=== PATIENT | female | born 1940 | race Caucasian/White ===

== ENCOUNTER → 2016-08-05 | Outpatient (CLI) | payer BC ==
[~2016-08-05] MED LIST: ACET-1256 PO; ALEN1TAB21 PO; ATEN100T PO; ATOR-54 PO; ATOR10TA88 PO; CALC600T37 PO; CHOL1TAB42 PO; CLR10 PO; COD1000C PO; CRAN1CAP15 PO; CTP/1 PO; FIBER CAPS PO; FIBER PO; FLUT0.15 NAE; GLC/500 PO; GLC500 PO; GLUC10007 PO; GLUCTAB7 PO; LACTCHW5 PO; LEVO25TA PO; LISI-725 PO; LISI-792 PO; MIRA100T PO; MULTTAB58 PO; NIFE30TA2 PO; TNR25 PO
== END | disposition home or self-care (01) ==
LOC: C.MAMM 09:44
PROVIDERS: ATTEND Internal Medicine
DX: M81.0 Age-related osteoporosis without current pathological fracture (principal); M85.80 Other specified disorders of bone density and structure, unspecified site; Z82.62 Family history of osteoporosis

== ENCOUNTER 2016-10-22 18:17 | Emergency (ER) | payer BC ==
[~2016-10-22] VITALS: Ht 175.3 cm; Wt 80.6 kg
[~2016-10-22 18:17] MED LIST changes: -ACET-1256 PO; -ALEN1TAB21 PO; -ATOR10TA88 PO; -CALC600T37 PO; -CHOL1TAB42 PO; -CLR10 PO; -CRAN1CAP15 PO; -FIBER CAPS PO; -FLUT0.15 NAE; -GLC500 PO; -GLUCTAB7 PO; -LEVO25TA PO; -LISI-725 PO; -TNR25 PO
[2016-10-22 18:21] VITALS: TEMP 36.5; Ht 175.3 cm; Wt 80.6 kg
[2016-10-22] MEDS ORDERED: FENTANYL CITRATE INJ 50 MCG/1 ML 2 ML VIAL IV STA (18:33)
[2016-10-22] MEDS ORDERED: KETOROLAC TROMETHAMINE 30 MG/ML VIAL IV STA (18:33)
[2016-10-22] MEDS ORDERED: SODIUM CHLORIDE 0.9% 1000ML 1,000 ML IV STA (18:33)
[2016-10-22] MEDS ORDERED: ONDANSETRON INJ 2 MG/ML 2 ML VIAL IV STA (18:33)
--- NOTE | 2016-10-22 18:45 | EMERGENCY ROOM VISIT NOTE ---
History Report prepared by Shira: Giovani Jean Baptiste Under the Supervision of: Dr. Fredis Xavier M.D. First contact with patient: 18:25 Chief Complaint: HEADACHE Stated Complaint: EXTREME LEFT ACHE, LEFT SIDE History of Present Illness The patient is a 76 year old female who presents to the Emergency Room with complaints of a worsening left sided headache that started 3 days ago. She rates her discomfort a 5/10. She took Tylenol for her headache which did not offer relief. The patient arrived home from a cruise one week ago. She states that she saw her primary care physician yesterday who thought the patient may be suffering from an excessive salt intake. She adds that she was prescribed a medication for hypertensions at this time. The patient denies urinary symptoms, chest pain, fevers, or any additional associated symptoms. She also denies excessive drinking during the cruise. Source of History: patient Onset: 3 days ago Position: head Symptom Intensity: 5/10 Timing: worsening Modifying Factors (Relieving): other (None) Associated Symptoms: No chest pain, No fevers, No urinary symptoms Review of Systems See HPI for pertinent positives & negatives. A total of 10 systems reviewed and were otherwise negative. Past Medical & Surgical Medical Problems: (1) Diab Nuria Wo Compl, Type Ii Or Unspec Type, Not Uncntrld (2) Heart disease (3) Hyperlipidemia Nec/Nos (4) Hypertension Nos Family History Diabetes mellitus Heart disease Hypertension Social History Smoking Status: Never Smoker Alcohol Use: none Housing Status: lives alone Occupation Status: retired Current/Historical Medications Scheduled Alendronate Sodium (Alendronate Sodium), 35 MG PO WK Atenolol (Atenolol), 25 MG PO DAILY Atorvastatin (Lipitor), 10 MG PO DAILY Calcium (Calcium), 600 MG PO DAILY Cholecalciferol (Vitamin D), 1 TAB PO DAILY Clonidine Hcl (Catapres), 0.1 MG PO BID Fiber Laxative (Fiber Laxative), 2 TABS PO DAILY Fluticasone Propionate (Nasal) (Flonase Allergy Relief), 1 SPRAY VAN BID Levothyroxine Sodium (Synthroid), 25 MCG PO DAILY Lisinopril (Zestril), 20 MG PO BID Metformin HCl (Metformin HCl), 500 MG PO BID Multiple Vitamin (Multivitamin), 1 TAB PO DAILY [Fiber Caps], 1 CAP PO TID Scheduled PRN Acetaminophen (Tylenol), 500 MG PO for prn Lactase (Lactaid), 1 TAB PO UD PRN for FOLLOWING MEALS Loratadine (Claritin), 10 MG PO DAILY PRN for ALLERGIC REACTION Allergies Coded Allergies: Morphine (Verified Allergy, Mild, RASH, ITCH, 05/04/14) Propoxyphene (Verified Allergy, Mild, RASH, 05/04/14) Dairy (Verified Allergy, Unknown, DIARRHEA, 05/04/14) PT HAS LACTOSE INTOLERANCE Sulfa Drugs (Verified Allergy, Unknown, RASH/ITCHING, 05/04/14) Uncoded Allergies: TOMATOES (Allergy, Unknown, diarrhea, 05/04/14) Physical Exam Vital Signs Date Time Temp Pulse Resp B/P Pulse Ox O2 Delivery O2 Flow Rate FiO2 10/22/16 21:29 77 18 135/66 96 Room Air 10/22/16 20:51 72 18 149/57 100 Room Air 10/22/16 20:15 75 18 162/71 98 Room Air 10/22/16 19:51 66 18 189/84 94 Room Air 10/22/16 19:48 67 18 195/92 96 Room Air 10/22/16 19:35 63 18 184/78 95 Room Air 10/22/16 19:21 60 18 190/103 97 Room Air 10/22/16 19:21 61 10/22/16 18:46 61 18 195/86 95 Room Air 10/22/16 18:21 36.5 62 18 188/45 97 Room Air Physical Exam GENERAL: Patient is well appearing and in mild distress. HEAD: No acute trauma, normocephalic atraumatic ENT: Mucous membranes moist, no nasal congestion. EYES: Equal/Reactive Bilaterally, No scleral icterus, Normal ROM NECK: No nuchal rigidity, no meningismus, trachea is midline, full ROM LUNGS: No dyspnea. Clear to auscultation and equal bilaterally. No wheeze, no rhonchi. HEART: Regular rate and rhythm. No murmurs, rubs, gallops appreciated. ABDOMEN: Soft, nontender, bowel sounds positive, no masses appreciated, no peritonitis. BACK: No midline tenderness, no CVA tenderness EXTREMITIES: Normal motion all extremities, no cyanosis, no edema. NEUROLOGIC: Awake, Alert, Oriented, no acute motor or sensory deficits, no focal weakness, cranial nerves grossly intact. SKIN: No rash, no jaundice, no diaphoresis. Medical Decision & Procedures ER Provider Diagnostic Interpretation: Radiology results and stated below per my review and radiologist interpretation: CT SCAN OF THE BRAIN WITHOUT IV CONTRAST CLINICAL HISTORY: Headache. COMPARISON STUDY: No priors. TECHNIQUE: Unenhanced axial CT scan of the brain is performed from the vertex to the skull base. CT DOSE: 537.48 mGy.cm FINDINGS: Brain parenchyma: There are age-related involutional changes noting minimal subcortical and periventricular microangiopathic change. There is no hemorrhage, mass effect, or evidence of acute territorial ischemia by CT criteria. Live-white matter is preserved. No extra-axial fluid collection is seen. Ventricles, sulci, cisterns: Prominent secondary to involutional change. Intracranial vasculature: There is atherosclerotic calcification of the cavernous carotid and vertebral arteries. Calvarium: Unremarkable. Sinuses and mastoids: Findings suggest previous paranasal sinus surgery. Mild mucosal thickening seen within the ethmoid cavities. The remaining visualized paranasal sinuses are clear. There is a large right mastoid effusion. The left mastoid air cells are well pneumatized. Orbits: The bony orbits are grossly intact. There are bilateral ocular lens implants. IMPRESSION: 1. There is no hemorrhage, mass effect, or evidence of acute territorial ischemia by CT criteria. 2. Right mastoid effusion. Electronically signed by: Jason Morrissey M.D. 10/22/2016 7:03 PM Dictated Date/Time: 10/22/2016 7:[address] ANGIOGRAM OF THE BRAIN CLINICAL HISTORY: Headache. COMPARISON STUDY: Unenhanced CT scan of the brain performed the same day 10/22/2016. TECHNIQUE: Following the IV administration of 110 cc of Optiray 320, CT angiogram of the brain was performed from the skull base to the vertex. Images are reviewed in the axial, sagittal, and coronal planes. 3-D MIPS images are created and assessed. IV contrast was administered without complication. CT DOSE: 127.48 mGy.cm FINDINGS: Brain parenchyma: There are age-related involutional changes noting minimal subcortical and periventricular microangiopathic disease. There is no evidence of hemorrhage, mass effect, or evidence of acute territorial ischemia by CT criteria. There is no evidence of enhancing mass lesion on the on these angiogram phase images. No extra-axial fluid collection is seen. Live-white matter differentiation is preserved. Ventricles, sulci, and cisterns: Normal in configuration. CT angiogram of the brain: There is mild atherosclerotic calcification of the cavernous carotid and vertebral arteries. The internal carotid arteries are widely patent, as are the anterior and middle cerebral arteries. The vertebrobasilar system and posterior cerebral arteries are widely patent. The left vertebral artery is dominant. There is no aneurysm, high-grade stenosis, or focal vessel cutoff identified throughout the intracranial circulation. Dural sinuses: Clear as visualized. Orbits: The bony orbits are intact. The orbital contents are normal as visualized. There are bilateral ocular lens implants. Sinuses and mastoids: Findings suggest previous paranasal sinus surgery. Trace mucosal thickening is noted within the ethmoid cavity. The remaining paranasal sinuses are clear. There is a large right mastoid effusion. The left mastoid air cells appear well-pneumatized. Calvarium: Unremarkable. IMPRESSION: 1. There is no evidence of hemorrhage, mass effect, or acute territorial ischemia by CT criteria. 2. Unremarkable CT angiogram of the brain. 3. Large right mastoid effusion. Electronically signed by: Jason Morrissey M.D. 10/22/2016 9:14 PM Dictated Date/Time: 10/22/2016 9:09 PM Laboratory Results 10/22/16 18:46 Red Blood Count 4.83, Mean Corpuscular Volume 87.4, Mean Corpuscular Hemoglobin 29.2, Mean Corpuscular Hemoglobin Concent 33.4, Mean Platelet Volume 11.0, Neutrophils (%) (Auto) 78.0, Lymphocytes (%) (Auto) 12.4, Monocytes (%) (Auto) 3.9, Eosinophils (%) (Auto) 5.3, Basophils (%) (Auto) 0.2, Neutrophils # (Auto) 8.52, Lymphocytes # (Auto) 1.36, Monocytes # (Auto) 0.43, Eosinophils # (Auto) 0.58, Basophils # (Auto) 0.02 10/22/16 18:46 Test 10/22/16 18:46 White Blood Count 10.93 K/uL (4.8-10.8) Red Blood Count 4.83 M/uL (4.2-5.4) Hemoglobin 14.1 g/dL (12.0-16.0) Hematocrit 42.2 % (37-47) Mean Corpuscular Volume 87.4 fL (80-100) Mean Corpuscular Hemoglobin 29.2 pg (25-34) Mean Corpuscular Hemoglobin Concent 33.4 g/dl (32-36) Platelet Count 244 K/uL (130-400) Mean Platelet Volume 11.0 fL (7.4-10.4) Neutrophils (%) (Auto) 78.0 % Lymphocytes (%) (Auto) 12.4 % Monocytes (%) (Auto) 3.9 % Eosinophils (%) (Auto) 5.3 % Basophils (%) (Auto) 0.2 % Neutrophils # (Auto) 8.52 K/uL (1.4-6.5) Lymphocytes # (Auto) 1.36 K/uL (1.2-3.4) Monocytes # (Auto) 0.43 K/uL (0.11-0.59) Eosinophils # (Auto) 0.58 K/uL (0-0.5) Basophils # (Auto) 0.02 K/uL (0-0.2) RDW Standard Deviation 42.2 fL (36.4-46.3) RDW Coefficient of Variation 13.2 % (11.5-14.5) Immature Granulocyte % (Auto) 0.2 % Immature Granulocyte # (Auto) 0.02 K/uL (0.00-0.02) Anion Gap 11.0 mmol/L (3-11) Est Creatinine Clear Calc Drug Dose 58.8 ml/min Estimated GFR () 68.8 Estimated GFR (Non- 59.3 BUN/Creatinine Ratio 26.2 (10-20) Calcium Level 9.7 mg/dl (8.5-10.1) Troponin I < 0.015 ng/ml (0-0.045) Laboratory results as reviewed by me. Medications Administered Medications (Trade) Dose Ordered Sig/Bright Route Start Time Stop Time Status Last Admin Dose Admin Ketorolac Tromethamine (Toradol Inj) 15 mg NOW STAT IV 10/22/16 18:33 10/22/16 18:35 DC 10/22/16 19:14 15 MG Ondansetron HCl (Zofran Inj) 4 mg NOW STAT IV 10/22/16 18:33 10/22/16 18:35 DC 10/22/16 19:14 4 MG Fentanyl Citrate 50 mcg 50 mcg NOW STAT IV 10/22/16 18:33 10/22/16 18:35 DC 10/22/16 19:15 50 MCG Sodium Chloride (Nss 1000ml) 1,000 ml @ 999 mls/hr Q1H1M STAT IV 10/22/16 18:33 10/22/16 19:33 DC 10/22/16 19:13 999 MLS/HR Hydralazine HCl (HydrALAZINE INJ) 10 mg NOW STAT IV. 10/22/16 19:07 10/22/16 19:08 DC 10/22/16 19:47 10 MG ED Course 1827: The patient was evaluated in room C11. A complete history and physical exam was performed. 1832: Ordered Sodium Chloride 1,000 ml @ 999 mls/hr IV, Fentanyl Injection 50 mcg IV, Zofran Injection 15 mg IV. 1906: Ordered Hydralazine HCL 10 mg IV. 2002: Upon reevaluation, the patient is feeling a little better. 2025: The patient's headache is better than when she came in to the ED but it has come back a little bit. She is agreeable with CT scan. 2125: Reevaluated the patient. She is feeling much better and would like to go home. She has no further headache. Her blood pressure is 136/70 at this time. Discussed results and discharge instructions: She verbalized understanding and agreement. The patient is ready for discharge. Medical Decision Differential: Headache, Migraine, Cluster Headache, Seizure, Meningitis, Sinusitis, CO exposure, ICH/SAH, Infectious, Tumor, Sinus Thrombosis, Arterial Dissection, amongst other pathologies entertained. 76 yr old female arrives with left sided headache ongoing last few days since getting done with a cruise. No acute findings on exam and no neuro deficits. Improved with above, then mildly returned before headache resolving. CTA head w w/o unremarkable other than right mastoid effusion. No right sided headache nor mastoid TTP nor findings on TM examination. Afebrile, WBC not significantly elevated and she is in no distress now. She does not have meningitis. No evidence of dissection and no neck pain. She is feeing better and BP much improved. Discussed follow up with PCP, ENT and if worsening RTED for further evaluation. Impression Primary Impression: Left-sided headache Additional Impressions: Mastoid Effusion, Right Hypertension Scribe Attestation The scribe's documentation has been prepared under my direction and personally reviewed by me in its entirety. I confirm that the note above accurately reflects all work, treatment, procedures, and medical decision making performed by me. Departure Information Dispostion Home / Self-Care Referrals RV. Richards MD (PCP) Forms HOME CARE DOCUMENTATION FORM, IMPORTANT VISIT INFORMATION Patient Instructions Headache Pain, My [facility] Health Problem Qualifiers Additional Impressions: Hypertension Hypertension type: essential hypertension Qualified Codes: I10 - Essential ( primary) hypertension
[2016-10-22 18:57] LABS: BASO % 0.2 %; BASO ABS # 0.02 K/uL (0-0.2); COMPLETE YES; EOS % 5.3 %; HEMATOCRIT 42.2 % (37-47); IG% 0.2 %; LYMPH % 12.4 %; LYMPH ABS # 1.36 K/uL (1.2-3.4); MEAN CELL VOLUME 87.4 fL (80-100); MEAN CORPUSCULAR HEMOGLOBIN 29.2 pg (25-34); MEAN CORPUSCULAR HGB CONC 33.4 g/dl (32-36); MONO % 3.9 %; PLATELET COUNT 244 K/uL (130-400); RED BLOOD COUNT 4.83 M/uL (4.2-5.4); WHITE BLOOD COUNT 10.93 K/uL (4.8-10.8)
[2016-10-22] MEDS ORDERED: TNR25 PO (18:57)
[2016-10-22] MEDS ORDERED: GLC500 PO (18:57)
[2016-10-22] MEDS ORDERED: GLUCTAB7 PO (18:57)
[2016-10-22] MEDS ORDERED: CALC600T37 PO (18:57)
[2016-10-22] MEDS ORDERED: LEVO25TA PO (18:57)
[2016-10-22] MEDS ORDERED: CHOL1TAB42 PO (18:57)
[2016-10-22] MEDS ORDERED: FIBER CAPS PO (18:57)
[2016-10-22] MEDS ORDERED: ALEN1TAB21 PO (18:57)
[2016-10-22] MEDS ORDERED: FLUT0.15 NAE (18:57)
[2016-10-22] MEDS ORDERED: LISI-725 PO (18:57)
[2016-10-22] MEDS ORDERED: CRAN1CAP15 PO (18:57)
[2016-10-22] MEDS ORDERED: CLR10 PO (18:57)
[2016-10-22] MEDS ORDERED: ATOR10TA88 PO (18:57)
--- NOTE | 2016-10-22 19:04 | DIAGNOSTIC IMAGING REPORT ---
CT SCAN OF THE BRAIN WITHOUT IV CONTRAST CLINICAL HISTORY: Headache. COMPARISON STUDY: No priors. TECHNIQUE: Unenhanced axial CT scan of the brain is performed from the vertex to the skull base. CT DOSE: 537.48 mGy.cm FINDINGS: Brain parenchyma: There are age-related involutional changes noting minimal subcortical and periventricular microangiopathic change. There is no hemorrhage, mass effect, or evidence of acute territorial ischemia by CT criteria. Live-white matter is preserved. No extra-axial fluid collection is seen. Ventricles, sulci, cisterns: Prominent secondary to involutional change. Intracranial vasculature: There is atherosclerotic calcification of the cavernous carotid and vertebral arteries. Calvarium: Unremarkable. Sinuses and mastoids: Findings suggest previous paranasal sinus surgery. Mild mucosal thickening seen within the ethmoid cavities. The remaining visualized paranasal sinuses are clear. There is a large right mastoid effusion. The left mastoid air cells are well pneumatized. Orbits: The bony orbits are grossly intact. There are bilateral ocular lens implants. IMPRESSION: 1. There is no hemorrhage, mass effect, or evidence of acute territorial ischemia by CT criteria. 2. Right mastoid effusion. Electronically signed by: Jason Morrissey M.D. 10/22/2016 7:03 PM Dictated Date/Time: 10/22/2016 7:00 PM
[2016-10-22] MEDS ORDERED: HydrALAZINE HCL 20 MG/ML VIAL IV. STA (19:07)
[2016-10-22] MEDS ORDERED: ACET-1256 PO (19:17)
[2016-10-22 19:27] LABS: BLOOD UREA NITROGEN 25 mg/dl (7-18); BUN/CREATININE RATIO 26.2 (10-20); CALCIUM 9.7 mg/dl (8.5-10.1); CARBON DIOXIDE 25 mmol/L (21-32); CHLORIDE 99 mmol/L (98-107); CREATININE 0.94 mg/dl (0.60-1.20); GLUCOSE 112 mg/dl (70-99); POTASSIUM 3.9 mmol/L (3.5-5.1); SODIUM 135 mmol/L (136-145)
[2016-10-22] MEDS ORDERED: OPTIRAY 320 IV PRN (20:45)
--- NOTE | 2016-10-22 21:15 | DIAGNOSTIC IMAGING REPORT ---
CT ANGIOGRAM OF THE BRAIN CLINICAL HISTORY: Headache. COMPARISON STUDY: Unenhanced CT scan of the brain performed the same day 10/22/2016. TECHNIQUE: Following the IV administration of 110 cc of Optiray 320, CT angiogram of the brain was performed from the skull base to the vertex. Images are reviewed in the axial, sagittal, and coronal planes. 3-D MIPS images are created and assessed. IV contrast was administered without complication. CT DOSE: 127.48 mGy.cm FINDINGS: Brain parenchyma: There are age-related involutional changes noting minimal subcortical and periventricular microangiopathic disease. There is no evidence of hemorrhage, mass effect, or evidence of acute territorial ischemia by CT criteria. There is no evidence of enhancing mass lesion on the on these angiogram phase images. No extra-axial fluid collection is seen. Live-white matter differentiation is preserved. Ventricles, sulci, and cisterns: Normal in configuration. CT angiogram of the brain: There is mild atherosclerotic calcification of the cavernous carotid and vertebral arteries. The internal carotid arteries are widely patent, as are the anterior and middle cerebral arteries. The vertebrobasilar system and posterior cerebral arteries are widely patent. The left vertebral artery is dominant. There is no aneurysm, high-grade stenosis, or focal vessel cutoff identified throughout the intracranial circulation. Dural sinuses: Clear as visualized. Orbits: The bony orbits are intact. The orbital contents are normal as visualized. There are bilateral ocular lens implants. Sinuses and mastoids: Findings suggest previous paranasal sinus surgery. Trace mucosal thickening is noted within the ethmoid cavity. The remaining paranasal sinuses are clear. There is a large right mastoid effusion. The left mastoid air cells appear well-pneumatized. Calvarium: Unremarkable. IMPRESSION: 1. There is no evidence of hemorrhage, mass effect, or acute territorial ischemia by CT criteria. 2. Unremarkable CT angiogram of the brain. 3. Large right mastoid effusion. Electronically signed by: Jason Morrissey M.D. 10/22/2016 9:14 PM Dictated Date/Time: 10/22/2016 9:09 PM
[2016-10-22 21:29] VITALS: BP 135/66; PULSE 77; O2SAT 96
== END 2016-10-22 21:48 | disposition home or self-care (01) ==
LOC: C.EDB 18:18 → C.EDC 21:48
DX: I10 Essential (primary) hypertension (principal); R51 Headache; H74.8X1 Other specified disorders of right middle ear and mastoid; E11.9 Type 2 diabetes mellitus without complications; E78.5 Hyperlipidemia, unspecified; E55.9 Vitamin D deficiency, unspecified; Z83.3 Family history of diabetes mellitus; Z82.49 Family history of ischemic heart disease and other diseases of the circulatory system; Z79.899 Other long term (current) drug therapy

== ENCOUNTER → 2016-10-22 | Outpatient (CLI) | payer BC ==
[2016-10-22 09:52] LABS: ALT/SGPT 17 U/L (12-78); AST/SGOT 12 U/L (15-37); BLOOD UREA NITROGEN 18 mg/dl (7-18); BUN/CREATININE RATIO 17.8 (10-20); CALCIUM 9.2 mg/dl (8.5-10.1); CARBON DIOXIDE 29 mmol/L (21-32); CHLORIDE 103 mmol/L (98-107); GLUCOSE 116 mg/dl (70-99); POTASSIUM 4.3 mmol/L (3.5-5.1); SODIUM 138 mmol/L (136-145)
[2016-10-22 10:03] LABS: ALB/GLOB RATIO 1.1 (0.9-2); ALKALINE PHOSPHATASE 80 U/L (45-117); CHOLESTEROL 140 mg/dl (0-200); CHOLESTEROL/HDL RATIO 2.3; HDL CHOLESTEROL 62 mg/dl; LDL CHOLESTEROL CALCULATED 53 mg/dl; TRIGLYCERIDES 125 mg/dl (0-150); VERY LOW DENSITY LIPOPROT CALC 25 mg/dl
[2016-10-22 10:20] LABS: RATIO 35.4 mcg/mg (0-30.0)
[2016-10-22 10:31] LABS: ESTIMATED AVERAGE GLUCOSE 123 mg/dl; HA1C FLAG Normal (Normal)
== END | disposition home or self-care (01) ==
LOC: C.LAB 08:21
PROVIDERS: ATTEND Internal Medicine
DX: E11.9 Type 2 diabetes mellitus without complications (principal); E55.9 Vitamin D deficiency, unspecified

== ENCOUNTER → 2017-01-08 | Outpatient (CLI) | payer BC ==
[~2017-01-08] MED LIST changes: +ACET-1256 PO; +ALEN1TAB21 PO; -ATEN100T PO; -ATOR-54 PO; +ATOR10TA82 PO; +CALC600T37 PO; +CHOL1TAB42 PO; +CLR10 PO; -COD1000C PO; +FIBER CAPS PO; +FLUT0.15 NAE; -GLC/500 PO; +GLC500 PO; -GLUC10007 PO; +LEVO25TA PO; +LISI-725 PO; -LISI-792 PO; -MIRA100T PO; -NIFE30TA2 PO; +TNR25 PO
--- NOTE | 2017-01-08 13:27 | MAMMOGRAPHY REPORT ---
BILATERAL DIGITAL SCREENING MAMMOGRAM WITH CAD: 01/08/2017 CLINICAL HISTORY: Routine screening. Patient has no complaints. TECHNIQUE: Bilateral CC and MLO views were obtained. Current study was also evaluated with a Compute r Aided Detection (CAD) system. COMPARISON: Comparison is made to exams dated: 01/03/2016 mammogram, 07/19/2015 mammogram, 12/09/2012 m ammogram, 12/05/2011 mammogram, 12/04/2010 mammogram, and 12/01/2009 mammogram - [facility] nter. BREAST COMPOSITION: There are scattered areas of fibroglandular density in both breasts. FINDINGS: There are stable ribbon shaped metallic biopsy markers in the right upper outer quadrant. Benign rim calcifications in the right breast. Mild vascular calcification bilaterally. No suspicio us mass, architectural distortion or cluster of new, suspicious microcalcifications is seen. IMPRESSION: ACR BI-RADS CATEGORY 1: NEGATIVE There is no mammographic evidence of malignancy. A 1 year screening mammogram is recommended. The pa tient will receive written notification of the results. Approximately 10% of breast cancers are not detected with mammography. A negative mammographic report should not delay biopsy if a clinically suggestive mass is present. Gabbi Slaughter M.D. ay/:01/08/2017 10:24:21 Soda Maker: Alaina MATHUR)([place]), [facility] letter sent: Normal 1/2 BI-RADS Code: ACR BI-RADS Category 1: Negative
== END | disposition home or self-care (01) ==
LOC: C.MAMM 09:42
PROVIDERS: ATTEND Internal Medicine
DX: Z12.31 Encounter for screening mammogram for malignant neoplasm of breast (principal)

== ENCOUNTER → 2017-03-28 | Outpatient (CLI) | payer BC ==
[~2017-03-28] MED LIST changes: -ATOR10TA82 PO; +ATOR10TA88 PO
[2017-03-28 10:06] LABS: ALT/SGPT 13 U/L (12-78); BLOOD UREA NITROGEN 19 mg/dl (7-18); BUN/CREATININE RATIO 20.9 (10-20); CALCIUM 9.3 mg/dl (8.5-10.1); CARBON DIOXIDE 29 mmol/L (21-32); CHLORIDE 105 mmol/L (98-107); CREATININE 0.89 mg/dl (0.60-1.20); GLUCOSE 107 mg/dl (70-99); POTASSIUM 4.1 mmol/L (3.5-5.1); SODIUM 140 mmol/L (136-145)
[2017-03-28 10:09] LABS: ALB/GLOB RATIO 1.1 (0.9-2); ALKALINE PHOSPHATASE 78 U/L (45-117); AST/SGOT 12 U/L (15-37)
[2017-03-28 10:17] LABS: ESTIMATED AVERAGE GLUCOSE 126 mg/dl; HA1C FLAG Normal (Normal)
[2017-03-28 10:21] LABS: RATIO 11.7 mcg/mg (0-30.0)
== END | disposition home or self-care (01) ==
LOC: C.LAB 08:26
PROVIDERS: ATTEND Internal Medicine
DX: E11.9 Type 2 diabetes mellitus without complications (principal); M81.0 Age-related osteoporosis without current pathological fracture

== ENCOUNTER → 2017-11-25 | Outpatient (CLI) | payer BC ==
[~2017-11-25] MED LIST changes: -ALEN1TAB21 PO; +ALEN35TA42 PO; +ATOR10TA82 PO; -ATOR10TA88 PO
[2017-11-25 10:12] LABS: HEMOGLOBIN A1C 5.8 % (4.5-5.6)
[2017-11-25 10:13] LABS: ALBUMIN 3.4 gm/dl (3.4-5.0); ALT/SGPT 14 U/L (12-78); AST/SGOT 13 U/L (15-37); BLOOD UREA NITROGEN 21 mg/dl (7-18); CARBON DIOXIDE 28 mmol/L (21-32); CREATININE 0.94 mg/dl (0.60-1.20); GLUCOSE 100 mg/dl (70-99); POTASSIUM 4.3 mmol/L (3.5-5.1); SODIUM 138 mmol/L (136-145)
[2017-11-25 10:24] LABS: ALKALINE PHOSPHATASE 76 U/L (45-117); CHOLESTEROL 181 mg/dl (0-200); LDL CHOLESTEROL CALCULATED 88 mg/dl
== END | disposition home or self-care (01) ==
LOC: C.LAB 07:54
PROVIDERS: ATTEND Internal Medicine
DX: E11.9 Type 2 diabetes mellitus without complications (principal); E55.9 Vitamin D deficiency, unspecified

== ENCOUNTER 2017-12-15 15:55 | Observation (INO) | payer BC ==
[~2017-12-15] VITALS: Ht 172.7 cm; Wt 76.2 kg
[2017-12-15] MEDS ORDERED: ASPIRIN 81 MG CHEW PO STA (16:20)
--- NOTE | 2017-12-15 16:41 | EMERGENCY ROOM VISIT NOTE ---
History Report prepared by Shira: Guerda Gresham Under the Supervision of: Dr. Jason Aguirre M.D. First contact with patient: 16:09 Chief Complaint: CARDIAC ASSESSMENT Stated Complaint: ABNORMAL EKG,REFERRED IN BY DOCTOR History of Present Illness The patient is a 77 year old female who presents to the Emergency Room with complaints of intermittent chest pain for the past few days. She states she was at her PCP's office earlier today for a follow up visit for urinary symptoms and they told her she had a left anterior fascicular block after doing an EKG, and to come to the ED. The patient states the pain is mostly left sided and feels like "pressure" and "indigestion". Rest helps to alleviate her pain. She believes the pain was caused by a medication Dr. oDran gave her for her urinary issues, but she cannot remember the name. She denies any previous cardiac history but admits to a strong family history of heart disease with her Mother and Grandmother dying in their 60's from cardiac issues. Her son in his 50's from cardiac issues as well. She reports she does follow with Dr. Stern of [facility] because of her family history, and last saw him last summer. She believes her last stress test was "chemical" and she last had one in 2010. The patient denies any shortness of breath, nausea or diaphoresis. She does admit to left sided shoulder pain. She denies taking any daily blood thinners. She is diabetic and states her last A1C was 5.7. Source of History: patient Onset: past few days Position: chest Quality: pressure Timing: intermittent Associated Symptoms: No diaphoresis, No SOB, No nausea Review of Systems See HPI for pertinent positives & negatives. A total of 10 systems reviewed and were otherwise negative. Past Medical & Surgical Medical Problems: (1) Diab Nuria Wo Compl, Type Ii Or Unspec Type, Not Uncntrld (2) Heart disease (3) Hyperlipidemia Nec/Nos (4) Hypertension Nos Family History Diabetes mellitus Heart disease Hypertension Social History Smoking Status: Never Smoker Alcohol Use: none Drug Use: none Marital Status: Housing Status: lives alone Occupation Status: retired Current/Historical Medications Scheduled Alendronate Sodium (Alendronate Sodium), 35 MG PO WK Atenolol (Atenolol), 25 MG PO DAILY Calcium (Calcium), 600 MG PO BID Capsicum (Cayenne) (Cayenne), 450 MG PO DAILY Cholecalciferol (Vitamin D), 5,000 UNITS PO DAILY Clonidine Hcl (Catapres), 0.1 MG PO BID Fiber Laxative (Fiber Laxative), 2 TABS PO DAILY Lactase (Lactaid Fast Act), 9,000 UNITS PO UD Levothyroxine Sodium (Synthroid), 25 MCG PO DAILY Lisinopril (Zestril), 20 MG PO BID Metformin HCl (Metformin HCl), 500 MG PO BID Pravastatin Sod (Pravastatin Sodium), 10 MG PO HS Solifenacin (Vesicare), 5 MG PO DAILY Tobramycin/Dexamethasone 0.3% Oph (Tobradex 0.3% Oph), 5 DROPS OTB BID Scheduled PRN Acetaminophen (Tylenol), 500 MG PO for prn Loratadine (Claritin), 10 MG PO DAILY PRN for ALLERGIC REACTION Allergies Coded Allergies: Morphine (Verified Allergy, Mild, RASH, ITCH, 05/04/14) Propoxyphene (Verified Allergy, Mild, RASH, 05/04/14) Dairy (Verified Allergy, Unknown, DIARRHEA, 05/04/14) PT HAS LACTOSE INTOLERANCE Sulfa Drugs (Verified Allergy, Unknown, RASH/ITCHING, 05/04/14) Uncoded Allergies: TOMATOES (Allergy, Unknown, diarrhea, 05/04/14) Physical Exam Vital Signs Date Time Temp Pulse Resp B/P (MAP) Pulse Ox O2 Delivery O2 Flow Rate FiO2 12/15/17 17:21 65 12/15/17 17:17 64 22 179/104 97 Room Air 12/15/17 16:47 96 Room Air 12/15/17 16:47 96 Room Air 12/15/17 15:59 36.8 81 20 173/138 97 Room Air Physical Exam GENERAL: Patient is in no acute distress. HEENT: No acute trauma, normocephalic atraumatic, mucous membranes moist, no nasal congestion, no scleral icterus. NECK: No stridor, no adenopathy, no meningismus, trachea is midline. LUNGS: Clear to auscultation bilaterally, no wheeze, no rhonchi, breath sounds equal. HEART: Without murmurs gallops or rubs, regular rate and rhythm. ABDOMEN: Soft, nontender, bowel sounds positive, no hernias, no peritonitis. EXTREMITIES: No cyanosis or edema, full range of motion of all the joints without pain or difficulty, no signs for acute trauma. NEUROLOGIC: Oriented x 3, no acute motor or sensory deficits, no focal weakness. SKIN: No rash, no jaundice, no diaphoresis. Medical Decision & Procedures ER Provider Diagnostic Interpretation: Radiology results as stated below per my review and radiologist interpretation: CHEST ONE VIEW PORTABLE CLINICAL HISTORY: Chest pain. COMPARISON STUDY: Chest radiograph May 04, 2014. FINDINGS: Lung volumes are normal. No pneumothorax is noted. There is no evidence for pulmonary edema. No pneumonia is present. Cardiomediastinal silhouette is stable. There is a trace left pleural effusion. There is also a suspected trace right pleural effusion. IMPRESSION: Trace bilateral pleural effusions. Electronically signed by: Rajeev Beth M.D. 12/15/2017 4:45 PM Laboratory Results 12/15/17 16:45 12/15/17 16:45 Test 12/15/17 16:45 Red Blood Count 4.92 M/uL (4.2-5.4) Mean Corpuscular Volume 88.0 fL (80-100) Mean Corpuscular Hemoglobin 29.7 pg (25-34) Mean Corpuscular Hemoglobin Concent 33.7 g/dl (32-36) RDW Standard Deviation 41.1 fL (36.4-46.3) RDW Coefficient of Variation 12.9 % (11.5-14.5) Mean Platelet Volume 10.2 fL (7.4-10.4) Prothrombin Time 10.0 SECONDS (9.0-12.0) Prothromb Time International Ratio 1.0 (0.9-1.1) Activated Partial Thromboplast Time 25.8 SECONDS (21.0-31.0) Partial Thromboplastin Ratio 1.0 Anion Gap 7.0 mmol/L (3-11) Estimated GFR () 62.6 Estimated GFR (Non- 54.0 BUN/Creatinine Ratio 21.5 (10-20) Calcium Level 9.2 mg/dl (8.5-10.1) Total Bilirubin 0.2 mg/dl (0.2-1) Aspartate Amino Transf (AST/SGOT) 14 U/L (15-37) Alanine Aminotransferase (ALT/SGPT) 17 U/L (12-78) Alkaline Phosphatase 84 U/L (45-117) Troponin I < 0.015 ng/ml (0-0.045) Total Protein 7.1 gm/dl (6.4-8.2) Albumin 3.8 gm/dl (3.4-5.0) Globulin 3.3 gm/dl (2.5-4.0) Albumin/Globulin Ratio 1.2 (0.9-2) Laboratory results reviewed by me. Medications Administered Medications (Trade) Dose Ordered Sig/Bright Route Start Time Stop Time Status Last Admin Dose Admin Aspirin (Aspirin Chew) 324 mg NOW STAT PO 12/15/17 16:20 12/15/17 16:22 DC 12/15/17 16:20 324 MG ECG Per My Interpretation Indication: chest pain Rate (beats per minute): 74 Rhythm: normal sinus Findings: no ectopy, other (No ST elevation, evidence for LVH, no PVC) Change: no significant change (Unchanged from EKG on October 22, 2016) ED Course 1613: The patient was evaluated in room B12B. A complete history and physical exam was performed. 1620: Aspirin 324 mg PO. 1623: I discussed the patients case Dr. Stern, [facility]. The patient will be further evaluated. 1725: I spoke with Dr. Stern again. He agrees the patient should stay for a hospital evaluation. 1732: I discussed the patients case with Dr. Smith, [facility] Hospitalist. The patient will be further evaluated. 1736: I reevaluated the patient. She is resting comfortably. I discussed my recommendation she remain in the hospital for further evaluation and management and she is agreeable. Medical Decision The differential diagnoses considered include angina, [place], musculoskeletal pain, anxiety, pneumonia, pneumothorax and PE. There is no leukocytosis or concerning anemia. No significant electrolyte abnormality, kidney failure or hepatitis. There is no coagulopathy. Chest x- ray does not show pneumonia, pneumothorax or mediastinal widening. EKG shows a normal sinus rhythm with LVH. No acute ischemic change. No change in the EKG compared to previous EKGs. Cardiac enzyme testing 1 is not consistent with acute cardiac injury. Patient received oral aspirin. She is currently pain-free. She is resting comfortably. I did speak with cardiology. I spoke with the on-call hospitalist. Case management has been involved. Patient is aware of all her findings. The cause for her discomfort is unclear, further cardiac workup is needed. Medication Reconcilliation Current Medication List: was personally reviewed by me Blood Pressure Screening Patient's blood pressure: Elevated blood pressure Blood pressure disposition: Referred to PCP (The patients elevated blood pressure will be further managed by the inpatient hospital medicine team) Consults Time Called: 1620 Consulting Physician: Dr. Stern, [facility] Returned Call: 1623 I discussed the patients case Dr. Stern [facility]. The patient will be further evaluated. Additional Consults: Time Called: 1730 Consulted Physician: Dr. Smith [facility] Hospitalist Returned Call: 1732 Additional Comments: I discussed the patients case with Dr. Smith [facility] Hospitalist. The patient will be further evaluated. Impression Primary Impression: Precordial chest pain Scribe Attestation The scribe's documentation has been prepared under my direction and personally reviewed by me in its entirety. I confirm that the note above accurately reflects all work, treatment, procedures, and medical decision making performed by me. Departure Information Dispostion Being Evaluated By Hospitalist Referrals RV. Richards MD (PCP) Patient Instructions My [facility]
--- NOTE | 2017-12-15 16:47 | DIAGNOSTIC IMAGING REPORT ---
CHEST ONE VIEW PORTABLE CLINICAL HISTORY: Chest pain. COMPARISON STUDY: Chest radiograph May 04, 2014. FINDINGS: Lung volumes are normal. No pneumothorax is noted. There is no evidence for pulmonary edema. No pneumonia is present. Cardiomediastinal silhouette is stable. There is a trace left pleural effusion. There is also a suspected trace right pleural effusion. IMPRESSION: Trace bilateral pleural effusions. Electronically signed by: Rajeev Beth M.D. 12/15/2017 4:45 PM Dictated Date/Time: 12/15/2017 4:44 PM
[2017-12-15 16:54] LABS: HEMATOCRIT 43.3 % (37-47); HEMOGLOBIN 14.6 g/dL (12.0-16.0); MEAN CORPUSCULAR HEMOGLOBIN 29.7 pg (25-34); MEAN CORPUSCULAR HGB CONC 33.7 g/dl (32-36); MEAN PLATELET VOLUME 10.2 fL (7.4-10.4); PLATELET COUNT 251 K/uL (130-400); RED CELL DISTRIBUTION WIDTH CV 12.9 % (11.5-14.5); RED CELL DISTRIBUTION WIDTH SD 41.1 fL (36.4-46.3); WHITE BLOOD COUNT 8.73 K/uL (4.8-10.8)
[2017-12-15 17:06] LABS: PTT PATIENT 25.8 SECONDS (21.0-31.0)
[2017-12-15] MEDS ORDERED: [UNRECOGNIZED DRUG - CODE] PO (17:17)
[2017-12-15 17:19] LABS: ALBUMIN 3.8 gm/dl (3.4-5.0); ALKALINE PHOSPHATASE 84 U/L (45-117); ALT/SGPT 17 U/L (12-78); AST/SGOT 14 U/L (15-37); BLOOD UREA NITROGEN 22 mg/dl (7-18); CALCIUM 9.2 mg/dl (8.5-10.1); CARBON DIOXIDE 27 mmol/L (21-32); CREATININE 1.01 mg/dl (0.60-1.20); GLUCOSE 105 mg/dl (70-99); POTASSIUM 3.7 mmol/L (3.5-5.1); SODIUM 138 mmol/L (136-145); TOTAL PROTEIN 7.1 gm/dl (6.4-8.2)
[2017-12-15] MEDS ORDERED: PRVC/10 PO (17:20)
[2017-12-15] MEDS ORDERED: VSC/5 PO (17:22)
[2017-12-15] MEDS ORDERED: TOBRSUS OTB (17:30)
[2017-12-15] MEDS ORDERED: [UNRECOGNIZED DRUG - CODE] PO (17:35)
[2017-12-15] MEDS ORDERED: GLUCAGON FOR INJ 1 MG VIAL SQ PRN (17:45)
[2017-12-15] MEDS ORDERED: GLUCOSE 40% GEL 15 GM TUBE PO PRN (17:45)
[2017-12-15] MEDS ORDERED: ONDANSETRON INJ 2 MG/ML 2 ML VIAL IV PRN (17:45)
[2017-12-15] MEDS ORDERED: CARBOHYDRATES FOR HYPOGLYCEMIA PO PRN (17:45)
[2017-12-15] MEDS ORDERED: ACETAMINOPHEN 500 MG TAB PO PRN (17:45)
[2017-12-15] MEDS ORDERED: DC ALL PREVIOUSLY ORDERED DIABETES MEDS ONE (17:45)
[2017-12-15] MEDS ORDERED: DEXTROSE 50% 50 ML SYR IV PRN (17:45)
[2017-12-15] MEDS ORDERED: GLUCOSE 10 TABS/TUBE PO PRN (17:45)
[2017-12-15] MEDS ORDERED: LORATADINE 10 MG TAB PO PRN (17:45)
[2017-12-15] MEDS ORDERED: NITROGLYCERIN 0.4 MG SL PER TAB CHARGE SL PRN (17:45)
--- NOTE | 2017-12-15 18:19 | History and Physical ---
History & Physical Date & Time of Service: December 15, 2017 at 18:04 Chief Complaint: Abnormal Ekg,Referred In By Doctor Primary Care Physician: RV. Richards MD History of Present Illness Patient is a pleasant 77yo female with history of HTN, HLP and DM, family history of CAD presenting with 2 days of exertional chest pain, left sided pressure that occurs with ambulation and is relieved with rest in approximately 1 minute. Discomfort is nonradiating/nonpleuritic/nonpositional. It is not associated with diaphoresis/nausea/vomiting/palpitations or syncope. Patient reports decreased exercise tolerance over the last few months as well. Denies edema/SOB/orthopnea. She saw her PCP today for the same and was told to come to [facility]. Patient is presently CP free. ER Course: ASA 324mg, Cardiology consultation Past Medical/Surgical History Medical Problems: 1. Hypertension 2. Hyperlipidemia 3. Diabetes 4. Hypothyroidism Past Surgical History: Left and right hip arthroplasty with revision of left Low back Hammertoe Right knee Rotator cuff Cataract Family History Diabetes mellitus Heart disease Hypertension Social History Smoking Status: Never Smoker Alcohol Use: socially Drug Use: none Marital Status: Housing status: lives alone Occupational Status: retired Immunizations History of Influenza Vaccine: Yes Influenza Vaccine Date: May 22, 2012 History of Tetanus Vaccine?: Unknown Tetanus Immunization Date: May 05, 1998 History of Pneumococcal: No Pneumococcal Date: Jul 05, 2006 History of Hepatitis B Vaccine: Unknown Allergies Coded Allergies: Morphine (Verified Allergy, Mild, RASH, ITCH, 05/04/14) Propoxyphene (Verified Allergy, Mild, RASH, 05/04/14) Dairy (Verified Allergy, Unknown, DIARRHEA, 05/04/14) PT HAS LACTOSE INTOLERANCE Sulfa Drugs (Verified Allergy, Unknown, RASH/ITCHING, 05/04/14) Uncoded Allergies: TOMATOES (Allergy, Unknown, diarrhea, 05/04/14) Home Medications Scheduled Alendronate Sodium (Alendronate Sodium), 35 MG PO WK Atenolol (Atenolol), 25 MG PO DAILY Calcium (Calcium), 600 MG PO BID Capsicum (Cayenne) (Cayenne), 450 MG PO DAILY Cholecalciferol (Vitamin D), 5,000 UNITS PO DAILY Clonidine Hcl (Catapres), 0.1 MG PO BID Fiber Laxative (Fiber Laxative), 2 TABS PO DAILY Lactase (Lactaid Fast Act), 9,000 UNITS PO UD Levothyroxine Sodium (Synthroid), 25 MCG PO DAILY Lisinopril (Zestril), 20 MG PO BID Metformin HCl (Metformin HCl), 500 MG PO BID Pravastatin Sod (Pravastatin Sodium), 10 MG PO HS Solifenacin (Vesicare), 5 MG PO DAILY Tobramycin/Dexamethasone 0.3% Oph (Tobradex 0.3% Oph), 5 DROPS OTB BID Scheduled PRN Acetaminophen (Tylenol), 500 MG PO for prn Loratadine (Claritin), 10 MG PO DAILY PRN for ALLERGIC REACTION Review of Systems Constitutional: No fever, No chills, No weight loss Eyes: No worsening of vision, No diplopia ENT: No hearing loss, No sore throat, No trouble swallowing Respiratory: + shortness of breath, + dyspnea on exertion, No cough, No sputum , No wheezing Cardiovascular: + chest pain, No orthopnea, No edema, No palpitations Abdomen: No pain, No nausea, No vomiting, No diarrhea, No constipation Musculoskeletal: No joint pain Genitourinary - Female: + urinary frequency, + urinary urgency, No dysuria Neurologic: No weakness Endocrine: No fatigue Hematologic / Lymphatic: No abnormal bleeding/bruising, No clotting problems Integumentary: No rash, No itch Physical Exam Vital Signs Date Time Temp Pulse Resp B/P (MAP) Pulse Ox O2 Delivery O2 Flow Rate FiO2 12/15/17 17:21 65 12/15/17 17:17 64 22 179/104 97 Room Air 12/15/17 16:47 96 Room Air 12/15/17 16:47 96 Room Air 12/15/17 15:59 36.8 81 20 173/138 97 Room Air General Appearance: WD/WN, no apparent distress Head: normocephalic, atraumatic Eyes: normal inspection, PERRL, EOMI, sclerae normal ENT: normal ENT inspection, pharynx normal Neck: supple, no adenopathy, thyroid normal, no JVD, no carotid bruits, trachea midline Respiratory/Chest: chest non-tender, lungs clear, normal breath sounds, no respiratory distress, no accessory muscle use Cardiovascular: regular rate, rhythm, no edema, no gallop, no JVD, no murmur, normal peripheral pulses Abdomen/GI: normal bowel sounds, non tender, soft, no organomegaly Back: normal inspection Extremities/Musculoskelatal: normal inspection, no calf tenderness, normal capillary refill, no pedal edema Neurologic/Psych: normal mood/affect Skin: normal color, warm/dry, no rash Diagnostics Laboratory Results Results Past 24 Hours Test 12/15/17 16:45 Range/Units White Blood Count 8.73 4.8-10.8 K/uL Red Blood Count 4.92 4.2-5.4 M/uL Hemoglobin 14.6 12.0-16.0 g/dL Hematocrit 43.3 37-47 % Mean Corpuscular Volume 88.0 80-100 fL Mean Corpuscular Hemoglobin 29.7 25-34 pg Mean Corpuscular Hemoglobin Concent 33.7 32-36 g/dl RDW Standard Deviation 41.1 36.4-46.3 fL RDW Coefficient of Variation 12.9 11.5-14.5 % Platelet Count 251 130-400 K/uL Mean Platelet Volume 10.2 7.4-10.4 fL Prothrombin Time 10.0 9.0-12.0 SECONDS Prothromb Time International Ratio 1.0 0.9-1.1 Activated Partial Thromboplast Time 25.8 21.0-31.0 SECONDS Partial Thromboplastin Ratio 1.0 Sodium Level 138 136-145 mmol/L Potassium Level 3.7 3.5-5.1 mmol/L Chloride Level 104 98-107 mmol/L Carbon Dioxide Level 27 21-32 mmol/L Anion Gap 7.0 3-11 mmol/L Blood Urea Nitrogen 22 7-18 mg/dl Creatinine 1.01 0.60-1.20 mg/dl Estimated GFR () 62.6 Estimated GFR (Non- 54.0 BUN/Creatinine Ratio 21.5 10-20 Random Glucose 105 70-99 mg/dl Calcium Level 9.2 8.5-10.1 mg/dl Total Bilirubin 0.2 0.2-1 mg/dl Aspartate Amino Transf (AST/SGOT) 14 15-37 U/L Alanine Aminotransferase (ALT/SGPT) 17 12-78 U/L Alkaline Phosphatase 84 45-117 U/L Troponin I < 0.015 0-0.045 ng/ml Total Protein 7.1 6.4-8.2 gm/dl Albumin 3.8 3.4-5.0 gm/dl Globulin 3.3 2.5-4.0 gm/dl Albumin/Globulin Ratio 1.2 0.9-2 Diagnostic Radiology CHEST ONE VIEW PORTABLE CLINICAL HISTORY: Chest pain. COMPARISON STUDY: Chest radiograph May 04, 2014. FINDINGS: Lung volumes are normal. No pneumothorax is noted. There is no evidence for pulmonary edema. No pneumonia is present. Cardiomediastinal silhouette is stable. There is a trace left pleural effusion. There is also a suspected trace right pleural effusion. IMPRESSION: Trace bilateral pleural effusions. EKG The study demonstrates NSR at 74bpm, normal access and intervals, ?LVH. No acute evidence of ischemia Impression Assessment and Plan 77yo female with history of HTN, HLP, DM, strong family history of heart disease presenting with anginal symptoms x 2 days. 1. Chest pain - exertional, relieved with rest. Troponin x 1 negative, EKG with no acute evidence of ischemia. Patient is hemodynamically stable and CP free. -Cardiology consult with Dr. Stern - patient is known to him. Appreciate assistance with this case -Trend cardiac enzymes x 3 sets -Telemetry monitoring -Continue ASA -Continue Statin -Will hold Atenolol for now in preparation for stress test in AM -Continue Lisinopril -Dobutamine stress test in AM -NPO after midnight 2. Diabetes -well controlled with Metformin 500mg po BID. Last A1C=5.7 -Hold Metformin while inpatient -ISS for coverage 3. Hypertension -patient presently hypertensive, appears anxious and scared -Continue Lisinopril 20mg po daily -Hold Atenolol as above -Continue Clonidine 0.1mg po BID 4. Hypothyroidism -stable -Continue Synthroid 5. Hyperlipidemia - stable -Continue Pravastatin 6. Urinary urgency - patient presently taking Vesicare. She does not like how it makes her feel -Hold Vesicare for now 7. F/E/N - Heplock. Monitor electrolytes and replete as needed. AHA diet as tolerated. NPO after midnight for stress test in AM 8. Code - Full per discussion with patient 9. Dispo - Observation with telemetry, Cardiology consultation Resuscitation Status Full VTE Prophylaxis Will order VTE Prophylaxis: Yes
[2017-12-15] MEDS: CLONIDINE HCL 0.1 MG TAB PO SCH (19:45)
[2017-12-15] MEDS: LISINOPRIL 20 MG TAB PO SCH (19:46)
[2017-12-15 19:50] VITALS: BP_SYST 197; BP_SYST 202; BP_DIAS 84; BP_DIAS 96; PULSE 63; TEMP 36.6; O2SAT 96; Ht 172.7 cm; Wt 76.2 kg
[2017-12-15 20:00] VITALS: O2SAT 96
[2017-12-15] MEDS ORDERED: ENOXAPARIN 40 MG/0.4 ML SYR SC SCH (20:00)
--- NOTE | 2017-12-15 20:06 | CARDIOLOGY CONSULTATION ---
DATE OF CONSULTATION: 12/15/2017 REASON FOR CONSULTATION: Chest pain. CONSULTATION REQUESTED BY: Jason Aguirre MD. HISTORY OF PRESENT ILLNESS: Ms. Reid is a very pleasant 77-year-old woman known to me from the outpatient setting with a history of hypertensive heart disease, dyslipidemia; type 2 diabetes, on oral therapy, and significant family history of coronary artery disease, who presented to the ED today from her primary care provider's office in the setting of chest tightness. The patient had been in her usual state until this weekend. She states she was started on a new medication by her urologist and has felt unwell over the weekend with intermittent chest squeezing. Denied any significant shortness of breath. Pain nonradiating and has not had similar pain like this in the past. This morning, pain became more severe, and as a result, went to see her primary care physician. There, had an EKG which showed LVH and left anterior fascicular block, which was at that time thought to be new. The patient was noted to have active chest pain, but due to concerns, was sent to the Emergency Department. In the ED, EKG again showed LVH with left anterior fascicular block, which has been noted on previous EKGs. Initial troponin was negative. She was chest pain free at the time of interview. PAST MEDICAL HISTORY: 1. Hypertensive heart disease. 2. Dyslipidemia. 3. Type 2 diabetes. 4. GERD. 5. Osteoarthritis, status post multiple joint replacements. 6. Urinary incontinence. PAST SURGICAL HISTORY: History of bilateral hip replacement, right knee replacement, prior cataract surgery, and rotator cuff repair. FAMILY HISTORY: Son from [place] in his 40s, also mother of an [place] later in life. SOCIAL HISTORY: She is retired, is a lifelong nonsmoker. Denies significant alcohol use. Lives alone. REVIEW OF SYSTEMS: 10 point review of systems complete and otherwise negative unless stated in HPI. PHYSICAL EXAMINATION: VITAL SIGNS: Temperature 36.8, pulse 64, blood pressure 139/104, she is saturating 97% on room air. GENERAL: The patient appears comfortable, in no acute distress. HEENT: Sclerae are intact. Oropharynx is clear. NECK: Supple, with no lymphadenopathy. RESPIRATORY: Her lungs are clear to auscultation bilaterally. CARDIAC: She has a regular rate and rhythm, with no appreciable murmurs. GASTROINTESTINAL: Her abdomen is soft, nontender, with positive bowel sounds. EXTREMITIES: Warm. She has no significant lower extremity edema. She has diminished DP and PT pulses bilaterally but had 2+ radial pulses. SKIN: Showed no rashes or lesions. NEUROLOGIC: Nonfocal. LABORATORY DATA: Sodium 138, potassium 3.7, BUN 22, creatinine 1.0. LFTs within normal limits. Initial troponin was negative. Hemoglobin of 14.6, white blood cell count was 8.7, platelets of 251. IMAGING: Chest x-ray showed trace bilateral pleural effusions but no other acute cardiopulmonary process. EKG showed sinus rhythm with LVH and left anterior fascicular block. There were no dynamic ST changes. IMPRESSION: 1. Chest pain. 2. Hypertensive heart disease. 3. Dyslipidemia. 4. Type 2 diabetes, on oral therapy. 5. Gastroesophageal reflux disease. PLAN AND RECOMMENDATIONS: Mrs. Reid is here with intermittent chest squeezing over the last 2-3 days. Her initial cardiac workup is reassuring and had no significant EKG changes or elevation in cardiac enzymes. However, in the setting of the patient's risk factors, I feel that likelihood of potential ACS is at least elevated, and further risk stratification is warranted. In that setting, recommend admission for observation, trend troponins overnight. Continue home antihypertensives and titrate as needed. Will plan to obtain a dobutamine stress echocardiogram in the a.m. If stress test unremarkable, can be discharged home with reassurance and follow up with cardiology as an outpatient. Please contact with any questions.
[2017-12-15] MEDS: TOBRAMYCIN/DEXAMETHASONE OPH SUSP 2.5 ML BTL OTB SCH (20:26)
[2017-12-15] MEDS: INSULIN ASPART 100 UNITS/ML 3 ML PEN SC SCH (20:26)
[2017-12-15] MEDS ORDERED: PRAVASTATIN SOD 10 MG TAB PO SCH (21:00)
[2017-12-15] MEDS ORDERED: IV FLUIDS COMPLETED PRN (21:00)
[2017-12-15 21:40] VITALS: BP 130/60; PULSE 66
[2017-12-16] VITALS (8 sets, daily range): BP systolic 122–214; BP diastolic 66–93; PULSE 58–73; TEMP 36.4–37.1; O2SAT 94–96
[2017-12-16] MEDS ORDERED: LEVOTHYROXINE 25 MCG TAB PO SCH (06:00)
[2017-12-16] MEDS: LISINOPRIL 20 MG TAB PO SCH (07:50)
[2017-12-16] MEDS: CLONIDINE HCL 0.1 MG TAB PO SCH (07:51)
[2017-12-16] MEDS: TOBRAMYCIN/DEXAMETHASONE OPH SUSP 2.5 ML BTL OTB SCH (07:53)
[2017-12-16] MEDS: INSULIN ASPART 100 UNITS/ML 3 ML PEN SC SCH ×3 (07:57→17:34)
[2017-12-16] MEDS ORDERED: HydrALAZINE HCL 20 MG/ML VIAL IV. PRN ×2 (08:45→09:00)
[2017-12-16] MEDS ORDERED: ASPIRIN 81 MG ECTAB PO SCH (09:00)
[2017-12-16] MEDS ORDERED: ATROPINE SULFATE 0.1 MG/ML 10 ML SYR ONE (09:44)
[2017-12-16] MEDS ORDERED: METOPROLOL TARTRATE 1 MG/ML VIAL ONE ×2 (09:44)
[2017-12-16] MEDS ORDERED: DOBUTamine HCL 12.5 MG/ML 20 ML VIAL ONE (09:44)
[2017-12-16] MEDS ORDERED: PERFLUTREN LIPID MICROSPHERE (DEFINITY) IV ONE (10:23)
--- NOTE | 2017-12-16 15:30 | Discharge Instructions ---
Discharge Instructions Date of Service December 16, 2017. Admission Reason for Admission: Chest Pain Discharge Discharge Diagnosis / Problem: Chest pain Discharge Goals Goal(s): Decrease discomfort, Improve function, Increase independence, Improve disease control, Learn about illness, Diagnostic testing, Therapeutic intervention, Prevent Disease Progression Activity Recommendations Activity Limitations: resume your previous activity . Instructions / Follow-Up Instructions / Follow-Up You were admitted to [facility] due to complaints of chest pain. An acute cardiac event was ruled out through cardiac monitoring, cardiac enzymes, EKG, and stress echocardiogram. The cause of the symptoms you experienced are unknown at this time, but resolved while hospitalized. Please follow-up with your PCP for further workup/treatment of your symptoms. Resume all regular home medications as prescribed Activation of Emergency Medical System: Call 911, immediately, if you experience any of the following: Warning Signs and Symptoms of a Heart Attack: * Chest pain that is not relieved by medication * Shortness of breath Otherwise, call your doctor immediately if you have: * Lightheadedness, dizziness, or fainting * Feeling of irregular heartbeat or fast pulse Home Care: * If you are having chest pain, call 911 for an ambulance. Do NOT drive yourself to the hospital. * Ask your family members to learn CPR. * Learn to take your own blood pressure and pulse. Keep a record of your results. Ask your doctor when you should seek emergency medical attention. He or she will tell you which blood pressure reading is dangerous. Lifestyle Changes: * Maintain a healthy weight. Get help to lose any extra pounds. * Cut back on salt. 1. Limit canned, dried, packaged, and fast foods. 2. Don't add salt to your food. 3. Season foods with herbs instead of salt when you cook. * Break the smoking habit. Enroll in a stop-smoking program to improve your chances of success. * Limit fatty foods. * Check your lipid levels regularly. (Your doctor can show you how to do this. ) * Build up your activity according to your doctor's recommendation. * Ask your doctor when it's okay to resume sexual activity. * Try to manage stress. FOLLOW-UPS: Please follow-up with your PCP within 5-7 days Please follow-up with Cardiology as instructed by Dr. Stern Please follow-up/keep all of your subspecialty appointments Current Hospital Diet Patient's current hospital diet: Diabetes Type 2 Diet, AHA Diet (Heart Healthy) , Low Lactose Diet Discharge Diet Recommended Diet: AHA Diet (Heart Healthy), Diabetes Type 2 Diet Pending Studies Studies pending at discharge: no Laboratory Results Hemoglobin A1c Test 11/25/17 08:03 Range/Units Estimated Average Glucose 120 mg/dl Hemoglobin A1c 5.8 H 4.5-5.6 % Lipid Panel Test 11/25/17 08:03 Range/Units Triglycerides Level 157 H 0-150 mg/dl Cholesterol Level 181 0-200 mg/dl HDL Cholesterol 62 mg/dl Cholesterol/HDL Ratio 2.9 LDL Cholesterol, Calculated 88 mg/dl Medical Emergencies . Who to Call and When: Medical Emergencies: If at any time you feel your situation is an emergency, please call 911 immediately. . Non-Emergent Contact Non-Emergency issues call your: Primary Care Provider, [employer] Tele[employer] Operator Call Non-Emergent contact if: your pain is not controlled, your pain is worsening, your pain is unusual for you, your pain is concerning you, you have any medication questions . . "Provider Documentation" section prepared by Cornelia Larose. .
--- NOTE | 2017-12-16 15:37 | Discharge Summary ---
Discharge Summary Date of Service December 16, 2017. Discharge Summary Admission Date: December 15, 2017 at 17:47 Discharge Date: December 16, 2017 Discharge Disposition: Home Principal Diagnosis: chest pain r/o Problems/Secondary Diagnoses: T2DM- hgbA1c 5.7% HTN Hypothyroidism HLD Urinary urgency Immunizations: Have You Had Influenza Vaccine: Yes Influenza Vaccine Date: May 22, 2012 History of Tetanus Vaccine?: Unknown Tetanus Immunization Date: May 05, 1998 History of Pneumococcal: No Pneumococcal Date: Jul 05, 2006 History of Hepatitis B Vaccine: Unknown Procedures: CHEST ONE VIEW PORTABLE CLINICAL HISTORY: Chest pain. COMPARISON STUDY: Chest radiograph May 04, 2014. FINDINGS: Lung volumes are normal. No pneumothorax is noted. There is no evidence for pulmonary edema. No pneumonia is present. Cardiomediastinal silhouette is stable. There is a trace left pleural effusion. There is also a suspected trace right pleural effusion. IMPRESSION: Trace bilateral pleural effusions. Electronically signed by: Rajeev Beth M.D. 12/15/2017 4:45 PM Dictated Date/Time: 12/15/2017 4:44 PM The status of this report is Signed. Draft = Not yet reviewed or approved by Radiologist. Signed = Reviewed and approved by Radiologist. Consultations: Cardiology- Dr. Stern Medication Reconciliation Continued Medications: Acetaminophen (Tylenol) 500 Mg Tab 500 MG PO PRN for prn, TAB Alendronate Sodium (Alendronate Sodium) 35 Mg Tab 35 MG PO WK, #4 EVERY FRIDAY Atenolol (Atenolol) 25 Mg Tab 25 MG PO DAILY Calcium (Calcium) 600 Mg Tab 600 MG PO BID Capsicum (Cayenne) (Cayenne) 450 Mg Cap 450 MG PO DAILY Cholecalciferol (Vitamin D) 5,000 Unit Tab 5000 UNITS PO DAILY Clonidine Hcl (Catapres) 0.1 Mg Tab 0.1 MG PO BID, TAB Fiber Laxative (Fiber Laxative) Ea 2 TABS PO DAILY Lactase (Lactaid Fast Act) 9,000 Unit Chw 9000 UNITS PO UD TAKE ONE FOLLOWING MEALS. Levothyroxine Sodium (Synthroid) 25 Mcg Tab 25 MCG PO DAILY, TAB Lisinopril (Zestril) 20 Mg Tab 20 MG PO BID, TAB Loratadine (Claritin) 10 Mg Tab 10 MG PO DAILY PRN for ALLERGIC REACTION, TAB Metformin HCl (Metformin HCl) 500 Mg Tab 500 MG PO BID Pravastatin Sod (Pravastatin Sodium) 10 Mg Tab 10 MG PO HS Solifenacin (Vesicare) 5 Mg Tab 5 MG PO DAILY, TAB Tobramycin/Dexamethasone 0.3% Oph (Tobradex 0.3% Oph) Susp 5 DROPS OTB BID Referrals At Discharge Follow up Referrals: Family Practice Referral - Within 1 Week with RV. Richards MD Discharge Exam Review of Systems: Constitutional: No fever, No chills, No sweats, No weakness, No fatigue Eyes: No worsening of vision ENT: No hearing loss Respiratory: No cough, No shortness of breath, No dyspnea on exertion, No hemoptysis Cardiovascular: No chest pain, No edema, No palpitations Abdomen: No pain, No nausea, No vomiting, No diarrhea, No constipation Musculoskeletal: No joint pain, No muscle pain, No swelling, No calf pain Genitourinary - Female: No dysuria, No hematuria Neurologic: No weakness, No numbness/tingling Psychiatric: No depression symptoms, No anxiety Endocrine: No fatigue Hematologic / Lymphatic: No abnormal bleeding/bruising Integumentary: No rash, No itch, No new/changing skin lesions Physical Exam: General Appearance: no apparent distress Eyes: normal inspection, PERRL ENT: hearing grossly normal Neck: supple Respiratory/Chest: lungs clear, no respiratory distress, no accessory muscle use Cardiovascular: regular rate, rhythm Abdomen / GI: normal bowel sounds, non tender, soft Extremities: no calf tenderness, no pedal edema Neurologic/Psychiatric: alert, normal mood/affect, oriented x 3 Skin: normal color, warm/dry, no rash Hospital Course 77 y/o female with history of HTN, HLP, DM, strong family history of heart disease presenting with anginal symptoms x 2 days. Chest pain- ACS r/o: - Admitted to [facility] for cardiac monitoring- no acute events - Trended cardiac enzymes- negative - ASA, statin, Lisinopril - Dobutamine stress test - Cardiology consulted T2DM- hgbA1c 5.7%: - Hold Metformin 500 mg BID- resume at discharge - BSG ACHS and ISS HTN: Continue Lisinopril 20 mg daily, Atenolol 25 mg daily, Clonidine 0.1 mg BID Hypothyroidism: Continue Synthroid HLD: Continue Pravastatin Urinary urgency: Continue Vesicare DVT prophylaxis: Lovenox SQ daily Code status: LEVEL I, FULL Dispo: Discharge to home Total Time Spent: Greater than 30 minutes This includes examination of the patient, discharge planning, medication reconciliation, and communication with other providers. Discharge Instructions Please refer to the electronic Patient Visit Report (Discharge Instructions) for additional information. Follow-Up Please follow-up with your PCP within 5-7 days Please follow-up with Cardiology as instructed by Dr. Stern Please follow-up/keep all of your subspecialty appointments Additional Copies To RV. Richards MD
--- NOTE | 2017-12-16 16:06 | DOBUTAMINE ECHO ---
*NOTICE TO RECEIVING [employer] This information is strictly Confidential and protected under [place] law. [place] law prohibits you from making any further disclosure of this information unless further disclosure is expressly permitted by the written consent of the person to whom it pertains or is authorized by law. A general authorization for the release of medical or other information is not sufficient for this purpose. Hospital accepts no responsibility if the information is made available to any other person, INCLUDING THE PATIENT. Interpretation Summary * Name: LALA WEINSTEIN Study Date: 12/16/2017 08:23 AM BP: 167/99 mmHg * Patient Location: .MSICU\S\E110\S\1 HR: 73 * : 1940 (M/d/yyyy) Gender: Female Height: 68 in * Age: 77 yrs Ethnicity: CA Weight: 170 lb * Ordering Physician: Sandy Smith * Referring Physician: RV. Maurice * Performed By: Sandy Morejon RDCS * * Reason For Study: CHEST PAIN * BSA: 1.9 m2 * -- Conclusions -- * 1. Negative dobutamine stress echo for ischemia at 92% MPHR. * 2. Negative dobutamine stress ECG for ischemia. * 3. Normal resting LV size and function. Mild concentric LVH with grade 1 diastolic dysfunction. Normal RV size and function. No significant valvular pathology. * 4. No prior studies for comparison. Procedure Details * DOBUTAMINE ECHO, CPT#59519 * A contrast injection of Definity was performed to improve assessment of LV function. * Contrast was injected into an intravenous site in the left arm. * One vial of Definity ultrasound contrast was diluted in normal saline to a total volume of 10 ml. A total of '7' ml of solution was administered during imaging. * Lot # [id number] of Definity utilized for procedure. * Expiration date NOV 13. * The attending nurse who injected the contrast agent was DENY JERNIGAN RN. Left Ventricular Findings with Stress * This was essentially a normal study. Left Ventricle * The left ventricle is grossly normal size. * There is mild concentric left ventricular hypertrophy. * Ejection Fraction = 60-65%. * Resting wall motion: Normal. Stress wall motion: Appropriate increase in Left ventricular systolic function and decrease in cavity size. No stress induced segmental wall motion abnormalities. Right Ventricle * The right ventricle is grossly normal size. * The right ventricular systolic function is normal as assessed by tricuspid annular plane systolic excursion (TAPSE) (normal >1.5 cm). Atria * Borderline left atrial enlargement. * Right atrial size is normal. Mitral Valve * The mitral valve is grossly normal. * There is no mitral valve stenosis. * Significant mitral regurgitation is absent. Aortic Valve * The aortic valve opens well. * Aortic valve sclerosis mild, without significant aortic valvular stenosis. * No hemodynamically significant valvular aortic stenosis. * There is no significant aortic regurgitation. Pulmonic Valve * The pulmonary valve is inadequately visualized, but the Doppler data is adequate for interpretation. * There is no significant pulmonary regurgitation. Great Vessels * The aortic root and proximal ascending aorta are normal sized. Stress Parameters * Normal baseline electrocardiogram. * Arrhythmia induced during stress: occasional PVC's. * Stress ECG: No ST changes. No arrhythmias. * Rest heart rate was '73' BPM. * Rest blood pressure was '167/99' * Maximum heart rate achieved was 133 bpm. * Maximum heart rate was 92 % of maximum age-predicted heart rate. * Maximum blood pressure was '167/99' * Maximum Dobutamine infusion rate was '40' mcg/kg/min. * A total of .25 mg of intravenous Atropine was used to supplement Dobutamine for heart rate response. * Dobutamine infusion was terminated due to achieving target heart rate * A total of 5 mg of IV Metoprolol was administered to reverse Dobutamine-induced tachycardia. Left Ventricular Findings with Stress * The study was technically good with many images being of high quality. Left Ventricular Diastolic Function * Grade I diastolic dysfunction, (abnormal relaxation pattern). MMode 2D Measurements and Calculations IVSd 1.4 cm IVSs 1.6 cm LVIDd 3.8 cm LVIDs 2.3 cm LVPWd 1.3 cm LVPWs 1.7 cm IVS/LVPW 1.1 FS 39.9 % EDV(Teich) 61.1 ml ESV(Teich) 17.6 ml EF(Teich) 71.3 % EDV(cubed) 54.0 ml ESV(cubed) 11.7 ml EF(cubed) 78.3 % % IVS thick 19.0 % % LVPW thick 32.4 % LV mass(C)d 175.6 grams LV mass(C)dI 92.0 grams/m\S\2 LV mass(C)s 135.4 grams LV mass(C)sI 71.0 grams/m\S\2 SV(Teich) 43.6 ml SI(Teich) 22.8 ml/m\S\2 SV(cubed) 42.2 ml SI(cubed) 22.1 ml/m\S\2 Ao root diam 3.1 cm Ao root area 7.4 cm\S\2 LA dimension 3.5 cm LA/Ao 1.1 LVAd ap4 23.6 cm\S\2 LVLd ap4 7.6 cm EDV(MOD-sp4) 63.5 ml EDV(sp4-el) 62.1 ml LVAs ap4 12.2 cm\S\2 LVLs ap4 6.7 cm ESV(MOD-sp4) 23.0 ml ESV(sp4-el) 18.8 ml EF(MOD-sp4) 63.7 % EF(sp4-el) 69.7 % LVAd ap2 21.6 cm\S\2 LVLd ap2 8.1 cm EDV(MOD-sp2) 52.3 ml EDV(sp2-el) 49.1 ml LVAs ap2 11.5 cm\S\2 LVLs ap2 6.9 cm ESV(MOD-sp2) 19.8 ml ESV(sp2-el) 16.0 ml EF(MOD-sp2) 62.1 % EF(sp2-el) 67.3 % LVLd %diff 5.5 % EDV(MOD-bp) 58.3 ml LVLs %diff 3.5 % ESV(MOD-bp) 21.6 ml EF(MOD-bp) 62.9 % SV(MOD-sp4) 40.5 ml SI(MOD-sp4) 21.2 ml/m\S\2 SV(MOD-sp2) 32.5 ml SI(MOD-sp2) 17.0 ml/m\S\2 SV(MOD-bp) 36.7 ml SI(MOD-bp) 19.2 ml/m\S\2 SV(sp4-el) 43.3 ml SI(sp4-el) 22.7 ml/m\S\2 SV(sp2-el) 33.1 ml SI(sp2-el) 17.3 ml/m\S\2 Doppler Measurements and Calculations MV E max isabelle 66.0 cm/sec MV A max isabelle 96.0 cm/sec MV E/A 0.69 MV dec time 0.28 sec Ao V2 max 126.7 cm/sec Ao max PG 6.4 mmHg Ao max PG (full) 2.9 mmHg LV V1 max PG 3.5 mmHg LV V1 max 93.6 cm/sec TR max isabelle 258.2 cm/sec
--- NOTE | 2017-12-16 22:29 | Cardiology Follow-Up ---
Subjective Subjective Date of Service: December 16, 2017. Pt evaluation today including: conversation w/ patient, physical exam, chart review, lab review, review of studies, review of inpatient medication list Additional Details: No recurrent chest pain. Feeling well. Anxiety improved. Tele reviewed -- no events. Problem List Medical Problems: (1) Hypertension Status: Acute (2) Left-sided headache Status: Acute (3) Precordial chest pain Status: Acute Review of Systems Respiratory: No cough Cardiac: No chest pain Abdomen: No nausea Heme: No abnormal bleeding/bruising Objective Vital Signs Last Vital Signs Documentation Date Time Temp Pulse Resp B/P (MAP) Pulse Ox O2 Delivery O2 Flow Rate FiO2 12/16/17 17:46 36.7 58 15 96 Room Air 12/16/17 16:00 122/66 (84) Physical Exam: General Appearance: no apparent distress ENT: hearing grossly normal Neck: no JVD Respiratory/Chest: lungs clear, normal breath sounds Cardiovascular: regular rate, rhythm, no edema, no murmur Abdomen: normal bowel sounds, non tender, soft Extremities: no pedal edema, no calf tenderness Neurologic/Psychiatric: alert, normal mood/affect Assessment and Plan 1. Chest pain 2. Hypertensive heart disease 3. Dyslipidemia Reviewed DSE from today -- normal LV resting function with appropriate augmentation with dobutamine. As patient is chest pain free feel OK for discharge today. Continue home medications. Follow-up with cardiology as scheduled. ADDENDUM: Post discharge patient had 4th troponin which was positive at 0.1 --> suspicion for true ACS remains low. Suspect related to DSE. As test was low risk and patient remained chest pain free feel continued outpatient management reasonable and will have follow-up with cardiology office. Medications: Reported Home Medications Medications Dose Route/Sig Max Daily Dose Days Date Category Dose Instructions Lactaid Fast Act (Lactase) 9,000 Unit Chw 9,000 Units PO UD 12/15/17 Reported TAKE ONE FOLLOWING MEALS. Tobradex 0.3% Oph (Tobramycin/Dexamethasone) Susp 5 Drops OTB BID 12/15/17 Reported Vesicare (Solifenacin) 5 Mg Tab 5 Mg PO DAILY 12/15/17 Reported Pravastatin Sodium (Pravastatin Sod) 10 Mg Tab 10 Mg PO HS 12/15/17 Reported Cayenne (Capsicum (Cayenne)) 450 Mg Cap 450 Mg PO DAILY 12/15/17 Reported Tylenol (Acetaminophen) 500 Mg Tab 500 Mg PO PRN 10/22/16 Reported Metformin HCl 500 Mg Tab 500 Mg PO BID 10/22/16 Reported Zestril (Lisinopril) 20 Mg Tab 20 Mg PO BID 10/22/16 Reported Synthroid (Levothyroxine Sodium) 25 Mcg Tab 25 Mcg PO DAILY 10/22/16 Reported Vitamin D (Cholecalciferol) 5,000 Unit Tab 5,000 Units PO DAILY 10/22/16 Reported Claritin (Loratadine) 10 Mg Tab 10 Mg PO DAILY PRN 10/22/16 Reported Calcium 600 Mg Tab 600 Mg PO BID 10/22/16 Reported Atenolol 25 Mg Tab 25 Mg PO DAILY 10/22/16 Reported Alendronate Sodium 35 Mg Tab 35 Mg PO WK 10/22/16 Reported EVERY FRIDAY Fiber Laxative (Fiber) Ea 2 Tabs PO DAILY 05/04/14 Reported Catapres (Clonidine Hcl) 0.1 Mg Tab 0.1 Mg PO BID 08/18/12 Reported Tenormin Unkown Dose (Atenolol) Tab 06/07/09 Reported Lab Results: Test 12/16/17 16:06 12/16/17 17:30 Bedside Glucose 96 mg/dl (70-90) Troponin I 0.107 ng/ml (0-0.045)
== END 2017-12-16 17:55 | disposition home or self-care (01) ==
LOC: C.EDB 15:56 → C.MSICU 17:47 → ENRESERV 18:10
PROVIDERS: ADMIT Internal Medicine; ATTEND Hospitalist
DX: R07.2 Precordial pain (principal); R93.1 Abnormal findings on diagnostic imaging of heart and coronary circulation; E11.9 Type 2 diabetes mellitus without complications; Z82.49 Family history of ischemic heart disease and other diseases of the circulatory system; E78.5 Hyperlipidemia, unspecified; I11.9 Hypertensive heart disease without heart failure; Z83.3 Family history of diabetes mellitus; Z79.84 Long term (current) use of oral hypoglycemic drugs; Z88.5 Allergy status to narcotic agent; Z88.8 Allergy status to other drugs, medicaments and biological substances; Z88.2 Allergy status to sulfonamides; E03.9 Hypothyroidism, unspecified; R39.15 Urgency of urination

== ENCOUNTER 2020-10-20 16:32 | Observation (INO) ==
[2020-10-20] MEDS ORDERED: SODIUM CHLORIDE 0.9% 1000ML 1,000 ML IV SCH (17:30)
[2020-10-20 18:09] LABS: Basophils # (auto) 0.03 K/uL (0-0.2); Basophils % (auto) 0.2 %; Eosinophils # (auto) 0.09 K/uL (0-0.5); Eosinophils % (auto) 0.7 %; Hematocrit (blood only) 46.8 % (37-47); Hemoglobin 15.9 g/dL (12.0-16.0); Immature Granulocytes # (auto) 0.06 K/uL (0.00-0.02); Immature Granulocytes % (auto) 0.5 %; Lymphocytes % (auto) 8.7 %; Mean Corpuscular Hemoglobin 29.7 pg (25-34); Mean Corpuscular Volume 87.3 fL (80-100); Mean Platelet Volume 10.5 fL (7.4-10.4); Monocytes # (auto) 0.61 K/uL (0.11-0.59); Monocytes % (auto) 4.8 %; Neutrophils # (auto) 10.71 K/uL (1.4-6.5); Neutrophils % (auto) 85.1 %; Platelet Count 285 K/uL (130-400); RDW Coefficient of Variation 13.5 % (11.5-14.5); RDW Standard Deviation 43.2 fL (36.4-46.3); Red Blood Count 5.36 M/uL (4.2-5.4)
--- NOTE | 2020-10-20 18:13 | XRay Report ---
XR hip LT 2V w pelvis HISTORY: 80 years-old Female L pelvic pain, fall acute left hip pain status post fall COMPARISON: Pelvis and hip radiographs 09/22/2020 TECHNIQUE: AP view the pelvis with 2 views of the left hip FINDINGS: Bilateral hip total joint arthroplasties. Demineralized appearance of the bones. There is no acute fr acture, dislocation or opaque foreign body. Probable phleboliths of the pelvis. Arterial calcificatio ns. Moderate fecal retention. Mid lumbar dextroscoliosis with multilevel advanced degenerative change s. IMPRESSION: 1. No acute fracture or dislocation. 2. 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 ACT 112: Negative or not required by law. The above report was generated using voice recognition software. It may contain grammatical, syntax o r spelling errors. Electronically signed by: Henrique Virgen M.D. 10/20/2020 6:12 PM
--- NOTE | 2020-10-20 18:15 | XRay Report ---
XR chest 1V portable HISTORY: 80 years-old Female Fall . Acute chest trauma status post fall COMPARISON: Chest radiograph 11/08/2019 TECHNIQUE: Portable upright AP view of the chest FINDINGS: Cardiac mediastinal and hilar silhouettes are within normal limits. No pneumothorax, pleural effusion , airspace consolidation or overt pulmonary edema. Degenerative changes of the shoulders and spine. S igmoidal thoracolumbar scoliosis. IMPRESSION: No acute process. ACT 112: Negative or not required by law. The above report was generated using voice recognition software. It may contain grammatical, syntax o r spelling errors. Electronically signed by: Henrique Virgen M.D. 10/20/2020 6:14 PM
[2020-10-20 18:17] LABS: Appearance Urine Clear (Clear); Bacteria Urine Automated Negative (Negative); Bilirubin Urine Negative (Negative); Blood Urine Negative (Negative); Color Urine Yellow; Glucose Urine UA Negative (Negative); Ketones Urine Negative (Negative); Leukocyte Esterase Urine 2+ (Negative); Nitrite Urine Negative (Negative); Protein Urine 1+ (Negative); RBC Urine Automated 0-4 /hpf (0-4); Specific Gravity Urine 1.011 (1.000-1.030); Urobilinogen Urine Negative (Negative); WBC Urine Automated >30 /hpf (0-5)
[2020-10-20 18:22] LABS: Partial Thromboplastin Ratio 0.9; Partial Thromboplastin Time 23.9 Seconds (21.0-31.0); Prothrombin Time 10.2 Seconds (9.0-12.0)
[2020-10-20 18:28] LABS: Albumin Level 4.1 gm/dl (3.4-5.0); BUN Creatinine Ratio 19.8 (10-20); Calcium 9.9 mg/dl (8.5-10.1); Creatinine Clr Calc Pharmacy 50.5 ml/min; Est GFR (African American) 65.2; Est GFR (Non-African American) 56.2; Potassium 3.9 mmol/L (3.5-5.1)
[2020-10-20 18:31] LABS: Albumin Globulin Ratio 1.2 (0.9-2); Bilirubin,Total 0.5 mg/dl (0.2-1); Globulin 3.3 gm/dl (2.5-4.0); Total Protein 7.4 gm/dl (6.4-8.2)
--- NOTE | 2020-10-20 18:40 | CT Scan Report ---
CT head/brain wo con CLINICAL HISTORY: 80 years-old Female with CHI. Acute posterior head injury TECHNIQUE: Multiple axial CT images of the head were obtained without contrast. A dose lowering tech nique was utilized adhering to the principles of ALARA. CT DOSE: 1074.96 mGy.cm COMPARISON: Head CT 11/08/2019 FINDINGS: No acute intracranial hemorrhage, midline shift, intracranial mass, hydrocephalus, territorial ischem ia or abnormal extra-axial collection. Age-related involutional changes. Senescent calcifications of the lentiform nuclei. White matter hypodensities suggest chronic microvascular ischemic disease. No acute calvarial fracture identified. Large right mastoid effusion with fluid also present within the right middle ear cavity. A moderate sized right mastoid effusion was present on 11/08/2019. Left m astoid air cells are clear. Right parietal scalp contusion. Unremarkable orbits. IMPRESSION: 1. No acute intracranial abnormality or calvarial fracture identified. 2. Small contusion of the right parietal scalp. 3. Large right mastoid effusion has increased in size from 11/08/2019. Fluid is also present within th e right middle ear cavity. ACT 112: Negative or not required by law. The above report was generated using voice recognition software. It may contain grammatical, syntax o r spelling errors. Electronically signed by: Henrique Virgen M.D. 10/20/2020 6:38 PM
[2020-10-20] MEDS ORDERED: cefTRIAXone SODIUM 1,000 MG/50 ML BAG IV STA (19:26)
[2020-10-20 21:06] LABS: Influenza A virus by PCR Negative (Neg); Influenza B virus by PCR Negative (Neg); RSV by PCR Negative (Neg); SARS CoV2 RNA(COVID-19) InHosp NEGATIVE (Negative)
--- NOTE | 2020-10-20 22:06 | History & Physical Report ---
Date of Service October 20, 2020 Assessment & Plan (1) Urinary tract infection: Follow urine culture and sensitivity Empiric ceftriaxone 1 g IV daily Acetaminophen 650 mg p.o. every 6 hours as needed mild pain or fever Present on Admission?: Yes (2) Joint pain of left hip on movement: Joint pain of left hip on movement/history of bilateral total hip arthroplasties- X-rays without fracture CT bony pelvis without contrast ordered and pending Acetaminophen 650 mg p.o. every 6 hours as needed mild pain or fever Bedrest and nonweightbearing until CT results return Present on Admission?: Yes (3) History of total left hip replacement: History of bilateral total hip arthroplasties Present on Admission?: Yes (4) Hypertension: Continue atenolol, clonidine and lisinopril with hold parameters Present on Admission?: Yes (5) Dyslipidemia: Continue pravastatin 10 mg at bedtime Present on Admission?: Yes (6) Tendonitis of left rotator cuff: Left rotator cuff tendinitis- Patient has chronic pain, and reports recently attempting to get a shot done by orthopedics, but for unknown reasons was not performed. Present on Admission?: Yes History of Present Illness Chief Complaint: The patient presents to the ED with complaint of left hip pain status post fall and suprapubic discomfort with urinary frequency and dysuria Primary Care Provider: Nicholas Mills MD The patient is a 80-year-old female with a past medical history including left rotator cuff tendinitis, bradycardia, osteoarthritis left knee, shoulder impingement, hip contusion, multiple arthralgias, anxiety, dyslipidemia, gait disturbance, hammertoe, hypertension, urinary incontinence, osteoporosis, vitamin D deficiency, diabetes mellitus, subclinical hypothyroidism, SNHL, laryngeal pharyngeal reflux and chronic rhinitis. Patient is intermittently confused during this examination, and reports that she is not able to get comfortable, with complaint of left hip pain when she moves it, continually grabbing at her groin area and suprapubic area, and complains of pain associated with right forearm IV running normal saline. Allergies Allergy/AdvReac Type Severity Reaction Status Date / Time Sulfa (Sulfonamide Allergy Intermediate RASH/ITCH Verified 10/20/20 17:14 Antibiotics) morphine Allergy Mild RASH/ITCH Verified 10/20/20 17:14 propoxyphene Allergy Mild RASH Verified 10/20/20 17:14 Home Medications Medication Instructions Recorded Confirmed Type calcium polycarbophil [Fiber 1,250 mg PO .QLUNCH 05/06/19 10/20/20 History (calcium polycarbophil)] cyanocobalamin (vitamin B-12) 500 mcg PO QAM 05/06/19 10/20/20 History multivitamin 1 tab PO QAM 05/06/19 10/20/20 History menthol [Biofreeze (menthol)] 1 applic TOPICAL BID PRN 11/08/19 10/20/20 History alendronate 70 mg PO FR 11/10/19 10/20/20 History metformin 500 mg tablet 500 mg PO BID #180 tab 02/03/20 10/20/20 Rx fluticasone propionate 50 2 spray INTNAS BID PRN g 03/24/20 10/20/20 History mcg/actuation nasal spray,suspension atenolol 25 mg tablet 25 mg PO DAILY #90 tab 04/21/20 10/20/20 Rx lisinopril 20 mg tablet 20 mg PO DAILY #90 tab 04/21/20 10/20/20 Rx pravastatin 10 mg tablet 10 mg PO HS #90 tab 05/17/20 10/20/20 Rx clonidine HCl 0.1 mg tablet 0.1 mg PO BID #180 tab 09/11/20 10/20/20 Rx diclofenac sodium 75 mg 75 mg PO BID PRN #60 tab 09/22/20 10/20/20 Rx tablet,delayed release levothyroxine 25 mcg tablet 25 mcg PO QAM #90 tab 10/04/20 10/20/20 Rx calcium polycarbophil 1,875 mg PO QAM 10/20/20 10/20/20 History fluocinonide 1 applic TOPICAL BID PRN 10/20/20 10/20/20 History Past Med/Surg History Medical History Abnormal EKG Anxiety Arthralgia of multiple sites Coronary artery calcification Dairy allergy Diabetes mellitus, type 2 DMII (diabetes mellitus, type 2) Dyslipidemia Gait disturbance Hammer toe History of nasal polyp Hyperlipidemia Hypertension Hypertension Hypothyroidism LAFB (left anterior fascicular block) LVH (left ventricular hypertrophy) Microalbuminuria Nocturia Osteoarthritis Osteoporosis Urinary frequency Urinary incontinence Urinary symptom or sign Vitamin D deficiency disease Surgical History History of back surgery History of blepharoplasty History of breast biopsy History of cataract surgery History of colonoscopy History of hand surgery History of hip replacement History of hysterectomy History of knee replacement History of nasal septoplasty History of placement of ear tubes History of rhinoplasty History of rotator cuff surgery History of tonsillectomy Family History Mother Coronary heart disease Heart disease Grandmother (Maternal) Heart disease Son Diabetes Denies family history of Ovarian cancer Prostate cancer Myocardial infarction Breast cancer Colorectal cancer Cancer Social History Smoking Status: Never smoker Second Hand Exposure: Yes; Hx Alcohol Use: No Hx Substance Use: No Preferred Language: Andorran Communication Ability: Effective It Business Process 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 Required: No Beliefs That Will Affect Care: None Current Living Situation: Alone current occupational status: retired How many Children do You have: 3 Other Information That Helps Us Care for You: No Feels Safe at Home: Yes Safety Concerns: Feels Safe At This Time Safety Concerns Comment: states she has to kittens to keep after her Childhood Exposure to Second-Hand Smoke: No during the past year weight has: decreased > 10 lbs Dental Care, Regularly: Yes Physical Activity Frequency: Does not Exercise Seatbelt Use: always Sunscreen Use: Yes Assistive Devices: Walker Review of Systems Review of Systems: The patient denies chest pain, palpitations, shortness of breath, dyspnea on exertion, cough, lower extremity swelling, sore throat, fevers, chills, sweats, nausea, vomiting, diarrhea , constipation, abdominal pain, blood in urine or stool, dysuria, urinary frequency or urgency, lightheadedness, dizziness, headache, loss of consciousness, rash, abnormal bruising or bleeding, imbalance, focal or generalized weakness, numbness or tingling in arms or legs, generalized arthralgias or myalgias, back or neck pain, or night sweats. The review of systems is otherwise negative other than for that already noted above, and at least 10 systems have been reviewed. Physical Exam Physical Exam: The patient is awake, intermittently confused, normocephalic and atraumatic, lying in bed and in no acute distress. HEENT--PERRL, EOMI, mucous membranes and oropharynx dry. Neck--supple. No JVD. No bruits. Thyroid normal, trachea midline, no adenopat hy. Heart--normal S1 and S2. No murmurs, rubs or gallops. Lungs--clear bilaterally, no respiratory distress, no accessory muscle use. Abdomen--normal bowel sounds and soft. Nondistended. Suprapubic discomfort Extremities--no cyanosis or clubbing. No edema. Dermatologic--normal skin turgor, normal color, no abnormal lymph nodes, no rash. Neurologic--cranial nerves II through XII grossly intact. Rheumatologic--range of motion limited by reproducible left hip and groin pain Psychiatric--intermittently confused Results & Data Results & Data ([facility] [place]) Vital Signs (Past 12 Hours) Vital Signs Temp Pulse Pulse Resp BP BP Pulse Ox 10/20/20 16:42 85 18 186/105 H 94 10/20/20 16:36 98.1 F 95 H 20 186/105 H 96 Laboratory Results Laboratory Results WBC 12.60 K/uL (4.8-10.8) H 10/20/20 Unknown RBC 5.36 M/uL (4.2-5.4) 10/20/20 Unknown Hgb 15.9 g/dL (12.0-16.0) 10/20/20 Unknown Hct 46.8 % (37-47) 10/20/20 Unknown MCV 87.3 fL (80-100) 10/20/20 Unknown MCH 29.7 pg (25-34) 10/20/20 Unknown MCHC 34.0 g/dL (32-36) 10/20/20 Unknown RDW Std Deviation 43.2 fL (36.4-46.3) 10/20/20 Unknown RDW Coeff of Efren 13.5 % (11.5-14.5) 10/20/20 Unknown Plt Count 285 K/uL (130-400) 10/20/20 Unknown MPV 10.5 fL (7.4-10.4) H 10/20/20 Unknown Immature Gran % (Auto) 0.5 % 10/20/20 Unknown Neut % (Auto) 85.1 % 10/20/20 Unknown Lymph % (Auto) 8.7 % 10/20/20 Unknown Dale % (Auto) 4.8 % 10/20/20 Unknown Eos % (Auto) 0.7 % 10/20/20 Unknown Baso % (Auto) 0.2 % 10/20/20 Unknown Neut # (Auto) 10.71 K/uL (1.4-6.5) H 10/20/20 Unknown Lymph # (Auto) 1.10 K/uL (1.2-3.4) L 10/20/20 Unknown Dale # (Auto) 0.61 K/uL (0.11-0.59) H 10/20/20 Unknown Eos # (Auto) 0.09 K/uL (0-0.5) 10/20/20 Unknown Baso # (Auto) 0.03 K/uL (0-0.2) 10/20/20 Unknown Immature Gran # (Auto) 0.06 K/uL (0.00-0.02) H 10/20/20 Unknown PT 10.2 Seconds (9.0-12.0) 10/20/20 Unknown INR 1.0 (0.9-1.1) 10/20/20 Unknown APTT 23.9 Seconds (21.0-31.0) 10/20/20 Unknown PTT Ratio 0.9 10/20/20 Unknown Sodium 139 mmol/L (136-145) 10/20/20 Unknown Potassium 3.9 mmol/L (3.5-5.1) 10/20/20 Unknown Chloride 108 mmol/L (98-107) H 10/20/20 Unknown Carbon Dioxide 25 mmol/L (21-32) 10/20/20 Unknown Anion Gap 7.0 (3-11) 10/20/20 Unknown BUN 19 mg/dl (7-18) H 10/20/20 Unknown Creatinine 0.96 mg/dl (0.6-1.2) 10/20/20 Unknown Est Cr Clr Drug Dosing 50.5 ml/min 10/20/20 Unknown Est GFR ( Amer) 65.2 10/20/20 Unknown Est GFR (Non-Af Amer) 56.2 10/20/20 Unknown BUN/Creatinine Ratio 19.8 (10-20) 10/20/20 Unknown Glucose 123 mg/dl (70-99) H 10/20/20 Unknown POC Glucose 129 mg/dl (70-99) H 10/20/20 23:05 Calcium 9.9 mg/dl (8.5-10.1) 10/20/20 Unknown Total Bilirubin 0.5 mg/dl (0.2-1) 10/20/20 Unknown AST 15 U/L (15-37) 10/20/20 Unknown ALT 17 U/L (12-78) 10/20/20 Unknown Alkaline Phosphatase 75 U/L (45-117) 10/20/20 Unknown Total Protein 7.4 gm/dl (6.4-8.2) 10/20/20 Unknown Albumin 4.1 gm/dl (3.4-5.0) 10/20/20 Unknown Globulin 3.3 gm/dl (2.5-4.0) 10/20/20 Unknown Albumin/Globulin Ratio 1.2 (0.9-2) 10/20/20 Unknown Urine Color Yellow 10/20/20 Unknown Urine Appearance Clear (Clear) 10/20/20 Unknown Urine pH 7.0 (4.5-7.5) 10/20/20 Unknown Ur Specific [place] 1.011 (1.000-1.030) 10/20/20 Unknown Urine Protein 1+ (Negative) H 10/20/20 Unknown Urine Glucose (UA) Negative (Negative) 10/20/20 Unknown Urine Ketones Negative (Negative) 10/20/20 Unknown Urine Blood Negative (Negative) 10/20/20 Unknown Urine Nitrite Negative (Negative) 10/20/20 Unknown Urine Bilirubin Negative (Negative) 10/20/20 Unknown Urine Urobilinogen Negative (Negative) 10/20/20 Unknown Ur Leukocyte Esterase 2+ (Negative) H 10/20/20 Unknown Urine WBC (Auto) >30 /hpf (0-5) H 10/20/20 Unknown Urine RBC (Auto) 0-4 /hpf (0-4) 10/20/20 Unknown U Hyaline Cast (Auto) 1-5 /lpf (0-5) 10/20/20 Unknown U Epithel Cells (Auto) 5-10 /lpf (0-5) H 10/20/20 Unknown Urine Bacteria (Auto) Negative (Negative) 10/20/20 Unknown COVID-19 Eval Order CovFluRsv at [facility] 10/20/20 19:45 SARS-CoV-2 (PCR) NEGATIVE (Negative) 10/20/20 19:45 Influenza Type A (PCR) Negative (Neg) 10/20/20 19:45 Influenza Type B (PCR) Negative (Neg) 10/20/20 19:45 RSV (RT-PCR) Negative (Neg) 10/20/20 19:45 Diagnostic Findings [facility], [phone] CT Scan Report Patient: LALA WEINSTEIN Date: 10/20/20MR#: [id number]: [address] ID:[id number]: Date: 1940ity Zip: [place], [place] [address]Wxj: 80Location: EDSex: FRoom/Bed:Att Phy:Diagnosis: FALLPri Phy: RV. Maurice, MDService Date: 10/20/20Fam Phy:Interpreting Phy: Donn ViregnAdmjeffrey Phy: Ordering Phy: Paulina Howell M.D. cc: ~ CT head/brain wo con CLINICAL HISTORY: 80 years-old Female with CHI. Acute posterior head injury TECHNIQUE: Multiple axial CT images of the head were obtained without contrast. A dose lowering technique was utilized adhering to the principles of ALARA. CT DOSE: 1074.96 mGy.cm COMPARISON: Head CT 11/08/2019 FINDINGS: No acute intracranial hemorrhage, midline shift, intracranial mass, hydrocephalus, territorial ischemia or abnormal extra-axial collection. Age- related involutional changes. Senescent calcifications of the lentiform nuclei. White matter hypodensities suggest chronic microvascular ischemic disease. No acute calvarial fracture identified. Large right mastoid effusion with fluid also present within the right middle ear cavity. A moderate sized right mastoid effusion was present on 11/08/2019. Left mastoid air cells are clear. Right parietal scalp contusion. Unremarkable orbits. IMPRESSION: 1. No acute intracranial abnormality or calvarial fracture identified. 2. Small contusion of the right parietal scalp. 3. Large right mastoid effusion has increased in size from 11/08/2019. Fluid is also present within the right middle ear cavity. ACT 112: Negative or not required by law. The above report was generated using voice recognition software. It may contain grammatical, syntax or spelling errors. Electronically signed by: Henrique Virgen M.D. 10/20/2020 6:38 PM Dictated: 10/20/201834Transcribed: 10/20/201834 [facility], [phone] XRay Report Patient: LALA WEINSTEIN Date: 10/20/20MR#: [id number]: [address] ID:[id number]: Date: [address] [place] [address] Zip: [place], [place] [address]Sic: 80Location: EDSex: FRoom/Bed:Att Phy:Diagnosis: FALLPri Phy: RV. Maurice, MDService Date: 10/20/20Fam Phy:Interpreting Phy: Donn VirgenAdmit Phy: Ordering Phy: Paulina Howell M.D. cc: ~ XR chest 1V portable HISTORY: 80 years-old Female Fall . Acute chest trauma status post fall COMPARISON: Chest radiograph 11/08/2019 TECHNIQUE: Portable upright AP view of the chest FINDINGS: Cardiac mediastinal and hilar silhouettes are within normal limits. No pneumothorax, pleural effusion, airspace consolidation or overt pulmonary edema. Degenerative changes of the shoulders and spine. Sigmoidal thoracolumbar scoliosis. IMPRESSION: No acute process. ACT 112: Negative or not required by law. The above report was generated using voice recognition software. It may contain grammatical, syntax or spelling errors. Electronically signed by: Henrique Virgen M.D. 10/20/2020 6:14 PM Dictated: 10/20/201812Transcribed: 10/20/201812 [facility], [phone] XRay Report Patient: LALA WEINSTEIN Date: 10/20/20MR#: [id number]: [address] ID:[id number]: Date: [address] [place] [address] Zip: [place] [address]Esm: 80Location: EDSex: FRoom/Bed:Att Phy:Diagnosis: FALLPri Phy: RamanaCodyShmuelRV. kaylan, MDService Date: 10/20/20Fam Phy:Interpreting Phy: Donn VirgenAdmit Phy: Ordering Phy: Paulina Howell M.D. cc: ~ XR hip LT 2V w pelvis HISTORY: 80 years-old Female L pelvic pain, fall acute left hip pain status post fall COMPARISON: Pelvis and hip radiographs 09/22/2020 TECHNIQUE: AP view the pelvis with 2 views of the left hip FINDINGS: Bilateral hip total joint arthroplasties. Demineralized appearance of the bones. There is no acute fracture, dislocation or opaque foreign body. Probable phleboliths of the pelvis. Arterial calcifications. Moderate fecal retention. Mid lumbar dextroscoliosis with multilevel advanced degenerative changes. IMPRESSION: 1. No acute fracture or dislocation. 2. 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 ACT 112: Negative or not required by law. The above report was generated using voice recognition software. It may contain grammatical, syntax or spelling errors. Electronically signed by: Henrique Virgen M.D. 10/20/2020 6:12 PM Dictated: 10/20/201809Transcribed: 10/20/201809 Code Status & VTE Plan Code Status Full code VTE Prophylaxis Plan VTE Prophylaxis will be ordered: Yes PG Care Time/CCT Total # of Minutes Spent Total Time Spent with Patient: Total time spent is greater than 50% in coordination of care (as documented) at patient's floor/unit and/or counseling patient: Coding Level of Care Code 92980 OBS Care - Level 3 Diagnoses Urinary tract infection N39.0 Joint pain of left hip on movement M25.552 History of total left hip replacement Z96.642 Hypertension I10 Dyslipidemia E78.5 Tendonitis of left rotator cuff M75.82
[2020-10-20] MEDS ORDERED: GLUCOSE 10 TABS/TUBE PO PRN (23:01)
[2020-10-20] MEDS ORDERED: DEXTROSE 50% 50 ML SYRINGE IV PRN (23:01)
[2020-10-20] MEDS ORDERED: FLUTICASONE PROPIONATE NA SPR 16 GM BTL NAE PRN (23:01)
[2020-10-20] MEDS ORDERED: ONDANSETRON INJ 2 MG/ML 2 ML VIAL IV PRN (23:01)
[2020-10-20] MEDS ORDERED: GLUCOSE 40% GEL 15 GM TUBE PO PRN (23:01)
[2020-10-20] MEDS ORDERED: GLUCAGON FOR INJ 1 MG VIAL SQ PRN (23:01)
[2020-10-20] MEDS ORDERED: ACETAMINOPHEN 325 MG TAB PO PRN (23:01)
[2020-10-20] MEDS ORDERED: CARBOHYDRATES FOR HYPOGLYCEMIA PO PRN (23:01)
[2020-10-21] MEDS: NSS + 20MEQ KCL 20 MEQ/1,000 ML BAG IV SCH ×2 (00:09→13:11)
[2020-10-21] MEDS: cloNIDine HCL 0.1 MG TAB PO SCH ×3 (00:09→20:22)
[2020-10-21] MEDS: LEVOTHYROXINE SODIUM 25 MCG TABLET PO SCH (05:55)
[2020-10-21 06:58] LABS: Basophils # (auto) 0.02 K/uL (0-0.2); Basophils % (auto) 0.3 %; Eosinophils # (auto) 0.09 K/uL (0-0.5); Eosinophils % (auto) 1.2 %; Hematocrit (blood only) 43.1 % (37-47); Hemoglobin 14.3 g/dL (12.0-16.0); Immature Granulocytes # (auto) 0.01 K/uL (0.00-0.02); Immature Granulocytes % (auto) 0.1 %; Lymphocytes # (auto) 1.37 K/uL (1.2-3.4); Lymphocytes % (auto) 17.6 %; Mean Corpuscular Hemoglobin 29.3 pg (25-34); Mean Corpuscular Hgb Conc 33.2 g/dL (32-36); Mean Corpuscular Volume 88.3 fL (80-100); Mean Platelet Volume 10.2 fL (7.4-10.4); Monocytes # (auto) 0.63 K/uL (0.11-0.59); Monocytes % (auto) 8.1 %; Neutrophils # (auto) 5.67 K/uL (1.4-6.5); Neutrophils % (auto) 72.7 %; Platelet Count 274 K/uL (130-400); RDW Coefficient of Variation 13.6 % (11.5-14.5); Red Blood Count 4.88 M/uL (4.2-5.4); White Blood Count 7.79 K/uL (4.8-10.8)
[2020-10-21 07:15] LABS: Estimated Average Glucose 128 mg/dl; Hemoglobin A1C 6.1 % (4.5-5.6)
[2020-10-21 07:33] LABS: Albumin Level 3.2 gm/dl (3.4-5.0); Calcium 8.7 mg/dl (8.5-10.1); Creatinine Clr Calc Pharmacy 61.4 ml/min; Est GFR (African American) 82.5; Est GFR (Non-African American) 71.2; Phosphorus 3.3 mg/dl (2.5-4.9); Potassium 4.1 mmol/L (3.5-5.1)
--- NOTE | 2020-10-21 07:34 | CT Scan Report ---
PELVIS CT CT DOSE: 986.97 mGy.cm HISTORY: Pelvic and left hip pain. assess for occult left hip fracture TECHNIQUE: Multiaxial CT images of the pelvis were performed and reformatted in the sagittal and susi nal plane without the use of contrast. A dose lowering technique was utilized adhering to the princi ples of [employer]. COMPARISON: Left hip 10/20/2020. FINDINGS: No acute fracture or dislocation within the pelvis or hips. The sacrum is intact. Bilateral total hip arthroplasties are noted. The hardware is intact. Colonic diverticulosis. Normal appendix. The bladder is mildly distended and there is mild bladder wall thickening with adjacent fat strandin g. This could represent a cystitis. No soft tissue hematoma identified. IMPRESSION: 1. No fracture or dislocation within the pelvis or hips. 2. Bilateral total hip arthroplasties. No evidence for hardware complication. 3. Mild bladder wall thickening. Recommend correlation with urinalysis to exclude a cystitis. ACT 112: Negative or not required by law. Electronically signed by: Jad Tong M.D. 10/21/2020 7:32 AM
--- NOTE | 2020-10-21 08:29 | Hospitalist Progress Note ---
Date of Service October 21, 2020 Assessment & Plan (1) Urinary tract infection: * Suspected cause of fall, however patient did also endorse feeling of hip "popping in and out of place" -- will also ask Dr. Smith to see * Hx of following with Dr. Doran for botox injections to her bladder for urgency/frequency, last given Jul 2020 * UA with +leuk est, >30WBC * Continue Ceftriaxone for now * -- WBC trending down, 12.6k--> 7.7k * Urine culture pin point growth -- re-incubating -- follow * Pain control with tylenol prn, adding topical voltaren . would avoid opiates unless increased pain to prevent worsening confusion as reported on admission * IVF with NS + 20K @ 80cc/hr -- will d/c this afternoon * Labs in AM (2) Fall: * suspected secondary to above * CT Head without acute infarct but did note LARGE MASTOID EFFUSION, increased since October 2019 with fluid in R middle ear -- did not endorse any dizziness/disequilibrium but moreso "weakness" of her left leg which caused the fall * --> Will also consult ENT for eval ET tube placement while inpatient as most recent notes indicate would need to be done in hospital setting given her medical issues * PT/OT evals pending -- rehab planned for at discharge pending recs * Adding B12/TSH to AM labs for completeness (3) Joint pain of left hip on movement: * Joint pain of left hip on movement/history of bilateral total hip arthroplasties- * X-rays without fracture * CT bony pelvis without contrast without dislocation but did make note of cystitis on imaging (treating as above) * Voltaren gel added, tylenol prn * Ortho consulted as above per patient request also for her L shoulder with previously planned injection (4) History of total left hip replacement: * History of bilateral total hip arthroplasties (5) Hypertension: * Continue atenolol 25mg, clonidine 0.1mg BID, lisinopril 20mg * BP elevated at 160/93 but suspect some degree from pain --> improved to 129/72 after hydralazine * Hydralazine prn * Continue to monitor (6) Dyslipidemia: * Continue pravastatin 10 mg at bedtime (7) Tendonitis of left rotator cuff: * Left rotator cuff tendinitis- * Patient has chronic pain, and reports recently attempting to get a shot done by orthopedics --> fell on way to Dr. Smith's office [employer] * Consulted as above, appreciate input * Voltaren gel QID (8) Diabetes mellitus: * A1c 6.1 * Holding metformin while inpatient * Utilizing ISS * Monitor BSGs (9) Hypothyroidism: * No recent TSH, will add to AM labs * Continue levothyroxine 25mcg daily for now (10) DVT prophylaxis: * Heparin SQ while inpatient Mastoid Effusion * Seen on CT Head, increased in size compared to October 2019 with fluid in R middle ear * Consulted ENT as above -- previously seen in past month by Fadumo Parker, also with hx sinus surgeries * Probably would benefit from daily zyrtec or antihistamine, continuing Fluticasone nasal prn Dispo: continued inpatient stay anticipate rehab at discharge, CM following Admission and Anticipated Discharge Date Admission Date: October 20, 2020 Subjective Patient evaluated this afternoon. Reviewed CT without evidence of fracture -- she states she thought she felt her right hip go in and out of socket while sitting up at bed at home prior to going to her appointment at Dr. Ayala for possible left shoulder injection when she states that she had been walking with a walker and felt like her leg gave out on her. Of note, she was inquiring if his PA Too would be able to see her during admission for injection given increased pain and plans for injection as outpatient as she was not best surgical candidate. Denied dizziness/vertigo or syncope/LOC. DId hit her head and has small contusion to posterior occiput. No fever, chills, chest pain, shortness of breath, abdominal pain nausea or vomiting, dysuria or increased frequency. She is excited to get up and moving and had good experience with [facility] she believes int he past. Agreeable to rehab as she lives with her two cats and is eager to return to them but wants to make sure she is safe from ambulatory standpoint. No LE edema. Discussed topical Voltaren gel -- she states Dr. Chahal had recommended that in the past but she did not greens picker the prescription. She is agreeable to try this to see if any extra pain relief. Pain present but controlled however she has been in bed up until this point. Reviewed CT findings with mastoid effusion -- she states she previously saw Fadumo Parker but was not sure if she wanted to persue at that time. She states she would like to see Dr. Rick if possible for ET tubes as notes indicate if done would like to be inpatient -- consideration while in the hospital currently as transportation can be an issue for her at times. She utilizes the [employer] bus. Review of Systems Review of Systems: All systems reviewed & are unremarkable except as noted in HPI & below Physical Exam Physical Exam: The patient is awake, oriented to person and place. Laying in bed, no acute distress, talking with friend at bedside. well nourished, well developed Slightly tender R parietal/occiput region with hematoma from fall HEENT--PERRL, EOMI, dry mm. Tragus non-tender to palpation. Neck--supple. No JVD. No bruits. trachea midline, no deviation Heart--normal S1 and S2. No murmurs, rubs or gallops. Lungs--clear bilaterally, no respiratory distress, no accessory muscle use. Abdomen--normal bowel sounds and soft. Nondistended. Mild tenderness to palp ation suprapubic region. purewick draining yellow urine Extremities--no cyanosis or clubbing. No edema. tender to palpation over left hip Dermatologic--normal skin turgor, normal color, no abnormal lymph nodes Neurologic--cranial nerves II through XII grossly intact. MSK--range of motion limited by reproducible left hip and groin pain Psychiatric--AO, euthymic Results & Data Results & Data ([facility]) Vital Signs (Past 12 Hours) Vital Signs Temp Pulse Resp BP Pulse Ox 10/21/20 07:33 36.5 C 61 16 160/93 H 94 10/21/20 00:07 75 157/96 H 95 10/20/20 23:05 36.4 C L 78 16 198/98 H 97 Laboratory Results 10/21/20 10/21/20 10/21/20 Range/Units 08:14 06:15 06:15 WBC (4.8-10.8) K/uL RBC (4.2-5.4) M/uL Hgb (12.0-16.0) g/dL Hct (37-47) % MCV (80-100) fL MCH (25-34) pg MCHC (32-36) g/dL RDW Std Deviation (36.4-46.3) fL RDW Coeff of Efren (11.5-14.5) % Plt Count (130-400) K/uL MPV (7.4-10.4) fL Immature Gran % (Auto) % Neut % (Auto) % Lymph % (Auto) % [place] % (Auto) % Eos % (Auto) % Baso % (Auto) % Neut # (Auto) (1.4-6.5) K/uL Lymph # (Auto) (1.2-3.4) K/uL [place] # (Auto) (0.11-0.59) K/uL Eos # (Auto) (0-0.5) K/uL Baso # (Auto) (0-0.2) K/uL Immature Gran # (Auto) (0.00-0.02) K/uL PT (9.0-12.0) Seconds INR (0.9-1.1) APTT (21.0-31.0) Seconds PTT Ratio Sodium 144 (136-145) mmol/L Potassium 4.1 (3.5-5.1) mmol/L Chloride 112 H (98-107) mmol/L Carbon Dioxide 29 (21-32) mmol/L Anion Gap 3.0 (3-11) BUN 17 (7-18) mg/dl Creatinine 0.79 (0.6-1.2) mg/dl Est Cr Clr Drug Dosing 61.4 ml/min Est GFR ( Amer) 82.5 Est GFR (Non-Af Amer) 71.2 BUN/Creatinine Ratio 22.0 H (10-20) Glucose 103 H (70-99) mg/dl POC Glucose 93 (70-99) mg/dl Estimat Average Glucose 128 mg/dl Hemoglobin A1c 6.1 H (4.5-5.6) % Calcium 8.7 (8.5-10.1) mg/dl Phosphorus 3.3 (2.5-4.9) mg/dl Total Bilirubin (0.2-1) mg/dl AST (15-37) U/L ALT (12-78) U/L Alkaline Phosphatase (45-117) U/L Total Protein (6.4-8.2) gm/dl Albumin 3.2 L (3.4-5.0) gm/dl Globulin (2.5-4.0) gm/dl Albumin/Globulin Ratio (0.9-2) Urine Color Urine Appearance (Clear) Urine pH (4.5-7.5) Ur Specific [place] (1.000-1.030) Urine Protein (Negative) Urine Glucose (UA) (Negative) Urine Ketones (Negative) Urine Blood (Negative) Urine Nitrite (Negative) Urine Bilirubin (Negative) Urine Urobilinogen (Negative) Ur Leukocyte Esterase (Negative) Urine WBC (Auto) (0-5) /hpf Urine RBC (Auto) (0-4) /hpf U Hyaline Cast (Auto) (0-5) /lpf U Epithel Cells (Auto) (0-5) /lpf Urine Bacteria (Auto) (Negative) COVID-19 Eval Order SARS-CoV-2 (PCR) (Negative) Influenza Type A (PCR) (Neg) Influenza Type B (PCR) (Neg) RSV (RT-PCR) (Neg) 10/21/20 10/20/20 10/20/20 Range/Units 06:15 Unknown Unknown WBC 7.79 (4.8-10.8) K/uL RBC 4.88 (4.2-5.4) M/uL Hgb 14.3 (12.0-16.0) g/dL Hct 43.1 (37-47) % MCV 88.3 (80-100) fL MCH 29.3 (25-34) pg MCHC 33.2 (32-36) g/dL RDW Std Deviation 44.0 (36.4-46.3) fL RDW Coeff of Efren 13.6 (11.5-14.5) % Plt Count 274 (130-400) K/uL MPV 10.2 (7.4-10.4) fL Immature Gran % (Auto) 0.1 % Neut % (Auto) 72.7 % Lymph % (Auto) 17.6 % [place] % (Auto) 8.1 % Eos % (Auto) 1.2 % Baso % (Auto) 0.3 % Neut # (Auto) 5.67 (1.4-6.5) K/uL Lymph # (Auto) 1.37 (1.2-3.4) K/uL [place] # (Auto) 0.63 H (0.11-0.59) K/uL Eos # (Auto) 0.09 (0-0.5) K/uL Baso # (Auto) 0.02 (0-0.2) K/uL Immature Gran # (Auto) 0.01 (0.00-0.02) K/uL PT (9.0-12.0) Seconds INR (0.9-1.1) APTT (21.0-31.0) Seconds PTT Ratio Sodium 139 (136-145) mmol/L Potassium 3.9 (3.5-5.1) mmol/L Chloride 108 H (98-107) mmol/L Carbon Dioxide 25 (21-32) mmol/L Anion Gap 7.0 (3-11) BUN 19 H (7-18) mg/dl Creatinine 0.96 (0.6-1.2) mg/dl Est Cr Clr Drug Dosing 50.5 ml/min Est GFR ( Amer) 65.2 Est GFR (Non-Af Amer) 56.2 BUN/Creatinine Ratio 19.8 (10-20) Glucose 123 H (70-99) mg/dl POC Glucose (70-99) mg/dl Estimat Average Glucose mg/dl Hemoglobin A1c (4.5-5.6) % Calcium 9.9 (8.5-10.1) mg/dl Phosphorus (2.5-4.9) mg/dl Total Bilirubin 0.5 (0.2-1) mg/dl AST 15 (15-37) U/L ALT 17 (12-78) U/L Alkaline Phosphatase 75 (45-117) U/L Total Protein 7.4 (6.4-8.2) gm/dl Albumin 4.1 (3.4-5.0) gm/dl Globulin 3.3 (2.5-4.0) gm/dl Albumin/Globulin Ratio 1.2 (0.9-2) Urine Color Yellow Urine Appearance Clear (Clear) Urine pH 7.0 (4.5-7.5) Ur Specific [place] 1.011 (1.000-1.030) Urine Protein 1+ H (Negative) Urine Glucose (UA) Negative (Negative) Urine Ketones Negative (Negative) Urine Blood Negative (Negative) Urine Nitrite Negative (Negative) Urine Bilirubin Negative (Negative) Urine Urobilinogen Negative (Negative) Ur Leukocyte Esterase 2+ H (Negative) Urine WBC (Auto) >30 H (0-5) /hpf Urine RBC (Auto) 0-4 (0-4) /hpf U Hyaline Cast (Auto) 1-5 (0-5) /lpf U Epithel Cells (Auto) 5-10 H (0-5) /lpf Urine Bacteria (Auto) Negative (Negative) COVID-19 Eval Order SARS-CoV-2 (PCR) (Negative) Influenza Type A (PCR) (Neg) Influenza Type B (PCR) (Neg) RSV (RT-PCR) (Neg) 10/20/20 10/20/20 10/20/20 Range/Units Unknown Unknown 23:05 WBC 12.60 H (4.8-10.8) K/uL RBC 5.36 (4.2-5.4) M/uL Hgb 15.9 (12.0-16.0) g/dL Hct 46.8 (37-47) % MCV 87.3 (80-100) fL MCH 29.7 (25-34) pg MCHC 34.0 (32-36) g/dL RDW Std Deviation 43.2 (36.4-46.3) fL RDW Coeff of Efren 13.5 (11.5-14.5) % Plt Count 285 (130-400) K/uL MPV 10.5 H (7.4-10.4) fL Immature Gran % (Auto) 0.5 % Neut % (Auto) 85.1 % Lymph % (Auto) 8.7 % [place] % (Auto) 4.8 % Eos % (Auto) 0.7 % Baso % (Auto) 0.2 % Neut # (Auto) 10.71 H (1.4-6.5) K/uL Lymph # (Auto) 1.10 L (1.2-3.4) K/uL [place] # (Auto) 0.61 H (0.11-0.59) K/uL Eos # (Auto) 0.09 (0-0.5) K/uL Baso # (Auto) 0.03 (0-0.2) K/uL Immature Gran # (Auto) 0.06 H (0.00-0.02) K/uL PT 10.2 (9.0-12.0) Seconds INR 1.0 (0.9-1.1) APTT 23.9 (21.0-31.0) Seconds PTT Ratio 0.9 Sodium (136-145) mmol/L Potassium (3.5-5.1) mmol/L Chloride (98-107) mmol/L Carbon Dioxide (21-32) mmol/L Anion Gap (3-11) BUN (7-18) mg/dl Creatinine (0.6-1.2) mg/dl Est Cr Clr Drug Dosing ml/min Est GFR ( Amer) Est GFR (Non-Af Amer) BUN/Creatinine Ratio (10-20) Glucose (70-99) mg/dl POC Glucose 129 H (70-99) mg/dl Estimat Average Glucose mg/dl Hemoglobin A1c (4.5-5.6) % Calcium (8.5-10.1) mg/dl Phosphorus (2.5-4.9) mg/dl Total Bilirubin (0.2-1) mg/dl AST (15-37) U/L ALT (12-78) U/L Alkaline Phosphatase (45-117) U/L Total Protein (6.4-8.2) gm/dl Albumin (3.4-5.0) gm/dl Globulin (2.5-4.0) gm/dl Albumin/Globulin Ratio (0.9-2) Urine Color Urine Appearance (Clear) Urine pH (4.5-7.5) Ur Specific [place] (1.000-1.030) Urine Protein (Negative) Urine Glucose (UA) (Negative) Urine Ketones (Negative) Urine Blood (Negative) Urine Nitrite (Negative) Urine Bilirubin (Negative) Urine Urobilinogen (Negative) Ur Leukocyte Esterase (Negative) Urine WBC (Auto) (0-5) /hpf Urine RBC (Auto) (0-4) /hpf U Hyaline Cast (Auto) (0-5) /lpf U Epithel Cells (Auto) (0-5) /lpf Urine Bacteria (Auto) (Negative) COVID-19 Eval Order SARS-CoV-2 (PCR) (Negative) Influenza Type A (PCR) (Neg) Influenza Type B (PCR) (Neg) RSV (RT-PCR) (Neg) 10/20/20 10/20/20 Range/Units 19:45 19:45 WBC (4.8-10.8) K/uL RBC (4.2-5.4) M/uL Hgb (12.0-16.0) g/dL Hct (37-47) % MCV (80-100) fL MCH (25-34) pg MCHC (32-36) g/dL RDW Std Deviation (36.4-46.3) fL RDW Coeff of Efren (11.5-14.5) % Plt Count (130-400) K/uL MPV (7.4-10.4) fL Immature Gran % (Auto) % Neut % (Auto) % Lymph % (Auto) % [place] % (Auto) % Eos % (Auto) % Baso % (Auto) % Neut # (Auto) (1.4-6.5) K/uL Lymph # (Auto) (1.2-3.4) K/uL [place] # (Auto) (0.11-0.59) K/uL Eos # (Auto) (0-0.5) K/uL Baso # (Auto) (0-0.2) K/uL Immature Gran # (Auto) (0.00-0.02) K/uL PT (9.0-12.0) Seconds INR (0.9-1.1) APTT (21.0-31.0) Seconds PTT Ratio Sodium (136-145) mmol/L Potassium (3.5-5.1) mmol/L Chloride (98-107) mmol/L Carbon Dioxide (21-32) mmol/L Anion Gap (3-11) BUN (7-18) mg/dl Creatinine (0.6-1.2) mg/dl Est Cr Clr Drug Dosing ml/min Est GFR ( Amer) Est GFR (Non-Af Amer) BUN/Creatinine Ratio (10-20) Glucose (70-99) mg/dl POC Glucose (70-99) mg/dl Estimat Average Glucose mg/dl Hemoglobin A1c (4.5-5.6) % Calcium (8.5-10.1) mg/dl Phosphorus (2.5-4.9) mg/dl Total Bilirubin (0.2-1) mg/dl AST (15-37) U/L ALT (12-78) U/L Alkaline Phosphatase (45-117) U/L Total Protein (6.4-8.2) gm/dl Albumin (3.4-5.0) gm/dl Globulin (2.5-4.0) gm/dl Albumin/Globulin Ratio (0.9-2) Urine Color Urine Appearance (Clear) Urine pH (4.5-7.5) Ur Specific [place] (1.000-1.030) Urine Protein (Negative) Urine Glucose (UA) (Negative) Urine Ketones (Negative) Urine Blood (Negative) Urine Nitrite (Negative) Urine Bilirubin (Negative) Urine Urobilinogen (Negative) Ur Leukocyte Esterase (Negative) Urine WBC (Auto) (0-5) /hpf Urine RBC (Auto) (0-4) /hpf U Hyaline Cast (Auto) (0-5) /lpf U Epithel Cells (Auto) (0-5) /lpf Urine Bacteria (Auto) (Negative) COVID-19 Eval Order CovFluRsv at [facility] SARS-CoV-2 (PCR) NEGATIVE (Negative) Influenza Type A (PCR) Negative (Neg) Influenza Type B (PCR) Negative (Neg) RSV (RT-PCR) Negative (Neg) Diagnostic Findings PELVIS CT CT DOSE: 986.97 mGy.cm HISTORY: Pelvic and left hip pain. assess for occult left hip fracture TECHNIQUE: Multiaxial CT images of the pelvis were performed and reformatted in the sagittal and coronal plane without the use of contrast. A dose lowering technique was utilized adhering to the principles of ALARA. COMPARISON: Left hip 10/20/2020. FINDINGS: No acute fracture or dislocation within the pelvis or hips. The sacrum is intact. Bilateral total hip arthroplasties are noted. The hardware is intact. Colonic diverticulosis. Normal appendix. The bladder is mildly distended and there is mild bladder wall thickening with adjacent fat stranding. This could represent a cystitis. No soft tissue hematoma identified. IMPRESSION: 1. No fracture or dislocation within the pelvis or hips. 2. Bilateral total hip arthroplasties. No evidence for hardware complication. 3. Mild bladder wall thickening. Recommend correlation with urinalysis to exclude a cystitis. CT head/brain wo con CLINICAL HISTORY: 80 years-old Female with CHI. Acute posterior head injury TECHNIQUE: Multiple axial CT images of the head were obtained without contrast. A dose lowering technique was utilized adhering to the principles of ALARA. CT DOSE: 1074.96 mGy.cm COMPARISON: Head CT 11/08/2019 FINDINGS: No acute intracranial hemorrhage, midline shift, intracranial mass, hydrocephalus, territorial ischemia or abnormal extra-axial collection. Age- related involutional changes. Senescent calcifications of the lentiform nuclei. White matter hypodensities suggest chronic microvascular ischemic disease. No acute calvarial fracture identified. Large right mastoid effusion with fluid also present within the right middle ear cavity. A moderate sized right mastoid effusion was present on 11/08/2019. Left mastoid air cells are clear. Right parietal scalp contusion. Unremarkable orbits. IMPRESSION: 1. No acute intracranial abnormality or calvarial fracture identified. 2. Small contusion of the right parietal scalp. 3. Large right mastoid effusion has increased in size from 11/08/2019. Fluid is also present within the right middle ear cavity. PG Care Time/CCT Total # of Minutes Spent Total Time Spent with Patient: Total time spent is greater than 50% in coordination of care (as documented) at patient's floor/unit and/or counseling patient: Coding Level of Care Code 88275 Subseq Hosp Care Lvl 3 Diagnoses Urinary tract infection N39.0 Fall W19.XXXA Encounter type: initial encounter Joint pain of left hip on movement M25.552 History of total left hip replacement Z96.642 Hypertension I10 Dyslipidemia E78.5 Tendonitis of left rotator cuff M75.82 Diabetes mellitus E11.9 Hypothyroidism E03.9 DVT prophylaxis Z29.9 (1) Fall Encounter type: initial encounter Qualified Code(s): W19.XXXA - Unspecified fall, initial encounter
--- NOTE | 2020-10-21 08:33 | Emergency Department Note ---
Impression & Plan Acute pain of left hip, S/P total hip arthroplasty, Fall, CHI (closed head injury), Ambulatory dysfunction ED Provider Note NAME: LALA WEINSTEIN AGE: 80 SEX: F ARRIVES VIA: Ambulance INFORMANT: Patient ED PROVIDER(S): Paulina Howell MD CHIEF COMPLAINT: L hip pain, fall, CHI PLAN: Disposition: Admission Condition: Fair Referral: Hospitalist MEDICAL DECISION MAKING: This pt was evaluated and appeared to be in no distress. Pt was noted to be tender to palpation over the L pubic ramus on exam, but seemingly ok to ROM and palp to L hip. IV access was obtained and lab work was drawn. Pt is noted to have a UA concerning for infection, it will be sent for cx. Pt was medicated with IV ceftriaxone and hydrated with NSS. CT head was negative for ICH but notes a L mastoid effusion. Chart review indicates ENT consult. Pt states she didn't want tubes in the ears "for airplane rides as I won't be traveling." It seems she may not have understood the indication. Pt denies pain at this time. An ambulatory trial was performed after XR were negative and per nursing pt failed, enable to bear weight on the L leg. She states she is at home alone with 2 cats. Case management was contacted and pt will be referred to the hospitalist service for further management. Triage Nursing notes reviewed. Vital Signs: reviewed and remarkable for HTN Differential diagnosis: Fracture, subluxation, dislocation, contusion, ligamentous injury, neurovascular, compartment syndrome, rhabdomyolysis, as well as other pathologies. ER treatment provided: IV ceftriaxone IV NSS Diagnostics interpreted by me: ECG: Cardiac Monitoring: Laboratory studies: See below Imaging studies: See below Consultation(s): none HPI: 80/F arrives for evaluation after a fall. Pt states she was "blown over" by the wind walking to the [place]. She has a "21 yo L hip replacement" that has started "acting up" over the last 2 weeks. She thinks it felt wobbly prior to the fall. Pt c/o a head contusion but denies LOC. She denies CP or SOB, recent fevers, v/d. She denies urinary sx. Pt was seen recently by ENT, but she declined tubes which were recommended. She doesn't think it was "explained" well enough. Pt has stress as she lives alone and has a 2 story house. Her bathroom is on the second floor. ROS: See above HPI for pertinent positives & negatives. A total of 10 systems reviewed and were otherwise negative. PAST MEDICAL HISTORY:See Below PAST SURGICAL HISTORY:See Below FAMILY HISTORY:See Below SOCIAL HISTORY:See Below HOME MEDICATIONS:See Below ALLERGIES:See Below VITALS:See Below PHYSICAL EXAMINATION: Vital signs reviewed. General: Well-appearing, anxious 80 yo female, in no significant distress. HEENT: No scleral icterus, PERRLA, neck supple. External auditory canals are clear. fluid noted behind bilateral TM, R with mild opacity but no evidence of infection. L seemingly clear. No erythema. R post parietal 3 cm hematoma. Cardiovascular: Regular rate and rhythm, no extra sounds. Pulmonary: Clear to auscultation bilaterally, normal work of breathing. Abdomen: Soft, nontender, nondistended, positive bowel sounds. Musculoskeletal: Atraumatic, no peripheral edema. Nontender to palp of cervical spine. Tender to pelvic palp L pubic ramus, nontender to L hip and prox femur and ROM. Neurologic: Patient awake alert and oriented x 3, speech is clear Skin: Warm, dry, no rash Paulina Howell MD Past Med/Surg History Medical History Abnormal EKG Anxiety Arthralgia of multiple sites Coronary artery calcification Dairy allergy Diabetes mellitus, type 2 DMII (diabetes mellitus, type 2) Dyslipidemia Gait disturbance Hammer toe History of nasal polyp Hyperlipidemia Hypertension Hypertension Hypothyroidism LAFB (left anterior fascicular block) LVH (left ventricular hypertrophy) Microalbuminuria Nocturia Osteoarthritis Osteoporosis Urinary frequency Urinary incontinence Urinary symptom or sign Vitamin D deficiency disease Surgical History History of back surgery IN 1985 LUMBAR FOR 2 RUPTURED DISC History of blepharoplasty History of breast biopsy History of cataract surgery BILAT History of colonoscopy History of hand surgery RIGHT History of hip replacement BILAT. RIGHT HIP X2 History of hysterectomy History of knee replacement RIGHT History of nasal septoplasty History of placement of ear tubes RIGHT IN OFFICE History of rhinoplasty History of rotator cuff surgery LEFT History of tonsillectomy Family History Mother Coronary heart disease Heart disease Grandmother (Maternal) Heart disease Son Diabetes Denies family history of Ovarian cancer Prostate cancer Myocardial infarction Breast cancer Colorectal cancer Cancer Social History Smoking Status: Never smoker Second Hand Exposure: Yes; Hx Alcohol Use: No Hx Substance Use: No Preferred Language: Lithuanian Communication Ability: Effective Wool Mixer Required: No Beliefs That Will Affect Care: None marital status: Current Living Situation: Alone current occupational status: retired How many Children do You have: 3 Other Information That Helps Us Care for You: No Feels Safe at Home: Yes Safety Concerns: Feels Safe At This Time Safety Concerns Comment: states she has to kittens to keep after her Childhood Exposure to Second-Hand Smoke: No during the past year weight has: decreased > 10 lbs Dental Care, Regularly: Yes Physical Activity Frequency: Does not Exercise Seatbelt Use: always Sunscreen Use: Yes Assistive Devices: Walker Allergies Allergies Allergy/AdvReac Type Severity Reaction Status Date / Time Sulfa (Sulfonamide Allergy Intermediate RASH/ITCH Verified 10/20/20 17:14 Antibiotics) morphine Allergy Mild RASH/ITCH Verified 10/20/20 17:14 propoxyphene Allergy Mild RASH Verified 10/20/20 17:14 Home Meds Home Medications Medication Instructions Recorded Confirmed calcium polycarbophil [Fiber 1,250 mg PO .QLUNCH 05/06/19 10/20/20 (calcium polycarbophil)] cyanocobalamin (vitamin B-12) 500 mcg PO QAM 05/06/19 10/20/20 multivitamin 1 tab PO QAM 05/06/19 10/20/20 menthol [Biofreeze (menthol)] 1 applic TOPICAL BID PRN 11/08/19 10/20/20 alendronate 70 mg PO FR 11/10/19 10/20/20 fluticasone propionate 50 2 spray INTNAS BID PRN g 03/24/20 10/20/20 mcg/actuation nasal spray,suspension calcium polycarbophil 1,875 mg PO QAM 10/20/20 10/20/20 fluocinonide 1 applic TOPICAL BID PRN 10/20/20 10/20/20 Previous Rx's Medication Instructions Recorded metformin 500 mg tablet 500 mg PO BID #180 tab 02/03/20 atenolol 25 mg tablet 25 mg PO DAILY #90 tab 04/21/20 lisinopril 20 mg tablet 20 mg PO DAILY #90 tab 04/21/20 pravastatin 10 mg tablet 10 mg PO HS #90 tab 05/17/20 clonidine HCl 0.1 mg tablet 0.1 mg PO BID #180 tab 09/11/20 diclofenac sodium 75 mg 75 mg PO BID PRN #60 tab 09/22/20 tablet,delayed release levothyroxine 25 mcg tablet 25 mcg PO QAM #90 tab 10/04/20 Results & Data (ED) Vital Signs Vital Signs - 24 hr 10/20/20 16:36 10/20/20 16:42 Temperature 36.7 C Temperature Source Oral Pulse Rate 95 H Pulse Rate [Right Finger] 85 Pulse Rhythm Regular Pulse Rhythm [Right Finger] Regular Pulse Strength Normal Pulse Strength [Right Finger] Normal Respiratory Rate 20 18 Respiratory Effort / Characteristics Non-Labored Spontaneous Non-Labored Spontaneous Respiratory Depth Normal Normal Blood Pressure 186/105 H Blood Pressure [Right Arm] 186/105 H Blood Pressure Mean 132 Blood Pressure Mean [Right Arm] 132 Blood Pressure Position Lying Blood Pressure Position [Right Arm] Lying Pulse Oximetry 96 94 Oxygen Delivery Method Room Air Room Air Sepsis Recent Fever Within 48 Hours No Sepsis New/Unexplained Change in Mental Status No Sepsis Action Taken by Nursing No Action Required Home Medications Current Medication List: was personally reviewed by me Laboratory Data Attestation: I reviewed the patient's lab results. Result diagrams: 10/23/20 06:36 10/23/20 06:36 Lab Results 10/20/20 10/20/20 10/20/20 Range/Units 19:45 19:45 23:05 WBC (4.8-10.8) K/uL RBC (4.2-5.4) M/uL Hgb (12.0-16.0) g/dL Hct (37-47) % MCV (80-100) fL MCH (25-34) pg MCHC (32-36) g/dL RDW Std Deviation (36.4-46.3) fL RDW Coeff of Efren (11.5-14.5) % Plt Count (130-400) K/uL MPV (7.4-10.4) fL Immature Gran % (Auto) % Neut % (Auto) % Lymph % (Auto) % Love % (Auto) % Eos % (Auto) % Baso % (Auto) % Neut # (Auto) (1.4-6.5) K/uL Lymph # (Auto) (1.2-3.4) K/uL Love # (Auto) (0.11-0.59) K/uL Eos # (Auto) (0-0.5) K/uL Baso # (Auto) (0-0.2) K/uL Immature Gran # (Auto) (0.00-0.02) K/uL PT (9.0-12.0) Seconds INR (0.9-1.1) APTT (21.0-31.0) Seconds PTT Ratio Sodium (136-145) mmol/L Potassium (3.5-5.1) mmol/L Chloride (98-107) mmol/L Carbon Dioxide (21-32) mmol/L Anion Gap (3-11) BUN (7-18) mg/dl Creatinine (0.6-1.2) mg/dl Est Cr Clr Drug Dosing ml/min Est GFR ( Amer) Est GFR (Non-Af Amer) BUN/Creatinine Ratio (10-20) Glucose (70-99) mg/dl POC Glucose 129 H (70-99) mg/dl Estimat Average Glucose mg/dl Hemoglobin A1c (4.5-5.6) % Calcium (8.5-10.1) mg/dl Phosphorus (2.5-4.9) mg/dl Total Bilirubin (0.2-1) mg/dl AST (15-37) U/L ALT (12-78) U/L Alkaline Phosphatase (45-117) U/L Total Protein (6.4-8.2) gm/dl Albumin (3.4-5.0) gm/dl Globulin (2.5-4.0) gm/dl Albumin/Globulin Ratio (0.9-2) Urine Color Urine Appearance (Clear) Urine pH (4.5-7.5) Ur Specific [place] (1.000-1.030) Urine Protein (Negative) Urine Glucose (UA) (Negative) Urine Ketones (Negative) Urine Blood (Negative) Urine Nitrite (Negative) Urine Bilirubin (Negative) Urine Urobilinogen (Negative) Ur Leukocyte Esterase (Negative) Urine WBC (Auto) (0-5) /hpf Urine RBC (Auto) (0-4) /hpf U Hyaline Cast (Auto) (0-5) /lpf U Epithel Cells (Auto) (0-5) /lpf Urine Bacteria (Auto) (Negative) COVID-19 Eval Order [facility]FluRsv at [facility] SARS-CoV-2 (PCR) NEGATIVE (Negative) Influenza Type A (PCR) Negative (Neg) Influenza Type B (PCR) Negative (Neg) RSV (RT-PCR) Negative (Neg) 10/20/20 10/20/20 10/20/20 Range/Units Unknown Unknown Unknown WBC 12.60 H (4.8-10.8) K/uL RBC 5.36 (4.2-5.4) M/uL Hgb 15.9 (12.0-16.0) g/dL Hct 46.8 (37-47) % MCV 87.3 (80-100) fL MCH 29.7 (25-34) pg MCHC 34.0 (32-36) g/dL RDW Std Deviation 43.2 (36.4-46.3) fL RDW Coeff of Efren 13.5 (11.5-14.5) % Plt Count 285 (130-400) K/uL MPV 10.5 H (7.4-10.4) fL Immature Gran % (Auto) 0.5 % Neut % (Auto) 85.1 % Lymph % (Auto) 8.7 % Love % (Auto) 4.8 % Eos % (Auto) 0.7 % Baso % (Auto) 0.2 % Neut # (Auto) 10.71 H (1.4-6.5) K/uL Lymph # (Auto) 1.10 L (1.2-3.4) K/uL Love # (Auto) 0.61 H (0.11-0.59) K/uL Eos # (Auto) 0.09 (0-0.5) K/uL Baso # (Auto) 0.03 (0-0.2) K/uL Immature Gran # (Auto) 0.06 H (0.00-0.02) K/uL PT 10.2 (9.0-12.0) Seconds INR 1.0 (0.9-1.1) APTT 23.9 (21.0-31.0) Seconds PTT Ratio 0.9 Sodium 139 (136-145) mmol/L Potassium 3.9 (3.5-5.1) mmol/L Chloride 108 H (98-107) mmol/L Carbon Dioxide 25 (21-32) mmol/L Anion Gap 7.0 (3-11) BUN 19 H (7-18) mg/dl Creatinine 0.96 (0.6-1.2) mg/dl Est Cr Clr Drug Dosing 50.5 ml/min Est GFR ( Amer) 65.2 Est GFR (Non-Af Amer) 56.2 BUN/Creatinine Ratio 19.8 (10-20) Glucose 123 H (70-99) mg/dl POC Glucose (70-99) mg/dl Estimat Average Glucose mg/dl Hemoglobin A1c (4.5-5.6) % Calcium 9.9 (8.5-10.1) mg/dl Phosphorus (2.5-4.9) mg/dl Total Bilirubin 0.5 (0.2-1) mg/dl AST 15 (15-37) U/L ALT 17 (12-78) U/L Alkaline Phosphatase 75 (45-117) U/L Total Protein 7.4 (6.4-8.2) gm/dl Albumin 4.1 (3.4-5.0) gm/dl Globulin 3.3 (2.5-4.0) gm/dl Albumin/Globulin Ratio 1.2 (0.9-2) Urine Color Urine Appearance (Clear) Urine pH (4.5-7.5) Ur Specific [place] (1.000-1.030) Urine Protein (Negative) Urine Glucose (UA) (Negative) Urine Ketones (Negative) Urine Blood (Negative) Urine Nitrite (Negative) Urine Bilirubin (Negative) Urine Urobilinogen (Negative) Ur Leukocyte Esterase (Negative) Urine WBC (Auto) (0-5) /hpf Urine RBC (Auto) (0-4) /hpf U Hyaline Cast (Auto) (0-5) /lpf U Epithel Cells (Auto) (0-5) /lpf Urine Bacteria (Auto) (Negative) COVID-19 Eval Order SARS-CoV-2 (PCR) (Negative) Influenza Type A (PCR) (Neg) Influenza Type B (PCR) (Neg) RSV (RT-PCR) (Neg) 0310/21/20 10/21/20 Range/Units Unknown 06:15 06:15 WBC 7.79 (4.8-10.8) K/uL RBC 4.88 (4.2-5.4) M/uL Hgb 14.3 (12.0-16.0) g/dL Hct 43.1 (37-47) % MCV 88.3 (80-100) fL MCH 29.3 (25-34) pg MCHC 33.2 (32-36) g/dL RDW Std Deviation 44.0 (36.4-46.3) fL RDW Coeff of Efren 13.6 (11.5-14.5) % Plt Count 274 (130-400) K/uL MPV 10.2 (7.4-10.4) fL Immature Gran % (Auto) 0.1 % Neut % (Auto) 72.7 % Lymph % (Auto) 17.6 % Love % (Auto) 8.1 % Eos % (Auto) 1.2 % Baso % (Auto) 0.3 % Neut # (Auto) 5.67 (1.4-6.5) K/uL Lymph # (Auto) 1.37 (1.2-3.4) K/uL Love # (Auto) 0.63 H (0.11-0.59) K/uL Eos # (Auto) 0.09 (0-0.5) K/uL Baso # (Auto) 0.02 (0-0.2) K/uL Immature Gran # (Auto) 0.01 (0.00-0.02) K/uL PT (9.0-12.0) Seconds INR (0.9-1.1) APTT (21.0-31.0) Seconds PTT Ratio Sodium 144 (136-145) mmol/L Potassium 4.1 (3.5-5.1) mmol/L Chloride 112 H (98-107) mmol/L Carbon Dioxide 29 (21-32) mmol/L Anion Gap 3.0 (3-11) BUN 17 (7-18) mg/dl Creatinine 0.79 (0.6-1.2) mg/dl Est Cr Clr Drug Dosing 61.4 ml/min Est GFR ( Amer) 82.5 Est GFR (Non-Af Amer) 71.2 BUN/Creatinine Ratio 22.0 H (10-20) Glucose 103 H (70-99) mg/dl POC Glucose (70-99) mg/dl Estimat Average Glucose mg/dl Hemoglobin A1c (4.5-5.6) % Calcium 8.7 (8.5-10.1) mg/dl Phosphorus 3.3 (2.5-4.9) mg/dl Total Bilirubin (0.2-1) mg/dl AST (15-37) U/L ALT (12-78) U/L Alkaline Phosphatase (45-117) U/L Total Protein (6.4-8.2) gm/dl Albumin 3.2 L (3.4-5.0) gm/dl Globulin (2.5-4.0) gm/dl Albumin/Globulin Ratio (0.9-2) Urine Color Yellow Urine Appearance Clear (Clear) Urine pH 7.0 (4.5-7.5) Ur Specific [place] 1.011 (1.000-1.030) Urine Protein 1+ H (Negative) Urine Glucose (UA) Negative (Negative) Urine Ketones Negative (Negative) Urine Blood Negative (Negative) Urine Nitrite Negative (Negative) Urine Bilirubin Negative (Negative) Urine Urobilinogen Negative (Negative) Ur Leukocyte Esterase 2+ H (Negative) Urine WBC (Auto) >30 H (0-5) /hpf Urine RBC (Auto) 0-4 (0-4) /hpf U Hyaline Cast (Auto) 1-5 (0-5) /lpf U Epithel Cells (Auto) 5-10 H (0-5) /lpf Urine Bacteria (Auto) Negative (Negative) COVID-19 Eval Order SARS-CoV-2 (PCR) (Negative) Influenza Type A (PCR) (Neg) Influenza Type B (PCR) (Neg) RSV (RT-PCR) (Neg) 10/21/20 10/21/20 10/21/20 Range/Units 06:15 08:14 11:54 WBC (4.8-10.8) K/uL RBC (4.2-5.4) M/uL Hgb (12.0-16.0) g/dL Hct (37-47) % MCV (80-100) fL MCH (25-34) pg MCHC (32-36) g/dL RDW Std Deviation (36.4-46.3) fL RDW Coeff of Efren (11.5-14.5) % Plt Count (130-400) K/uL MPV (7.4-10.4) fL Immature Gran % (Auto) % Neut % (Auto) % Lymph % (Auto) % Love % (Auto) % Eos % (Auto) % Baso % (Auto) % Neut # (Auto) (1.4-6.5) K/uL Lymph # (Auto) (1.2-3.4) K/uL Love # (Auto) (0.11-0.59) K/uL Eos # (Auto) (0-0.5) K/uL Baso # (Auto) (0-0.2) K/uL Immature Gran # (Auto) (0.00-0.02) K/uL PT (9.0-12.0) Seconds INR (0.9-1.1) APTT (21.0-31.0) Seconds PTT Ratio Sodium (136-145) mmol/L Potassium (3.5-5.1) mmol/L Chloride (98-107) mmol/L Carbon Dioxide (21-32) mmol/L Anion Gap (3-11) BUN (7-18) mg/dl Creatinine (0.6-1.2) mg/dl Est Cr Clr Drug Dosing ml/min Est GFR ( Amer) Est GFR (Non-Af Amer) BUN/Creatinine Ratio (10-20) Glucose (70-99) mg/dl POC Glucose 93 111 H (70-99) mg/dl Estimat Average Glucose 128 mg/dl Hemoglobin A1c 6.1 H (4.5-5.6) % Calcium (8.5-10.1) mg/dl Phosphorus (2.5-4.9) mg/dl Total Bilirubin (0.2-1) mg/dl AST (15-37) U/L ALT (12-78) U/L Alkaline Phosphatase (45-117) U/L Total Protein (6.4-8.2) gm/dl Albumin (3.4-5.0) gm/dl Globulin (2.5-4.0) gm/dl Albumin/Globulin Ratio (0.9-2) Urine Color Urine Appearance (Clear) Urine pH (4.5-7.5) Ur Specific [place] (1.000-1.030) Urine Protein (Negative) Urine Glucose (UA) (Negative) Urine Ketones (Negative) Urine Blood (Negative) Urine Nitrite (Negative) Urine Bilirubin (Negative) Urine Urobilinogen (Negative) Ur Leukocyte Esterase (Negative) Urine WBC (Auto) (0-5) /hpf Urine RBC (Auto) (0-4) /hpf U Hyaline Cast (Auto) (0-5) /lpf U Epithel Cells (Auto) (0-5) /lpf Urine Bacteria (Auto) (Negative) COVID-19 Eval Order SARS-CoV-2 (PCR) (Negative) Influenza Type A (PCR) (Neg) Influenza Type B (PCR) (Neg) RSV (RT-PCR) (Neg) Administered Medications Atenolol (Atenolol 25 Mg Tablet) 25 mg PO DAILY [facility] Stop: 11/20/20 08:59 Last Admin: 10/24/20 08:08 Dose: 25 mg Documented by: [id number] Admin: 10/23/20 08:37 Dose: 25 mg Documented by: [id number] Admin: 10/22/20 07:27 Dose: 25 mg Documented by: [id number] Admin: 10/21/20 09:13 Dose: 25 mg Documented by: [id number] Calcium Polycarbophil (Calcium Polycarbophil 625mg Tab) 1,875 mg PO QAM [facility] Stop: 11/20/20 08:59 Last Admin: 10/24/20 08:09 Dose: 1,875 mg Documented by: [id number] Admin: 10/23/20 08:36 Dose: 1,875 mg Documented by: [id number] Admin: 10/22/20 07:28 Dose: 1,875 mg Documented by: [id number] Admin: 10/21/20 09:11 Dose: 1,875 mg Documented by: [id number] Calcium Polycarbophil (Calcium Polycarbophil 625mg Tab) 1,250 mg PO QDL [facility] Stop: 11/20/20 11:29 Last Admin: 10/24/20 12:10 Dose: Not Given Documented by: [id number] Admin: 10/23/20 12:11 Dose: 1,250 mg Documented by: [id number] Admin: 10/22/20 12:04 Dose: 1,250 mg Documented by: [id number] Admin: 10/21/20 13:12 Dose: 1,250 mg Documented by: [id number] Clonidine HCl (Clonidine Hcl 0.1 Mg Tab) 0.1 mg PO BID [facility] Stop: 11/19/20 23:00 Last Admin: 10/24/20 21:25 Dose: 0.1 mg Documented by: [id number] Admin: 10/24/20 08:08 Dose: 0.1 mg Documented by: [id number] Admin: 10/23/20 20:15 Dose: 0.1 mg Documented by: [id number] Admin: 10/23/20 08:36 Dose: 0.1 mg Documented by: [id number] Admin: 10/22/20 20:43 Dose: 0.1 mg Documented by: [id number] Admin: 10/22/20 07:29 Dose: 0.1 mg Documented by: [id number] Admin: 10/21/20 20:22 Dose: 0.1 mg Documented by: [id number] Admin: 10/21/20 09:10 Dose: 0.1 mg Documented by: [id number] Admin: 10/21/20 00:09 Dose: 0.1 mg Documented by: [id number] Cyanocobalamin (Cyanocobalamin 500 Mcg Tablet (Vitamin B-12)) 500 mcg PO QAM [facility] Stop: 11/20/20 08:59 Last Admin: 10/22/20 07:28 Dose: 500 mcg Documented by: [id number] Admin: 10/21/20 09:13 Dose: 500 mcg Documented by: [id number] Diclofenac Sodium (Diclofenac Sod 1% Gel 100 Gm Tube) 2 gm EXT QID [facility] Stop: 11/20/20 16:59 Last Admin: 10/24/20 21:25 Dose: 2 gm Documented by: [id number] Admin: 10/24/20 18:11 Dose: 2 gm Documented by: [id number] Admin: 10/24/20 12:10 Dose: 2 gm Documented by: [id number] Admin: 10/24/20 08:10 Dose: 2 gm Documented by: [id number] Admin: 10/23/20 20:20 Dose: Not Given Documented by: [id number] Admin: 10/23/20 16:24 Dose: 2 gm Documented by: [id number] Admin: 10/23/20 12:11 Dose: 2 gm Documented by: [id number] Admin: 10/23/20 08:37 Dose: 2 gm Documented by: [id number] Admin: 10/22/20 20:43 Dose: Not Given Documented by: [id number] Admin: 10/22/20 17:48 Dose: Not Given Documented by: [id number] Admin: 10/22/20 12:04 Dose: 2 gm Documented by: [id number] Admin: 10/22/20 07:29 Dose: 2 gm Documented by: [id number] Admin: 10/21/20 20:21 Dose: 2 gm Documented by: [id number] Admin: 10/21/20 17:41 Dose: 2 gm Documented by: [id number] Heparin Sodium (Porcine) (Heparin Sod 5,000 Unit/0.5 Ml Vial) 5,000 units SQ Q12 [facility] Stop: 11/20/20 08:59 Last Admin: 10/24/20 21:25 Dose: 5,000 units Documented by: [id number] Admin: 10/24/20 08:09 Dose: 5,000 units Documented by: [id number] Admin: 10/23/20 20:14 Dose: 5,000 units Documented by: [id number] Admin: 10/23/20 08:38 Dose: 5,000 units Documented by: [id number] Admin: 10/22/20 20:44 Dose: 5,000 units Documented by: [id number] Admin: 10/22/20 07:29 Dose: 5,000 units Documented by: [id number] Admin: 10/21/20 20:22 Dose: 5,000 units Documented by: [id number] Admin: 10/21/20 09:12 Dose: 5,000 units Documented by: [id number] Ceftriaxone Sodium 1,000 mg/ (Dextrose) 50 mls @ 100 mls/hr IV Q24H [facility]; Protocol Stop: 10/31/20 19:59 Last Infusion: 10/24/20 21:47 Dose: 0 mls/hr Documented by: [id number] Admin: 10/24/20 21:20 Dose: 100 mls/hr Documented by: [id number] Infusion: 10/23/20 20:47 Dose: 0 mls/hr Documented by: [id number] Admin: 10/23/20 20:06 Dose: 100 mls/hr Documented by: [id number] Infusion: 10/22/20 21:21 Dose: 0 mls/hr Documented by: [id number] Admin: 10/22/20 20:37 Dose: 100 mls/hr Documented by: [id number] Infusion: 10/21/20 21:00 Dose: 0 mls/hr Documented by: [id number] Admin: 10/21/20 20:21 Dose: 100 mls/hr Documented by: [id number] Insulin Aspart (Insulin Aspart 100 Units/Ml 3 Ml Pen) 0 units SC ACHS [facility] Stop: 11/20/20 07:29 Last Admin: 10/24/20 18:11 Dose: 1 units Documented by: [id number] Cosigned by: [id number] Admin: 10/24/20 12:52 Dose: 2 units Documented by: [id number] Cosigned by: [id number] Admin: 10/24/20 09:06 Dose: 1 units Documented by: [id number] Cosigned by: [id number] Admin: 10/23/20 20:56 Dose: Not Given Documented by: [id number] Admin: 10/23/20 17:53 Dose: 1 units Documented by: [id number] Cosigned by: [id number] Admin: 10/23/20 12:49 Dose: 1 units Documented by: [id number] Cosigned by: [id number] Admin: 10/23/20 08:46 Dose: 3 units Documented by: [id number] Cosigned by: [id number] Admin: 10/22/20 20:46 Dose: 1 units Documented by: [id number] Cosigned by: [id number] Admin: 10/22/20 17:49 Dose: 2 units Documented by: [id number] Cosigned by: [id number] Admin: 10/22/20 12:55 Dose: 2 units Documented by: [id number] Cosigned by: [id number] Admin: 10/22/20 09:14 Dose: 1 units Documented by: [id number] Cosigned by: [id number] Admin: 10/21/20 20:48 Dose: Not Given Documented by: [id number] Cosigned by: [id number] Admin: 10/21/20 17:39 Dose: 3 units Documented by: [id number] Cosigned by: [id number] Admin: 10/21/20 13:14 Dose: 1 units Documented by: [id number] Cosigned by: [id number] Admin: 10/21/20 09:15 Dose: 1 units Documented by: [id number] Cosigned by: [id number] Levothyroxine Sodium (Levothyroxine Sodium 25 Mcg Tablet) 25 mcg PO DAILYBB [facility] Stop: 11/20/20 06:29 Last Admin: 10/24/20 06:07 Dose: 25 mcg Documented by: [id number] Admin: 10/23/20 05:41 Dose: 25 mcg Documented by: [id number] Admin: 10/22/20 05:47 Dose: 25 mcg Documented by: [id number] Admin: 10/21/20 05:55 Dose: 25 mcg Documented by: [id number] Lisinopril (Lisinopril 20 Mg Tab) 20 mg PO DAILY [facility] Stop: 11/20/20 08:59 Last Admin: 10/24/20 08:10 Dose: 20 mg Documented by: [id number] Admin: 10/23/20 08:36 Dose: 20 mg Documented by: [id number] Admin: 10/22/20 07:28 Dose: 20 mg Documented by: [id number] Admin: 10/21/20 09:14 Dose: 20 mg Documented by: [id number] Multivitamins (Multivitamin Tab) 1 tab PO QAM [facility] Stop: 11/20/20 08:59 Last Admin: 10/24/20 08:09 Dose: 1 tab Documented by: [id number] Admin: 10/23/20 08:37 Dose: 1 tab Documented by: [id number] Admin: 10/22/20 07:28 Dose: 1 tab Documented by: [id number] Admin: 10/21/20 09:12 Dose: 1 tab Documented by: [id number] Pravastatin Sodium (Pravastatin Sod 10 Mg Tab) 10 mg PO HS [facility] Stop: 11/20/20 20:59 Last Admin: 10/24/20 21:26 Dose: 10 mg Documented by: [id number] Admin: 10/23/20 20:19 Dose: 10 mg Documented by: [id number] Admin: 10/22/20 20:43 Dose: 10 mg Documented by: [id number] Admin: 10/21/20 20:21 Dose: 10 mg Documented by: [id number] Discontinued Medications Hydralazine HCl (Hydralazine Hcl 20 Mg/Ml Vial) 5 mg IV NOW ONE Stop: 10/21/20 12:06 Last Admin: 10/21/20 13:23 Dose: 5 mg Documented by: [id number] Sodium Chloride (Nss 1000ml) 1,000 mls @ 150 mls/hr IV .[id number] [facility] Stop: 10/21/20 00:09 Last Infusion: 10/21/20 00:18 Dose: 0 mls/hr Documented by: [id number] Admin: 10/20/20 19:30 Dose: 150 mls/hr Documented by: [id number] Ceftriaxone Sodium (Rocephin) 1,000 mg in 50 mls @ 100 mls/hr IV NOW STA Stop: 10/20/20 19:55 Last Infusion: 10/21/20 00:18 Dose: 0 mls/hr Documented by: [id number] Admin: 10/20/20 19:39 Dose: 100 mls/hr Documented by: [id number] Potassium Chloride/Sodium Chloride (Normal Saline W/20 Meq Kcl) 20 meq in 1,000 mls @ 80 mls/hr IV .[id number] [facility] Stop: 11/19/20 23:00 Last Infusion: 10/21/20 17:36 Dose: 0 mls/hr Documented by: [id number] Admin: 10/21/20 13:11 Dose: 80 mls/hr Documented by: [id number] Infusion: 10/21/20 12:39 Dose: 80 mls/hr Documented by: [id number] Admin: 10/21/20 00:09 Dose: 80 mls/hr Documented by: [id number] Lidocaine HCl (Lidocaine Hcl 1% 20 Ml Vial) 20 ml INFIL NOW ONE Stop: 10/21/20 18:42 Last Admin: 10/22/20 12:04 Dose: Not Given Documented by: [id number] Lidocaine HCl (Lidocaine Hcl 1% 20 Ml Vial) Confirm Administered Dose 20 ml .ROUTE .STK-MED ONE Stop: 10/22/20 07:05 Last Admin: 10/22/20 12:02 Dose: 20 ml Documented by: [id number] Methylprednisolone Acetate (Methylprednisolone Acetate 40 Mg/Ml Vial) 40 mg IM NOW ONE Stop: 10/21/20 18:42 Last Admin: 10/22/20 12:03 Dose: 40 mg Documented by: [id number] Discharge Plan Visit Data Chief Complaint: Hip Pain Stated Complaint: FALL ED Provider: Paulina Howell Discharge Problem: Acute pain of left hip, S/P total hip arthroplasty, Fall, CHI (closed head injury), Ambulatory dysfunction Patient Disposition: Admitted As Inpatient Discharge Instructions Interventions: ED Discharge Assessment Last Done: 10/20/20 22:41 Discharge Problem: S/P total hip arthroplasty Qualifiers: Laterality: left Qualified Code(s): Z96.642 - Presence of left artificial hip joint Fall Qualifiers: Encounter type: initial encounter Qualified Code(s): W19.XXXA - Unspecified fall, initial encounter CHI (closed head injury) Qualifiers: Encounter type: initial encounter Qualified Code(s): S09.90XA - Unspecified injury of head, initial encounter
[2020-10-21] MEDS: CALCIUM POLYCARBOPHIL 625MG TAB PO SCH ×2 (09:11→13:12)
[2020-10-21] MEDS: MULTIVITAMIN TAB PO SCH (09:12)
[2020-10-21] MEDS: HEPARIN SOD 5,000 UNIT/0.5 ML VIAL SQ SCH ×2 (09:12→20:22)
[2020-10-21] MEDS: CYANOCOBALAMIN 500 MCG TABLET (VITAMIN B-12) PO SCH (09:13)
[2020-10-21] MEDS: ATENOLOL 25 MG TABLET PO SCH (09:13)
[2020-10-21] MEDS: lisinopril 20 MG TAB PO SCH (09:14)
[2020-10-21] MEDS: INSULIN ASPART 100 UNITS/ML 3 ML PEN SC SCH ×4 (09:15→20:48)
[2020-10-21] MEDS ORDERED: hydrALAZINE HCL 20 MG/ML VIAL IV ONE (12:05)
--- NOTE | 2020-10-21 13:18 | Electrocardiogram Report ---
Test Reason : Blood Pressure : / mmHG Vent. Rate : 078 BPM Atrial Rate : 078 BPM P-R Int : 194 ms QRS Dur : 092 ms QT Int : 386 ms P-R-T Axes : 070 -49 043 degrees QTc Int : 440 ms Normal sinus rhythm Left anterior fascicular block Minimal voltage criteria for LVH, may be normal variant Abnormal ECG When compared with ECG of 10-NOV-2019 08:37, Nonspecific T wave abnormality has replaced inverted T waves in Inferior leads Confirmed by Conner Goff ([id number]) on 10/21/2020 1:18:10 PM Referred By: REFERRED SELF Confirmed By:Conner Goff
[2020-10-21] MEDS: DICLOFENAC SOD 1% GEL 100 GM TUBE EXT SCH ×2 (17:41→20:21)
[2020-10-21] MEDS ORDERED: LIDOCAINE HCL 1% 20 ML VIAL INFIL ONE (18:41)
[2020-10-21] MEDS ORDERED: methylPREDNISolone acetate 40 MG/ML VIAL IM ONE (18:41)
--- NOTE | 2020-10-21 19:13 | Progress Notes ---
DATE: 10/21/2020 PATIENT OF: Dr. Smith. Consulted to see her for left shoulder pain. She has had chronic left shoulder pain for 2 years status post fall and has had prior cortisone shots. She was on her way to Dr. Smith's office when she fell. She was going there to get a shot. She ended up being admitted because she has some fluid in her ears and she also has a bladder infection. There is mild diffuse tenderness about the shoulder. Range of motion, she can elevate to about 150, internally rotate to her lumbar spine and externally rotate about 30 degrees. Her distal neurovascular function is intact with 1+ pulse. She has weakness with external rotation. Otherwise, normal strength. Negative drop arm. We will order some x-rays to evaluate the left shoulder. She wishes to have an injection, which I think is reasonable after we review the x-rays. We will go ahead and order the supplies at the bedside and plan on proceeding tomorrow with the cortisone shot in her left shoulder subacromial space area.
--- NOTE | 2020-10-21 19:48 | XRay Report ---
LEFT KNEE 3 VIEWS HISTORY: Left knee pain. s/p fall, recent knee injection COMPARISON: Bilateral knees 07/31/2012. FINDINGS: There is no fracture or dislocation. Soft tissues are unremarkable. No radiopaque foreign b odies. No knee effusion. The bones are osteopenic. Vascular calcifications are noted. Severe osteoart hritis at the patellofemoral joint. Mild chondrocalcinosis. Mild to moderate osteoarthritis within th e remaining compartments of the knee. IMPRESSION: No acute fractures within the left knee. Tricompartmental osteoarthritis. ACT 112: Negative or not required by law. Electronically signed by: Jad Tong M.D. 10/21/2020 7:47 PM
--- NOTE | 2020-10-21 19:53 | XRay Report ---
XR shoulder LT min 2V routine CLINICAL HISTORY: Fall. Left shoulder pain. COMPARISON STUDY: None. FINDINGS: The bones are osteopenic. No acute fracture or dislocation within the left shoulder. The le ft clavicle is intact. Moderate osteoarthritis within the left shoulder. Superior subluxation of the left humeral head is likely due to chronic rotator cuff tear. IMPRESSION: No acute fracture or dislocation within the left shoulder. ACT 112: Negative or not required by law. Electronically signed by: Jad Tong M.D. 10/21/2020 7:51 PM
[2020-10-21] MEDS: PRAVASTATIN SOD 10 MG TAB PO SCH (20:21)
[2020-10-21] MEDS: cefTRIAXone SODIUM 1,000 MG in DEXTROSE 5% 50 ML IV SCH (20:21)
[2020-10-22] MEDS: LEVOTHYROXINE SODIUM 25 MCG TABLET PO SCH (05:47)
[2020-10-22 06:15] LABS: Basophils # (auto) 0.02 K/uL (0-0.2); Basophils % (auto) 0.3 %; Eosinophils # (auto) 0.41 K/uL (0-0.5); Eosinophils % (auto) 5.3 %; Hemoglobin 14.2 g/dL (12.0-16.0); Immature Granulocytes # (auto) 0.02 K/uL (0.00-0.02); Immature Granulocytes % (auto) 0.3 %; Lymphocytes # (auto) 1.94 K/uL (1.2-3.4); Lymphocytes % (auto) 25.3 %; Mean Corpuscular Hemoglobin 29.3 pg (25-34); Mean Corpuscular Volume 88.7 fL (80-100); Mean Platelet Volume 10.3 fL (7.4-10.4); Monocytes # (auto) 0.66 K/uL (0.11-0.59); Monocytes % (auto) 8.6 %; Neutrophils # (auto) 4.62 K/uL (1.4-6.5); Neutrophils % (auto) 60.2 %; Platelet Count 245 K/uL (130-400); RDW Coefficient of Variation 13.8 % (11.5-14.5); RDW Standard Deviation 44.8 fL (36.4-46.3); Red Blood Count 4.85 M/uL (4.2-5.4); White Blood Count 7.67 K/uL (4.8-10.8)
[2020-10-22 06:46] LABS: Albumin Level 3.1 gm/dl (3.4-5.0); BUN Creatinine Ratio 26.4 (10-20); Calcium 9.2 mg/dl (8.5-10.1); Creatinine Clr Calc Pharmacy 52.7 ml/min; Est GFR (African American) 68.6; Est GFR (Non-African American) 59.2; Potassium 4.3 mmol/L (3.5-5.1)
[2020-10-22 06:57] LABS: Phosphorus 3.2 mg/dl (2.5-4.9); Thyroid Stimulating Hormone 3.74 uIu/ml (0.300-4.500)
[2020-10-22] MEDS ORDERED: LIDOCAINE HCL 1% 20 ML VIAL ONE (07:04)
[2020-10-22] MEDS: ATENOLOL 25 MG TABLET PO SCH (07:27)
[2020-10-22] MEDS: lisinopril 20 MG TAB PO SCH (07:28)
[2020-10-22] MEDS: CALCIUM POLYCARBOPHIL 625MG TAB PO SCH ×2 (07:28→12:04)
[2020-10-22] MEDS: MULTIVITAMIN TAB PO SCH (07:28)
[2020-10-22] MEDS: CYANOCOBALAMIN 500 MCG TABLET (VITAMIN B-12) PO SCH (07:28)
[2020-10-22] MEDS: HEPARIN SOD 5,000 UNIT/0.5 ML VIAL SQ SCH ×2 (07:29→20:44)
[2020-10-22] MEDS: DICLOFENAC SOD 1% GEL 100 GM TUBE EXT SCH ×4 (07:29→20:43)
[2020-10-22] MEDS: cloNIDine HCL 0.1 MG TAB PO SCH ×2 (07:29→20:43)
--- NOTE | 2020-10-22 08:56 | ENT Consultation ---
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 At this time she denies vertigo. There is no tenderness or swelling over the mastoid with no sign of mastoiditis. She can have PE tubes placed in the office if she desires. Previously she did not wish to have PE tubes. History of Present Illness Reason for Consultation: This 80-year-old lady has otitis media. Attending Physician: Danyel Madrigal History of Present Illness This 80-year-old lady presented after a fall when she felt that her hip gave away. She was found to have urinary tract infection. She has had a long history of chronic otitis media with effusion and had PE tubes inserted previously by [facility]. The tubes have fallen out and she again has effusions but did not want tubes at the time. She denies having vertigo or pain in the ears. Allergies Allergy/AdvReac Type Severity Reaction Status Date / Time Sulfa (Sulfonamide Allergy Intermediate RASH/ITCH Verified 10/20/20 17:14 Antibiotics) morphine Allergy Mild RASH/ITCH Verified 10/20/20 17:14 propoxyphene Allergy Mild RASH Verified 10/20/20 17:14 Home Medications Medication Instructions Recorded Confirmed Type calcium polycarbophil [Fiber 1,250 mg PO .QLUNCH 05/06/19 10/20/20 History (calcium polycarbophil)] cyanocobalamin (vitamin B-12) 500 mcg PO QAM 05/06/19 10/20/20 History multivitamin 1 tab PO QAM 05/06/19 10/20/20 History menthol [Biofreeze (menthol)] 1 applic TOPICAL BID PRN 11/08/19 10/20/20 History alendronate 70 mg PO FR 11/10/19 10/20/20 History metformin 500 mg tablet 500 mg PO BID #180 tab 02/03/20 10/20/20 Rx fluticasone propionate 50 2 spray INTNAS BID PRN g 03/24/20 10/20/20 History mcg/actuation nasal spray,suspension atenolol 25 mg tablet 25 mg PO DAILY #90 tab 04/21/20 10/20/20 Rx lisinopril 20 mg tablet 20 mg PO DAILY #90 tab 04/21/20 10/20/20 Rx pravastatin 10 mg tablet 10 mg PO HS #90 tab 05/17/20 10/20/20 Rx clonidine HCl 0.1 mg tablet 0.1 mg PO BID #180 tab 09/11/20 10/20/20 Rx diclofenac sodium 75 mg 75 mg PO BID PRN #60 tab 09/22/20 10/20/20 Rx tablet,delayed release levothyroxine 25 mcg tablet 25 mcg PO QAM #90 tab 10/04/20 10/20/20 Rx calcium polycarbophil 1,875 mg PO QAM 10/20/20 10/20/20 History fluocinonide 1 applic TOPICAL BID PRN 10/20/20 10/20/20 History Patient History Medical History Abnormal EKG Anxiety Arthralgia of multiple sites Coronary artery calcification Dairy allergy Diabetes mellitus, type 2 DMII (diabetes mellitus, type 2) Dyslipidemia Gait disturbance Hammer toe History of nasal polyp Hyperlipidemia Hypertension Hypertension Hypothyroidism LAFB (left anterior fascicular block) LVH (left ventricular hypertrophy) Microalbuminuria Nocturia Osteoarthritis Osteoporosis Urinary frequency Urinary incontinence Urinary symptom or sign Vitamin D deficiency disease Surgical History History of back surgery IN 1985 LUMBAR FOR 2 RUPTURED DISC History of blepharoplasty History of breast biopsy History of cataract surgery BILAT History of colonoscopy History of hand surgery RIGHT History of hip replacement BILAT. RIGHT HIP X2 History of hysterectomy History of knee replacement RIGHT History of nasal septoplasty History of placement of ear tubes RIGHT IN OFFICE History of rhinoplasty History of rotator cuff surgery LEFT History of tonsillectomy Family History Mother Coronary heart disease Heart disease Grandmother (Maternal) Heart disease Son Diabetes Denies family history of Ovarian cancer Prostate cancer Myocardial infarction Breast cancer Colorectal cancer Cancer Social History Smoking Status: Never smoker Second Hand Exposure: Yes; Hx Alcohol Use: No Hx Substance Use: No Preferred Language: Vietnamese Communication Ability: Effective Brew [employer] Supervisor Required: No Beliefs That Will Affect Care: None marital status: Current Living Situation: Alone current occupational status: retired How many Children do You have: 3 Other Information That Helps Us Care for You: No Feels Safe at Home: Yes Safety Concerns: Feels Safe At This Time Safety Concerns Comment: states she has to kittens to keep after her Childhood Exposure to Second-Hand Smoke: No during the past year weight has: decreased > 10 lbs Dental Care, Regularly: Yes Physical Activity Frequency: Does not Exercise Seatbelt Use: always Sunscreen Use: Yes Assistive Devices: Walker Physical Exam Constitutional: WD/WN, vitals as above Eyes: PERRL, conjunctivae normal, anicteric sclerae ENMT: Ears: + TM abnormality (TMs dull with effusion) and + mastoid abnormality (Specifically there is no swelling or tenderness over the mastoid) Neck: trachea midline, no thyromegaly Results & Data ([facility]) Vital Signs (Past 12 Hours) Vital Signs Temp Pulse Resp BP Pulse Ox 10/22/20 07:16 36.4 C L 55 L 16 187/77 H 96 10/21/20 23:23 36.7 C 67 17 121/71 94
[2020-10-22] MEDS: INSULIN ASPART 100 UNITS/ML 3 ML PEN SC SCH ×4 (09:14→20:46)
--- NOTE | 2020-10-22 09:25 | Hospitalist Progress Note ---
Date of Service October 22, 2020 Assessment & Plan (1) Urinary tract infection: Initially suspected cause of fall, however patient did also endorse feeling of hip "popping in and out of place" -- will also ask Dr. Smith to see. Did have injection that day to knee and stated that the wind and weakness combined caused her to knee to give out and subsquent fall * Hx of following with Dr. Doran for botox injections to her bladder for urgency/frequency, last given Jul 2020. --> She states she was going to stop having these as last one ineffective. Could be she was getting start of UTI? * UA with +leuk est, >30WBC * Continue Ceftriaxone for now for total 3 doses then switch to Augmentin PO for otitis coverage at discharge * -- WBC trending down, 12.6k--> 7k, afebrile * Urine culture pin point growth -- re-incubating -- FINAL without growth * Pain control with tylenol prn, adding topical voltaren . would avoid opiates unless increased pain to prevent worsening confusion as reported on admission --. NO PAIN TODAY, just weakness * IVF discontinued -- eating/drinking well and kidney function/cr stable. (2) Fall: * suspected secondary to UTI/pain/weakness of L hip/deconditioning/OA * CT Head without acute infarct but did note LARGE MASTOID EFFUSION, increased since October 2019 with fluid in R middle ear -- did not endorse any dizziness/disequilibrium but moreso "weakness" of her left leg which caused the fall * --> Will also consult ENT for eval ET tube placement while inpatient as most recent notes indicate would need to be done in hospital setting given her medical issues * PT/OT evals pending -- rehab planned for at discharge pending recs * Adding B12/TSH to AM labs for completeness (3) Otitis media with effusion: * seen on imaging * hx dysfunction and denied ET tubes prior * Dr Rick consulted during admission -- patient now agreeable and will f/u outpatient for ET tube placement * Ceftriaxone as above and switch to Augmentin PO at discharge (4) Joint pain of left hip on movement: * Joint pain of left hip on movement/history of bilateral total hip arthroplasties- * X-rays without fracture * CT bony pelvis without contrast without dislocation but did make note of cystitis on imaging (treating as above) * Voltaren gel added, tylenol prn * Ortho consulted as above per patient request also for her L shoulder with previously planned injection --> performed today and patient reported feeling MUCH BETTER. NO PAIN (5) History of total left hip replacement: * History of bilateral total hip arthroplasties. No acute fractures or dislocations on imaging CT on admission (6) Hypertension: * Continue atenolol 25mg, clonidine 0.1mg BID, lisinopril 20mg * BP elevated at 177/76 * If continues to be elevated with better pain control, consider increasing medications but would hold off for now * Hydralazine prn * Continue to monitor (7) Dyslipidemia: * Continue pravastatin 10 mg at bedtime (8) Tendonitis of left rotator cuff: * Left rotator cuff tendinitis- * Patient has chronic pain, and reports recently attempting to get a shot done by orthopedics --> fell on way to Dr. Smith's office [employer] for her L knee injection (x-rays with no acute fracture, tricompartmental OA) * Consulted as above, appreciate input -- much improved with injection today. * Voltaren gel QID (9) Diabetes mellitus: * A1c 6.1 * Holding metformin while inpatient * Utilizing ISS * Monitor BSGs --acceptable (10) Hypothyroidism: * No recent TSH, will add to AM labs --> wnl at 3.74 * Continue levothyroxine 25mcg daily (11) DVT prophylaxis: * Heparin SQ while inpatient Mastoid Effusion * Seen on CT Head, increased in size compared to October 2019 with fluid in R middle ear * Consulted ENT as above -- previously seen in past month by Fadumo Parker, also with hx sinus surgeries * Probably would benefit from daily zyrtec or antihistamine, continuing Fluticasone nasal prn * D/c on Augmentin to complete treatment Dispo: continued inpatient stay anticipate rehab at discharge, CM following --> ref to [facility] Admission and Anticipated Discharge Date Admission Date: October 21, 2020 Subjective Patient seen this morning. Feeling much better. Had her shoulder injection with Dr. Ho this morning. Moved her bowels and is eating lunch at this time. States she is excited to get stronger. No further pain reported. Continuing abx for now to cover for ear/urine but anticipate transition to Augmentin for otitis media with effusion. To have follow up with Dr. Rick outpatient and hopeful for appt on Friday or sooner to see about tube placements to drain fluid. States could be done in office? No fever, chills, chest pain, shortness of breath, abdominal pain, nausea reported. Rehab with plans to return home to her cats afterward, which she is missing very much. [facility]hab options [facility] [place] [facility]. Notified CM for referalls. Therapy to evaluate today Review of Systems Review of Systems: All systems reviewed & are unremarkable except as noted in HPI & below Physical Exam Physical Exam: The patient is awake, oriented to person and place. Sitting upright in bed, talking on the phone, NAD. well nourished, well developed Slightly tender R parietal/occiput region with hematoma from fall -- less tender today HEENT--PERRL, EOMI, mmm. RIGHT EAR -- TM dull with effusion. No mastoid tenderness or tragus tenderness on palpation Neck--supple. No JVD. No bruits. trachea midline, no deviation Heart--normal S1 and S2. No murmurs, rubs or gallops. Lungs--clear bilaterally, no respiratory distress, no accessory muscle use. Abdomen--normal bowel sounds and soft. Nondistended. Mild tenderness to palpation suprapubic region. purewick draining yellow urine Extremities--no cyanosis or clubbing. No edema. tender to palpation over left hip Dermatologic--normal skin turgor, normal color, no abnormal lymph nodes Neurologic--cranial nerves II through XII grossly intact. MSK--range of motion limited by reproducible left hip and groin pain -- decreased pain and increased ROM today Psychiatric--AOx3, euthymic Results & Data Results & Data ([facility]) Vital Signs (Past 12 Hours) Vital Signs Temp Pulse Resp BP Pulse Ox 10/22/20 07:16 36.4 C L 55 L 16 187/77 H 96 10/21/20 23:23 36.7 C 67 17 121/71 94 Laboratory Results 10/22/20 10/22/20 10/22/20 Range/Units 08:08 05:57 05:57 WBC 7.67 (4.8-10.8) K/uL RBC 4.85 (4.2-5.4) M/uL Hgb 14.2 (12.0-16.0) g/dL Hct 43.0 (37-47) % MCV 88.7 (80-100) fL MCH 29.3 (25-34) pg MCHC 33.0 (32-36) g/dL RDW Std Deviation 44.8 (36.4-46.3) fL RDW Coeff of Efren 13.8 (11.5-14.5) % Plt Count 245 (130-400) K/uL MPV 10.3 (7.4-10.4) fL Immature Gran % (Auto) 0.3 % Neut % (Auto) 60.2 % Lymph % (Auto) 25.3 % [place] % (Auto) 8.6 % Eos % (Auto) 5.3 % Baso % (Auto) 0.3 % Neut # (Auto) 4.62 (1.4-6.5) K/uL Lymph # (Auto) 1.94 (1.2-3.4) K/uL [place] # (Auto) 0.66 H (0.11-0.59) K/uL Eos # (Auto) 0.41 (0-0.5) K/uL Baso # (Auto) 0.02 (0-0.2) K/uL Immature Gran # (Auto) 0.02 (0.00-0.02) K/uL Sodium 141 (136-145) mmol/L Potassium 4.3 (3.5-5.1) mmol/L Chloride 110 H (98-107) mmol/L Carbon Dioxide 28 (21-32) mmol/L Anion Gap 2.0 L (3-11) BUN 24 H (7-18) mg/dl Creatinine 0.92 (0.6-1.2) mg/dl Est Cr Clr Drug Dosing 52.7 ml/min Est GFR ( Amer) 68.6 Est GFR (Non-Af Amer) 59.2 BUN/Creatinine Ratio 26.4 H (10-20) Glucose 97 (70-99) mg/dl POC Glucose 107 H (70-99) mg/dl Lactate (0.4-2.0) mmol/L Calcium 9.2 (8.5-10.1) mg/dl Phosphorus 3.2 (2.5-4.9) mg/dl Albumin 3.1 L (3.4-5.0) gm/dl Vitamin B12 (193-986) pg/ml TSH 3.740 (0.300-4.500) uIu/ml 10/22/20 10/21/20 10/21/20 Range/Units 05:57 20:36 17:17 WBC (4.8-10.8) K/uL RBC (4.2-5.4) M/uL Hgb (12.0-16.0) g/dL Hct (37-47) % MCV (80-100) fL MCH (25-34) pg MCHC (32-36) g/dL RDW Std Deviation (36.4-46.3) fL RDW Coeff of Efren (11.5-14.5) % Plt Count (130-400) K/uL MPV (7.4-10.4) fL Immature Gran % (Auto) % Neut % (Auto) % Lymph % (Auto) % [place] % (Auto) % Eos % (Auto) % Baso % (Auto) % Neut # (Auto) (1.4-6.5) K/uL Lymph # (Auto) (1.2-3.4) K/uL [place] # (Auto) (0.11-0.59) K/uL Eos # (Auto) (0-0.5) K/uL Baso # (Auto) (0-0.2) K/uL Immature Gran # (Auto) (0.00-0.02) K/uL Sodium (136-145) mmol/L Potassium (3.5-5.1) mmol/L Chloride (98-107) mmol/L Carbon Dioxide (21-32) mmol/L Anion Gap (3-11) BUN (7-18) mg/dl Creatinine (0.6-1.2) mg/dl Est Cr Clr Drug Dosing ml/min Est GFR ( Amer) Est GFR (Non-Af Amer) BUN/Creatinine Ratio (10-20) Glucose (70-99) mg/dl POC Glucose 161 H 105 H (70-99) mg/dl Lactate (0.4-2.0) mmol/L Calcium (8.5-10.1) mg/dl Phosphorus (2.5-4.9) mg/dl Albumin (3.4-5.0) gm/dl Vitamin B12 1848 H (193-986) pg/ml TSH (0.300-4.500) uIu/ml 10/21/20 10/21/20 Range/Units 17:04 11:54 WBC (4.8-10.8) K/uL RBC (4.2-5.4) M/uL Hgb (12.0-16.0) g/dL Hct (37-47) % MCV (80-100) fL MCH (25-34) pg MCHC (32-36) g/dL RDW Std Deviation (36.4-46.3) fL RDW Coeff of Efren (11.5-14.5) % Plt Count (130-400) K/uL MPV (7.4-10.4) fL Immature Gran % (Auto) % Neut % (Auto) % Lymph % (Auto) % [place] % (Auto) % Eos % (Auto) % Baso % (Auto) % Neut # (Auto) (1.4-6.5) K/uL Lymph # (Auto) (1.2-3.4) K/uL [place] # (Auto) (0.11-0.59) K/uL Eos # (Auto) (0-0.5) K/uL Baso # (Auto) (0-0.2) K/uL Immature Gran # (Auto) (0.00-0.02) K/uL Sodium (136-145) mmol/L Potassium (3.5-5.1) mmol/L Chloride (98-107) mmol/L Carbon Dioxide (21-32) mmol/L Anion Gap (3-11) BUN (7-18) mg/dl Creatinine (0.6-1.2) mg/dl Est Cr Clr Drug Dosing ml/min Est GFR ( Amer) Est GFR (Non-Af Amer) BUN/Creatinine Ratio (10-20) Glucose (70-99) mg/dl POC Glucose 111 H (70-99) mg/dl Lactate 1.1 (0.4-2.0) mmol/L Calcium (8.5-10.1) mg/dl Phosphorus (2.5-4.9) mg/dl Albumin (3.4-5.0) gm/dl Vitamin B12 (193-986) pg/ml TSH (0.300-4.500) uIu/ml PG Care Time/CCT Total # of Minutes Spent Total Time Spent with Patient: Total time spent is greater than 50% in coordination of care (as documented) at patient's floor/unit and/or counseling patient: Coding Level of Care Code 27266 Subseq Hosp Care Lvl 3 Diagnoses Urinary tract infection N39.0 Fall W19.XXXA Encounter type: initial encounter Otitis media with effusion H65.90 Joint pain of left hip on movement M25.552 History of total left hip replacement Z96.642 Hypertension I10 Dyslipidemia E78.5 Tendonitis of left rotator cuff M75.82 Diabetes mellitus E11.9 Hypothyroidism E03.9 DVT prophylaxis Z29.9 (1) Fall Encounter type: initial encounter Qualified Code(s): W19.XXXA - Unspecified fall, initial encounter
--- NOTE | 2020-10-22 10:35 | Progress Notes ---
DATE: 10/22/2020 X-rays of the left shoulder show evidence of chronic rotator cuff tear and chronic impingement with elevation of the humeral head and a small spur. There is no fracture or dislocation. Report noted. As per her request an injection into the left shoulder subacromial space from a lateral approach was performed. Treatment options, risks, benefits, verbal consent, time-out. The left shoulder was identified as the injection site and 40 mg of Depo-Medrol and 3 mL of 1% plain lidocaine were injected. Allergies removed. No problems noted. She can follow up with Dr. Smith as an outpatient.
[2020-10-22] MEDS: cefTRIAXone SODIUM 1,000 MG in DEXTROSE 5% 50 ML IV SCH (20:37)
[2020-10-22] MEDS: PRAVASTATIN SOD 10 MG TAB PO SCH (20:43)
[2020-10-23] MEDS: LEVOTHYROXINE SODIUM 25 MCG TABLET PO SCH (05:41)
[2020-10-23 06:53] LABS: Basophils # (auto) 0.01 K/uL (0-0.2); Basophils % (auto) 0.1 %; Eosinophils # (auto) 0.05 K/uL (0-0.5); Eosinophils % (auto) 0.5 %; Hematocrit (blood only) 42.1 % (37-47); Immature Granulocytes # (auto) 0.03 K/uL (0.00-0.02); Immature Granulocytes % (auto) 0.3 %; Lymphocytes # (auto) 1.17 K/uL (1.2-3.4); Mean Corpuscular Hemoglobin 29.3 pg (25-34); Mean Corpuscular Hgb Conc 33.3 g/dL (32-36); Mean Corpuscular Volume 88.1 fL (80-100); Mean Platelet Volume 10.6 fL (7.4-10.4); Monocytes # (auto) 0.74 K/uL (0.11-0.59); Neutrophils # (auto) 8.61 K/uL (1.4-6.5); Neutrophils % (auto) 81.1 %; Platelet Count 260 K/uL (130-400); RDW Coefficient of Variation 13.5 % (11.5-14.5); RDW Standard Deviation 43.8 fL (36.4-46.3); Red Blood Count 4.78 M/uL (4.2-5.4); White Blood Count 10.61 K/uL (4.8-10.8)
[2020-10-23 07:20] LABS: Albumin Level 3.1 gm/dl (3.4-5.0); Calcium 9.2 mg/dl (8.5-10.1); Creatinine Clr Calc Pharmacy 51.6 ml/min; Est GFR (African American) 66.9; Est GFR (Non-African American) 57.7; Phosphorus 3.5 mg/dl (2.5-4.9); Potassium 3.8 mmol/L (3.5-5.1)
[2020-10-23] MEDS: lisinopril 20 MG TAB PO SCH (08:36)
[2020-10-23] MEDS: cloNIDine HCL 0.1 MG TAB PO SCH ×2 (08:36→20:15)
[2020-10-23] MEDS: CALCIUM POLYCARBOPHIL 625MG TAB PO SCH ×2 (08:36→12:11)
[2020-10-23] MEDS: DICLOFENAC SOD 1% GEL 100 GM TUBE EXT SCH ×4 (08:37→20:20)
[2020-10-23] MEDS: ATENOLOL 25 MG TABLET PO SCH (08:37)
[2020-10-23] MEDS: MULTIVITAMIN TAB PO SCH (08:37)
[2020-10-23] MEDS: HEPARIN SOD 5,000 UNIT/0.5 ML VIAL SQ SCH ×2 (08:38→20:14)
[2020-10-23] MEDS: INSULIN ASPART 100 UNITS/ML 3 ML PEN SC SCH ×4 (08:46→20:56)
[2020-10-23] MEDS: cefTRIAXone SODIUM 1,000 MG in DEXTROSE 5% 50 ML IV SCH (20:06)
[2020-10-23] MEDS: PRAVASTATIN SOD 10 MG TAB PO SCH (20:19)
[2020-10-24] MEDS: LEVOTHYROXINE SODIUM 25 MCG TABLET PO SCH (06:07)
--- NOTE | 2020-10-24 07:15 | Hospitalist Progress Note ---
Date of Service October 23, 2020 Assessment & Plan (1) Urinary tract infection: Initially suspected cause of fall, however patient did also endorse feeling of hip "popping in and out of place" -- will also ask Dr. Smith to see. Did have injection that day to knee and stated that the wind and weakness combined caused her to knee to give out and subsquent fall * Hx of following with Dr. Doran for botox injections to her bladder for urgency/frequency, last given Jul 2020. --> She states she was going to stop having these as last one ineffective. Could be she was getting start of UTI? * UA with +leuk est, >30WBC * Continue Ceftriaxone for now for total 3 doses then switch to Augmentin PO for otitis coverage at discharge * -- WBC trending down, 12.6k--> 10k, afebrile * Urine culture pin point growth -- re-incubating -- FINAL without growth * Pain control with tylenol prn, adding topical voltaren . would avoid opiates unless increased pain to prevent worsening confusion as reported on admission --. NO PAIN TODAY, just weakness * IVF discontinued -- eating/drinking well and kidney function/cr stable. (2) Fall: * suspected secondary to UTI/pain/weakness of L hip/deconditioning/OA * CT Head without acute infarct but did note LARGE MASTOID EFFUSION, increased since October 2019 with fluid in R middle ear -- did not endorse any dizziness/disequilibrium but moreso "weakness" of her left leg which caused the fall * --> Will also consult ENT for eval ET tube placement while inpatient as most recent notes indicate would need to be done in hospital setting given her medical issues * PT/OT evals pending -- rehab planned for at discharge pending recs * Adding B12/TSH: WNL (3) Otitis media with effusion: * seen on imaging * hx dysfunction and denied ET tubes prior * Dr Rick consulted during admission -- patient now agreeable and will f/u outpatient for ET tube placement * Ceftriaxone as above and switch to Augmentin PO at discharge (4) Joint pain of left hip on movement: * Joint pain of left hip on movement/history of bilateral total hip arthroplasties- * X-rays without fracture * CT bony pelvis without contrast without dislocation but did make note of cystitis on imaging (treating as above) * Voltaren gel added, tylenol prn * Ortho consulted as above per patient request also for her L shoulder with previously planned injection --> patient reported feeling MUCH BETTER AFTER INJECTION. NO PAIN (5) History of total left hip replacement: * History of bilateral total hip arthroplasties. No acute fractures or dislocations on imaging CT on admission (6) Hypertension: * Continue atenolol 25mg, clonidine 0.1mg BID, lisinopril 20mg * BP elevated at 177/76 * If continues to be elevated with better pain control, consider increasing medications but would hold off for now * Hydralazine prn * Continue to monitor (7) Dyslipidemia: * Continue pravastatin 10 mg at bedtime (8) Tendonitis of left rotator cuff: * Left rotator cuff tendinitis- * Patient has chronic pain, and reports recently attempting to get a shot done by orthopedics --> fell on way to Dr. Smith's office [employer] for her L knee injection (x-rays with no acute fracture, tricompartmental OA) * Consulted as above, appreciate input -- much improved with injection today. * Voltaren gel QID (9) Diabetes mellitus: * A1c 6.1 * Holding metformin while inpatient * Utilizing ISS * Monitor BSGs --acceptable (10) Hypothyroidism: * No recent TSH, will add to AM labs --> wnl at 3.74 * Continue levothyroxine 25mcg daily (11) DVT prophylaxis: * Heparin SQ while inpatient Mastoid Effusion * Seen on CT Head, increased in size compared to October 2019 with fluid in R middle ear * Consulted ENT as above -- previously seen in past month by Fadumo Parker, also with hx sinus surgeries * Probably would benefit from daily zyrtec or antihistamine, continuing Fluticasone nasal prn * D/c on Augmentin to complete treatment Dispo: continued inpatient stay anticipate rehab at discharge, CM following --> ref to [facility] Admission and Anticipated Discharge Date Admission Date: October 21, 2020 Subjective Patient has no new complaints at this time. Review of Systems Review of Systems: All systems reviewed & are unremarkable except as noted in HPI & below Physical Exam Physical Exam: The patient is awake, oriented to person and place. Sitting upright in bed, talking on the phone, NAD. well nourished, well developed Slightly tender R parietal/occiput region with hematoma from fall -- less tender today HEENT--PERRL, EOMI, mmm. RIGHT EAR -- TM dull with effusion. No mastoid tenderness or tragus tenderness on palpation Neck--supple. No JVD. No bruits. trachea midline, no deviation Heart--normal S1 and S2. No murmurs, rubs or gallops. Lungs--clear bilaterally, no respiratory distress, no accessory muscle use. Abdomen--normal bowel sounds and soft. Nondistended. Mild tenderness to palpation suprapubic region. purewick draining yellow urine Extremities--no cyanosis or clubbing. No edema. tender to palpation over left hip Neurologic--cranial nerves II through XII grossly intact. MSK--range of motion limited by reproducible left hip and groin pain -- decreased pain and increased ROM today Psychiatric--AOx3, euthymic Results & Data Results & Data ([facility]) Vital Signs (Past 12 Hours) Vital Signs Temp Pulse Resp BP BP Pulse Ox 10/24/20 07:07 36.4 C L 70 16 187/102 H 190/100 H 98 10/23/20 22:52 36.4 C L 64 17 116/68 95 10/23/20 21:01 78 153/81 H PG Care Time/CCT Total # of Minutes Spent Total Time Spent with Patient: Total time spent is greater than 50% in coordination of care (as documented) at patient's floor/unit and/or counseling patient: Coding Level of Care Code 80593 Subseq Hosp Care Lvl 3 Diagnoses Urinary tract infection N39.0 Fall W19.XXXA Encounter type: initial encounter Otitis media with effusion H65.90 Joint pain of left hip on movement M25.552 History of total left hip replacement Z96.642 Hypertension I10 Dyslipidemia E78.5 Tendonitis of left rotator cuff M75.82 Diabetes mellitus E11.9 Hypothyroidism E03.9 DVT prophylaxis Z29.9 Time Spent (min) 35 (1) Fall Encounter type: initial encounter Qualified Code(s): W19.XXXA - Unspecified fall, initial encounter
[2020-10-24] MEDS: ATENOLOL 25 MG TABLET PO SCH (08:08)
[2020-10-24] MEDS: cloNIDine HCL 0.1 MG TAB PO SCH ×2 (08:08→21:25)
[2020-10-24] MEDS: HEPARIN SOD 5,000 UNIT/0.5 ML VIAL SQ SCH ×2 (08:09→21:25)
[2020-10-24] MEDS: MULTIVITAMIN TAB PO SCH (08:09)
[2020-10-24] MEDS: CALCIUM POLYCARBOPHIL 625MG TAB PO SCH ×2 (08:09→12:10)
[2020-10-24] MEDS: lisinopril 20 MG TAB PO SCH (08:10)
[2020-10-24] MEDS: DICLOFENAC SOD 1% GEL 100 GM TUBE EXT SCH ×4 (08:10→21:25)
--- NOTE | 2020-10-24 09:04 | Orthopedic Progress Note ---
Date of Service October 24, 2020 Assessment & Plan (1) S/P total hip arthroplasty: She was seen and examined by Dr. Smith today. She would like to get into some rehab for strengthening and we do think this is a good idea for her. Her hip xrays show no fracture or dislocation. From an orthopedic standpoint she is ready for discharge when medically ready. She can follow up with us as an outpatient. (2) Arthritis of knee, left: Subjective . She is eating breakfast. She said her shoulder feels much better after the injection from Dr. Ho. She denies hip or knee pain at this time. She did say that her hip popped out and back in the other day. Review of Systems All systems reviewed & are unremarkable except as noted in HPI & below. Physical Exam . She is alert and oriented. NAD. Good overhead motion of left arm. No pain with ROM of left hip or knee. No knee effusion. Leg is well aligned. Hip located. Results & Data Results & Data Laboratory Results . Diagnostic Findings . xrays of hip and knee were reviewed: no fractures seen. She has previous SHFEALI. No dislocation. She does have some left knee DJD PG Care Time/CCT Total # of Minutes Spent Total Time Spent with Patient: Total time spent is greater than 50% in coordination of care (as documented) at patient's floor/unit and/or counseling patient: Coding Level of Care Code 86363 Subseq Hosp Care Lvl 2 Diagnoses S/P total hip arthroplasty Z96.642 Laterality: left Arthritis of knee, left M17.12 (1) S/P total hip arthroplasty Laterality: left Qualified Code(s): Z96.642 - Presence of left artificial hip joint
[2020-10-24] MEDS: INSULIN ASPART 100 UNITS/ML 3 ML PEN SC SCH ×4 (09:06→22:05)
[2020-10-24] MEDS: cefTRIAXone SODIUM 1,000 MG in DEXTROSE 5% 50 ML IV SCH (21:20)
[2020-10-24] MEDS: PRAVASTATIN SOD 10 MG TAB PO SCH (21:26)
--- NOTE | 2020-10-24 21:29 | Hospitalist Progress Note ---
Date of Service October 24, 2020 Assessment & Plan (1) Urinary tract infection: Initially suspected cause of fall, however patient did also endorse feeling of hip "popping in and out of place" -- will also ask Dr. Smith to see. Did have injection that day to knee and stated that the wind and weakness combined caused her to knee to give out and subsquent fall * Hx of following with Dr. Doran for botox injections to her bladder for urgency/frequency, last given Jul 2020. --> She states she was going to stop having these as last one ineffective. Could be she was getting start of UTI? * UA with +leuk est, >30WBC * Continue Ceftriaxone for now for total 3 doses then switch to Augmentin PO for otitis coverage at discharge * -- WBC trending down, 12.6k--> 10k, afebrile * Urine culture pin point growth -- re-incubating -- FINAL without growth * Pain control with tylenol prn, adding topical voltaren . would avoid opiates unless increased pain to prevent worsening confusion as reported on admission --. NO PAIN TODAY, just weakness * IVF discontinued -- eating/drinking well and kidney function/cr stable. * will continue antibiotics. (2) Fall: * suspected secondary to UTI/pain/weakness of L hip/deconditioning/OA * CT Head without acute infarct but did note LARGE MASTOID EFFUSION, increased since October 2019 with fluid in R middle ear -- did not endorse any dizziness/disequilibrium but moreso "weakness" of her left leg which caused the fall * --> Will also consult ENT for eval ET tube placement while inpatient as most recent notes indicate would need to be done in hospital setting given her medical issues * PT/OT evals pending -- rehab planned for at discharge pending recs * Adding B12/TSH: WNL (3) Otitis media with effusion: * seen on imaging * hx dysfunction and denied ET tubes prior * Dr Rick consulted during admission -- patient now agreeable and will f/u outpatient for ET tube placement * Ceftriaxone as above and switch to Augmentin PO at discharge (4) Joint pain of left hip on movement: * Joint pain of left hip on movement/history of bilateral total hip arthroplasties- * X-rays without fracture * CT bony pelvis without contrast without dislocation but did make note of cystitis on imaging (treating as above) * Voltaren gel added, tylenol prn * Ortho consulted as above per patient request also for her L shoulder with previously planned injection --> patient reported feeling MUCH BETTER AFTER INJECTION. NO PAIN (5) History of total left hip replacement: * History of bilateral total hip arthroplasties. No acute fractures or dislocations on imaging CT on admission (6) Hypertension: * Continue atenolol 25mg, clonidine 0.1mg BID, lisinopril 20mg * BP elevated at 177/76 * If continues to be elevated with better pain control, consider increasing medications but would hold off for now * Hydralazine prn * Continue to monitor (7) Dyslipidemia: * Continue pravastatin 10 mg at bedtime (8) Tendonitis of left rotator cuff: * Left rotator cuff tendinitis- * Patient has chronic pain, and reports recently attempting to get a shot done by orthopedics --> fell on way to Dr. Smith's office [employer] for her L knee injection (x-rays with no acute fracture, tricompartmental OA) * Consulted as above, appreciate input -- much improved with injection today. * Voltaren gel QID (9) Diabetes mellitus: * A1c 6.1 * Holding metformin while inpatient * Utilizing ISS * Monitor BSGs --acceptable (10) Hypothyroidism: * No recent TSH, will add to AM labs --> wnl at 3.74 * Continue levothyroxine 25mcg daily (11) DVT prophylaxis: * Heparin SQ while inpatient Mastoid Effusion * Seen on CT Head, increased in size compared to October 2019 with fluid in R middle ear * Consulted ENT as above -- previously seen in past month by Fadumo Parker, also with hx sinus surgeries * Probably would benefit from daily zyrtec or antihistamine, continuing Fluticasone nasal prn * D/c on Augmentin to complete treatment Dispo: continued inpatient stay anticipate rehab at discharge, CM following --> ref to [facility] Had Peer to Peer with insurance company. Patient is denied [facility]. She is interested in [facility]. Admission and Anticipated Discharge Date Admission Date: October 21, 2020 Subjective Patient reports she is interested in getting stronger. She reports that the pandemic has made her weaker. Review of Systems Review of Systems: All systems reviewed & are unremarkable except as noted in HPI & below Physical Exam Physical Exam: The patient is awake, oriented to person and place. Sitting upright in bed, talking on the phone, NAD. well nourished, well developed Slightly tender R parietal/occiput region with hematoma from fall -- less tender today HEENT--PERRL, EOMI, mmm. RIGHT EAR -- TM dull with effusion. No mastoid tenderness or tragus tenderness on palpation Neck--supple. No JVD. No bruits. trachea midline, no deviation Heart--normal S1 and S2. No murmurs, rubs or gallops. Lungs--clear bilaterally, no respiratory distress, no accessory muscle use. Abdomen--normal bowel sounds and soft. Nondistended. Mild tenderness to palpation suprapubic region. purewick draining yellow urine Extremities--no cyanosis or clubbing. No edema. tender to palpation over left hip Neurologic--cranial nerves II through XII grossly intact. MSK--range of motion limited by reproducible left hip and groin pain -- decreased pain and increased ROM today Psychiatric--AOx3, euthymic Results & Data Results & Data ([facility]) Vital Signs (Past 12 Hours) Vital Signs Temp Pulse Resp BP Pulse Ox 10/24/20 15:50 36.6 C 66 16 162/69 H 96 PG Care Time/CCT Total # of Minutes Spent Total Time Spent with Patient: Total time spent is greater than 50% in coordination of care (as documented) at patient's floor/unit and/or counseling patient: Coding Level of Care Code 57485 Subseq Hosp Care Lvl 3 Diagnoses Urinary tract infection N39.0 Fall W19.XXXA Encounter type: initial encounter Otitis media with effusion H65.90 Joint pain of left hip on movement M25.552 History of total left hip replacement Z96.642 Hypertension I10 Dyslipidemia E78.5 Tendonitis of left rotator cuff M75.82 Diabetes mellitus E11.9 Hypothyroidism E03.9 DVT prophylaxis Z29.9 Time Spent (min) 35 (1) Fall Encounter type: initial encounter Qualified Code(s): W19.XXXA - Unspecified fall, initial encounter
[2020-10-25] MEDS: LEVOTHYROXINE SODIUM 25 MCG TABLET PO SCH (05:38)
[2020-10-25] MEDS: CALCIUM POLYCARBOPHIL 625MG TAB PO SCH ×2 (07:45→11:28)
[2020-10-25] MEDS: MULTIVITAMIN TAB PO SCH (07:46)
[2020-10-25] MEDS: cloNIDine HCL 0.1 MG TAB PO SCH (07:46)
[2020-10-25] MEDS: lisinopril 20 MG TAB PO SCH (07:47)
[2020-10-25] MEDS: ATENOLOL 25 MG TABLET PO SCH (07:47)
[2020-10-25] MEDS: HEPARIN SOD 5,000 UNIT/0.5 ML VIAL SQ SCH (07:48)
[2020-10-25] MEDS: DICLOFENAC SOD 1% GEL 100 GM TUBE EXT SCH ×2 (07:49→13:14)
[2020-10-25 09:55] LABS: Hematocrit (blood only) 43.4 % (37-47); Mean Corpuscular Hemoglobin 29.3 pg (25-34); Mean Corpuscular Hgb Conc 32.3 g/dL (32-36); Mean Corpuscular Volume 90.8 fL (80-100); Mean Platelet Volume 10.5 fL (7.4-10.4); Platelet Count 251 K/uL (130-400); RDW Coefficient of Variation 13.7 % (11.5-14.5); RDW Standard Deviation 45.5 fL (36.4-46.3); Red Blood Count 4.78 M/uL (4.2-5.4); White Blood Count 9.27 K/uL (4.8-10.8)
[2020-10-25] MEDS: INSULIN ASPART 100 UNITS/ML 3 ML PEN SC SCH ×2 (10:14→13:16)
[2020-10-25 10:19] LABS: BUN Creatinine Ratio 29.6 (10-20); Calcium 8.9 mg/dl (8.5-10.1); Creatinine Clr Calc Pharmacy 52.2 ml/min; Est GFR (African American) 67.7; Est GFR (Non-African American) 58.5; Potassium 3.8 mmol/L (3.5-5.1)
--- NOTE | 2020-11-01 21:38 | Discharge Summary ---
Date of Service October 25, 2020 Admission HPI Per Admitting Provider The patient is a 80-year-old female with a past medical history including left rotator cuff tendinitis, bradycardia, osteoarthritis left knee, shoulder impingement, hip contusion, multiple arthralgias, anxiety, dyslipidemia, gait disturbance, hammertoe, hypertension, urinary incontinence, osteoporosis, vitamin D deficiency, diabetes mellitus, subclinical hypothyroidism, SNHL, laryngeal pharyngeal reflux and chronic rhinitis. Patient is intermittently confused during this examination, and reports that she is not able to get comfortable, with complaint of left hip pain when she moves it, continually grabbing at her groin area and suprapubic area, and complains of pain associated with right forearm IV running normal saline. Principal Diagnosis UTI Discharge Exam The patient is awake, oriented to person and place. Sitting upright in bed, talking on the phone, NAD. well nourished, well developed Slightly tender R parietal/occiput region with hematoma from fall -- less tender today HEENT--PERRL, EOMI, mmm. No mastoid tenderness or tragus tenderness on palpation Neck--supple. No JVD. No bruits. trachea midline, no deviation Heart--normal S1 and S2. No murmurs, rubs or gallops. Lungs--clear bilaterally, no respiratory distress, no accessory muscle use. Abdomen--normal bowel sounds and soft. Nondistended. Mild tenderness to palpation suprapubic region. purewick draining yellow urine Extremities--no cyanosis or clubbing. No edema. tender to palpation over left hip Neurologic--cranial nerves II through XII grossly intact. MSK--range of motion limited by reproducible left hip and groin pain -- decreased pain and increased ROM today Psychiatric--AOx3, euthymic Discharge Data Allergies Allergy/AdvReac Type Severity Reaction Status Date / Time Sulfa (Sulfonamide Allergy Intermediate RASH/ITCH Verified 10/31/20 09:16 Antibiotics) morphine Allergy Mild RASH/ITCH Verified 10/31/20 09:16 propoxyphene Allergy Mild RASH Verified 10/31/20 09:16 Consultations 10/20/20 20:03 ED Decision to Admit Stat 10/21/20 15:03 Consult Orthopedic Surgery Routine Consult Otolaryngology (Head and Neck) Routine Ordered Studies 10/20/20 17:30 CT head/brain wo con Stat 10/20/20 22:04 CT bony pelvis wo con Urgent Hospital Course (1) Urinary tract infection: Initially suspected cause of fall, however patient did also endorse feeling of hip "popping in and out of place" -- will also ask Dr. Smith to see. Did have injection that day to knee and stated that the wind and weakness combined caused her to knee to give out and subsquent fall * Hx of following with Dr. Doran for botox injections to her bladder for urgency/frequency, last given Jul 2020. --> She states she was going to stop having these as last one ineffective. Could be she was getting start of UTI? * UA with +leuk est, >30WBC * Continue Ceftriaxone for now for total 3 doses then switch to Augmentin PO for otitis coverage at discharge * -- WBC trending down, 12.6k--> 10k, afebrile * Urine culture pin point growth -- re-incubating -- FINAL without growth * Pain control with tylenol prn, adding topical voltaren . would avoid opiates unless increased pain to prevent worsening confusion as reported on admission --. NO PAIN TODAY, just weakness * IVF discontinued -- eating/drinking well and kidney function/cr stable. * will continue antibiotics: DC on augmentin (2) Fall: * suspected secondary to UTI/pain/weakness of L hip/deconditioning/OA * CT Head without acute infarct but did note LARGE MASTOID EFFUSION, increased since October 2019 with fluid in R middle ear -- did not endorse any dizziness/disequilibrium but moreso "weakness" of her left leg which caused the fall * --> Will also consult ENT for eval ET tube placement while inpatient as most recent notes indicate would need to be done in hospital setting given her medical issues * PT/OT evals pending -- rehab planned for at discharge pending recs * Adding B12/TSH: WNL (3) Otitis media with effusion: * seen on imaging * hx dysfunction and denied ET tubes prior * Dr Rick consulted during admission -- patient now agreeable and will f/u outpatient for ET tube placement * Ceftriaxone as above and switch to Augmentin PO at discharge (4) Joint pain of left hip on movement: * Joint pain of left hip on movement/history of bilateral total hip arthroplasties- * X-rays without fracture * CT bony pelvis without contrast without dislocation but did make note of cystitis on imaging (treating as above) * Voltaren gel added, tylenol prn * Ortho consulted as above per patient request also for her L shoulder with previously planned injection --> patient reported feeling MUCH BETTER AFTER INJECTION. NO PAIN (5) History of total left hip replacement: * History of bilateral total hip arthroplasties. No acute fractures or dislocations on imaging CT on admission (6) Hypertension: * Continue atenolol 25mg, clonidine 0.1mg BID, lisinopril 20mg * BP elevated at 177/76 * If continues to be elevated with better pain control, consider increasing medications but would hold off for now * Hydralazine prn * Continue to monitor (7) Dyslipidemia: * Continue pravastatin 10 mg at bedtime (8) Tendonitis of left rotator cuff: * Left rotator cuff tendinitis- * Patient has chronic pain, and reports recently attempting to get a shot done by orthopedics --> fell on way to Dr. Smith's office [employer] SAL[employer]PRESENT[employer] for her L knee injection (x-rays with no acute fracture, tricompartmental OA) * Consulted as above, appreciate input -- much improved with injection today. * Voltaren gel QID (9) Diabetes mellitus: * A1c 6.1 * Holding metformin while inpatient * Utilizing ISS * Monitor BSGs --acceptable (10) Hypothyroidism: * No recent TSH, will add to AM labs --> wnl at 3.74 * Continue levothyroxine 25mcg daily (11) DVT prophylaxis: * Heparin SQ while inpatient Mastoid Effusion * Seen on CT Head, increased in size compared to October 2019 with fluid in R middle ear * Consulted ENT as above -- previously seen in past month by Fadumo Parker, also with hx sinus surgeries * Probably would benefit from daily zyrtec or antihistamine, continuing Fluticasone nasal prn * D/c on Augmentin to complete treatment Dispo: continued inpatient stay anticipate rehab at discharge, CM following --> ref to [facility] and [facility] Had [facility] to Peer with insurance company. Patient is denied [facility]. She is interested in [facility]. will be leaving today to [facility] [place] Total Time Total Time Spent Total Time Spent (In Minutes): 32 Total Time Includes: Examination of the Patient, Discharge Planning and Medication Reconciliation Discharge Plan Discharge Items Patient Disposition: Transfer [facility] Fac Reason For Visit: UTI,LEFT HIP PAIN POST FALL CONFUSION Discharge Diagnosis: UTI/ left hip pain post fall confusion Activity: Resume your previous activity Non-emergency contact: Primary Care Provider Call non-emergency contact if: you have any medication questions Follow-up/Referrals: Nicholas Mills MD [Primary Care Provider] - Diet: Carb Consistent or DM2 and Heart Healthy Addtl Attending Provider Instructions: Recommend followup with Dr. Prabhjot SEO IN 1-2 WEEKS for PE TUBES. Recommend followup with PCP in 1-2 weeks. Pending Studies at Discharge: No Stand-Alone Forms: [facility] Skilled Items Patient informed of condition?: No DNR: No Discharge Level of Care: Skilled Communicable Disease: No Discharge Prognosis: Stable Lines: None Urinary Catheter: No Medications and DC Order Prescriptions: New diclofenac sodium [Voltaren] 1 % Gel 2 g EXT QID PRN (Reason: pain) Qty: 50 RF: 0 acetaminophen 325 mg Tablet 650 mg PO Q4H PRN (Reason: pain) Qty: 30 RF: 0 amoxicillin-pot clavulanate 875-125 mg tablet 1 tab PO BID Qty: 14 RF: 0 Continued metformin 500 mg tablet 500 mg PO BID Qty: 180 RF: 3 pravastatin 10 mg tablet 10 mg PO HS Qty: 90 RF: 1 clonidine HCl 0.1 mg tablet 0.1 mg PO BID Qty: 180 RF: 1 levothyroxine 25 mcg tablet 25 mcg PO QAM Qty: 90 RF: 1 atenolol 25 mg tablet 25 mg PO DAILY Qty: 90 RF: 3 fluticasone propionate 50 mcg/actuation spray,suspension 2 spray INTNAS BID PRN (Reason: Nasal Congestion) RF: 0 Biofreeze (menthol) 4 % Gel 1 applic TOPICAL BID PRN (Reason: Pain) RF: 0 cyanocobalamin (vitamin B-12) 500 mcg Tablet 500 mcg PO QAM RF: 0 multivitamin Tablet 1 tab PO QAM RF: 0 calcium polycarbophil [Fiber (calcium polycarbophil)] 625 mg Tablet 1,250 mg PO .QLUNCH RF: 0 calcium polycarbophil 625 mg Tablet 1,875 mg PO QAM RF: 0 fluocinonide 0.05 % cream 1 applic topical BID PRN (Reason: FLARE UPS) RF: 0 Changed lisinopril 20 mg tablet 20 mg PO PM Qty: 90 RF: 3 Discontinued diclofenac sodium 75 mg tablet,delayed release (DR/EC) 75 mg PO BID PRN (Reason: pain) Qty: 60 RF: 5 No Action alendronate 70 mg tablet 70 mg PO FR Qty: 12 RF: 1 ofloxacin 0.3 % drops 5 drp otic (ear) BID 10 Days Qty: 5 RF: 8 Discharge Orders: Discharge Order (Routine); Ordered 10/25/20 Ordered By: Danyel Winn/Other Patient Handouts: Managing Type 2 Diabetes, Preventing Deep Vein Thrombosis Admission Data Admit Date/Time: 10/20/20 22:03 Attending Provider: Danyel Madrigal Admit Provider: Sourav Mendes Primary Care Provider: Nicholas Mills V. Other Providers: Ludwig Pacheco ; [facility] ; Radha Rick ; John Smith ; [facility] Other Interventions: Discharge Summary Assessment (RN) Last Done: 10/25/20 12:29 Coding Level of Care Code D/C Day Management >30 mins Diagnoses Urinary tract infection N39.0 Fall W19.XXXA Encounter type: initial encounter Otitis media with effusion H65.90 Joint pain of left hip on movement M25.552 History of total left hip replacement Z96.642 Hypertension I10 Dyslipidemia E78.5 Tendonitis of left rotator cuff M75.82 Diabetes mellitus E11.9 Hypothyroidism E03.9 DVT prophylaxis Z29.9
== END 2020-10-25 14:08 ==
LOC: 3N 16:32 → ED 16:32 → SUATTDRO 22:03 → 3N 22:41 → SUATTDRO 10-21 16:36 → 3N 10-22 22:05
DX: N39.0 Urinary tract infection, site not specified; M25.552 Pain in left hip; I25.10 Atherosclerotic heart disease of native coronary artery without angina pectoris; Z88.2 Allergy status to sulfonamides; Z79.890 Hormone replacement therapy; M75.102 Unspecified rotator cuff tear or rupture of left shoulder, not specified as traumatic; M81.0 Age-related osteoporosis without current pathological fracture; Z79.899 Other long term (current) drug therapy; W19.XXXA Unspecified fall, initial encounter; M17.12 Unilateral primary osteoarthritis, left knee; E03.9 Hypothyroidism, unspecified; Z96.642 Presence of left artificial hip joint; E78.5 Hyperlipidemia, unspecified; H65.90 Unspecified nonsuppurative otitis media, unspecified ear; S09.90XA Unspecified injury of head, initial encounter; I10 Essential (primary) hypertension; E55.9 Vitamin D deficiency, unspecified; E11.9 Type 2 diabetes mellitus without complications; Z20.828 Contact with and (suspected) exposure to other viral communicable diseases; Z88.5 Allergy status to narcotic agent

== ENCOUNTER 2020-12-20 11:11 | Observation (INO) ==
[2020-12-20] MEDS ORDERED: ONDANSETRON INJ 2 MG/ML 2 ML VIAL IV PRN (17:30)
[2020-12-20] MEDS ORDERED: GLUCOSE 10 TABS/TUBE PO PRN (17:30)
[2020-12-20] MEDS ORDERED: GLUCAGON FOR INJ 1 MG VIAL SQ PRN (17:30)
[2020-12-20] MEDS ORDERED: DEXTROSE 50% 50 ML SYRINGE IV PRN (17:30)
[2020-12-20] MEDS ORDERED: CARBOHYDRATES FOR HYPOGLYCEMIA PO PRN (17:30)
[2020-12-20] MEDS ORDERED: GLUCOSE 40% GEL 15 GM TUBE PO PRN (17:30)
--- NOTE | 2020-12-20 17:44 | History & Physical Report ---
Date of Service December 20, 2020 Assessment & Plan (1) Spinal cord compression: MRI lumbar spine on 12/15 showed severe degenerative changes of the spine. No findings on my review of the report that appear acute. Here is the read: Anterior wedging of T11 vertebral body seen likely representing compression fracture deformity. There is severe asymmetrical narrowing of T11-T12 intervertebral disc space, incompletely evaluated on current exam. L1-2: Intervertebral disc spaces preserved. Disc desiccation and posterior osteophytes are seen. Possible narrowing of the central canal however evaluation is significantly limited due to motion artifact. Severe narrowing of bilateral neuroforamina are seen at this level. L2-3: Moderate to severe narrowing of intervertebral disc space with disc desiccation and focal fluid signal within the disc. Possible severe stenosis of the central canal and bilateral neural foramina. L3-4: Intervertebral disc space is preserved. Disc desiccation and posterior osteophytes are seen. Severe stenosis of the central canal and bilateral neuroforamina are seen. L4-5: Intervertebral disc space is significantly narrowed. Possible minimal anterolisthesis of L4 on L5. Mild narrowing of central canal and bilateral neuroforamina. Evaluation is limited due to motion artifact. L5-S1: Severe narrowing of intervertebral disc space with subchondral sclerosis, disc desiccation and posterior osteophytes. Possible mild narrowing of the central canal is seen at this level however evaluation is limited due to motion artifact. Mild narrowing of the left neuroforamina. Moderate to severe narrowing of the right neural foramina. Conus medullaris is not well seen due to motion artifact. IMPRESSION: 1. Thoracolumbar scoliosis with severe degenerative changes of the spine as detailed above. Significantly limited study due to motion artifact. 2. Fluid signal is seen within L2-L3 intervertebral disc which could be due to degenerative process or represent discitis. No surrounding bone marrow edema no definite epidural collection demonstrated however evaluation is limited due to motion artifact and lack of IV contrast. Please correlate above-mentioned findings with laboratory markers of inflammatory process. Further evaluation with contrast-enhanced MRI of the lumbar spine might be considered. 3. Anterior wedging of T11 is seen likely representing compression fracture deformity and incompletely evaluated on this nondedicated exam. She was seen by [facility] Orthopedic Spine PA (Lucio Bernstein) and sent to the hospital for acute thoracic MRI, presumably for the T11/T12 findings. Unfortunately, our ortho spine doctor is away and was unable to reach him. I tried to contact Mr. Bernstein, but no one at the [facility] clinic answered the phone despite multiple calls. I discussed the case with [facility] neurosurgeon, but he is unavailable at this time (not lamination machine operator) and recommended transfer. I spoke with [place] [facility]. I explained the time course, imaging findings, and symptoms. They felt this was non-acute as her situation had been steadily worsening for 8 weeks, and her inability to walk was at least 4 weeks old. They did say they would accept the patient to the medical service, evaluate, but felt that imminent surgery was extremely unlikely. (2) Left leg DVT: Noted by [facility] on admission to their facility ~12/06/2020. - On warfarin 4 mg HS; INR pending (3) Hypertension: BP presently is 113/63. - Continue home meds - Will hold the amlodipine as it was listed from [facility] ([facility]) as PRN for BP > 170. - Monitor (4) Diabetes mellitus: A1c was 6.0% in 09/2020 and most reads near that. - Hold metformin - Sliding scale insulin (5) Hypothyroidism: TSH was 3.7 in 09/2020. No signs/symptoms of hypo-/hyperthyroidism. - Continue home Synthroid 25 mcg (6) Anxiety: Not on meds. - Monitor Admission and Anticipated Discharge Date Admission Date: December 20, 2020 History of Present Illness Primary Care Provider: Nicholas Mills MD 80yo F w/ hx of HTN, DM, hypothyroidism who presents with spinal stenosis. The patient was in the hospital for a fall and UTI in late September 2020. She was discharged to [facility], and at the time of discharge, reports that she was able to walk with a walker. She went to [facility], then on 12/11/2020, was sent to [facility] to be closer to home. The note from [facility]'s admission indicates that she told them her left leg was getting weaker rather than stronger. At [facility], she was requiring a lift by the time of her discharge, compared with walking herself when she first arrived. She reported to [facility] that she had a series of x-rays taken, but no further work-up. She was noted to have left leg swelling on her admission to [facility] and was found to have a left lower extremity DVT for which she was started on warfarin. At present, she reports increasing trouble with urinary continence. She also has saddle anesthesia and reports that she has trouble feeling when she passes a BM. She reports her left leg is numb almost the entire way down. Her right leg is slightly less numb. She has trouble moving both. Allergies Allergy/AdvReac Type Severity Reaction Status Date / Time Sulfa (Sulfonamide Allergy Intermediate RASH/ITCH Verified 10/31/20 09:16 Antibiotics) morphine Allergy Mild RASH/ITCH Verified 10/31/20 09:16 propoxyphene Allergy Mild RASH Verified 10/31/20 09:16 Home Medications Medication Instructions Recorded Confirmed Type cyanocobalamin (vitamin B-12) 500 mcg PO QAM 05/06/19 12/20/20 History multivitamin 1 tab PO QAM 05/06/19 12/20/20 History fluticasone propionate 50 2 spray INTNAS BID PRN g 03/24/20 12/20/20 History mcg/actuation nasal spray,suspension atenolol 25 mg tablet 25 mg PO DAILY #90 tab 04/21/20 12/20/20 Rx clonidine HCl 0.1 mg tablet 0.1 mg PO BID #180 tab 09/11/20 12/20/20 Rx levothyroxine 25 mcg tablet 25 mcg PO QAM #90 tab 10/04/20 12/20/20 Rx acetaminophen 650 mg PO Q4H PRN #30 tab 10/25/20 12/20/20 Rx diclofenac sodium [Voltaren] 2 g EXT QID PRN #50 g 10/25/20 12/20/20 Rx lisinopril 20 mg PO PM #90 tab 10/25/20 12/20/20 Rx pravastatin 10 mg tablet 10 mg PO HS #90 tab 11/07/20 12/20/20 Rx alendronate 70 mg PO MO 12/20/20 12/20/20 History amlodipine 2.5 mg PO Q12H PRN 12/20/20 12/20/20 History gabapentin 100 mg PO TID 12/20/20 12/20/20 History metformin 500 mg PO BIDM 12/20/20 12/20/20 History warfarin 4 mg PO HS 12/20/20 12/20/20 History Past Med/Surg History Medical History Abnormal EKG Anxiety Arthralgia of multiple sites Coronary artery calcification Dairy allergy Diabetes mellitus, type 2 DMII (diabetes mellitus, type 2) Dyslipidemia Gait disturbance Hammer toe History of nasal polyp Hyperlipidemia Hypertension Hypertension Hypothyroidism LAFB (left anterior fascicular block) LVH (left ventricular hypertrophy) Microalbuminuria Nocturia Osteoarthritis Osteoporosis Urinary frequency Urinary incontinence Urinary symptom or sign Vitamin D deficiency disease Surgical History History of back surgery IN 1985 LUMBAR FOR 2 RUPTURED DISC History of blepharoplasty History of breast biopsy History of cataract surgery BILAT History of colonoscopy History of hand surgery RIGHT History of hip replacement BILAT. RIGHT HIP X2 History of hysterectomy History of knee replacement RIGHT History of nasal septoplasty History of placement of ear tubes RIGHT IN OFFICE History of rhinoplasty History of rotator cuff surgery LEFT History of tonsillectomy Family History Mother Coronary heart disease Heart disease Grandmother (Maternal) Heart disease Son Diabetes Denies family history of Ovarian cancer Prostate cancer Myocardial infarction Breast cancer Colorectal cancer Cancer Social History Smoking Status: Never smoker Second Hand Exposure: Yes; Hx Alcohol Use: No Hx Substance Use: No Preferred Language: Icelandic Communication Ability: Effective Investigation Clerk Required: No Beliefs That Will Affect Care: None marital status: Current 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 How many Children do You have: 3 Feels Safe at Home: Yes Safety Concerns Comment: states she has to kittens to keep after her Childhood Exposure to Second-Hand Smoke: No during the past year weight has: decreased > 10 lbs Dental Care, Regularly: Yes Physical Activity Frequency: Does not Exercise Seatbelt Use: always Sunscreen Use: Yes Assistive Devices: Walker Review of Systems Review of Systems: All systems reviewed & are unremarkable except as noted in HPI & below Physical Exam Constitutional: WD/WN, vitals as above Eyes: EOM intact bilaterally; no conjunctival abnormality ENMT: external ear and nose normal, oropharynx normal Neck: trachea midline, no thyromegaly normal visual inspection Respiratory: normal respiratory effort, lungs clear to auscultation no respiratory distress Cardiovascular: RRR, no murmur, no edema Gastrointestinal (Abdomen): Inspection/Auscultation: abdomen normal to inspection; abdomen not distended Rectal Exam: + abnormal sphincter tone (Low and unable to squeeze) Skin: no rashes, warm and dry Neurologic: awake; + does not move all extremities 0/5 strength with left leg in all muscle groups 1/5 strength in right hip abduction and knee flexion, but otherwise 0/5. Psychiatric: Orientation: alert, oriented to person and cooperative Results & Data Results & Data ([facility]) Vital Signs (Past 12 Hours) Vital Signs Temp Pulse Resp BP Pulse Ox 12/20/20 15:35 36.4 C L 64 18 113/63 94 12/20/20 13:20 36.4 C L 63 15 158/66 H 98 Code Status & VTE Plan VTE Prophylaxis Plan VTE Prophylaxis will be ordered: Yes PG Care Time/CCT Total # of Minutes Spent Total Time Spent with Patient: Total time spent is greater than 50% in coordinat ion of care (as documented) at patient's floor/unit and/or counseling patient: Coding Level of Care Code 18616 Initial Inpt Care Lvl 3 Diagnoses Spinal cord compression G95.20 Left leg DVT I82.402 Hypertension I10 Diabetes mellitus E11.9 Hypothyroidism E03.9 Anxiety F41.9
[2020-12-20 18:26] LABS: Basophils # (auto) 0.01 K/uL (0-0.2); Basophils % (auto) 0.1 %; Eosinophils # (auto) 0.25 K/uL (0-0.5); Eosinophils % (auto) 3.3 %; Hematocrit (blood only) 40.9 % (37-47); Hemoglobin 13.3 g/dL (12.0-16.0); Immature Granulocytes # (auto) 0.02 K/uL (0.00-0.02); Immature Granulocytes % (auto) 0.3 %; Lymphocytes # (auto) 1.67 K/uL (1.2-3.4); Lymphocytes % (auto) 22.3 %; Mean Corpuscular Hgb Conc 32.5 g/dL (32-36); Mean Corpuscular Volume 89.3 fL (80-100); Mean Platelet Volume 9.8 fL (7.4-10.4); Monocytes # (auto) 0.35 K/uL (0.11-0.59); Monocytes % (auto) 4.7 %; Neutrophils # (auto) 5.18 K/uL (1.4-6.5); Neutrophils % (auto) 69.3 %; Platelet Count 333 K/uL (130-400); RDW Coefficient of Variation 13.7 % (11.5-14.5); RDW Standard Deviation 44.4 fL (36.4-46.3); Red Blood Count 4.58 M/uL (4.2-5.4); White Blood Count 7.48 K/uL (4.8-10.8)
[2020-12-20 18:37] LABS: INR 2.8 (0.9-1.1); Prothrombin Time 26.5 Seconds (9.0-12.0)
[2020-12-20 18:44] LABS: Albumin Level 2.7 gm/dl (3.4-5.0); BUN Creatinine Ratio 35.4 (10-20); Calcium 8.8 mg/dl (8.5-10.1); Creatinine Clr Calc Pharmacy 66.2 ml/min; Est GFR (African American) 92.3 ml/min; Est GFR (Non-African American) 79.7 ml/min; Potassium 4.2 mmol/L (3.5-5.1)
[2020-12-20 18:47] LABS: Albumin Globulin Ratio 0.8 (0.9-2); Bilirubin,Total 0.2 mg/dl (0.2-1); Globulin 3.3 gm/dl (2.5-4.0)
[2020-12-20] MEDS: ACETAMINOPHEN 325 MG TAB PO PRN (20:02)
[2020-12-20] MEDS: GABAPENTIN 100 MG CAP PO SCH (20:03)
[2020-12-20] MEDS: lisinopril 20 MG TAB PO SCH (20:06)
[2020-12-20] MEDS: cloNIDine HCL 0.1 MG TAB PO SCH (20:06)
[2020-12-20] MEDS: PRAVASTATIN SOD 10 MG TAB PO SCH (20:07)
[2020-12-20] MEDS: WARFARIN SOD 4 MG TAB PO SCH (21:13)
[2020-12-20] MEDS: INSULIN ASPART 100 UNITS/ML 3 ML PEN SC SCH (22:56)
[2020-12-21] MEDS: ACETAMINOPHEN 325 MG TAB PO PRN (05:55)
[2020-12-21 06:16] LABS: Hemoglobin 13.2 g/dL (12.0-16.0); Mean Corpuscular Hemoglobin 29.2 pg (25-34); Mean Corpuscular Hgb Conc 32.2 g/dL (32-36); Mean Corpuscular Volume 90.7 fL (80-100); Mean Platelet Volume 9.9 fL (7.4-10.4); Platelet Count 352 K/uL (130-400); RDW Coefficient of Variation 13.8 % (11.5-14.5); RDW Standard Deviation 45.7 fL (36.4-46.3); Red Blood Count 4.52 M/uL (4.2-5.4); White Blood Count 6.37 K/uL (4.8-10.8)
[2020-12-21 06:26] LABS: INR 2.7 (0.9-1.1); Prothrombin Time 25.5 Seconds (9.0-12.0)
[2020-12-21] MEDS ORDERED: LEVOTHYROXINE SODIUM 25 MCG TABLET PO SCH (06:30)
[2020-12-21 06:59] LABS: BUN Creatinine Ratio 32.8 (10-20); Calcium 9.4 mg/dl (8.5-10.1); Creatinine Clr Calc Pharmacy 64.4 ml/min; Est GFR (African American) 89.3 ml/min; Est GFR (Non-African American) 77.1 ml/min; Magnesium 2.1 mg/dl (1.8-2.4); Potassium 4.7 mmol/L (3.5-5.1)
[2020-12-21] MEDS: cloNIDine HCL 0.1 MG TAB PO SCH ×2 (08:13→20:12)
[2020-12-21] MEDS: GABAPENTIN 100 MG CAP PO SCH ×3 (08:13→20:16)
[2020-12-21] MEDS: INSULIN ASPART 100 UNITS/ML 3 ML PEN SC SCH ×4 (08:45→20:16)
[2020-12-21] MEDS ORDERED: MULTIVITAMIN TAB PO SCH (09:00)
[2020-12-21] MEDS ORDERED: CYANOCOBALAMIN 500 MCG TABLET (VITAMIN B-12) PO SCH (09:00)
[2020-12-21] MEDS ORDERED: ATENOLOL 25 MG TABLET PO SCH (09:00)
--- NOTE | 2020-12-21 09:21 | Magnetic Resonance Report ---
MR thoracic spine wo con CLINICAL HISTORY: Lower extremity weakness. Bowel incontinence. Inability to walk. Possible cord comp ression. PRIOR STUDIES: None TECHNIQUE: MR scanning of the thoracic spine was performed using multiple pulse sequences. No gadoli nium was administered. FINDINGS: There is a multinodular thyroid gland. There are no areas of marrow replacement to indicate metastatic disease. There is a T2 vertebral body hemangioma. There is a T6 focal fatty rest/hemangioma. There are multilevel spondylytic changes with multilevel disc bulges/protrusions. The study is most s ignificant for a large T1-2 extruded disc herniation with secondary spinal canal narrowing. 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 This was not optimally visualized on the axial images due to slice thickness. There is a small left pleural effusion and trace right pleural effusion IMPRESSION: 1. Multilevel spondylytic changes with multilevel disc bulges/protrusions 2. Large T1-2 extruded disc herniation with secondary significant spinal canal narrowing. 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 ACT 112: Positive. There are findings on this exam that require communication between the performing entity and the patient following Patient Test Result Information Act ([place] Act 112) guidelines. Electronically signed by: Stan Mcgraw M.D. 12/21/2020 9:20 AM
[2020-12-21] MEDS: lisinopril 20 MG TAB PO SCH (20:17)
[2020-12-21] MEDS: PRAVASTATIN SOD 10 MG TAB PO SCH (20:17)
[2020-12-21] MEDS: WARFARIN SOD 4 MG TAB PO SCH (20:19)
--- NOTE | 2020-12-21 21:22 | Discharge Summary ---
Date of Service December 21, 2020 Admission HPI Per Admitting Provider 80yo F w/ hx of HTN, DM, hypothyroidism who presents with spinal stenosis. The patient was in the hospital for a fall and UTI in late September 2020. She was discharged to [facility], and at the time of discharge, reports that she was able to walk with a walker. She went to [facility], then on 12/11/2020, was sent to [facility] to be closer to home. The note from [facility]'s admission indicates that she told them her left leg was getting weaker rather than stronger. At [facility], she was requiring a lift by the time of her discharge, compared with walking herself when she first arrived. She reported to [facility] that she had a series of x-rays taken, but no further work-up. She was noted to have left leg swelling on her admission to [facility] and was found to have a left lower extremity DVT for which she was started on warfarin. At present, she reports increasing trouble with urinary continence. She also has saddle anesthesia and reports that she has trouble feeling when she passes a BM. She reports her left leg is numb almost the entire way down. Her right leg is slightly less numb. She has trouble moving both. Principal Diagnosis Spinal Cord Compression Discharge Exam Constitutional: WD/WN, vitals as above Eyes: EOM intact bilaterally; no conjunctival abnormality ENMT: external ear and nose normal, oropharynx normal Neck: trachea midline, no thyromegaly normal visual inspection Respiratory: normal respiratory effort, lungs clear to auscultation no respiratory distress Cardiovascular: RRR, no murmur, no edema Gastrointestinal (Abdomen): Inspection/Auscultation: abdomen normal to inspection; abdomen not distended Rectal Exam: + abnormal sphincter tone (Low and unable to squeeze) Skin: no rashes, warm and dry Neurologic: awake; + does not move all extremities 0/5 strength with left leg in all muscle groups 1/5 strength in right hip abduction and knee flexion, but otherwise 0/5. Psychiatric: Orientation: alert, oriented to person and cooperative Discharge Data Allergies Allergy/AdvReac Type Severity Reaction Status Date / Time Sulfa (Sulfonamide Allergy Intermediate RASH/ITCH Verified 10/31/20 09:16 Antibiotics) acesulfame Allergy Mild Unknown Verified 12/21/20 18:18 aspartame Allergy Mild Unknown Verified 12/21/20 18:18 morphine Allergy Mild RASH/ITCH Verified 10/31/20 09:16 propoxyphene Allergy Mild RASH Verified 10/31/20 09:16 saccharin Allergy Mild Unknown Verified 12/21/20 18:18 sucralose Allergy Mild Unknown Verified 12/21/20 18:18 Consultations 12/20/20 18:36 Burn CD for patient Routine Ordered Studies 12/20/20 17:30 MR thoracic spine wo con Routine Hospital Course (1) Spinal cord compression: MRI lumbar spine on 12/15 showed severe degenerative changes of the spine. No findings on my review of the report that appear acute. Here is the read: Anterior wedging of T11 vertebral body seen likely representing compression fracture deformity. There is severe asymmetrical narrowing of T11-T12 intervertebral disc space, incompletely evaluated on current exam. L1-2: Intervertebral disc spaces preserved. Disc desiccation and posterior osteophytes are seen. Possible narrowing of the central canal however evaluation is significantly limited due to motion artifact. Severe narrowing of bilateral neuroforamina are seen at this level. L2-3: Moderate to severe narrowing of intervertebral disc space with disc desiccation and focal fluid signal within the disc. Possible severe stenosis of the central canal and bilateral neural foramina. L3-4: Intervertebral disc space is preserved. Disc desiccation and posterior osteophytes are seen. Severe stenosis of the central canal and bilateral neuroforamina are seen. L4-5: Intervertebral disc space is significantly narrowed. Possible minimal anterolisthesis of L4 on L5. Mild narrowing of central canal and bilateral neuroforamina. Evaluation is limited due to motion artifact. L5-S1: Severe narrowing of intervertebral disc space with subchondral sclerosis, disc desiccation and posterior osteophytes. Possible mild narrowing of the central canal is seen at this level however evaluation is limited due to motion artifact. Mild narrowing of the left neuroforamina. Moderate to severe narrowing of the right neural foramina. Conus medullaris is not well seen due to motion artifact. IMPRESSION: 1. Thoracolumbar scoliosis with severe degenerative changes of the spine as detailed above. Significantly limited study due to motion artifact. 2. Fluid signal is seen within L2-L3 intervertebral disc which could be due to degenerative process or represent discitis. No surrounding bone marrow edema no definite epidural collection demonstrated however evaluation is limited due to motion artifact and lack of IV contrast. Please correlate above-mentioned findings with laboratory markers of inflammatory process. Further evaluation with contrast-enhanced MRI of the lumbar spine might be considered. 3. Anterior wedging of T11 is seen likely representing compression fracture deformity and incompletely evaluated on this nondedicated exam. She was seen by [facility] (Lucio Landersdanny) and sent to the hospital for acute thoracic MRI, presumably for the T11/T12 findings. Unfortunately, our ortho spine doctor is away and was unable to reach him. I tried to contact Mr. Bernstein, but no one at the [facility] clinic answered the phone despite multiple calls. I discussed the case with [facility] neuro[facility]geon, but he is unavailable at this time (not first line production supervisor) and recommended transfer. Spoke with [facility]. I explained the time course, imaging findings, and symptoms. They felt this was non-acute as her situation had been steadily worsening for 8 weeks, and her inability to walk was at least 4 weeks old. They did say they would accept the patient to the medical service, evaluate, but felt that imminent surgery was extremely unlikely. Patient agreeable to discharge to [facility]. Will be discharged on 12/21/20 (2) Left leg DVT: Noted by [facility] on admission to their facility ~12/06/2020. - On warfarin 4 mg HS; INR pending (3) Hypertension: BP presently is 113/63. - Continue home meds - Will hold the amlodipine as it was listed from [facility] ([facility]) as PRN for BP > 170. - Monitor (4) Diabetes mellitus: A1c was 6.0% in 09/2020 and most reads near that. - Hold metformin - Sliding scale insulin (5) Hypothyroidism: TSH was 3.7 in 09/2020. No signs/symptoms of hypo-/hyperthyroidism. - Continue home Synthroid 25 mcg (6) Anxiety: Not on meds. - Monitor Total Time Total Time Spent Total Time Spent (In Minutes): 32 Total Time Includes: Examination of the Patient, Discharge Planning and Medication Reconciliation Discharge Plan Discharge Items Patient Disposition: Transfer Acute Care Hospital Reason For Visit: LOWER EXT NUMBNESS Discharge Diagnosis: Spinal cord compression Activity: Per Instructions section Non-emergency contact: Primary Care Provider Call non-emergency contact if: your symptoms worsen Follow-up/Referrals: Nicholas Mills MD [Primary Care Provider] - Diet: Regular Addtl Attending Provider Instructions: 1) Spinal cord compression: MRI lumbar spine on 12/15 showed severe degenerative changes of the spine. No findings on my review of the report that appear acute. Here is the read: Anterior wedging of T11 vertebral body seen likely representing compression fracture deformity. There is severe asymmetrical narrowing of T11-T12 intervertebral disc space, i ncompletely evaluated on current exam. L1-2: Intervertebral disc spaces preserved. Disc desiccation and posterior osteophytes are seen. Possible narrowing of the central canal however evaluation is significantly limited due to motion artifact. Severe narrowing of bilateral neuroforamina are seen at this level. L2-3: Moderate to severe narrowing of intervertebral disc space with disc desiccation and focal fluid signal within the disc. Possible severe stenosis of the central canal and bilateral neural foramina. L3-4: Intervertebral disc space is preserved. Disc desiccation and posterior osteophytes are seen. Severe stenosis of the central canal and bilateral neuroforamina are seen. L4-5: Intervertebral disc space is significantly narrowed. Possible minimal anterolisthesis of L4 on L5. Mild narrowing of central canal and bilateral neuroforamina. Evaluation is limited due to motion artifact. L5-S1: Severe narrowing of intervertebral disc space with subchondral sclerosis, disc desiccation and posterior osteophytes. Possible mild narrowing of the central canal is seen at this level however evaluation is limited due to motion artifact. Mild narrowing of the left neuroforamina. Moderate to severe narrowing of the right neural foramina. Conus medullaris is not well seen due to motion artifact. IMPRESSION: 1. Thoracolumbar scoliosis with severe degenerative changes of the spine as detailed above. Significantly limited study due to motion artifact. 2. Fluid signal is seen within L2-L3 intervertebral disc which could be due to degenerative process or represent discitis. No surrounding bone marrow edema no definite epidural collection demonstrated however evaluation is limited due to motion artifact and lack of IV contrast. Please correlate above-mentioned findings with laboratory markers of inflammatory process. Further evaluation with contrast-enhanced MRI of the lumbar spine might be considered. 3. Anterior wedging of T11 is seen likely representing compression fracture deformity and incompletely evaluated on this nondedicated exam. She was seen by [facility] (Lucio Bernstein) and sent to the hospital for acute thoracic MRI, presumably for the T11/T12 findings. Unfortunately, our ortho spine doctor is away and was unable to reach him. I tried to contact Mr. Bernstein, but no one at the [facility] clinic answered the phone despite multiple calls. I discussed the case with [facility] neurosurgeon, but he is unavailable at this time (not first line production supervisor) and recommended transfer. I spoke with [facility]. I explained the time course, imaging findings, and symptoms. They felt this was non-acute as her situation had been steadily worsening for 8 weeks, and her inability to walk was at least 4 weeks old. They did say they would accept the patient to the medical service, evaluate, but felt that imminent surgery was extremely unlikely. (2) Left leg DVT: Noted by [facility] on admission to their facility ~12/06/2020. - On warfarin 4 mg HS; INR pending (3) Hypertension: BP presently is 113/63. - Continue home meds - Will hold the amlodipine as it was listed from [facility] ([facility]) as PRN for BP > 170. - Monitor (4) Diabetes mellitus: A1c was 6.0% in 09/2020 and most reads near that. - Hold metformin - Sliding scale insulin (5) Hypothyroidism: TSH was 3.7 in 09/2020. No signs/symptoms of hypo-/hyperthyroidism. - Continue home Synthroid 25 mcg (6) Anxiety: Not on meds. - Monitor Pending Studies at Discharge: No Stand-Alone Forms: My [facility] Skilled Items Patient informed of condition?: Yes DNR: No Discharge Level of Care: Other Communicable Disease: No Discharge Prognosis: Stable Lines: Peripheral IV Urinary Catheter: No Medications and DC Order Prescriptions: Continued clonidine HCl 0.1 mg tablet 0.1 mg PO BID Qty: 180 RF: 1 levothyroxine 25 mcg tablet 25 mcg PO QAM Qty: 90 RF: 1 pravastatin 10 mg tablet 10 mg PO HS Qty: 90 RF: 1 atenolol 25 mg tablet 25 mg PO DAILY Qty: 90 RF: 3 fluticasone propionate 50 mcg/actuation spray,suspension 2 spray INTNAS BID PRN (Reason: Nasal Congestion) RF: 0 cyanocobalamin (vitamin B-12) 500 mcg Tablet 500 mcg PO QAM RF: 0 multivitamin Tablet 1 tab PO QAM RF: 0 diclofenac sodium [Voltaren] 1 % Gel 2 g EXT QID PRN (Reason: pain) Qty: 50 RF: 0 acetaminophen 325 mg Tablet 650 mg PO Q4H PRN (Reason: pain) Qty: 30 RF: 0 lisinopril 20 mg tablet 20 mg PO PM Qty: 90 RF: 3 amlodipine 2.5 mg tablet 2.5 mg PO Q12H PRN (Reason: Hypertension) RF: 0 warfarin 4 mg tablet 4 mg PO HS RF: 0 gabapentin 100 mg capsule 100 mg PO TID RF: 0 metformin 500 mg tablet 500 mg PO BIDM RF: 0 alendronate 70 mg tablet 70 mg PO MO RF: 0 Discharge Orders: Discharge Order (Routine); Ordered 12/21/20 Ordered By: Michael Kelly Admission Data Admit Date/Time: 12/20/20 17:31 Attending Provider: Danyel Madrigal Admit Provider: Lauri Mireles Primary Care Provider: Nicholas Mills V. Other Interventions: Discharge Summary Assessment (RN) Last Done: 12/21/20 21:09 Coding Level of Care Code D/C Day Management >30 mins Diagnoses Spinal cord compression G95.20 Left leg DVT I82.402 Hypertension I10 Diabetes mellitus E11.9 Hypothyroidism E03.9 Anxiety F41.9
== END 2020-12-21 20:55 | disposition short-term general hospital (02) | DRG 92 ==
LOC: 3W → SUATTDRO 13:08

== ENCOUNTER 2021-01-22 04:22 | Inpatient (IN) ==
[2021-01-22] MEDS ORDERED: ACETAMINOPHEN 1,000 MG/100 ML VIAL IV STA (04:31)
[2021-01-22] MEDS ORDERED: FAMOTIDINE 20MG/5ML IV PUSH IV STA (04:31)
--- NOTE | 2021-01-22 04:38 | Emergency Department Note ---
History of Present Illness General Chief complaint: Cardiac Assessment Stated complaint: CHEST TIGHTNESS Time Seen by Provider: 01/22/21 04:31 Source: patient Mode of arrival: ambulatory Limitations: no limitations History of Present Illness Provider complaint: chest tightness Onset (ago): hour(s) Location: chest Radiation: non-radiation Severity: mild Pain Consistency: + constant Quality: + dull Relieved By: + none Exacerbated By: + none Associated symptoms: + denies other symptoms Treatments prior to arrival: other This is a 80-year-old female brought in from [facility] via EMS due to complaints of chest tightness. Patient states tightness began and she was given 2 sublingual nitros by staff at the facility. After this did not improve her symptoms they contacted EMS. EMS did administer an additional 1 spray of nitro. Patient states her symptoms are improved however not resolved. Patient states she awoke with similar episodes 3 nights ago and was given medications for stomach upset as she felt it was likely related to indigestion. Patient states the food she has been eating recently has been greasier and heavier than usual. She denies any accompanying shortness of breath, cough, dizziness, numbness or tingling, nausea, or increased leg swelling. Patient does have a chronic indwelling Umanzor catheter. Patient denies any recent illness or URI symptoms. Denies recent fevers or chills. Patient states she does not ro utinely take stomach medication. Pt seen during a time of high acuity and national emergency pandemic while wearing PPE. Home Medications Medication Instructions Recorded Confirmed Type cyanocobalamin (vitamin B-12) 500 mcg PO QAM 05/06/19 01/22/21 History multivitamin 1 tab PO QAM 05/06/19 01/22/21 History fluticasone propionate 50 2 spray INTNAS BID PRN g 03/24/20 01/22/21 History mcg/actuation nasal spray,suspension atenolol 25 mg tablet 25 mg PO DAILY #90 tab 04/21/20 01/22/21 Rx clonidine HCl 0.1 mg tablet 0.1 mg PO BID #180 tab 09/11/20 01/22/21 Rx acetaminophen 650 mg PO Q4H PRN #30 tab 10/25/20 01/11/21 Rx lisinopril 20 mg PO PM #90 tab 10/25/20 01/22/21 Rx pravastatin 10 mg tablet 10 mg PO HS #90 tab 11/07/20 01/22/21 Rx alendronate 70 mg PO MO 12/20/20 01/22/21 History amlodipine 2.5 mg PO Q12H PRN 12/20/20 01/22/21 History metformin 500 mg PO BIDM 12/20/20 01/22/21 History warfarin 4 mg PO HS 12/20/20 01/22/21 History diclofenac sodium 2 g TOPICAL Q12H PRN 01/22/21 01/22/21 History docusate sodium 200 mg PO BID PRN 01/22/21 01/22/21 History gabapentin 300 mg PO HS PRN 01/22/21 01/22/21 History gabapentin 300 mg PO TID 01/22/21 01/22/21 History levothyroxine 25 mcg PO QAM 01/22/21 01/22/21 History oxycodone 5 mg PO Q6H PRN 01/22/21 01/22/21 History polyethylene glycol 3350 [Miralax] 17 g PO DAILY 01/22/21 01/22/21 History sennosides [senna] 8.6 mg PO DAILY PRN 01/22/21 01/22/21 History Allergies Allergy/AdvReac Type Severity Reaction Status Date / Time Sulfa (Sulfonamide Allergy Intermediate RASH/ITCH Verified 01/22/21 07:58 Antibiotics) acesulfame Allergy Mild Unknown Verified 01/22/21 07:58 aspartame Allergy Mild Unknown Verified 01/22/21 07:58 morphine Allergy Mild RASH/ITCH Verified 01/22/21 07:58 propoxyphene Allergy Mild RASH Verified 01/22/21 07:58 saccharin Allergy Mild Unknown Verified 01/22/21 07:58 sucralose Allergy Mild Unknown Verified 01/22/21 07:58 Past Med/Surg History Medical History (Updated 01/23/21 @ 21:51 by Enrrique Romero) Abnormal EKG Anxiety Arthralgia of multiple sites Coronary artery calcification Dairy allergy Diabetes mellitus, type 2 DMII (diabetes mellitus, type 2) Dyslipidemia Gait disturbance Hammer toe History of nasal polyp Hyperlipidemia Hypertension Hypertension Hypothyroidism LAFB (left anterior fascicular block) Left leg DVT 11/2020 LVH (left ventricular hypertrophy) Microalbuminuria Nocturia Osteoarthritis Osteoporosis Urinary frequency Urinary incontinence Urinary symptom or sign Vitamin D deficiency disease Surgical History (Updated 01/22/21 @ 21:16 by Enrrique Romero) History of back surgery IN 1985 LUMBAR FOR 2 RUPTURED DISC History of blepharoplasty History of breast biopsy History of cataract surgery BILAT History of colonoscopy History of hand surgery RIGHT History of hip replacement BILAT. RIGHT HIP X2 History of hysterectomy History of knee replacement RIGHT History of lumbar laminectomy for spinal cord decompression 12/22/20 - [facility], Dr Rocha; L1-L5 History of nasal septoplasty History of placement of ear tubes RIGHT IN OFFICE History of rhinoplasty History of rotator cuff surgery LEFT History of tonsillectomy S/P fusion of thoracic spine T1-T3; 12/29/20; [facility] - Dr Rocha S/P IVC filter 11/2020 - [facility] S/P lumbar fusion L3-L4, Dr Rocha, [facility]; 12/22/20. 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 Required: No Beliefs That Will Affect Care: None marital status: / Current Living Situation: Personal Care Facility Current Living Situation Comment: [facility] current occupational status: retired How many Children do You have: 3 How many Children do You have Comment: 1 son ; 1 living son, 1 living daughter Other Information That Helps Us Care for You: No 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 and A total of 10 systems reviewed and were otherwise negative Physical Exam Vital Signs Vital Signs - 24 hr 01/23/21 19:58 01/24/21 00:00 01/24/21 01:34 Temperature 37 C 36.6 C Temperature Source Oral Oral Pulse Rate 74 Pulse Rate [Left Finger] 76 76 Respiratory Rate 18 18 Respiratory Depth Blood Pressure [Left Arm] Blood Pressure [Right Arm] 139/65 104/52 L Blood Pressure Mean [Left Arm] Blood Pressure Mean [Right Arm] 89 69 Blood Pressure Position [Left Arm] Blood Pressure Position [Right Arm] Lying Lying Pulse Oximetry 98 98 Pulse Oximetry [Right Forehead] Oxygen Delivery Method Room Air Room Air Oxygen Delivery Method [Right Forehead] 01/24/21 07:19 01/24/21 07:56 01/24/21 08:00 Temperature 36.5 C Temperature Source Oral Pulse Rate 72 Pulse Rate [Left Finger] 72 Respiratory Rate 20 Respiratory Depth Shallow Blood Pressure [Left Arm] 147/66 H Blood Pressure [Right Arm] Blood Pressure Mean [Left Arm] 93 Blood Pressure Mean [Right Arm] Blood Pressure Position [Left Arm] Lying Blood Pressure Position [Right Arm] Pulse Oximetry 96 Pulse Oximetry [Right Forehead] Oxygen Delivery Method Room Air Oxygen Delivery Method [Right Forehead] 01/24/21 09:00 01/24/21 11:51 Temperature 36.4 C L Temperature Source Axillary Pulse Rate Pulse Rate [Left Finger] 65 Respiratory Rate 20 Respiratory Depth Blood Pressure [Left Arm] 164/91 H Blood Pressure [Right Arm] Blood Pressure Mean [Left Arm] 115 Blood Pressure Mean [Right Arm] Blood Pressure Position [Left Arm] Blood Pressure Position [Right Arm] Sitting Pulse Oximetry 100 Pulse Oximetry [Right Forehead] 97 Oxygen Delivery Method Room Air Oxygen Delivery Method [Right Forehead] Room Air GENERAL: alert, well appearing, well nourished, no distress, non-toxic, indwelling umanzor catheter EYE EXAM: normal conjunctiva, PERRL and EOM's grossly intact OROPHARYNX: no exudate, no erythema, lips, buccal mucosa, and tongue normal and mucous membranes are moist NECK: supple, no nuchal rigidity, no adenopathy, non-tender LUNGS: Clear to auscultation. Normal chest wall mechanics, no w/r/r HEART: no murmurs, S1 normal and S2 normal ABDOMEN: abdomen soft, non-tender, normo-active bowel sounds, no masses, no rebound or guarding. BACK: Back is symmetrical on inspection and there is no deformity, no midline tenderness, no CVA tenderness. SKIN: no rashes and no bruising UPPER EXTREMITIES: upper extremities are grossly normal. FROM, nml pulses b/l. LOWER EXTREMITIES: No pitting edema. FROM, nml pulses b/l. NEURO EXAM: Normal sensorium, cranial nerves II-XII grossly intact, normal speech, no gross weakness of arms, no gross weakness of legs. Gross sensation intact. Course Course 0550: Patient updated at bedside on results thus far. Patient states she is still having chest tightness and a sense that she needs to burp. Vital signs stable. With assistance of Marie MARCELINO, a rectal exam was performed at bedside due to significant drop in hemoglobin as reviewed in the EMR. Brown stool, heme negative. I did ask case management to obtain additional outpatient records from [facility]. 0645: Discussed with Dr. Patiño. 0802: After additional discussion with [facility] hospitalist, patient will be admitted to [place] hospitalist service. Administered Medications Acetaminophen (Acetaminophen 325 Mg Tab) 650 mg PO Q4H PRN PRN Reason: Pain or Fever Stop: 02/21/21 09:43 Last Admin: 01/24/21 01:25 Dose: 650 mg Documented by: [id number] Atenolol (Atenolol 25 Mg Tablet) 25 mg PO DAILY [facility] Stop: 02/22/21 08:59 Last Admin: 01/24/21 07:33 Dose: 25 mg Documented by: [id number] Admin: 01/23/21 08:00 Dose: 25 mg Documented by: [id number] Clonidine HCl (Clonidine Hcl 0.1 Mg Tab) 0.1 mg PO BID VERONICA Stop: 02/21/21 20:59 Last Admin: 01/24/21 07:32 Dose: 0.1 mg Documented by: [id number] Admin: 01/23/21 21:00 Dose: 0.1 mg Documented by: [id number] Admin: 01/23/21 08:01 Dose: 0.1 mg Documented by: [id number] Admin: 01/22/21 20:56 Dose: 0.1 mg Documented by: [id number] Colchicine (Colchicine 0.6 Mg Tab) 0.6 mg PO BID VERONICA Stop: 02/21/21 20:59 Last Admin: 01/24/21 07:33 Dose: 0.6 mg Documented by: [id number] Admin: 01/23/21 21:00 Dose: 0.6 mg Documented by: [id number] Admin: 01/23/21 08:02 Dose: 0.6 mg Documented by: [id number] Admin: 01/22/21 23:44 Dose: 0.6 mg Documented by: [id number] Cyanocobalamin (Cyanocobalamin 500 Mcg Tablet (Vitamin B-12)) 500 mcg PO QAM [facility] Stop: 02/22/21 08:59 Last Admin: 01/24/21 07:32 Dose: 500 mcg Documented by: [id number] Admin: 01/23/21 08:01 Dose: 500 mcg Documented by: [id number] Diclofenac Sodium (Diclofenac Sod 1% Gel 100 Gm Tube) 2 gm EXT Q12H PRN PRN Reason: Pain Stop: 02/21/21 09:43 Last Admin: 01/23/21 08:02 Dose: 2 gm Documented by: [id number] Admin: 01/22/21 20:58 Dose: 2 gm Documented by: [id number] Admin: 01/22/21 10:45 Dose: 2 gm Documented by: [id number] Gabapentin (Gabapentin 300 Mg Cap) 300 mg PO TID [facility] Stop: 02/21/21 13:59 Last Admin: 01/24/21 15:36 Dose: 300 mg Documented by: [id number] Admin: 01/24/21 07:32 Dose: 300 mg Documented by: [id number] Admin: 01/23/21 20:59 Dose: 300 mg Documented by: [id number] Admin: 01/23/21 13:12 Dose: 300 mg Documented by: [id number] Admin: 01/23/21 08:01 Dose: 300 mg Documented by: [id number] Admin: 01/22/21 20:56 Dose: 300 mg Documented by: [id number] Admin: 01/22/21 14:14 Dose: 300 mg Documented by: [id number] Isosorbide Mononitrate (Isosorbide Gulf Extended Rel 30 Mg Tabcr) 30 mg PO QAM [facility] Stop: 02/23/21 15:14 Last Admin: 01/24/21 15:43 Dose: 30 mg Documented by: [id number] Levothyroxine Sodium (Levothyroxine Sodium 25 Mcg Tablet) 25 mcg PO DAILYBB [facility] Stop: 02/22/21 06:29 Last Admin: 01/24/21 07:32 Dose: 25 mcg Documented by: [id number] Admin: 01/23/21 06:04 Dose: 25 mcg Documented by: [id number] Multivitamins (Multivitamin Tab) 1 tab PO QAM [facility] Stop: 02/22/21 08:59 Last Admin: 01/24/21 07:32 Dose: 1 tab Documented by: [id number] Admin: 01/23/21 08:00 Dose: 1 tab Documented by: [id number] Nitroglycerin (Nitroglycerin Sl 0.4 Mg/Tab Tab) 0.4 mg SL UD PRN PRN Reason: Chest Pain Stop: 02/21/21 09:43 Last Admin: 01/24/21 01:47 Dose: 0.4 mg Documented by: [id number] Oxycodone HCl (Oxycodone Hcl Ir 5 Mg Tab (Immediate Release)) 5 mg PO Q6H PRN PRN Reason: Pain Stop: 02/05/21 14:18 Last Admin: 01/24/21 11:54 Dose: 5 mg Documented by: [id number] Admin: 01/23/21 20:58 Dose: 5 mg Documented by: [id number] Admin: 01/23/21 06:04 Dose: 5 mg Documented by: [id number] Admin: 01/22/21 15:11 Dose: 5 mg Documented by: [id number] Pantoprazole Sodium (Pantoprazole 40 Mg Tab) 40 mg PO QAM [facility] Stop: 02/22/21 08:59 Last Admin: 01/24/21 07:32 Dose: 40 mg Documented by: [id number] Admin: 01/23/21 08:01 Dose: 40 mg Documented by: [id number] Polyethylene Glycol (Polyethylene (Miralax) 17 Gm Pack) 17 gm PO DAILY [facility] Stop: 02/21/21 09:59 Last Admin: 01/24/21 07:33 Dose: Not Given Documented by: [id number] Admin: 01/23/21 08:02 Dose: Not Given Documented by: [id number] Admin: 01/22/21 10:39 Dose: Not Given Documented by: [id number] Pravastatin Sodium (Pravastatin Sod 10 Mg Tab) 10 mg PO [facility] Stop: 02/21/21 20:59 Last Admin: 01/23/21 20:59 Dose: 10 mg Documented by: [id number] Admin: 01/22/21 20:57 Dose: 10 mg Documented by: [id number] Sennosides (Senna 8.6 Mg Tab) 17.2 mg PO DAILY [facility] Stop: 02/21/21 09:59 Last Admin: 01/24/21 07:32 Dose: 17.2 mg Documented by: [id number] Admin: 01/23/21 08:00 Dose: 17.2 mg Documented by: [id number] Admin: 01/22/21 10:38 Dose: 17.2 mg Documented by: [id number] Sucralfate (Sucralfate 1 Gm/10 Ml Udc) 1 gm PO QID [facility] Stop: 02/21/21 12:59 Last Admin: 01/24/21 16:10 Dose: 1 gm Documented by: [id number] Admin: 01/24/21 11:54 Dose: 1 gm Documented by: [id number] Admin: 01/24/21 07:31 Dose: 1 gm Documented by: [id number] Admin: 01/23/21 20:59 Dose: 1 gm Documented by: [id number] Admin: 01/23/21 17:25 Dose: 1 gm Documented by: [id number] Admin: 01/23/21 13:12 Dose: 1 gm Documented by: [id number] Admin: 01/23/21 08:00 Dose: 1 gm Documented by: [id number] Admin: 01/22/21 20:56 Dose: 1 gm Documented by: [id number] Admin: 01/22/21 16:36 Dose: 1 gm Documented by: [id number] Admin: 01/22/21 12:31 Dose: 1 gm Documented by: [id number] Warfarin Sodium (Warfarin Sod 3 Mg Tab) 3 mg PO DAILY@1600 [facility] Stop: 02/21/21 15:59 Last Admin: 01/24/21 15:40 Dose: 3 mg Documented by: [id number] Admin: 01/23/21 17:25 Dose: 3 mg Documented by: [id number] Admin: 01/22/21 16:36 Dose: 3 mg Documented by: [id number] Discontinued Medications Bisacodyl (Bisacodyl 10 Mg Supp) 10 mg IL ONE ONE Stop: 01/22/21 15:01 Last Admin: 01/22/21 12:53 Dose: Not Given Documented by: [id number] Famotidine (Famotidine 20mg/5ml Iv Push) 20 mg IV ONE STA Stop: 01/22/21 04:32 Last Admin: 01/22/21 04:57 Dose: 20 mg Documented by: [id number] Acetaminophen (Ofirmev) 1,000 mg in 100 mls @ 400 mls/hr IV NOW STA Stop: 01/22/21 04:45 Last Infusion: 01/22/21 05:14 Dose: 0 mls/hr Documented by: [id number] Admin: 01/22/21 04:57 Dose: 400 mls/hr Documented by: [id number] Magnesium Sulfate/Dextrose (Magnesium Sulfate / D5w) 1 gm in 100 mls @ 100 mls/hr IV Q1H [facility]ONICA Stop: 01/22/21 08:09 Last Infusion: 01/22/21 08:34 Dose: 0 mls/hr Documented by: [id number] Admin: 01/22/21 07:22 Dose: 100 mls/hr Documented by: [id number] Infusion: 01/22/21 07:19 Dose: 100 mls/hr Documented by: [id number] Admin: 01/22/21 06:19 Dose: 100 mls/hr Documented by: [id number] Sodium Chloride (Nss 1000ml) 1,000 mls @ 125 mls/hr IV .Q8H [facility]ONICA Stop: 02/21/21 06:14 Last Infusion: 01/22/21 10:37 Dose: 0 mls/hr Documented by: [id number] Admin: 01/22/21 06:19 Dose: 125 mls/hr Documented by: [id number] Magnesium Sulfate/Dextrose (Magnesium Sulfate / D5w) 1 gm in 100 mls @ 50 mls/hr IV ONE ONE Stop: 01/22/21 11:59 Last Infusion: 01/22/21 12:45 Dose: 0 mls/hr Documented by: [id number] Admin: 01/22/21 10:43 Dose: 50 mls/hr Documented by: [id number] Levothyroxine Sodium (Levothyroxine Sodium 25 Mcg Tablet) 25 mcg PO NOW STA Stop: 01/22/21 05:09 Last Admin: 01/22/21 05:33 Dose: 25 mcg Documented by: [id number] Nitroglycerin (Nitroglycerin 2% Ointment 30gm Tube) 1 inch EXT NOW STA Stop: 01/22/21 06:11 Last Admin: 01/22/21 06:19 Dose: 1 inch Documented by: [id number] Pantoprazole Sodium (Pantoprazole 40 Mg Tab) 40 mg PO NOW STA Stop: 01/22/21 09:53 Last Admin: 01/22/21 10:38 Dose: 40 mg Documented by: [id number] Medical Decision Making Differential Diagnosis Differential diagnoses includes but is not limited to acute coronary syndrome, myocardial infarction, pericarditis, pulmonary embolus, aortic dissection, pneumonia, pneumothorax, musculoskeletal, shingles, esophageal. Medical Records Attestation: I reviewed the patient's medical records. Home Medications Current Medication List: was personally reviewed by me Laboratory Data Attestation: I reviewed the patient's lab results. Result diagrams: 01/23/21 05:54 01/24/21 05:49 Lab Results 01/22/21 01/22/21 01/22/21 Range/Units 04:33 04:33 04:50 WBC 12.77 H (4.8-10.8) K/uL RBC 3.37 L (4.2-5.4) M/uL Hgb 9.4 L (12.0-16.0) g/dL Hct 29.8 L (37-47) % MCV 88.4 (80-100) fL MCH 27.9 (25-34) pg MCHC 31.5 L (32-36) g/dL RDW Std Deviation 43.7 (36.4-46.3) fL RDW Coeff of Efren 13.5 (11.5-14.5) % Plt Count 385 (130-400) K/uL MPV 9.3 (7.4-10.4) fL Immature Gran % (Auto) 0.4 % Neut % (Auto) 80.9 % Lymph % (Auto) 9.1 % Gulf % (Auto) 6.5 % Eos % (Auto) 2.9 % Baso % (Auto) 0.2 % Neut # (Auto) 10.34 H (1.4-6.5) K/uL Lymph # (Auto) 1.16 L (1.2-3.4) K/uL Gulf # (Auto) 0.83 H (0.11-0.59) K/uL Eos # (Auto) 0.37 (0-0.5) K/uL Baso # (Auto) 0.02 (0-0.2) K/uL Immature Gran # (Auto) 0.05 H (0.00-0.02) K/uL ESR 71 H (0-30) mm/hr PT (9.0-12.0) Seconds INR (0.9-1.1) Sodium (136-145) mmol/L Potassium (3.5-5.1) mmol/L Chloride (98-107) mmol/L Carbon Dioxide (21-32) mmol/L Anion Gap (3-11) BUN (7-18) mg/dl Creatinine (0.6-1.2) mg/dl Est Cr Clr Drug Dosing ml/min Est GFR ( Amer) ml/min Est GFR (Non-Af Amer) ml/min BUN/Creatinine Ratio (10-20) Glucose (70-99) mg/dl Calcium (8.5-10.1) mg/dl Magnesium (1.8-2.4) mg/dl Iron (35-150) mcg/dl Transferrin (200-360) mg/dl Transferrin % Sat (15-50) % Ferritin (8-388) ng/ml Total Bilirubin (0.2-1) mg/dl AST (15-37) U/L ALT (12-78) U/L Alkaline Phosphatase (45-117) U/L Troponin I (0-0.045) ng/ml C-Reactive Protein 8.04 H (0-0.29) mg/dl NT-Pro-B Natriuret Pep (0-1800) pg/ml Total Protein (6.4-8.2) gm/dl Albumin (3.4-5.0) gm/dl Globulin (2.5-4.0) gm/dl Albumin/Globulin Ratio (0.9-2) Lipase (73-393) U/L Folate (>5.38) ng/ml Procalcitonin (0-0.5) ng/ml COVID-19 Eval Order SARS-CoV-2 (PCR) (Negative) 01/22/21 01/22/21 01/22/21 Range/Units 04:50 04:50 06:55 WBC (4.8-10.8) K/uL RBC (4.2-5.4) M/uL Hgb (12.0-16.0) g/dL Hct (37-47) % MCV (80-100) fL MCH (25-34) pg MCHC (32-36) g/dL RDW Std Deviation (36.4-46.3) fL RDW Coeff of Efren (11.5-14.5) % Plt Count (130-400) K/uL MPV (7.4-10.4) fL Immature Gran % (Auto) % Neut % (Auto) % Lymph % (Auto) % Gulf % (Auto) % Eos % (Auto) % Baso % (Auto) % Neut # (Auto) (1.4-6.5) K/uL Lymph # (Auto) (1.2-3.4) K/uL Gulf # (Auto) (0.11-0.59) K/uL Eos # (Auto) (0-0.5) K/uL Baso # (Auto) (0-0.2) K/uL Immature Gran # (Auto) (0.00-0.02) K/uL ESR (0-30) mm/hr PT 29.6 H (9.0-12.0) Seconds INR 3.2 H (0.9-1.1) Sodium 139 (136-145) mmol/L Potassium 4.1 (3.5-5.1) mmol/L Chloride 107 (98-107) mmol/L Carbon Dioxide 28 (21-32) mmol/L Anion Gap 4.0 (3-11) BUN 17 (7-18) mg/dl Creatinine 0.54 L (0.6-1.2) mg/dl Est Cr Clr Drug Dosing 98.6 ml/min Est GFR ( Amer) 104.0 ml/min Est GFR (Non-Af Amer) 89.8 ml/min BUN/Creatinine Ratio 31.6 H (10-20) Glucose 120 H (70-99) mg/dl Calcium 7.8 L (8.5-10.1) mg/dl Magnesium 1.3 L (1.8-2.4) mg/dl Iron (35-150) mcg/dl Transferrin (200-360) mg/dl Transferrin % Sat (15-50) % Ferritin (8-388) ng/ml Total Bilirubin 0.1 L (0.2-1) mg/dl AST 9 L (15-37) U/L ALT 9 L (12-78) U/L Alkaline Phosphatase 79 (45-117) U/L Troponin I < 0.015 (0-0.045) ng/ml C-Reactive Protein (0-0.29) mg/dl NT-Pro-B Natriuret Pep 450 (0-1800) pg/ml Total Protein 5.2 L (6.4-8.2) gm/dl Albumin 1.7 L (3.4-5.0) gm/dl Globulin 3.5 (2.5-4.0) gm/dl Albumin/Globulin Ratio 0.5 L (0.9-2) Lipase 110 (73-393) U/L Folate (>5.38) ng/ml Procalcitonin (0-0.5) ng/ml COVID-19 Eval Order Covid19 at [facility] SARS-CoV-2 (PCR) (Negative) 01/22/21 01/22/21 01/22/21 Range/Units 06:55 11:15 11:15 WBC (4.8-10.8) K/uL RBC (4.2-5.4) M/uL Hgb (12.0-16.0) g/dL Hct (37-47) % MCV (80-100) fL MCH (25-34) pg MCHC (32-36) g/dL RDW Std Deviation (36.4-46.3) fL RDW Coeff of Efren (11.5-14.5) % Plt Count (130-400) K/uL MPV (7.4-10.4) fL Immature Gran % (Auto) % Neut % (Auto) % Lymph % (Auto) % Gulf % (Auto) % Eos % (Auto) % Baso % (Auto) % Neut # (Auto) (1.4-6.5) K/uL Lymph # (Auto) (1.2-3.4) K/uL Gulf # (Auto) (0.11-0.59) K/uL Eos # (Auto) (0-0.5) K/uL Baso # (Auto) (0-0.2) K/uL Immature Gran # (Auto) (0.00-0.02) K/uL ESR (0-30) mm/hr PT (9.0-12.0) Seconds INR (0.9-1.1) Sodium (136-145) mmol/L Potassium (3.5-5.1) mmol/L Chloride (98-107) mmol/L Carbon Dioxide (21-32) mmol/L Anion Gap (3-11) BUN (7-18) mg/dl Creatinine (0.6-1.2) mg/dl Est Cr Clr Drug Dosing ml/min Est GFR ( Amer) ml/min Est GFR (Non-Af Amer) ml/min BUN/Creatinine Ratio (10-20) Glucose (70-99) mg/dl Calcium (8.5-10.1) mg/dl Magnesium (1.8-2.4) mg/dl Iron 22 L (35-150) mcg/dl Transferrin 174 L (200-360) mg/dl Transferrin % Sat 9 L (15-50) % Ferritin 130.2 (8-388) ng/ml Total Bilirubin (0.2-1) mg/dl AST (15-37) U/L ALT (12-78) U/L Alkaline Phosphatase (45-117) U/L Troponin I < 0.015 (0-0.045) ng/ml C-Reactive Protein (0-0.29) mg/dl NT-Pro-B Natriuret Pep (0-1800) pg/ml Total Protein (6.4-8.2) gm/dl Albumin (3.4-5.0) gm/dl Globulin (2.5-4.0) gm/dl Albumin/Globulin Ratio (0.9-2) Lipase (73-393) U/L Folate > 20.00 (>5.38) ng/ml Procalcitonin (0-0.5) ng/ml COVID-19 Eval Order SARS-CoV-2 (PCR) NEGATIVE (Negative) 01/22/21 01/22/21 01/23/21 Range/Units 11:15 17:13 05:54 WBC (4.8-10.8) K/uL RBC (4.2-5.4) M/uL Hgb (12.0-16.0) g/dL Hct (37-47) % MCV (80-100) fL MCH (25-34) pg MCHC (32-36) g/dL RDW Std Deviation (36.4-46.3) fL RDW Coeff of Efren (11.5-14.5) % Plt Count (130-400) K/uL MPV (7.4-10.4) fL Immature Gran % (Auto) % Neut % (Auto) % Lymph % (Auto) % Gulf % (Auto) % Eos % (Auto) % Baso % (Auto) % Neut # (Auto) (1.4-6.5) K/uL Lymph # (Auto) (1.2-3.4) K/uL Gulf # (Auto) (0.11-0.59) K/uL Eos # (Auto) (0-0.5) K/uL Baso # (Auto) (0-0.2) K/uL Immature Gran # (Auto) (0.00-0.02) K/uL ESR (0-30) mm/hr PT 27.2 H (9.0-12.0) Seconds INR 2.9 H (0.9-1.1) Sodium (136-145) mmol/L Potassium (3.5-5.1) mmol/L Chloride (98-107) mmol/L Carbon Dioxide (21-32) mmol/L Anion Gap (3-11) BUN (7-18) mg/dl Creatinine (0.6-1.2) mg/dl Est Cr Clr Drug Dosing ml/min Est GFR ( Amer) ml/min Est GFR (Non-Af Amer) ml/min BUN/Creatinine Ratio (10-20) Glucose (70-99) mg/dl Calcium (8.5-10.1) mg/dl Magnesium 2.1 (1.8-2.4) mg/dl Iron (35-150) mcg/dl Transferrin (200-360) mg/dl Transferrin % Sat (15-50) % Ferritin (8-388) ng/ml Total Bilirubin (0.2-1) mg/dl AST (15-37) U/L ALT (12-78) U/L Alkaline Phosphatase (45-117) U/L Troponin I < 0.015 (0-0.045) ng/ml C-Reactive Protein (0-0.29) mg/dl NT-Pro-B Natriuret Pep (0-1800) pg/ml Total Protein (6.4-8.2) gm/dl Albumin (3.4-5.0) gm/dl Globulin (2.5-4.0) gm/dl Albumin/Globulin Ratio (0.9-2) Lipase (73-393) U/L Folate (>5.38) ng/ml Procalcitonin < 0.05 (0-0.5) ng/ml COVID-19 Eval Order SARS-CoV-2 (PCR) (Negative) 01/23/21 01/23/21 01/24/21 Range/Units 05:54 05:54 05:49 WBC 10.13 (4.8-10.8) K/uL RBC 3.48 L (4.2-5.4) M/uL Hgb 9.9 L (12.0-16.0) g/dL Hct 31.4 L (37-47) % MCV 90.2 (80-100) fL MCH 28.4 (25-34) pg MCHC 31.5 L (32-36) g/dL RDW Std Deviation 44.6 (36.4-46.3) fL RDW Coeff of Efren 13.6 (11.5-14.5) % Plt Count 429 H (130-400) K/uL MPV 9.5 (7.4-10.4) fL Immature Gran % (Auto) 0.5 % Neut % (Auto) 74.2 % Lymph % (Auto) 14.4 % Gulf % (Auto) 6.5 % Eos % (Auto) 4.1 % Baso % (Auto) 0.3 % Neut # (Auto) 7.51 H (1.4-6.5) K/uL Lymph # (Auto) 1.46 (1.2-3.4) K/uL Gulf # (Auto) 0.66 H (0.11-0.59) K/uL Eos # (Auto) 0.42 (0-0.5) K/uL Baso # (Auto) 0.03 (0-0.2) K/uL Immature Gran # (Auto) 0.05 H (0.00-0.02) K/uL ESR (0-30) mm/hr PT 26.0 H (9.0-12.0) Seconds INR 2.8 H (0.9-1.1) Sodium 139 (136-145) mmol/L Potassium 4.3 (3.5-5.1) mmol/L Chloride 107 (98-107) mmol/L Carbon Dioxide 31 (21-32) mmol/L Anion Gap 1.0 L (3-11) BUN 18 (7-18) mg/dl Creatinine 0.56 L (0.6-1.2) mg/dl Est Cr Clr Drug Dosing 92.6 ml/min Est GFR ( Amer) 102.8 ml/min Est GFR (Non-Af Amer) 88.7 ml/min BUN/Creatinine Ratio 31.9 H (10-20) Glucose 110 H (70-99) mg/dl Calcium 8.3 L (8.5-10.1) mg/dl Magnesium (1.8-2.4) mg/dl Iron (35-150) mcg/dl Transferrin (200-360) mg/dl Transferrin % Sat (15-50) % Ferritin (8-388) ng/ml Total Bilirubin (0.2-1) mg/dl AST (15-37) U/L ALT (12-78) U/L Alkaline Phosphatase (45-117) U/L Troponin I (0-0.045) ng/ml C-Reactive Protein 7.36 H (0-0.29) mg/dl NT-Pro-B Natriuret Pep (0-1800) pg/ml Total Protein (6.4-8.2) gm/dl Albumin (3.4-5.0) gm/dl Globulin (2.5-4.0) gm/dl Albumin/Globulin Ratio (0.9-2) Lipase (73-393) U/L Folate (>5.38) ng/ml Procalcitonin (0-0.5) ng/ml COVID-19 Eval Order SARS-CoV-2 (PCR) (Negative) 01/24/21 01/24/21 Range/Units 05:49 11:48 WBC (4.8-10.8) K/uL RBC (4.2-5.4) M/uL Hgb (12.0-16.0) g/dL Hct (37-47) % MCV (80-100) fL MCH (25-34) pg MCHC (32-36) g/dL RDW Std Deviation (36.4-46.3) fL RDW Coeff of Efren (11.5-14.5) % Plt Count (130-400) K/uL MPV (7.4-10.4) fL Immature Gran % (Auto) % Neut % (Auto) % Lymph % (Auto) % [place] % (Auto) % Eos % (Auto) % Baso % (Auto) % Neut # (Auto) (1.4-6.5) K/uL Lymph # (Auto) (1.2-3.4) K/uL [place] # (Auto) (0.11-0.59) K/uL Eos # (Auto) (0-0.5) K/uL Baso # (Auto) (0-0.2) K/uL Immature Gran # (Auto) (0.00-0.02) K/uL ESR (0-30) mm/hr PT (9.0-12.0) Seconds INR (0.9-1.1) Sodium 138 (136-145) mmol/L Potassium 4.3 (3.5-5.1) mmol/L Chloride 107 (98-107) mmol/L Carbon Dioxide 27 (21-32) mmol/L Anion Gap 4.0 (3-11) BUN 25 H (7-18) mg/dl Creatinine 0.73 (0.6-1.2) mg/dl Est Cr Clr Drug Dosing 71.1 ml/min Est GFR ( Amer) 90.8 ml/min Est GFR (Non-Af Amer) 78.3 ml/min BUN/Creatinine Ratio 34.1 H (10-20) Glucose 134 H (70-99) mg/dl Calcium 8.0 L (8.5-10.1) mg/dl Magnesium (1.8-2.4) mg/dl Iron (35-150) mcg/dl Transferrin (200-360) mg/dl Transferrin % Sat (15-50) % Ferritin (8-388) ng/ml Total Bilirubin (0.2-1) mg/dl AST (15-37) U/L ALT (12-78) U/L Alkaline Phosphatase (45-117) U/L Troponin I < 0.015 (0-0.045) ng/ml C-Reactive Protein (0-0.29) mg/dl NT-Pro-B Natriuret Pep (0-1800) pg/ml Total Protein (6.4-8.2) gm/dl Albumin (3.4-5.0) gm/dl Globulin (2.5-4.0) gm/dl Albumin/Globulin Ratio (0.9-2) Lipase (73-393) U/L Folate (>5.38) ng/ml Procalcitonin (0-0.5) ng/ml COVID-19 Eval Order SARS-CoV-2 (PCR) (Negative) Imaging Data Radiologist's Impression: Chest X-Ray 01/22/21 04:31 XR chest 1V portable CLINICAL HISTORY: chest tightness COMPARISON STUDY: 10/20/2020 FINDINGS: The heart is borderline enlarged. Left hemidiaphragm is obscured suggesting a left pleural effusion and underlying left basilar atelectasis/consolidation. There are postsurgical changes within the upper thoracic spine. There is no failure. Arthritic changes are present within the shoulders.[ IMPRESSION: Left basilar opacity: left pleural effusion and/or left basilar atelectasis/consolidation. Clinical and radiographic follow-up are recommended. ACT 112: Negative or not required by law. Electronically signed by: Stan Mcgraw M.D. 01/22/2021 6:55 AM ECG Data Attestation: I personally reviewed and interpreted this ECG as follows: Indication: + chest pain Rate (beats per minute): 83 Rhythm: + normal sinus ECG Intervals/blocks: + Normal QRS and + Normal QT ECG [place]: + Left axis deviation ECG ST segments: + Normal ST segments ECG Findings: + PVCs MDM Narrative This is a 80 yo female brought in from rehab with complaints of hip pain. VS stable and pt afebrile. Pain was slightly improved with nitro given prehospital. Similar symptoms recently, both occurred at night. Patient multiple risk factors for CAD. Pt with elevated INR, doubt PE. CXR reassuring and pt denies SOB. POssible Gi etiology however no improvement after GI meds. Pt more with new anemia, however given 2 recent surgeries, likely from those, will attempt to confirm with [facility] records. Stool brown and heme negative on rectal exam at bedside. We discussed all results and my concern given persistent pressure. CAse discussed with hospitalist for additional evaluation and mgmt. VS stable throughout. No ectopy or dysrhythmia noted on tele. Mag was also noted to be low and IV repletion started in the ER. An order was placed for continuous cardiac monitoring. The monitor shows a rate of _70_ with _normal sinus___ rhythm. Impression & Plan Chest pain, Hypomagnesemia, Supratherapeutic INR, Anemia Discharge Plan Visit Data Chief Complaint: Cardiac Assessment Stated Complaint: CHEST TIGHTNESS ED Provider: Lakisha Arevalo Discharge Problem: Chest pain, Hypomagnesemia, Supratherapeutic INR, Anemia Patient Disposition: Admitted As Inpatient Discharge Instructions Interventions: ED Discharge Assessment Last Done: 01/22/21 08:59 Discharge Problem: Chest pain Qualifiers: Chest pain type: unspecified Qualified Code(s): R07.9 - Chest pain, unspecified Anemia Qualifiers: Anemia type: unspecified type Qualified Code(s): D64.9 - Anemia, unspecified
[2021-01-22 04:59] LABS: Basophils # (auto) 0.02 K/uL (0-0.2); Basophils % (auto) 0.2 %; Eosinophils # (auto) 0.37 K/uL (0-0.5); Eosinophils % (auto) 2.9 %; Hematocrit (blood only) 29.8 % (37-47); Hemoglobin 9.4 g/dL (12.0-16.0); Immature Granulocytes # (auto) 0.05 K/uL (0.00-0.02); Immature Granulocytes % (auto) 0.4 %; Lymphocytes # (auto) 1.16 K/uL (1.2-3.4); Lymphocytes % (auto) 9.1 %; Mean Corpuscular Hemoglobin 27.9 pg (25-34); Mean Corpuscular Hgb Conc 31.5 g/dL (32-36); Mean Corpuscular Volume 88.4 fL (80-100); Mean Platelet Volume 9.3 fL (7.4-10.4); Monocytes # (auto) 0.83 K/uL (0.11-0.59); Monocytes % (auto) 6.5 %; Neutrophils # (auto) 10.34 K/uL (1.4-6.5); Neutrophils % (auto) 80.9 %; Platelet Count 385 K/uL (130-400); RDW Coefficient of Variation 13.5 % (11.5-14.5); RDW Standard Deviation 43.7 fL (36.4-46.3); Red Blood Count 3.37 M/uL (4.2-5.4); White Blood Count 12.77 K/uL (4.8-10.8)
[2021-01-22] MEDS ORDERED: LEVOTHYROXINE SODIUM 25 MCG TABLET PO STA (05:08)
[2021-01-22 05:12] LABS: INR 3.2 (0.9-1.1); Prothrombin Time 29.6 Seconds (9.0-12.0)
[2021-01-22 05:25] LABS: Alanine Aminotransferase 9 U/L (12-78); Albumin Level 1.7 gm/dl (3.4-5.0); Aspartate Aminotransferase 9 U/L (15-37); BUN Creatinine Ratio 31.6 (10-20); Blood Urea Nitrogen 17 mg/dl (7-18); Calcium 7.8 mg/dl (8.5-10.1); Carbon Dioxide 28 mmol/L (21-32); Chloride 107 mmol/L (98-107); Creatinine Clr Calc Pharmacy 98.6 ml/min; Est GFR (Non-African American) 89.8 ml/min; Glucose 120 mg/dl (70-99); Lipase 110 U/L (73-393); Magnesium 1.3 mg/dl (1.8-2.4); Potassium 4.1 mmol/L (3.5-5.1); Sodium 139 mmol/L (136-145)
[2021-01-22 05:27] LABS: Albumin Globulin Ratio 0.5 (0.9-2); Alkaline Phosphatase 79 U/L (45-117); Bilirubin,Total 0.1 mg/dl (0.2-1); Globulin 3.5 gm/dl (2.5-4.0); NT Pro B Type Natriuretic Pept 450 pg/ml (0-1800); Total Protein 5.2 gm/dl (6.4-8.2); Troponin I < 0.015 ng/ml (0-0.045)
[2021-01-22] MEDS ORDERED: NITROGLYCERIN 2% OINTMENT 30GM TUBE EXT STA (06:10)
[2021-01-22] MEDS ORDERED: SODIUM CHLORIDE 0.9% 1000ML 1,000 ML IV SCH (06:15)
[2021-01-22] MEDS: MAGNESIUM SULFATE / D5W 1 GM/100 ML BAG IV SCH ×2 (06:19→07:22)
--- NOTE | 2021-01-22 06:57 | XRay Report ---
XR chest 1V portable CLINICAL HISTORY: chest tightness COMPARISON STUDY: 10/20/2020 FINDINGS: The heart is borderline enlarged. Left hemidiaphragm is obscured suggesting a left pleural effusion and underlying left basilar atelectasis/consolidation. There are postsurgical changes within the upper thoracic spine. There is no failure. Arthritic changes are present within the shoulders.[ IMPRESSION: Left basilar opacity: left pleural effusion and/or left basilar atelectasis/consolidation . Clinical and radiographic follow-up are recommended. ACT 112: Negative or not required by law. Electronically signed by: Stan Mcgraw M.D. 01/22/2021 6:55 AM
--- NOTE | 2021-01-22 08:23 | History & Physical Report ---
Date of Service January 22, 2021 Assessment & Plan (1) Chest pain: Differential - ischemia vs pericardial (pain occurred while laying down the last 2 nights) vs GI/GERD. Patient is on chronic anticoagulation thus VTE is not suspected. Has left sided effusion and/or infiltrate but I do not suspect this is the cause of her pain. Does have multiple CAD risk factors. Even despite 2 recent major surgeries, however, she did well from cardiovascular standpoint. Initial troponin and EKG are wnl. Pain now fully resolved s/p multiple doses of nitroglycerin. Plan - * serial troponins * echo this afternoon; check wall motion, EF and pericardium * check sed rate / crp for evidence of inflammation (ie pericarditis) * for possible GI causes of pain - add protonix, add sucralfate * place on tele although dysrhythmia not suspected Additional w/u hinges on the results of the above studies. Of note - last stress echo was 2017 and did NOT show inducible ischemia. (2) Hypomagnesemia: level 1.3 at presentation, likely due to recent poor appetite. 2 grams mag sulfate given in ER. will order 1 additional gram of mag sulfate, then recheck level later today. she is not on diuretics and has had no vomiting/diarrhea. (3) Supratherapeutic INR: INR > 3 today. Will reduce coumadin dose today from 4mg to 3mg. Repeat INR am. (4) Anemia: 13.2 Hb about 1 month ago. Today Hb is 9.4. Suspect she had acute blood loss due to 2 major back surgeries in late November/early December at [facility]. Check Fe studies, B12, folate. Replace as needed. Heme NEGATIVE per the ER attending. (5) Hypothyroidism: TSH wnl in 09/2020. Cont synthroid w/o changes. (6) Diabetes mellitus: a1c 6.1% in September 2020. check BSGs ac/hs. DM diet. unlikely to need any insulin coverage. (7) Dyslipidemia: Cont pravastatin. LDL <100 x 3 years in a row. (8) Hypertension: Cont atenolol. Hold lisinopril. (9) Esophageal reflux: Her chart indicates laryngopharyngeal reflux disease. Certainly GERD could be the cause of her presenting chest pain. PPI. Carafate. Follow. (10) Foot drop, bilateral: 2nd to severe spinal stenosis of thoracic and lumbar spine, s/p fusion of both December 2020. Significant LLE weakness with foot drop. Mild on right. Consider AFO devices. (11) Spinal stenosis: s/p lumbar back surgery 11/2020. s/p thoracic surgery 12/2020. Following [facility] admission was transferred to SNF for rehab. Making slow progress. PT, OT while. (12) Left leg DVT: Diagnosed in early November 2020. On coumadin. INR 3.2 today - reduce coumadin to 3mg daily. INR in am. (13) S/P IVC filter: During -12/2020 hospital stay, [facility]. KUB x-ray to see if filter is still present. Patient uncertain if they removed or not. History of Present Illness Chief Complaint: chest tightness Primary Care Provider: Sheeba Callaway at [place] 80yo female with recent thoracic and lumbar spine surgery in [place] presents with recurrent episodes of chest tightness. Friday evening she was awoken by chest discomfort while sleeping. This was associated with belching and burping. She was given Tums and mark jourdan; symptoms resolved. Able to go back to sleep after the Tums. No dyspnea. Did have nausea but no vomiting. She was sweaty "in her head." She recalls what she ate that night - had "fatty sausage." Upon awakening Friday am she felt ok and was able to eat breakfast. No further chest pain. She felt well enough yesterday to do some PT on her own without any limitation. Friday evening - again was awakened by chest tightness (central) and belching. She called the nurse - was ultimately given 2 SL nitros with modest relief. EMS was summoned - en route to [facility] she was given additional nitro. Belching continued upon arrival here, but has since then resolved. Chest tightness/discomfort also resolved. For dinner last night she had fried chicken - only had partial amount. Denies that in between the above 2 episodes she has symptoms otherwise. She feels like she is making slow progress w/ her rehab following her extensive 2 back surgeries in [place]. First surgery was on 12/22/[address] Rocha at [facility] -- L1-L5 laminectomy and L3-L4 fusion. 2nd surgery was on 12/29/[address] Rocha -- T1-T2 laminectomy/discectomy and T1-T3 fusion. Saw orthopedics at [facility] in f/u on 01/16/21. Records also indicate placement of IVC filter for her surgeries due to being off coumadin. Allergies Allergy/AdvReac Type Severity Reaction Status Date / Time Sulfa (Sulfonamide Allergy Intermediate RASH/ITCH Verified 01/22/21 07:58 Antibiotics) acesulfame Allergy Mild Unknown Verified 01/22/21 07:58 aspartame Allergy Mild Unknown Verified 01/22/21 07:58 morphine Allergy Mild RASH/ITCH Verified 01/22/21 07:58 propoxyphene Allergy Mild RASH Verified 01/22/21 07:58 saccharin Allergy Mild Unknown Verified 01/22/21 07:58 sucralose Allergy Mild Unknown Verified 01/22/21 07:58 Home Medications Medication Instructions Recorded Confirmed Type cyanocobalamin (vitamin B-12) 500 mcg PO QAM 05/06/19 01/22/21 History multivitamin 1 tab PO QAM 05/06/19 01/22/21 History fluticasone propionate 50 2 spray INTNAS BID PRN g 03/24/20 01/22/21 History mcg/actuation nasal spray,suspension atenolol 25 mg tablet 25 mg PO DAILY #90 tab 04/21/20 01/22/21 Rx clonidine HCl 0.1 mg tablet 0.1 mg PO BID #180 tab 09/11/20 01/22/21 Rx acetaminophen 650 mg PO Q4H PRN #30 tab 10/25/20 01/11/21 Rx lisinopril 20 mg PO PM #90 tab 10/25/20 01/22/21 Rx pravastatin 10 mg tablet 10 mg PO HS #90 tab 11/07/20 01/22/21 Rx alendronate 70 mg PO MO 12/20/20 01/22/21 History amlodipine 2.5 mg PO Q12H PRN 12/20/20 01/22/21 History metformin 500 mg PO BIDM 12/20/20 01/22/21 History warfarin 4 mg PO HS 12/20/20 01/22/21 History diclofenac sodium 2 g TOPICAL Q12H PRN 01/22/21 01/22/21 History docusate sodium 200 mg PO BID PRN 01/22/21 01/22/21 History gabapentin 300 mg PO HS PRN 01/22/21 01/22/21 History gabapentin 300 mg PO TID 01/22/21 01/22/21 History levothyroxine 25 mcg PO QAM 01/22/21 01/22/21 History oxycodone 5 mg PO Q6H PRN 01/22/21 01/22/21 History polyethylene glycol 3350 [Miralax] 17 g PO DAILY 01/22/21 01/22/21 History sennosides [senna] 8.6 mg PO DAILY PRN 01/22/21 01/22/21 History Past Med/Surg History Medical History (Updated 01/22/21 @ 14:20 by Enrrique Romero) Abnormal EKG Anxiety Arthralgia of multiple sites Coronary artery calcification Dairy allergy Diabetes mellitus, type 2 DMII (diabetes mellitus, type 2) Dyslipidemia Gait disturbance Hammer toe History of nasal polyp Hyperlipidemia Hypertension Hypertension Hypothyroidism LAFB (left anterior fascicular block) Left leg DVT 11/2020 LVH (left ventricular hypertrophy) Microalbuminuria Nocturia Osteoarthritis Osteoporosis Urinary frequency Urinary incontinence Urinary symptom or sign Vitamin D deficiency disease Surgical History (Updated 01/22/21 @ 21:16 by Enrrique Romero) History of back surgery IN 1985 LUMBAR FOR 2 RUPTURED DISC History of blepharoplasty History of breast biopsy History of cataract surgery BILAT History of colonoscopy History of hand surgery RIGHT History of hip replacement BILAT. RIGHT HIP X2 History of hysterectomy History of knee replacement RIGHT History of lumbar laminectomy for spinal cord decompression 12/22/20 - [facility], Dr Rocha; L1-L5 History of nasal septoplasty History of placement of ear tubes RIGHT IN OFFICE History of rhinoplasty History of rotator cuff surgery LEFT History of tonsillectomy S/P fusion of thoracic spine T1-T3; 12/29/20; [facility] - Dr Rocha S/P IVC filter 11/2020 - [facility] S/P lumbar fusion L3-L4, Dr Rocha, [facility]; 12/22/20. Family History (Updated 01/22/21 @ 08:40 by Enrrique Romero) Mother , age 69 Coronary heart disease s/p CABG Heart disease Grandmother (Maternal) Heart disease heart attacks Son Diabetes Heart disease age 47 from cardiac arrest Father , in his 80s Rheumatoid arthritis Denies family history of Ovarian cancer Prostate cancer Breast cancer Colorectal cancer Cancer Social History (Updated 01/22/21 @ 08:44 by Enrrique Romero) Smoking Status: Never smoker Second Hand Exposure: Yes; Hx Alcohol Use: No Hx Substance Use: No Preferred Language: Tamazight Communication Ability: Effective Cable Mock Up Assembler Required: No Beliefs That Will Affect Care: None marital status: / Current Living Situation: Personal Care Facility Current Living Situation Comment: Sheeba Callaway current occupational status: retired How many Children do You have: 3 How many Children do You have Comment: 1 son ; 1 living son, 1 living daughter Other Information That Helps Us Care for You: No 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 [place] Feels Safe at Home: Yes Safety Concerns: Feels Safe At This Time Safety Concerns Comment: states she has to kittens to keep after her Childhood Exposure to Second-Hand Smoke: No during the past year weight has: decreased > 10 lbs Dental Care, Regularly: Yes Physical Activity Frequency: Does not Exercise Seatbelt Use: always Sunscreen Use: Yes Assistive Devices: None Review of Systems Constitutional: + weakness and + anorexia; no fever Eyes: no worsening vision Ear, Nose, Mouth, Throat: no nasal congestion, no sore throat and no dysphagia Respiratory: no cough, no dyspnea and no dyspnea on exertion Cardiovascular: + chest pain Gastrointestinal: + belching, + nausea and + constipation; no abdominal pain, no vomiting, no blood in stools and no melena Genitourinary: umanzor is in place Musculoskeletal: + radicular pain (left leg ) and + joint pain (left knee ) Integumentary: no rash Neurologic: + localized weakness (LLE) Psychiatric: no depression Endocrine: +diabetes -- 107 BSG while in ambulance this am Hematologic / Lymphatic: no easy bleeding and no easy bruising Physical Exam Constitutional: no acute distress and no altered mental status Eyes: PERRL ENMT: Ears: + TM abnormality (tympanostomy tube in place on RIGHT; left TM not seen 2nd cerumen) Mouth: no oropharynx abnormality Neck: trachea midline, no thyromegaly Respiratory: normal respiratory effort, lungs clear to auscultation Cardiovascular: Rate/Rhythm: regular rate and regular rhythm Heart Sounds: normal S1 and normal S2; no murmur Vessels: posterior tibial pulses present and dorsalis pedis pulses present; no JVD Extremities: + edema (LLE > RLE ) Chest (Breasts): Additional Comments: no reproducible chest wall pain w/ palpation Gastrointestinal (Abdomen): normal bowel sounds, soft, nontender, no hepatosplenomegaly Inspection/Auscultation: + abdomen distended (mild) Musculoskeletal: Extremities: no clubbing Skin: no rashes, warm and dry Neurologic: Cranial Nerves: normal facial strength b/l arms 5/5 strength, no pronator drift. strength RIGHT hip flexion 3-4/5. strength left hip flexion 2/5. b/l foot drop, worse on left. Psychiatric: A+Ox3, euthymic affect Lymphatic: no cervical lymphadenopathy Results & Data Results & Data ([facility]) Vital Signs (Past 12 Hours) Vital Signs Temp Pulse Resp BP Pulse Ox 01/22/21 06:00 72 15 112/62 97 01/22/21 05:04 75 16 126/84 98 01/22/21 04:22 36.7 C 79 19 118/63 97 Laboratory Results Labs 01/22/21 01/22/21 01/22/21 04:33 04:33 04:50 WBC 12.77 H RBC 3.37 L Hgb 9.4 L Hct 29.8 L MCV 88.4 MCH 27.9 MCHC 31.5 L RDW Std Deviation 43.7 RDW Coeff of Efren 13.5 Plt Count 385 MPV 9.3 Immature Gran % (Auto) 0.4 Neut % (Auto) 80.9 Lymph % (Auto) 9.1 Boyd % (Auto) 6.5 Eos % (Auto) 2.9 Baso % (Auto) 0.2 Neut # (Auto) 10.34 H Lymph # (Auto) 1.16 L Boyd # (Auto) 0.83 H Eos # (Auto) 0.37 Baso # (Auto) 0.02 Immature Gran # (Auto) 0.05 H ESR 71 H PT INR Sodium Potassium Chloride Carbon Dioxide Anion Gap BUN Creatinine Est Cr Clr Drug Dosing Est GFR ( Amer) Est GFR (Non-Af Amer) BUN/Creatinine Ratio Glucose Calcium Magnesium Total Bilirubin AST ALT Alkaline Phosphatase Troponin I C-Reactive Protein 8.04 H NT-Pro-B Natriuret Pep Total Protein Albumin Globulin Albumin/Globulin Ratio Lipase COVID-19 Eval Order SARS-CoV-2 (PCR) 01/22/21 01/22/21 01/22/21 04:50 04:50 06:55 WBC RBC Hgb Hct MCV MCH MCHC RDW Std Deviation RDW Coeff of Efren Plt Count MPV Immature Gran % (Auto) Neut % (Auto) Lymph % (Auto) [place] % (Auto) Eos % (Auto) Baso % (Auto) Neut # (Auto) Lymph # (Auto) Boyd # (Auto) Eos # (Auto) Baso # (Auto) Immature Gran # (Auto) ESR PT 29.6 H INR 3.2 H Sodium 139 Potassium 4.1 Chloride 107 Carbon Dioxide 28 Anion Gap 4.0 BUN 17 Creatinine 0.54 L Est Cr Clr Drug Dosing 98.6 Est GFR ( Amer) 104.0 Est GFR (Non-Af Amer) 89.8 BUN/Creatinine Ratio 31.6 H Glucose 120 H Calcium 7.8 L Magnesium 1.3 L Total Bilirubin 0.1 L AST 9 L ALT 9 L Alkaline Phosphatase 79 Troponin I < 0.015 C-Reactive Protein NT-Pro-B Natriuret Pep 450 Total Protein 5.2 L Albumin 1.7 L Globulin 3.5 Albumin/Globulin Ratio 0.5 L Lipase 110 COVID-19 Eval Order Covid19 at [facility] SARS-CoV-2 (PCR) 01/22/21 06:55 WBC RBC Hgb Hct MCV MCH MCHC RDW Std Deviation RDW Coeff of Efren Plt Count MPV Immature Gran % (Auto) Neut % (Auto) Lymph % (Auto) [place] % (Auto) Eos % (Auto) Baso % (Auto) Neut # (Auto) Lymph # (Auto) Boyd # (Auto) Eos # (Auto) Baso # (Auto) Immature Gran # (Auto) ESR PT INR Sodium Potassium Chloride Carbon Dioxide Anion Gap BUN Creatinine Est Cr Clr Drug Dosing Est GFR ( Amer) Est GFR (Non-Af Amer) BUN/Creatinine Ratio Glucose Calcium Magnesium Total Bilirubin AST ALT Alkaline Phosphatase Troponin I C-Reactive Protein NT-Pro-B Natriuret Pep Total Protein Albumin Globulin Albumin/Globulin Ratio Lipase COVID-19 Eval Order SARS-CoV-2 (PCR) NEGATIVE Diagnostic Findings Chest X-Ray 01/22/21 04:31 XR chest 1V portable CLINICAL HISTORY: chest tightness COMPARISON STUDY: 10/20/2020 FINDINGS: The heart is borderline enlarged. Left hemidiaphragm is obscured suggesting a left pleural effusion and underlying left basilar atelectasis/consolidation. There are postsurgical changes within the upper thoracic spine. There is no failure. Arthritic changes are present within the shoulders.[ IMPRESSION: Left basilar opacity: left pleural effusion and/or left basilar atelectasis/consolidation. Clinical and radiographic follow-up are recommended. ACT 112: Negative or not required by law. Electronically signed by: Stan Mcgraw M.D. 01/22/2021 6:55 AM EKG - my reading - NSR, PVCs, no ST changes Code Status & VTE Plan Code Status full code VTE Prophylaxis Plan VTE Prophylaxis will be ordered: Yes PG Care Time/CCT Total # of Minutes Spent Total Time Spent with Patient: Total time spent is greater than 50% in coordination of care (as documented) at patient's floor/unit and/or counseling patient: Coding Level of Care Code 32599 OBS Care - Level 3 Diagnoses Chest pain R07.9 Chest pain type: unspecified Hypomagnesemia E83.42 Supratherapeutic INR R79.1 Anemia D64.9 Anemia type: unspecified type Hypothyroidism E03.9 Diabetes mellitus E11.9 Dyslipidemia E78.5 Hypertension I10 Esophageal reflux K21.9 Foot drop, bilateral M21.371; M21.372 Spinal stenosis M48.00 Left leg DVT I82.402 S/P IVC filter Z95.828 (1) Anemia Anemia type: unspecified type Qualified Code(s): D64.9 - Anemia, unspecified (2) Chest pain Chest pain type: unspecified Qualified Code(s): R07.9 - Chest pain, u nspecified
[2021-01-22] MEDS ORDERED: PANTOprazole 40 MG TAB PO STA (09:52)
[2021-01-22] MEDS ORDERED: MAGNESIUM SULFATE / D5W 1 GM/100 ML BAG IV ONE (10:00)
[2021-01-22] MEDS: SENNA 8.6 MG TAB PO SCH (10:38)
[2021-01-22] MEDS: POLYETHYLENE (MIRALAX) 17 GM PACK PO SCH (10:39)
[2021-01-22] MEDS: DICLOFENAC SOD 1% GEL 100 GM TUBE EXT PRN ×2 (10:45→20:58)
--- NOTE | 2021-01-22 11:31 | XRay Report ---
KUB CLINICAL HISTORY: ?fecal impaction; ?IVC filter as well? COMPARISON STUDY: CT of the abdomen and pelvis May 04, 2014. FINDINGS: Bilateral hip arthroplasties are incidentally noted. There is a moderate amount stool withi n the colon and a moderate to large amount stool within the rectum. There is no evidence for a bowel obstruction. IVC filter is in place. The filter is at the L1-L2 level. Small left pleural effusion is noted with left basilar opacity. IMPRESSION: 1. No evidence for a bowel obstruction. 2. Moderate to large amount stool within the colon and rectum. 3. IVC filter at the L1-L2 level. ACT 112: Negative or not required by law. Electronically signed by: Rajeev Beth M.D. 01/22/2021 11:30 AM
[2021-01-22 12:00] LABS: Ferritin 130.2 ng/ml (8-388); Iron 22 mcg/dl (35-150); Transferrin 174 mg/dl (200-360); Transferrin Percent Saturation 9 % (15-50); Troponin I < 0.015 ng/ml (0-0.045)
[2021-01-22] MEDS: SUCRALFATE 1 GM/10 ML UDC PO SCH ×3 (12:31→20:56)
[2021-01-22] MEDS: GABAPENTIN 300 MG CAP PO SCH ×2 (14:14→20:56)
[2021-01-22] MEDS ORDERED: bisacodyL 10 MG SUPP PR ONE (15:00)
[2021-01-22] MEDS: oxyCODONE HCL IR 5 MG TAB (IMMEDIATE RELEASE) PO PRN (15:11)
--- NOTE | 2021-01-22 15:29 | XCELERA ---
[id number]
[2021-01-22] MEDS: WARFARIN SOD 3 MG TAB PO SCH (16:36)
[2021-01-22 17:42] LABS: Magnesium 2.1 mg/dl (1.8-2.4); Troponin I < 0.015 ng/ml (0-0.045)
[2021-01-22] MEDS: cloNIDine HCL 0.1 MG TAB PO SCH (20:56)
[2021-01-22] MEDS: PRAVASTATIN SOD 10 MG TAB PO SCH (20:57)
--- NOTE | 2021-01-22 21:00 | CT Scan Report ---
CT chest diagnostic wo con CT DOSE: 557.17 mGycm HISTORY: Abnormal chest x-ray. Chest tightness. pericardial/pleural effusions, pneumonia? other? TECHNIQUE: Multiaxial CT images of the chest were performed without contrast. A dose lowering techni que was utilized adhering to the principles of ALARA. COMPARISON: Chest CT 11/29/2008. FINDINGS: No pneumothorax. The central airways are patent. Mild respiratory motion artifact. Stable s ubpleural nodular densities within the right lung apex. These are considered to be benign given the l jeanne-term stability. These measure up to 4 mm in size. No new or suspicious pulmonary nodules identifi ed. Small bilateral pleural effusions, left greater than right. There is associated consolidation wit hin the lower lobes posteriorly. This likely represents compressive atelectasis from the pleural effu sions. A pneumonia is considered less likely but not entirely excluded. Limited views of the upper ab domen demonstrate a normal liver and spleen. Stable benign left adrenal adenoma. An IVC filter is par tially visualized. There is a 1.2 cm left thyroid nodule. This does not meet CT criteria for follow-u p. Left lateral chest wall subcutaneous edema is noted. Trace pericardial effusion, unchanged. The he art is borderline enlarged. Normal caliber esophagus. No mediastinal or hilar lymphadenopathy. There is normal caliber thoracic aorta. A few scattered vertebral body hemangiomas identified. Old, healed mid sternal fracture. Posterior decompression and fusion from T1 through T3 with pedicle screws and r ods. The hardware appears intact. [id number] degenerative changes within the remaining thoracic spine. IMPRESSION: 1. Small bilateral pleural effusions, left greater than right. There is associated consolidation with in the lower lobes posteriorly. This favors compressive atelectasis from the pleural effusions. A pne umonia is considered less likely but not entirely excluded. 2. Trace pericardial effusion. 3. Additional findings as described above. ACT 112: Negative or not required by law. Electronically signed by: Jad Tong M.D. 01/22/2021 8:59 PM
[2021-01-22] MEDS: COLCHICINE 0.6 MG TAB PO SCH (23:44)
[2021-01-23] MEDS: oxyCODONE HCL IR 5 MG TAB (IMMEDIATE RELEASE) PO PRN ×2 (06:04→20:58)
[2021-01-23] MEDS: LEVOTHYROXINE SODIUM 25 MCG TABLET PO SCH (06:04)
[2021-01-23 06:26] LABS: Basophils # (auto) 0.03 K/uL (0-0.2); Basophils % (auto) 0.3 %; Eosinophils # (auto) 0.42 K/uL (0-0.5); Eosinophils % (auto) 4.1 %; Hematocrit (blood only) 31.4 % (37-47); Hemoglobin 9.9 g/dL (12.0-16.0); Immature Granulocytes # (auto) 0.05 K/uL (0.00-0.02); Immature Granulocytes % (auto) 0.5 %; Lymphocytes # (auto) 1.46 K/uL (1.2-3.4); Lymphocytes % (auto) 14.4 %; Mean Corpuscular Hemoglobin 28.4 pg (25-34); Mean Corpuscular Hgb Conc 31.5 g/dL (32-36); Mean Corpuscular Volume 90.2 fL (80-100); Mean Platelet Volume 9.5 fL (7.4-10.4); Monocytes # (auto) 0.66 K/uL (0.11-0.59); Monocytes % (auto) 6.5 %; Neutrophils # (auto) 7.51 K/uL (1.4-6.5); Neutrophils % (auto) 74.2 %; Platelet Count 429 K/uL (130-400); RDW Coefficient of Variation 13.6 % (11.5-14.5); RDW Standard Deviation 44.6 fL (36.4-46.3); Red Blood Count 3.48 M/uL (4.2-5.4); White Blood Count 10.13 K/uL (4.8-10.8)
[2021-01-23 06:34] LABS: INR 2.9 (0.9-1.1); Prothrombin Time 27.2 Seconds (9.0-12.0)
[2021-01-23 07:00] LABS: BUN Creatinine Ratio 31.9 (10-20); C Reactive Protein 7.36 mg/dl (0-0.29); Calcium 8.3 mg/dl (8.5-10.1); Creatinine Clr Calc Pharmacy 92.6 ml/min; Est GFR (African American) 102.8 ml/min; Est GFR (Non-African American) 88.7 ml/min; Potassium 4.3 mmol/L (3.5-5.1)
[2021-01-23] MEDS: SUCRALFATE 1 GM/10 ML UDC PO SCH ×4 (08:00→20:59)
[2021-01-23] MEDS: MULTIVITAMIN TAB PO SCH (08:00)
[2021-01-23] MEDS: SENNA 8.6 MG TAB PO SCH (08:00)
[2021-01-23] MEDS: ATENOLOL 25 MG TABLET PO SCH (08:00)
[2021-01-23] MEDS: CYANOCOBALAMIN 500 MCG TABLET (VITAMIN B-12) PO SCH (08:01)
[2021-01-23] MEDS: cloNIDine HCL 0.1 MG TAB PO SCH ×2 (08:01→21:00)
[2021-01-23] MEDS: GABAPENTIN 300 MG CAP PO SCH ×3 (08:01→20:59)
[2021-01-23] MEDS: PANTOprazole 40 MG TAB PO SCH (08:01)
[2021-01-23] MEDS: DICLOFENAC SOD 1% GEL 100 GM TUBE EXT PRN (08:02)
[2021-01-23] MEDS: COLCHICINE 0.6 MG TAB PO SCH ×2 (08:02→21:00)
[2021-01-23] MEDS: POLYETHYLENE (MIRALAX) 17 GM PACK PO SCH (08:02)
--- NOTE | 2021-01-23 09:40 | Cardiology Consultation ---
Date of Consultation January 23, 2021 Assessment & Plan (1) Chest pain: 2. Pericardial effusion 3. Hypertension 4. Recent DVT post IVC filter on anticoagulation 5. Multiple recent back surgeries, severe lower extremity weakness 6. Elevated inflammatory markers Patient here with several episodes of recent atypical chest pain. No objective evidence of ischemia/ACS by initial cardiac testing. Patient was found to have a new small pericardial effusion without signs of tamponade. Inflammatory markers significantly elevated. No signs of pericarditis on ECG and symptoms very atypical for pericarditis. Overall suspect patient's chest pain is noncardiac and that new pericardial effusion is an incidental finding. Reasonable to continue to treat with clonidine but without more signs of pericarditis would hold off on anti- inflammatory meds particularly while anticoagulated. Etiology of pericardial effusion unclear. No recent viral symptoms. No history of rheumatologic disease. Bleeding on anticoagulation also considered. No indication for pericardiocentesis at this time. Recommend outpatient surveillance echo. No need for additional ischemic evaluation at this time Reasonable to continue colchicine 0.6 mg twice daily Continue current antihypertensives, statin Continue anticoagulation Follow-up echocardiogram in 1 week. History of Present Illness Attending Physician: Enrrique Romero History of Present Illness Mrs. Reid is a very pleasant 80 year old woman with a history of hypertensive heart disease, dyslipidemia, type 2 diabetes on oral therapy, and a significant family history of coronary artery disease known to me from the outpatient setting. She is currently admitted in the setting of recent episodes of chest pain and echocardiogram showing new pericardial effusion. Post multiple recent major back surgeries at [facility] in the setting of spinal stenosis, radiculopathy. Has persistent bilateral lower extremity weakness. Had a left leg DVT diagnosed in early November, on Coumadin, had IVC filter placed in the perioperative setting of her back surgeries. Has been residing at [facility] recently. States that the preceding 3 nights prior to admission had episodes of chest tightness that awoke her from sleep. They were associated with belching and improved with antacids. Denies any chest pain with exertion/PT recently. Presenting episode of chest discomfort relieved with nitroglycerin and has not recurred since admission. On admission mild leukocytosis, hemoglobin down to 9.4. ESR 71, CRP 8. Troponin negative x2. ECG shows sinus rhythm, left anterior fascicular block, frequent PVCs, no significant ST abnormalities. Telemetry unremarkable. Echo showed mild LVH, EF 6065% with no wall motion abnormalities, mild MR, normal estimated PA/RA pressures, small pericardial effusion without tamponade and small to moderate left-sided pleural effusion. Prior cardiac history: Prior admissions for chest discomfort most recently 11/2017. DSE negative for ischemia Labile hypertension, on 4 antihypertensive including clonidine Allergies Allergy/AdvReac Type Severity Reaction Status Date / Time Sulfa (Sulfonamide Allergy Intermediate RASH/ITCH Verified 01/22/21 07:58 Antibiotics) acesulfame Allergy Mild Unknown Verified 01/22/21 07:58 aspartame Allergy Mild Unknown Verified 01/22/21 07:58 morphine Allergy Mild RASH/ITCH Verified 01/22/21 07:58 propoxyphene Allergy Mild RASH Verified 01/22/21 07:58 saccharin Allergy Mild Unknown Verified 01/22/21 07:58 sucralose Allergy Mild Unknown Verified 01/22/21 07:58 Home Medications Medication Instructions Recorded Confirmed Type cyanocobalamin (vitamin B-12) 500 mcg PO QAM 05/06/19 01/22/21 History multivitamin 1 tab PO QAM 05/06/19 01/22/21 History fluticasone propionate 50 2 spray INTNAS BID PRN g 03/24/20 01/22/21 History mcg/actuation nasal spray,suspension atenolol 25 mg tablet 25 mg PO DAILY #90 tab 04/21/20 01/22/21 Rx clonidine HCl 0.1 mg tablet 0.1 mg PO BID #180 tab 09/11/20 01/22/21 Rx acetaminophen 650 mg PO Q4H PRN #30 tab 10/25/20 01/11/21 Rx lisinopril 20 mg PO PM #90 tab 10/25/20 01/22/21 Rx pravastatin 10 mg tablet 10 mg PO HS #90 tab 11/07/20 01/22/21 Rx alendronate 70 mg PO MO 12/20/20 01/22/21 History amlodipine 2.5 mg PO Q12H PRN 12/20/20 01/22/21 History metformin 500 mg PO BIDM 12/20/20 01/22/21 History warfarin 4 mg PO HS 12/20/20 01/22/21 History diclofenac sodium 2 g TOPICAL Q12H PRN 01/22/21 01/22/21 History docusate sodium 200 mg PO BID PRN 01/22/21 01/22/21 History gabapentin 300 mg PO HS PRN 01/22/21 01/22/21 History gabapentin 300 mg PO TID 01/22/21 01/22/21 History levothyroxine 25 mcg PO QAM 01/22/21 01/22/21 History oxycodone 5 mg PO Q6H PRN 01/22/21 01/22/21 History polyethylene glycol 3350 [Miralax] 17 g PO DAILY 01/22/21 01/22/21 History sennosides [senna] 8.6 mg PO DAILY PRN 01/22/21 01/22/21 History Patient History Medical History (Updated 01/22/21 @ 14:20 by Enrrique Romero) Abnormal EKG Anxiety Arthralgia of multiple sites Coronary artery calcification Dairy allergy Diabetes mellitus, type 2 DMII (diabetes mellitus, type 2) Dyslipidemia Gait disturbance Hammer toe History of nasal polyp Hyperlipidemia Hypertension Hypertension Hypothyroidism LAFB (left anterior fascicular block) Left leg DVT 11/2020 LVH (left ventricular hypertrophy) Microalbuminuria Nocturia Osteoarthritis Osteoporosis Urinary frequency Urinary incontinence Urinary symptom or sign Vitamin D deficiency disease Surgical History (Updated 01/22/21 @ 21:16 by Enrrique Romero) History of back surgery IN 1985 LUMBAR FOR 2 RUPTURED DISC History of blepharoplasty History of breast biopsy History of cataract surgery BILAT History of colonoscopy History of hand surgery RIGHT History of hip replacement BILAT. RIGHT HIP X2 History of hysterectomy History of knee replacement RIGHT History of lumbar laminectomy for spinal cord decompression 12/22/20 - [facility], Dr Rocha; L1-L5 History of nasal septoplasty History of placement of ear tubes RIGHT IN OFFICE History of rhinoplasty History of rotator cuff surgery LEFT History of tonsillectomy S/P fusion of thoracic spine T1-T3; 12/29/20; [facility] - Dr Rocha S/P IVC filter 11/2020 - [facility] S/P lumbar fusion L3-L4, Dr Rocha, [facility]; 12/22/20. Family History (Updated 01/22/21 @ 08:40 by Enrrique Romero) Mother , age 69 Coronary heart disease s/p CABG Heart disease Grandmother (Maternal) Heart disease heart attacks Son Diabetes Heart disease age 47 from cardiac arrest Father , in his 80s Rheumatoid arthritis Denies family history of Ovarian cancer Prostate cancer Breast cancer Colorectal cancer Cancer Social History (Updated 01/22/21 @ 08:44 by Enrrique Romero) Smoking Status: Never smoker Second Hand Exposure: Yes; Hx Alcohol Use: No Hx Substance Use: No Preferred Language: Pashto Communication Ability: Effective Slasher Hand Required: No Beliefs That Will Affect Care: None marital status: / Current Living Situation: Personal Care Facility Current Living Situation Comment: [facility] current occupational status: retired How many Children do You have: 3 How many Children do You have Comment: 1 son ; 1 living son, 1 living daughter Other Information That Helps Us Care for You: No 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 [place] Feels Safe at Home: Yes Safety Concerns: Feels Safe At This Time Safety Concerns Comment: states she has to kittens to keep after her Childhood Exposure to Second-Hand Smoke: No during the past year weight has: decreased > 10 lbs Dental Care, Regularly: Yes Physical Activity Frequency: Does not Exercise Seatbelt Use: always Sunscreen Use: Yes Assistive Devices: None Review of Systems Review of Systems: All systems reviewed & are unremarkable except as noted in HPI & below Physical Exam Physical Exam: General: Comfortable, no acute distress, sitting up in wheelchair HEENT: Sclerae anicteric Lungs: Clear to auscultation other than mildly decreased breath sounds at left base Cardiac: Regular rate and rhythm, no murmurs. No rubs. Occasional premature beats Abdomen: Soft, nontender Extremities: Warm, well perfused, no edema. 2+ radial pulses Skin: No rashes or lesions. Neuro: Profound bilateral lower extremity weakness Psych: Alert orient x3, normal affect and mood Results & Data ([facility]) Vital Signs (Past 12 Hours) Vital Signs Temp Pulse Pulse Resp BP BP Pulse Ox 01/23/21 07:44 99.3 F 83 20 142/85 H 96 01/23/21 04:19 98.1 F 81 18 121/65 99 01/23/21 00:03 97.7 F 80 18 136/64 98 01/22/21 23:00 92 H PG Care Time/CCT Total # of Minutes Spent Total Time Spent with Patient: Total time spent is greater than 50% in coordination of care (as documented) at patient's floor/unit and/or counseling patient: Coding Level of Care Code 54784 Initial Inpt Care Lvl 3 Diagnoses Chest pain R07.9 Chest pain type: unspecified (1) Chest pain Chest pain type: unspecified Qualified Code(s): R07.9 - Chest pain, unspecified
--- NOTE | 2021-01-23 11:21 | Electrocardiogram Report ---
Test Reason : Blood Pressure : / mmHG Vent. Rate : 083 BPM Atrial Rate : 083 BPM P-R Int : 184 ms QRS Dur : 076 ms QT Int : 362 ms P-R-T Axes : 075 -36 073 degrees QTc Int : 425 ms Sinus rhythm with frequent Premature ventricular complexes Left axis deviation Abnormal ECG When compared with ECG of 20-OCT-2020 18:04, Premature ventricular complexes are now Present Confirmed by Jason Mcnulty ([id number]) on 01/23/2021 11:20:54 AM Referred By: Nilton leary [facility] Confirmed By:Jason Mcnulty
[2021-01-23] MEDS: WARFARIN SOD 3 MG TAB PO SCH (17:25)
--- NOTE | 2021-01-23 20:11 | Hospitalist Progress Note ---
Date of Service January 23, 2021 Assessment & Plan (1) Chest pain: resolved. no evidence of ACS - troponins neg x 3. echo w/o WMA. tele stable overnight. either severe GERD +/- pericarditis given the high sed rate/crp and pericardial effusion. however, her pain resolved w/ nitro which would NOT support dx of pericarditis. plan - * cont PPI * cont carafate while hospitalized * colchicine 0.6mg BID for pericardial effusion * consult Dr Stern, [facility], for his opinion regarding echo findings defer on stress test at this time. (2) Pericardial effusion: as seen on echo and chest CT sed rate/crp quite high making pericarditis possible but clinical picture most c/w GI cause of pain [id number] will place on colchicine BID while awaiting Dr Stern' input cause of pericardial effusion? viral? autoimmune? other? (3) Hypomagnesemia: level 1.3 at presentation, likely due to recent poor appetite. s/p repletion and now resolved. (4) Supratherapeutic INR: INR > 3 on 01/22. Coumadin dosing reduced from 4mg to 3mg daily. INR today 2.9. Repeat INR am. (5) Anemia: 13.2 Hb about 1 month ago. 9.4 at admission. Suspect she had acute blood loss due to 2 major back [place] late November[place]early [place] [facility] Heme neg (ER attending performed JESSE). Iron studies acceptable although transferrin sat is 9%. Consider Fe supplementation. B12/folate wnl. (6) Hypothyroidism: TSH wnl in 09/2020. Cont synthroid w/o changes. (7) Diabetes mellitus: a1c 6.1% in September 2020. check BSGs ac/hs. DM diet. glycemic control excellent while here. (8) Dyslipidemia: Cont pravastatin. LDL <100 x 3 years in a row. (9) Hypertension: Cont atenolol. Cont to hold lisinopril. (10) Esophageal reflux: Her chart indicates h/o laryngopharyngeal reflux disease. Certainly GERD could have been the main cause of her presenting chest pain. Cont PPI + Carafate. No further nocturnal symptoms. (11) Foot drop, bilateral: 2nd to severe spinal stenosis of thoracic and lumbar spine, s/p fusion of both November/December 2020. Significant LLE weakness with foot drop. Mild on right. Consider AFO devices. (12) Spinal stenosis: s/p lumbar back surgery 11/2020. s/p thoracic surgery 12/2020. Following [facility] [place] transferred to SNF for rehab. Making slow progress. cont PT/OT. (13) Left leg DVT: Diagnosed in early November 2020. On coumadin. Cont coumadin 3mg daily. INR in am. (14) S/P IVC filter: During -12/2020 hospital stay, [facility] KUB x-ray confirms IVC filter. (15) Constipation: bowel regimen updated pt's daughter by phone today plan for d/c tomorrow Admission and Anticipated Discharge Date Admission Date: January 22, 2021 Subjective patient slept well overnight without any chest pain, burping or belching no dyspnea no orthopnea today - has also felt well eating well no chest pain no pleuritic pain tele stable overnight Review of Systems Constitutional: no fever, no chills, no fatigue and no anorexia Cardiovascular: no chest pain and no dyspnea at rest Gastrointestinal: + belching; no abdominal pain, no nausea and no vomiting Physical Exam Constitutional: well developed and well nourished; no acute distress and no altered mental status ENMT: external ear and nose normal, oropharynx normal Respiratory: normal respiratory effort, lungs clear to auscultation Cardiovascular: Rate/Rhythm: regular rate and regular rhythm Heart Sounds: normal S1 and normal S2; no murmur Vessels: posterior tibial pulses present and dorsalis pedis pulses present; no JVD Extremities: no edema Gastrointestinal (Abdomen): normal bowel sounds, soft, nontender, no hepatosplenomegaly Neurologic: strength right hip flexion about 4/5; right foot dorsiflexion/plantarflexion 4-5/5. left hip flexion - 2/5 strength. left foot dorsiflexion/plantarflexion - 3/5. Psychiatric: A+Ox3, euthymic affect Results & Data Results & Data ([facility]) Vital Signs (Past 12 Hours) Vital Signs Temp Pulse Pulse Resp BP BP Pulse Ox 01/23/21 19:58 37 C 76 18 139/65 98 01/23/21 15:28 36.9 C 71 20 168/77 H 96 01/23/21 14:59 67 01/23/21 11:41 36.8 C 75 20 123/51 L 97 Laboratory Results Laboratory Results - last 24 hr 01/23/21 01/23/21 01/23/21 05:54 05:54 05:54 WBC 10.13 RBC 3.48 L Hgb 9.9 L Hct 31.4 L MCV 90.2 MCH 28.4 MCHC 31.5 L RDW Std Deviation 44.6 RDW Coeff of Efren 13.6 Plt Count 429 H MPV 9.5 Immature Gran % (Auto) 0.5 Neut % (Auto) 74.2 Lymph % (Auto) 14.4 Mcnairy % (Auto) 6.5 Eos % (Auto) 4.1 Baso % (Auto) 0.3 Neut # (Auto) 7.51 H Lymph # (Auto) 1.46 Mcnairy # (Auto) 0.66 H Eos # (Auto) 0.42 Baso # (Auto) 0.03 Immature Gran # (Auto) 0.05 H PT 27.2 H INR 2.9 H Sodium 139 Potassium 4.3 Chloride 107 Carbon Dioxide 31 Anion Gap 1.0 L BUN 18 Creatinine 0.56 L Est Cr Clr Drug Dosing 92.6 Est GFR ( Amer) 102.8 Est GFR (Non-Af Amer) 88.7 BUN/Creatinine Ratio 31.9 H Glucose 110 H Calcium 8.3 L C-Reactive Protein 7.36 H PG Care Time/CCT Total # of Minutes Spent Total Time Spent with Patient: Total time spent is greater than 50% in coordination of care (as documented) at patient's floor/unit and/or counseling patient: Coding Level of Care Code 57754 Subseq Obs Care Lvl 2 Diagnoses Chest pain R07.9 Chest pain type: unspecified Pericardial effusion I31.3 Hypomagnesemia E83.42 Supratherapeutic INR R79.1 Anemia D64.9 Anemia type: unspecified type Hypothyroidism E03.9 Diabetes mellitus E11.9 Dyslipidemia E78.5 Hypertension I10 Esophageal reflux K21.9 Foot drop, bilateral M21.371; M21.372 Spinal stenosis M48.00 Left leg DVT I82.402 S/P IVC filter Z95.828 Constipation K59.00 (1) Anemia Anemia type: unspecified type Qualified Code(s): D64.9 - Anemia, unspecified (2) Chest pain Chest pain type: unspecified Qualified Code(s): R07.9 - Chest pain, unspecified
[2021-01-23] MEDS: PRAVASTATIN SOD 10 MG TAB PO SCH (20:59)
[2021-01-24] MEDS: ACETAMINOPHEN 325 MG TAB PO PRN (01:25)
[2021-01-24] MEDS: NITROGLYCERIN SL 0.4 MG/TAB TAB SL PRN (01:47)
[2021-01-24 06:18] LABS: INR 2.8 (0.9-1.1)
[2021-01-24 06:26] LABS: BUN Creatinine Ratio 34.1 (10-20); Creatinine Clr Calc Pharmacy 71.1 ml/min; Est GFR (African American) 90.8 ml/min; Est GFR (Non-African American) 78.3 ml/min; Potassium 4.3 mmol/L (3.5-5.1)
[2021-01-24] MEDS: SUCRALFATE 1 GM/10 ML UDC PO SCH ×4 (07:31→20:02)
[2021-01-24] MEDS: MULTIVITAMIN TAB PO SCH (07:32)
[2021-01-24] MEDS: PANTOprazole 40 MG TAB PO SCH (07:32)
[2021-01-24] MEDS: LEVOTHYROXINE SODIUM 25 MCG TABLET PO SCH (07:32)
[2021-01-24] MEDS: GABAPENTIN 300 MG CAP PO SCH ×3 (07:32→20:05)
[2021-01-24] MEDS: CYANOCOBALAMIN 500 MCG TABLET (VITAMIN B-12) PO SCH (07:32)
[2021-01-24] MEDS: cloNIDine HCL 0.1 MG TAB PO SCH ×2 (07:32→20:05)
[2021-01-24] MEDS: SENNA 8.6 MG TAB PO SCH (07:32)
[2021-01-24] MEDS: COLCHICINE 0.6 MG TAB PO SCH ×2 (07:33→20:05)
[2021-01-24] MEDS: POLYETHYLENE (MIRALAX) 17 GM PACK PO SCH (07:33)
[2021-01-24] MEDS: ATENOLOL 25 MG TABLET PO SCH (07:33)
[2021-01-24] MEDS: oxyCODONE HCL IR 5 MG TAB (IMMEDIATE RELEASE) PO PRN ×2 (11:54→21:10)
--- NOTE | 2021-01-24 14:54 | Cardiology Progress Note ---
Date of Service January 24, 2021 Assessment & Plan (1) Chest pain: 2. Pericardial effusion 3. Hypertension 4. Recent DVT post IVC filter on anticoagulation 5. Multiple recent back surgeries, severe lower extremity weakness 6. Elevated inflammatory markers Repeat episode of chest pain overnight. Still relatively low suspicion that the symptoms are cardiac. Suspect more GI. Repeat negative troponin reassuring but still cannot definitively rule out symptoms representing angina. We discussed potentially obtaining a pharmacologic stress. Patient would be okay with test but stated she wished to avoid a cath/stent/bypass in the event her stress was positive. Feel the likelihood of identifying modifiable high risk disease is low and in that setting feel conservative management and avoidance of additional procedures is reasonable. Recommend trial of Imdur 30 mg daily. Continue current colchicine, antihypertensives, statin Continue anticoagulation If chest pain-free overnight okay with discharge to [facility] tomorrow. Follow with me in 1 week with repeat echocardiogram. Admission and Anticipated Discharge Date Admission Date: January 24, 2021 Subjective Overnight was woken up for vitals and noted to have similar chest tightness. No relief with Tylenol. Symptoms improved with nitro was able to go back to sleep. ECG showed sinus rhythm with bigeminy. Heart rate unchanged. Troponin negative this morning. Feeling well this morning. No recurrent GI symptoms. Wants to have back to [facility] Telemetry reviewedno events Review of Systems Review of Systems: All systems reviewed & are unremarkable except as noted in HPI & below Physical Exam Physical Exam: General: Comfortable, no acute distress HEENT: Sclerae anicteric Lungs: Clear to auscultation Cardiac: Regular rate and rhythm, no murmurs. No rubs. Occasional premature beats Abdomen: Soft, nontender Extremities: Warm, well perfused, no edema. 2+ radial pulses Skin: No rashes or lesions. Neuro: Profound bilateral lower extremity weakness Psych: Alert orient x3, normal affect and mood Results & Data ([facility]) Vital Signs (Past 12 Hours) Vital Signs Temp Pulse Pulse Resp BP Pulse Ox Pulse Ox 01/24/21 11:51 97.5 F L 65 20 164/91 H 100 01/24/21 09:00 97 01/24/21 07:56 97.7 F 72 20 147/66 H 96 01/24/21 07:19 72 PG Care Time/CCT Total # of Minutes Spent Total Time Spent with Patient: Total time spent is greater than 50% in coordination of care (as documented) at patient's floor/unit and/or counseling patient: Coding Level of Care Code 57373 Subseq Hosp Care Lvl 3 Diagnoses Chest pain R07.9 Chest pain type: unspecified (1) Chest pain Chest pain type: unspecified Qualified Code(s): R07.9 - Chest pain, unspecified
[2021-01-24] MEDS: WARFARIN SOD 3 MG TAB PO SCH (15:40)
[2021-01-24] MEDS: ISOSORBIDE MONO EXTENDED REL 30 MG TABCR PO SCH (15:43)
[2021-01-24] MEDS: PRAVASTATIN SOD 10 MG TAB PO SCH (20:05)
--- NOTE | 2021-01-24 23:32 | Hospitalist Progress Note ---
Date of Service January 24, 2021 Assessment & Plan (1) Chest pain: At time of admission - had had 2-3 nights of cp that awoke her from sleep. Following admission - no evidence of ACS - troponins neg x 3. echo w/o WMA. felt to have had either severe GERD +/- pericarditis given the high sed rate/crp and pericardial effusion. however, her pain resolved w/ nitro which would NOT support dx of pericarditis. she was placed on appropriate acid reducers for GERD symptoms now w/ recurrent cp overnight - again laying down - relieved with nitro. spoke with Dr Stern - he advised starting imdur 30mg daily and seeing how she does overnight. cont PPI. cont carafate. colchicine 0.6mg BID for pericardial effusion. will need repeat echo 1-2 weeks post-d/c appreciate Dr Stern' consult/recs if pain persists and/or recurs - stress? cath? (2) Pericardial effusion: as seen on echo and chest CT sed rate/crp quite high making pericarditis possible but clinical picture not entirely c/w pericarditis [id number] colchicine BID remains cause of pericardial effusion? viral? autoimmune? other? needs close f/u post discharge - Dr Stern to see in clinic and repeat echo (3) Hypomagnesemia: level 1.3 at presentation, likely due to recent poor appetite. s/p repletion and now resolved. (4) Supratherapeutic INR: INR > 3 on 01/22. Coumadin dosing reduced from 4mg to 3mg daily. INR today 2.8. Repeat INR am. (5) Anemia: 13.2 Hb about 1 month ago. 9.4 at admission. Suspect she had acute blood loss due to 2 major [place] late November[place] [facility] [place] Heme neg (ER attending performed JESSE). Iron studies acceptable although transferrin sat is 9%. Consider Fe supplementation. B12/folate wnl. Repeat cbc am. (6) Hypothyroidism: TSH wnl in 09/2020. Cont synthroid w/o changes. (7) Diabetes mellitus: a1c 6.1% in September 2020. check BSGs ac/hs. DM diet. glycemic control excellent while here. (8) Dyslipidemia: Cont pravastatin. LDL <100 x 3 years in a row. (9) Hypertension: Cont atenolol. Cont to hold lisinopril. (10) Esophageal reflux: Her chart indicates h/o laryngopharyngeal reflux disease. Certainly GERD could have been the cause of her presenting chest pain. Cont PPI + Carafate - had no symptoms 2 nights ago, then had chest pain overnight. see above. (11) Foot drop, bilateral: 2nd to severe spinal stenosis of thoracic and lumbar spine, s/p fusion of both November/December 2020. Significant LLE weakness with foot drop. Mild on right. Consider AFO devices. (12) Spinal stenosis: s/p lumbar back surgery 11/2020. s/p thoracic surgery 12/2020. [place] [facility] SNF for rehab. Making slow progress. cont PT/OT. (13) Left leg DVT: Diagnosed in early November 2020. Cont coumadin 3mg daily. INR in am. (14) S/P IVC filter: During -12/2020 hospital stay, [facility] KUB x-ray confirms IVC filter. (15) Constipation: bowel regimen updated pt's daughter by phone yesterday plan for d/c tomorrow if no cp overnight and Dr Stern comfortable w/ discharge as well Admission and Anticipated Discharge Date Admission Date: January 24, 2021 Subjective had episode this am about 0130 of chest discomfort EKG obtained during the event - NSR w/ bigeminy received tylenol w/o relief then received SL nitro with relief within minutes went back to sleep and had no further pain this am she is feeling well no recurrent episodes of pain "I want to go back to [facility]". no GERD symptoms. did have mild belching again w/ her pain overnight. no dyspnea. no sweats. Review of Systems Constitutional: no fever, no chills, no fatigue and no anorexia Respiratory: no cough and no dyspnea Cardiovascular: as per Subjective / HPI and + chest pain; no orthopnea Gastrointestinal: no abdominal pain, no nausea and no vomiting Physical Exam Constitutional: well developed and well nourished; no acute distress and no altered mental status ENMT: external ear and nose normal, oropharynx normal Respiratory: normal respiratory effort, lungs clear to auscultation Cardiovascular: Rate/Rhythm: + irregularly irregular Heart Sounds: normal S1 and normal S2 Vessels: posterior tibial pulses present and dorsalis pedis pulses present; no JVD Extremities: + edema (1+ LLE; trace RLE ) Chest (Breasts): Additional Comments: no reproducible chest wall pain w/ palpation Gastrointestinal (Abdomen): normal bowel sounds, soft, nontender, no hepatosplenomegaly Skin: t-spine incision and l-spine incision c/d/i and healing nicely Psychiatric: A+Ox3, euthymic affect Results & Data Results & Data ([facility]) Vital Signs (Past 12 Hours) Vital Signs Temp Pulse Pulse Resp BP BP Pulse Ox 01/24/21 20:00 37.2 C 100 H 18 113/50 L 96 01/24/21 15:24 36.3 C L 74 20 125/58 L 91 01/24/21 15:20 71 01/24/21 11:51 36.4 C L 65 20 164/91 H 100 BMP this am wnl troponin - drawn at 11am - NEGATIVE EKG from 0130 - NSR w/ ventricular bigeminy; no ST segment changes PG Care Time/CCT Total # of Minutes Spent Total Time Spent with Patient: Total time spent is greater than 50% in coordination of care (as documented) at patient's floor/unit and/or counseling patient: Coding Level of Care Code None Diagnoses Chest pain R07.9 Chest pain type: unspecified Pericardial effusion I31.3 Hypomagnesemia E83.42 Supratherapeutic INR R79.1 Anemia D64.9 Anemia type: unspecified type Hypothyroidism E03.9 Diabetes mellitus E11.9 Dyslipidemia E78.5 Hypertension I10 Esophageal reflux K21.9 Foot drop, bilateral M21.371; M21.372 Spinal stenosis M48.00 Left leg DVT I82.402 S/P IVC filter Z95.828 Constipation K59.00 Comment see separate "PG e/m" entry dated 01/24/21 for coding (1) Anemia Anemia type: unspecified type Qualified Code(s): D64.9 - Anemia, unspecified (2) Chest pain Chest pain type: unspecified Qualified Code(s): R07.9 - Chest pain, unspecified
--- NOTE | 2021-01-24 23:32 | Billing Data ---
Date of Service January 24, 2021 Coding Level of Care Code 85694 Subseq Hosp Care Lvl 2
[2021-01-25] MEDS: LEVOTHYROXINE SODIUM 25 MCG TABLET PO SCH (05:50)
[2021-01-25] MEDS: oxyCODONE HCL IR 5 MG TAB (IMMEDIATE RELEASE) PO PRN ×2 (06:23→18:12)
[2021-01-25] MEDS: POLYETHYLENE (MIRALAX) 17 GM PACK PO SCH (07:12)
[2021-01-25] MEDS: ISOSORBIDE MONO EXTENDED REL 30 MG TABCR PO SCH (07:12)
[2021-01-25] MEDS: cloNIDine HCL 0.1 MG TAB PO SCH ×2 (07:14→20:03)
[2021-01-25] MEDS: CYANOCOBALAMIN 500 MCG TABLET (VITAMIN B-12) PO SCH (07:14)
[2021-01-25] MEDS: COLCHICINE 0.6 MG TAB PO SCH ×2 (07:14→20:05)
[2021-01-25] MEDS: ATENOLOL 25 MG TABLET PO SCH (07:14)
[2021-01-25] MEDS: PANTOprazole 40 MG TAB PO SCH (07:15)
[2021-01-25] MEDS: GABAPENTIN 300 MG CAP PO SCH ×3 (07:15→20:06)
[2021-01-25] MEDS: SENNA 8.6 MG TAB PO SCH (07:15)
[2021-01-25] MEDS: MULTIVITAMIN TAB PO SCH (07:15)
[2021-01-25] MEDS: SUCRALFATE 1 GM/10 ML UDC PO SCH ×4 (07:25→20:06)
--- NOTE | 2021-01-25 08:54 | Electrocardiogram Report ---
Test Reason : Blood Pressure : / mmHG Vent. Rate : 083 BPM Atrial Rate : 083 BPM P-R Int : 178 ms QRS Dur : 090 ms QT Int : 376 ms P-R-T Axes : 077 -42 086 degrees QTc Int : 441 ms Sinus rhythm with frequent Premature ventricular complexes Left axis deviation Abnormal ECG When compared with ECG of 22-JAN-2021 04:29, (unconfirmed) No significant change was found Confirmed by Jason Mcnulty ([id number]) on 01/25/2021 8:53:36 AM Referred By: Nilton leary [facility] Confirmed By:Jason Mcnulty
[2021-01-25 10:40] LABS: Basophils # (auto) 0.01 K/uL (0-0.2); Basophils % (auto) 0.1 %; Eosinophils # (auto) 0.06 K/uL (0-0.5); Eosinophils % (auto) 0.3 %; Hematocrit (blood only) 29.9 % (37-47); Hemoglobin 9.4 g/dL (12.0-16.0); Immature Granulocytes # (auto) 0.07 K/uL (0.00-0.02); Immature Granulocytes % (auto) 0.4 %; Lymphocytes # (auto) 0.86 K/uL (1.2-3.4); Lymphocytes % (auto) 4.3 %; Mean Corpuscular Hemoglobin 28.2 pg (25-34); Mean Corpuscular Hgb Conc 31.4 g/dL (32-36); Mean Corpuscular Volume 89.8 fL (80-100); Mean Platelet Volume 9.4 fL (7.4-10.4); Monocytes % (auto) 7.5 %; Neutrophils # (auto) 17.49 K/uL (1.4-6.5); Neutrophils % (auto) 87.4 %; Platelet Count 444 K/uL (130-400); RDW Coefficient of Variation 13.6 % (11.5-14.5); RDW Standard Deviation 44.8 fL (36.4-46.3); Red Blood Count 3.33 M/uL (4.2-5.4); White Blood Count 19.99 K/uL (4.8-10.8)
[2021-01-25 10:50] LABS: INR 3.1 (0.9-1.1); Prothrombin Time 28.7 Seconds (9.0-12.0)
[2021-01-25 11:14] LABS: Appearance Urine Turbid (Clear); Bacteria Urine Automated 2+ (Negative); Bilirubin Urine Negative (Negative); Blood Urine 1+ (Negative); Color Urine Dark Yellow; Glucose Urine UA Negative (Negative); Ketones Urine Negative (Negative); Leukocyte Esterase Urine 3+ (Negative); Nitrite Urine Negative (Negative); Protein Urine 3+ (Negative); Specific Gravity Urine 1.021 (1.000-1.030); Urobilinogen Urine Negative (Negative); WBC Urine Automated >30 /hpf (0-5); pH Urine >= 9.0 (4.5-7.5)
[2021-01-25 11:17] LABS: BUN Creatinine Ratio 32.4 (10-20); C Reactive Protein 11.9 mg/dl (0-0.29); Calcium 8.1 mg/dl (8.5-10.1); Creatinine Clr Calc Pharmacy 63.3 ml/min; Est GFR (African American) 78.9 ml/min; Est GFR (Non-African American) 68.1 ml/min; Potassium 4.3 mmol/L (3.5-5.1)
[2021-01-25 11:23] LABS: Triple Phosphate Crystal Urine Present (None Prsent)
[2021-01-25 11:24] LABS: Epithelial Cell Urine Auto 0-5 /lpf (0-5); RBC Urine Automated 0-4 /hpf (0-4)
[2021-01-25] MEDS ORDERED: cefTRIAXone SODIUM 2,000 MG in DEXTROSE 5% 50 ML IV SCH (11:30)
--- NOTE | 2021-01-25 11:35 | Electrocardiogram Report ---
Test Reason : Blood Pressure : / mmHG Vent. Rate : 073 BPM Atrial Rate : 073 BPM P-R Int : 164 ms QRS Dur : 088 ms QT Int : 394 ms P-R-T Axes : 048 -25 061 degrees QTc Int : 434 ms Poor data quality, interpretation may be adversely affected Sinus rhythm with frequent Premature ventricular complexes in a pattern of bigeminy Otherwise normal ECG When compared with ECG of 23-JAN-2021 08:20, (unconfirmed) No significant change was found Confirmed by Jason Mcnulty ([id number]) on 01/25/2021 11:35:14 AM Referred By: Nilton leary [facility] Confirmed By:Jason Mcnulty
--- NOTE | 2021-01-25 13:26 | Cardiology Progress Note ---
Date of Service January 25, 2021 Assessment & Plan (1) Chest pain: 2. Pericardial effusion 3. Hypertension 4. Recent DVT post IVC filter on anticoagulation 5. Multiple recent back surgeries, severe lower extremity weakness 6. Elevated inflammatory markers Chest pain-free overnight. Electrically stable on telemetry. From a cardiac standpoint okay for discharge today. Home on new Imdur 30 mg daily We will continue current colchicine. Continue home antihypertensives, statin and anticoagulation. Follow with me in 1 week with repeat echocardiogram. Admission and Anticipated Discharge Date Admission Date: January 24, 2021 Subjective Feeling well. No chest tightness overnight. Slept well. Anxious to return to [facility]. Telemetry -sinus rhythm, occasional PVCs Review of Systems Review of Systems: All systems reviewed & are unremarkable except as noted in HPI & below Physical Exam Physical Exam: General: Comfortable, no acute distress HEENT: Sclerae anicteric Lungs: Clear to auscultation Cardiac: Regular rate and rhythm, no murmurs. No rubs. Occasional premature beats Abdomen: Soft, nontender Extremities: Warm, well perfused, no edema. 2+ radial pulses Skin: No rashes or lesions. Neuro: Profound bilateral lower extremity weakness Psych: Alert orient x3, normal affect and mood Results & Data ([facility]) Vital Signs (Past 12 Hours) Vital Signs Temp Pulse Pulse Pulse Resp BP BP 01/25/21 11:44 99.0 F 92 H 20 119/68 01/25/21 09:00 01/25/21 07:02 99.5 F 88 18 112/59 L 01/25/21 06:55 102 H 01/25/21 04:00 97.9 F 101 H 20 130/67 Pulse Ox Pulse Ox 01/25/21 11:44 91 01/25/21 09:00 95 01/25/21 07:02 97 01/25/21 06:55 01/25/21 04:00 94 PG Care Time/CCT Total # of Minutes Spent Total Time Spent with Patient: Total time spent is greater than 50% in coordination of care (as documented) at patient's floor/unit and/or counseling patient: Coding Level of Care Code 60957 Subseq Hosp Care Lvl 3 Diagnoses Chest pain R07.9 Chest pain type: unspecified (1) Chest pain Chest pain type: unspecified Qualified Code(s): R07.9 - Chest pain, unspecified
--- NOTE | 2021-01-25 15:05 | Electrocardiogram Report ---
Test Reason : Blood Pressure : / mmHG Vent. Rate : 089 BPM Atrial Rate : 089 BPM P-R Int : 182 ms QRS Dur : 088 ms QT Int : 362 ms P-R-T Axes : 067 -40 067 degrees QTc Int : 440 ms Normal sinus rhythm Left axis deviation Septal infarct , age undetermined Abnormal ECG When compared with ECG of 24-JAN-2021 01:40, (unconfirmed) Premature ventricular complexes are no longer Present Confirmed by Jason Mcnulty ([id number]) on 01/25/2021 3:05:04 PM Referred By: Nilton leary [facility] Confirmed By:Jason Mcnulty
[2021-01-25] MEDS: ACETAMINOPHEN 325 MG TAB PO PRN (15:28)
[2021-01-25] MEDS: WARFARIN SOD 3 MG TAB PO SCH (16:27)
[2021-01-25] MEDS ORDERED: SODIUM CHLORIDE 0.9% 1000ML 1,000 ML IV SCH (16:30)
[2021-01-25] MEDS: CEFEPIME 2,000 MG in SYRINGE 0 ML IV SCH (19:55)
[2021-01-25] MEDS: PRAVASTATIN SOD 10 MG TAB PO SCH (20:06)
[2021-01-25] MEDS: ADVANCED PROBIOTIC 1250 MG CAPSULE PO SCH (20:30)
--- NOTE | 2021-01-25 23:31 | Hospitalist Progress Note ---
Date of Service January 25, 2021 Assessment & Plan (1) Sepsis: 2nd UTI meets sepsis criteria based on vitals, leukocytosis, low-normal BPs, etc see UTI below (2) Catheter-associated urinary tract infection: u/a highly suspicious for UTI. send culture. gave rocephin initially, but she is at higher risk of hospital-acquired gram negative pathogens given recent hospitalization in [place] and umanzor catheter since that hospital stay. thus, broaden to cefepime. blood cx's x 2 if any temp spikes. start IVF - 75cc/hr x 1 liter, then reassess for ongoing needs. (3) Chest pain: At time of admission - had had 2-3 nights of cp that awoke her from sleep. Following admission - no evidence of ACS - troponins neg x 3. echo w/o WMA. felt to have had either severe GERD +/- pericarditis given the high sed rate/crp and pericardial effusion. however, her pain resolved w/ nitro which would NOT support dx of pericarditis. she was placed on appropriate acid reducers for GERD symptoms then had recurrent cp relieved with nitro. spoke with Dr Stern - he advised starting imdur 30mg daily and monitoring. imdur started 01/24. cont PPI. cont carafate. colchicine 0.6mg BID for pericardial effusion as precautionary measure. will need repeat echo 1-2 weeks post-d/c appreciate Dr Stern' consult/recs if pain persists and/or recurs - stress? cath? (4) Pericardial effusion: as seen on echo and chest CT sed rate/crp quite high making pericarditis possible but clinical picture not entirely c/w pericarditis [id number] colchicine BID remains cause of pericardial effusion? viral? autoimmune? other? needs close f/u post discharge - Dr Stern to see in clinic and repeat echo (5) Hypomagnesemia: level 1.3 at presentation, likely due to recent poor appetite. s/p repletion and now resolved. (6) Supratherapeutic INR: INR > 3 on 01/22. Coumadin dosing reduced from 4mg to 3mg daily. INR today 3.1 but will not make any changes given the new abx. Repeat INR am. (7) Anemia: 13.2 Hb about 1 month ago. 9.4 at admission. Suspect she had acute blood loss due to 2 major back surgeries in late November/early December at [facility] [place] Heme neg (ER attending performed JESSE). Iron studies acceptable although transferrin sat is 9%. Consider Fe supplementation. B12/folate wnl. Repeat cbc am especially given the elevated WBC. (8) Hypothyroidism: TSH wnl in 09/2020. Cont synthroid w/o changes. (9) Diabetes mellitus: a1c 6.1% in September 2020. check BSGs ac/hs. DM diet. glycemic control excellent while here. (10) Dyslipidemia: Cont pravastatin. LDL <100 x 3 years in a row. (11) Hypertension: BPs now low-normal likely from her UTI/sepsis. Lower clonidine dose by half. cont atenolol. HOLD VEENA. (12) Esophageal reflux: Her chart indicates h/o laryngopharyngeal reflux disease. Certainly GERD could have been the cause of her presenting chest pain. Cont PPI + Carafate. 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 Significant LLE weakness with foot drop. Mild on right. Consider AFO devices. (14) Spinal stenosis: s/p lumbar back surgery 11/2020. s/p thoracic surgery 12/2020. Following [facility] [place] was transferred to SNF for rehab. Making slow progress. cont PT/OT. (15) Left leg DVT: Diagnosed in early November 2020. Cont coumadin 3mg daily. INR in am. see above. (16) S/P IVC filter: During -12/2020 hospital stay, [facility] [place]. KUB x-ray confirms IVC filter. (17) Constipation: bowel regimen improved left message for pt's daughter this evening on voicemail UTI will delay her d/c of course Admission and Anticipated Discharge Date Admission Date: January 24, 2021 Subjective patient states "I had a good night" - ie no chest pain however, upon awakening, she stated she "didn't feel good" and "didn't have an appetite" umanzor noted to be leaking and was swapped out then had temperature spike this afternoon u/a suggestive of UTI and rocephin started tele overnight acceptable denies any cough or dyspnea denies any pain over operative sites (t-spine, l-spine) no change in LE weakness denies N/V/abd pain Review of Systems Constitutional: + fever, + fatigue, + weakness and + anorexia Respiratory: no dyspnea Cardiovascular: no chest pain and no palpitations Gastrointestinal: no diarrhea/loose stools Physical Exam Constitutional: well developed, well nourished and + ill appearing; no acute distress and no altered mental status ENMT: Mouth: + dry oral mucous membranes Respiratory: normal respiratory effort, lungs clear to auscultation Cardiovascular: Rate/Rhythm: regular rate and regular rhythm Heart Sounds: normal S1 and normal S2; no murmur Vessels: posterior tibial pulses present and dorsalis pedis pulses present; no JVD Extremities: + edema (1+ LLE; trace RLE ) Gastrointestinal (Abdomen): normal bowel sounds, soft, nontender, no hepatosplenomegaly Skin: no rashes, warm and dry t-spine incision and l-spine incision c/d/i, healing nicely Neurologic: no change in LLE weakness; no change in strength in RLE weakness; weakness is greater in LLE than RLE Psychiatric: A+Ox3, euthymic affect Results & Data Results & Data ([facility]) Vital Signs (Past 12 Hours) Vital Signs Temp Pulse Pulse Resp BP Pulse Ox 01/25/21 22:17 37.8 C H 117 H 22 112/69 96 01/25/21 19:35 36.7 C 80 16 109/40 L 94 01/25/21 16:22 37.4 C 01/25/21 15:23 39.4 C H 86 19 111/45 L 92 01/25/21 15:05 92 H 01/25/21 11:44 37.2 C 92 H 20 119/68 91 Laboratory Results Laboratory Results - last 24 hr 01/25/21 01/25/21 01/25/21 10:19 10:19 10:19 WBC 19.99 H RBC 3.33 L Hgb 9.4 L Hct 29.9 L MCV 89.8 MCH 28.2 MCHC 31.4 L RDW Std Deviation 44.8 RDW Coeff of Efren 13.6 Plt Count 444 H MPV 9.4 Immature Gran % (Auto) 0.4 Neut % (Auto) 87.4 Lymph % (Auto) 4.3 Burt % (Auto) 7.5 Eos % (Auto) 0.3 Baso % (Auto) 0.1 Neut # (Auto) 17.49 H Lymph # (Auto) 0.86 L Burt # (Auto) 1.50 H Eos # (Auto) 0.06 Baso # (Auto) 0.01 Immature Gran # (Auto) 0.07 H PT 28.7 H INR 3.1 H Sodium 135 L Potassium 4.3 Chloride 104 Carbon Dioxide 27 Anion Gap 4.0 BUN 27 H Creatinine 0.82 Est Cr Clr Drug Dosing 63.3 Est GFR ( Amer) 78.9 Est GFR (Non-Af Amer) 68.1 BUN/Creatinine Ratio 32.4 H Glucose 137 H Calcium 8.1 L C-Reactive Protein 11.90 H Urine Color Urine Appearance Urine pH Ur Specific Circle Urine Protein Urine Glucose (UA) Urine Ketones Urine Blood Urine Nitrite Urine Bilirubin Urine Urobilinogen Ur Leukocyte Esterase Urine WBC (Auto) Urine RBC (Auto) U Hyaline Cast (Auto) U Epithel Cells (Auto) Urine Bacteria (Auto) Urine Crystals Triple Phos Crystals Urine Yeast 01/25/21 11:01 WBC RBC Hgb Hct MCV MCH MCHC RDW Std Deviation RDW Coeff of Efren Plt Count MPV Immature Gran % (Auto) Neut % (Auto) Lymph % (Auto) Burt % (Auto) Eos % (Auto) Baso % (Auto) Neut # (Auto) Lymph # (Auto) Burt # (Auto) Eos # (Auto) Baso # (Auto) Immature Gran # (Auto) PT INR Sodium Potassium Chloride Carbon Dioxide Anion Gap BUN Creatinine Est Cr Clr Drug Dosing Est GFR ( Amer) Est GFR (Non-Af Amer) BUN/Creatinine Ratio Glucose Calcium C-Reactive Protein Urine Color Dark Yellow Urine Appearance Turbid A Urine pH >= 9.[address] 1.021 Urine Protein 3+ H Urine Glucose (UA) Negative Urine Ketones Negative Urine Blood 1+ H Urine Nitrite Negative Urine Bilirubin Negative Urine Urobilinogen Negative Ur Leukocyte Esterase 3+ H Urine WBC (Auto) >30 H Urine RBC (Auto) 0-4 U Hyaline Cast (Auto) 1-5 U Epithel Cells (Auto) 0-5 Urine Bacteria (Auto) 2+ H Urine Crystals Not Reportable Triple Phos Crystals Present A Urine Yeast Not Reportable PG Care Time/CCT Total # of Minutes Spent Total Time Spent with Patient: Total time spent is greater than 50% in coordination of care (as documented) at patient's floor/unit and/or counseling patient: Coding Level of Care Code 09238 Subseq Hosp Care Lvl 3 Diagnoses Sepsis A41.9 Catheter-associated urinary tract infection T83.511A; N39.0 Indwelling urinary catheter type: indwelling urethral catheter Encounter type: initial encounter Chest pain R07.9 Chest pain type: unspecified Pericardial effusion I31.3 Hypomagnesemia E83.42 Supratherapeutic INR R79.1 Anemia D64.9 Anemia type: unspecified type Hypothyroidism E03.9 Diabetes mellitus E11.9 Dyslipidemia E78.5 Hypertension I10 Esophageal reflux K21.9 Foot drop, bilateral M21.371; M21.372 Spinal stenosis M48.00 Left leg DVT I82.402 S/P IVC filter Z95.828 Constipation K59.00 (1) Anemia Anemia type: unspecified type Qualified Code(s): D64.9 - Anemia, unspecified (2) Chest pain Chest pain type: unspecified Qualified Code(s): R07.9 - Chest pain, unspecified (3) Catheter-associated urinary tract infection Indwelling urinary catheter type: indwelling urethral catheter Encounter type: initial encounter Qualified Code(s): T83.511A - Infection and inflammatory reaction due to indwelling urethral catheter, initial encounter; N39.0 - Urinary tract infection, site not specified
[2021-01-26] MEDS: CEFEPIME 2,000 MG in SYRINGE 0 ML IV SCH ×3 (05:29→20:03)
[2021-01-26] MEDS: LEVOTHYROXINE SODIUM 25 MCG TABLET PO SCH (05:33)
[2021-01-26 06:52] LABS: Hematocrit (blood only) 31.2 % (37-47); Hemoglobin 9.8 g/dL (12.0-16.0); Mean Corpuscular Hemoglobin 27.7 pg (25-34); Mean Corpuscular Hgb Conc 31.4 g/dL (32-36); Mean Corpuscular Volume 88.1 fL (80-100); Mean Platelet Volume 9.4 fL (7.4-10.4); Platelet Count 423 K/uL (130-400); RDW Coefficient of Variation 13.7 % (11.5-14.5); RDW Standard Deviation 44.9 fL (36.4-46.3); Red Blood Count 3.54 M/uL (4.2-5.4); White Blood Count 16.28 K/uL (4.8-10.8)
[2021-01-26 07:06] LABS: INR 2.5 (0.9-1.1)
[2021-01-26 07:27] LABS: BUN Creatinine Ratio 36.2 (10-20); Calcium 7.9 mg/dl (8.5-10.1); Creatinine Clr Calc Pharmacy 79.9 ml/min; Est GFR (African American) 97.4 ml/min
[2021-01-26] MEDS: SUCRALFATE 1 GM/10 ML UDC PO SCH ×4 (07:48→20:05)
[2021-01-26] MEDS: ADVANCED PROBIOTIC 1250 MG CAPSULE PO SCH (07:48)
[2021-01-26] MEDS: POLYETHYLENE (MIRALAX) 17 GM PACK PO SCH (07:49)
[2021-01-26] MEDS: PANTOprazole 40 MG TAB PO SCH (07:49)
[2021-01-26] MEDS: GABAPENTIN 300 MG CAP PO SCH ×3 (07:49→20:03)
[2021-01-26] MEDS: ISOSORBIDE MONO EXTENDED REL 30 MG TABCR PO SCH (07:49)
[2021-01-26] MEDS: cloNIDine HCL 0.1 MG TAB PO SCH ×2 (07:50→20:04)
[2021-01-26] MEDS: ATENOLOL 25 MG TABLET PO SCH (07:50)
[2021-01-26] MEDS: SENNA 8.6 MG TAB PO SCH (07:50)
[2021-01-26] MEDS: MULTIVITAMIN TAB PO SCH (07:50)
[2021-01-26] MEDS: COLCHICINE 0.6 MG TAB PO SCH ×2 (07:51→20:05)
[2021-01-26] MEDS: CYANOCOBALAMIN 500 MCG TABLET (VITAMIN B-12) PO SCH (07:51)
[2021-01-26] MEDS: DICLOFENAC SOD 1% GEL 100 GM TUBE EXT PRN ×2 (07:53→20:07)
[2021-01-26] MEDS: oxyCODONE HCL IR 5 MG TAB (IMMEDIATE RELEASE) PO PRN ×3 (08:00→20:09)
[2021-01-26] MEDS ORDERED: VANCOMYCIN CONSULT ACTIVE PRN (08:50)
[2021-01-26] MEDS ORDERED: VANCOMYCIN HCL 2,000 MG in SODIUM CHLORIDE 0.9% 500 ML IV STA (09:15)
[2021-01-26] MEDS: WARFARIN SOD 3 MG TAB PO SCH (15:32)
[2021-01-26] MEDS: PRAVASTATIN SOD 10 MG TAB PO SCH (20:03)
[2021-01-26] MEDS: VANCOMYCIN HCL 1,000 MG in SODIUM CHLORIDE 0.9% 250 ML IV SCH (22:32)
--- NOTE | 2021-01-26 23:25 | Hospitalist Progress Note ---
Date of Service January 26, 2021 Assessment & Plan (1) Sepsis: 2nd UTI meets sepsis criteria based on vitals, leukocytosis, low-normal BPs, etc see UTI below still w/ fever today - obtained blood cx's, added vanco just in case this is enterococcus or MRSA in urine t-spine and l-spine incisions from recent surgeries have been wnl (2) Catheter-associated urinary tract infection: u/a highly suspicious for UTI. cx still pending. gave rocephin initially, but she is at higher risk of hospital-acquired gram negative pathogens given recent hospitalization in [place] and umanzor catheter usage. cont cefepime; add vanco if this is enterococcus or MRSA blood cx's x 2 today despite fever today she looked good and is eating well (3) Chest pain: GERD vs pericardial vs ischemic. At time of admission - had had 2-3 nights of cp that awoke her from sleep. Following admission - no evidence of ACS - troponins neg x 4. echo w/o WMA. echo with small pericardial effusion, however. felt to have had either severe GERD +/- pericarditis given the high sed rate/crp and pericardial effusion. however, her pain resolved w/ nitro which would NOT support dx of pericarditis. she was placed on appropriate acid reducers for GERD symptoms then had recurrent cp relieved with nitro. spoke with Dr Stern - he advised starting imdur 30mg daily and monitoring. imdur started 01/24. since 01/24 no further chest pain either during the day or at night. cont PPI. cont carafate. colchicine 0.6mg BID for pericardial effusion as precautionary measure. will need repeat echo 1-2 weeks post-d/c appreciate Dr Stern' consult/recs (4) Pericardial effusion: as seen on echo and chest CT sed rate/crp quite high making pericarditis possible but clinical picture not entirely c/w pericarditis [id number] colchicine BID remains cause of pericardial effusion? viral? autoimmune? other? needs close f/u post discharge - Dr Stern to see in clinic and repeat echo (5) Hypomagnesemia: level 1.3 at presentation, likely due to recent poor appetite. s/p repletion and now resolved. (6) Supratherapeutic INR: INR > 3 on 6/28. Coumadin dosing reduced from 4mg to 3mg daily at that time. INR today 2.5 but will not make any changes given the new abx. Repeat INR am. (7) Anemia: 13.2 Hb about 1 month ago. 9.4 at admission. 9.8 today - thus, stable. Suspect she had acute blood loss due to 2 major back surgeries in late November/early December at [facility]. Heme neg this admission (ER attending performed JESSE). Iron studies acceptable although transferrin sat is 9%. Consider Fe supplementation. B12/folate wnl. Repeat cbc am given the elevated WBC. (8) Hypothyroidism: TSH wnl in 09/2020. Cont synthroid w/o changes. (9) Diabetes mellitus: a1c 6.1% in September 2020. check BSGs ac/hs. DM diet. glycemic control excellent while here. (10) Dyslipidemia: Cont pravastatin. (11) Hypertension: BPs now low-normal likely from her UTI/sepsis but remain acceptable. Lowered clonidine dose by half. Did not stop to avoid severe rebound. cont atenolol. HOLD VEENA. (12) Esophageal reflux: Her chart indicates h/o laryngopharyngeal reflux disease. Certainly GERD could have been the cause of her presenting chest pain. Cont PPI + Carafate. Belching/burping improved w/ these. 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 Significant LLE weakness with foot drop. Mild on right. Consider AFO devices. (14) Spinal stenosis: s/p lumbar back surgery 11/2020. s/p thoracic surgery 12/2020. Following [facility] admission was transferred to [facility] for rehab. Making slow progress. cont PT/OT. (15) Left leg DVT: Diagnosed in early November 2020. Cont coumadin 3mg daily. INR in am. see above. The left leg has been bigger than right leg since admission, and with mild edema - also unchanged. Gave reassurance to patient today that LLE is unchanged over the course of her stay. Diuretics likely not to be of huge benefit as it is DVT-related and she can't move the leg. Would be better to ultimately use compression sometime in the future. (16) S/P IVC filter: During -12/2020 hospital stay, [facility]. KUB x-ray confirms IVC filter. (17) Constipation: bowel regimen improved left message for pt's daughter this evening on voicemail; also left message for daughter yesterday on voicemail hopefully back to [facility] this weekend Admission and Anticipated Discharge Date Admission Date: January 24, 2021 Subjective patient in very good spirits today eating well had good night - NO CHEST PAIN (2nd night in a row without pain) minimal burping/belching no dyspnea, cough, or abd pain no N/V she is worried about "my left leg being swollen" states her daughter is coming to visit today Review of Systems Constitutional: + fever, + chills and + weakness; no anorexia Respiratory: no cough, no dyspnea and no pain on inspiration Cardiovascular: no chest pain Gastrointestinal: no diarrhea/loose stools Musculoskeletal: no back pain and no neck pain Physical Exam Constitutional: well developed and well nourished; no acute distress and no altered mental status looks better today ENMT: external ear and nose normal, oropharynx normal Respiratory: normal respiratory effort, lungs clear to auscultation Cardiovascular: Rate/Rhythm: regular rate and regular rhythm Heart Sounds: normal S1 and normal S2; no murmur Vessels: posterior tibial pulses present and dorsalis pedis pulses present; no JVD Extremities: + edema (1-2+ LLE (no change); trace RLE ) Gastrointestinal (Abdomen): normal bowel sounds, soft, nontender, no hepatosplenomegaly Musculoskeletal: left leg much larger than right leg- baseline - -due to extensive DVT in early November Neurologic: + focal motor deficit (LLE weakness unchanged - 2/5; RLE - 3-4/5 - no change) Psychiatric: A+Ox3, euthymic affect Results & Data Results & Data ([facility]) Vital Signs (Past 12 Hours) Vital Signs Temp Pulse Pulse Resp BP Pulse Ox 01/26/21 23:22 36.9 C 80 20 120/58 L 97 01/26/21 20:00 81 01/26/21 19:25 37.2 C 87 20 114/47 L 97 01/26/21 15:34 37.1 C 84 22 137/79 96 01/26/21 11:42 36.6 C 85 17 134/69 97 Laboratory Results Laboratory Results - last 24 hr 01/26/21 01/26/21 01/26/21 06:32 06:32 06:32 WBC 16.28 H RBC 3.54 L Hgb 9.8 L Hct 31.2 L MCV 88.1 MCH 27.7 MCHC 31.4 L RDW Std Deviation 44.9 RDW Coeff of Efren 13.7 Plt Count 423 H MPV 9.4 PT 24.0 H INR 2.5 H Sodium 132 L Potassium 4.0 Chloride 104 Carbon Dioxide 24 Anion Gap 4.0 BUN 24 H Creatinine 0.66 Est Cr Clr Drug Dosing 79.9 Est GFR ( Amer) 97.4 Est GFR (Non-Af Amer) 84.0 BUN/Creatinine Ratio 36.2 H Glucose 133 H Calcium 7.9 L PG Care Time/CCT Total # of Minutes Spent Total Time Spent with Patient: Total time spent is greater than 50% in coordination of care (as documented) at patient's floor/unit and/or counseling patient: Coding Level of Care Code 30948 Subseq Hosp Care Lvl 3 Diagnoses Sepsis A41.9 Catheter-associated urinary tract infection T83.511A; N39.0 Encounter type: initial encounter Indwelling urinary catheter type: indwelling urethral catheter Chest pain R07.9 Chest pain type: unspecified Pericardial effusion I31.3 Hypomagnesemia E83.42 Supratherapeutic INR R79.1 Anemia D64.9 Anemia type: unspecified type Hypothyroidism E03.9 Diabetes mellitus E11.9 Dyslipidemia E78.5 Hypertension I10 Esophageal reflux K21.9 Foot drop, bilateral M21.371; M21.372 Spinal stenosis M48.00 Left leg DVT I82.402 S/P IVC filter Z95.828 Constipation K59.00 (1) Catheter-associated urinary tract infection Encounter type: initial encounter Indwelling urinary catheter type: indwelling urethral catheter Qualified Code(s): T83.511A - Infection and inflammatory reaction due to indwelling urethral catheter, initial encounter; N39.0 - Urinary tract infection, site not specified (2) Anemia Anemia type: unspecified type Qualified Code(s): D64.9 - Anemia, unspecified (3) Chest pain Chest pain type: unspecified Qualified Code(s): R07.9 - Chest pain, unspecified
[2021-01-27] MEDS: CEFEPIME 2,000 MG in SYRINGE 0 ML IV SCH ×3 (04:14→19:59)
[2021-01-27] MEDS: SIMETHICONE 80 MG CHEW PO PRN ×2 (04:17→19:59)
[2021-01-27] MEDS: ONDANSETRON INJ 2 MG/ML 2 ML VIAL IV PRN ×2 (04:29→19:59)
[2021-01-27] MEDS: NITROGLYCERIN SL 0.4 MG/TAB TAB SL PRN (04:37)
[2021-01-27] MEDS: LEVOTHYROXINE SODIUM 25 MCG TABLET PO SCH (06:28)
[2021-01-27 06:57] LABS: Hematocrit (blood only) 30.1 % (37-47); Hemoglobin 9.6 g/dL (12.0-16.0); Mean Corpuscular Hemoglobin 27.6 pg (25-34); Mean Corpuscular Hgb Conc 31.9 g/dL (32-36); Mean Corpuscular Volume 86.5 fL (80-100); Mean Platelet Volume 9.5 fL (7.4-10.4); Platelet Count 397 K/uL (130-400); RDW Coefficient of Variation 13.6 % (11.5-14.5); RDW Standard Deviation 43.4 fL (36.4-46.3); Red Blood Count 3.48 M/uL (4.2-5.4); White Blood Count 11.31 K/uL (4.8-10.8)
[2021-01-27 07:09] LABS: INR 2.1 (0.9-1.1)
[2021-01-27 07:31] LABS: BUN Creatinine Ratio 33.2 (10-20); Calcium 8.1 mg/dl (8.5-10.1); Creatinine Clr Calc Pharmacy 91.7 ml/min; Est GFR (African American) 101.6 ml/min; Est GFR (Non-African American) 87.7 ml/min; Potassium 3.7 mmol/L (3.5-5.1)
[2021-01-27] MEDS: oxyCODONE HCL IR 5 MG TAB (IMMEDIATE RELEASE) PO PRN (08:17)
[2021-01-27] MEDS: ADVANCED PROBIOTIC 1250 MG CAPSULE PO SCH (08:17)
[2021-01-27] MEDS: ISOSORBIDE MONO EXTENDED REL 30 MG TABCR PO SCH (08:17)
[2021-01-27] MEDS: SUCRALFATE 1 GM/10 ML UDC PO SCH ×4 (08:17→19:59)
[2021-01-27] MEDS: ATENOLOL 25 MG TABLET PO SCH (08:18)
[2021-01-27] MEDS: COLCHICINE 0.6 MG TAB PO SCH ×2 (08:18→20:00)
[2021-01-27] MEDS: MULTIVITAMIN TAB PO SCH (08:18)
[2021-01-27] MEDS: GABAPENTIN 300 MG CAP PO SCH ×3 (08:19→20:00)
[2021-01-27] MEDS: CYANOCOBALAMIN 500 MCG TABLET (VITAMIN B-12) PO SCH (08:19)
[2021-01-27] MEDS: cloNIDine HCL 0.1 MG TAB PO SCH ×2 (08:19→20:01)
[2021-01-27] MEDS: POLYETHYLENE (MIRALAX) 17 GM PACK PO SCH (08:21)
[2021-01-27] MEDS: SENNA 8.6 MG TAB PO SCH (08:21)
[2021-01-27] MEDS: PANTOprazole 40 MG TAB PO SCH (08:21)
[2021-01-27] MEDS: VANCOMYCIN HCL 1,000 MG in SODIUM CHLORIDE 0.9% 250 ML IV SCH ×2 (10:36→21:42)
[2021-01-27] MEDS: DICLOFENAC SOD 1% GEL 100 GM TUBE EXT PRN (10:36)
[2021-01-27] MEDS ORDERED: CALCIUM CARBONATE 500 MG CHEWABLE TAB PO ONE (16:00)
[2021-01-27] MEDS: WARFARIN SOD 3 MG TAB PO SCH (16:28)
[2021-01-27] MEDS: PRAVASTATIN SOD 10 MG TAB PO SCH (20:00)
--- NOTE | 2021-01-27 22:20 | Hospitalist Progress Note ---
Date of Service January 27, 2021 Assessment & Plan (1) Sepsis: 2nd UTI meets sepsis criteria based on vitals, leukocytosis, low-normal BPs, etc see UTI below still w/ fever today - obtained blood cx's, added vanco just in case this is enterococcus or MRSA in urine t-spine and l-spine incisions from recent surgeries have been WNL (2) Catheter-associated urinary tract infection: u/a highly suspicious for UTI. cx returned. Only resistant to FQ. gave rocephin initially, but she is at higher risk of hospital-acquired gram negative pathogens given recent hospitalization in [place] and umanzor catheter usage. cont cefepime; add vanco if this is enterococcus or MRSA: can be discharged, but is waiting placement and litter van. Also had fever yesterday. blood cx's x 2 today despite fever today she looked good and is eating well (3) Chest pain: GERD vs pericardial vs ischemic. At time of admission - had had 2-3 nights of cp that awoke her from sleep. Following admission - no evidence of ACS - troponins neg x 4. echo w/o WMA. echo with small pericardial effusion, however. felt to have had either severe GERD +/- pericarditis given the high sed rate/crp and pericardial effusion. however, her pain resolved w/ nitro which would NOT support dx of pericarditis. she was placed on appropriate acid reducers for GERD symptoms then had recurrent cp relieved with nitro. spoke with Dr Stern - he advised starting imdur 30mg daily and monitoring. imdur started 01/24. since 01/24 no further chest pain either during the day or at night. cont PPI. cont carafate. colchicine 0.6mg BID for pericardial effusion as precautionary measure. will need repeat echo 1-2 weeks post-d/c appreciate Dr Stern' consult/recs (4) Pericardial effusion: as seen on echo and chest CT sed rate/crp quite high making pericarditis possible but clinical picture not entirely c/w pericarditis [id number] colchicine BID remains cause of pericardial effusion? viral? autoimmune? other? needs close f/u post discharge - Dr Stern to see in clinic and repeat echo (5) Hypomagnesemia: level 1.3 at presentation, likely due to recent poor appetite. s/p repletion and now resolved. (6) Supratherapeutic INR: INR > 3 on 01/22. Coumadin dosing reduced from 4mg to 3mg daily at that time. will need to make frequent INR checks. (7) Anemia: 13.2 Hb about 1 month ago. 9.4 at admission. Hemoglobin stable. Suspect she had acute blood loss due to 2 major back surgeries in late November/early December at [facility]. Heme neg this admission (ER attending performed JESSE). Iron studies acceptable although transferrin sat is 9%. Consider Fe supplementation. B12/folate wnl. (8) Hypothyroidism: TSH wnl in 09/2020. Cont synthroid w/o changes. (9) Diabetes mellitus: a1c 6.1% in September 2020. check BSGs ac/hs. DM diet. glycemic control excellent while here. (10) Dyslipidemia: Cont pravastatin. (11) Hypertension: BPs now low-normal likely from her UTI/sepsis but remain acceptable. Lowered clonidine dose by half. Did not stop to avoid severe rebound. cont atenolol. HOLD VEENA. (12) Esophageal reflux: Her chart indicates h/o laryngopharyngeal reflux disease. Certainly GERD could have been the cause of her presenting chest pain. Cont PPI + Carafate. Belching/burping improved w/ these. 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 Significant LLE weakness with foot drop. Mild on right. Consider AFO devices. (14) Spinal stenosis: s/p lumbar back surgery 11/2020. s/p thoracic surgery 12/2020. Following [facility] admission was transferred to [facility] for rehab. Making slow progress. cont PT/OT. (15) Left leg DVT: Diagnosed in early November 2020. Cont coumadin 3mg daily. INR in am. see above. The left leg has been bigger than right leg since admission, and with mild edema - also unchanged. Gave reassurance to patient today that LLE is unchanged over the course of her stay. Diuretics likely not to be of huge benefit as it is DVT-related and she can't move the leg. Would be better to ultimately use compression sometime in the future. (16) S/P IVC filter: During -12/2020 hospital stay, [facility]. KUB x-ray confirms IVC filter. (17) Constipation: bowel regimen improved left message for pt's daughter this evening on voicemail; also left message for daughter yesterday on voicemail hopefully back to [facility] this weekend Admission and Anticipated Discharge Date Admission Date: January 24, 2021 Subjective Patient reports feeling well. She has no new complaints. Review of Systems Review of Systems: All systems reviewed & are unremarkable except as noted in HPI & below Physical Exam Physical Exam: Constitutional: well developed and well nourished; no acute distress and no altered mental status looks better today ENMT: external ear and nose normal, oropharynx normal Respiratory: normal respiratory effort, lungs clear to auscultation Cardiovascular: Rate/Rhythm: regular rate and regular rhythm Heart Sounds: normal S1 and normal S2; no murmur Vessels: posterior tibial pulses present and dorsalis pedis pulses present; no JVD Extremities: + edema (1-2+ LLE (no change); trace RLE ) Gastrointestinal (Abdomen): normal bowel sounds, soft, nontender, no hepatosplenomegaly Musculoskeletal: eft leg much larger than right leg- baseline - -due to extensive DVT in early November Neurologic: + focal motor deficit (LLE weakness unchanged - 2/5; RLE - 3-4/5 - no change) Psychiatric: A+Ox3, euthymic affect Results & Data Results & Data ([facility]) Vital Signs (Past 12 Hours) Vital Signs Temp Pulse Pulse Resp BP Pulse Ox 01/27/21 20:14 72 01/27/21 19:41 37.2 C 75 20 122/76 95 01/27/21 15:45 36.6 C 72 18 149/68 H 94 01/27/21 11:32 36.8 C 67 18 128/67 98 PG Care Time/CCT Total # of Minutes Spent Total Time Spent with Patient: Total time spent is greater than 50% in coordination of care (as documented) at patient's floor/unit and/or counseling patient: Coding Level of Care Code 27176 Subseq Hosp Care Lvl 3 Diagnoses Sepsis A41.9 Catheter-associated urinary tract infection T83.511A; N39.0 Encounter type: initial encounter Indwelling urinary catheter type: indwelling urethral catheter Chest pain R07.9 Chest pain type: unspecified Pericardial effusion I31.3 Hypomagnesemia E83.42 Supratherapeutic INR R79.1 Anemia D64.9 Anemia type: unspecified type Hypothyroidism E03.9 Diabetes mellitus E11.9 Dyslipidemia E78.5 Hypertension I10 Esophageal reflux K21.9 Foot drop, bilateral M21.371; M21.372 Spinal stenosis M48.00 Left leg DVT I82.402 S/P IVC filter Z95.828 Constipation K59.00 Time Spent (min) 35 Comment chart review (1) Catheter-associated urinary tract infection Encounter type: initial encounter Indwelling urinary catheter type: indwelling urethral catheter Qualified Code(s): T83.511A - Infection and inflammatory reaction due to indwelling urethral catheter, initial encounter; N39.0 - Urinary tract infection, site not specified (2) Anemia Anemia type: unspecified type Qualified Code(s): D64.9 - Anemia, unspecified (3) Chest pain Chest pain type: unspecified Qualified Code(s): R07.9 - Chest pain, unspecified
[2021-01-28] MEDS: CEFEPIME 2,000 MG in SYRINGE 0 ML IV SCH (03:22)
[2021-01-28] MEDS: SIMETHICONE 80 MG CHEW PO PRN (03:53)
[2021-01-28] MEDS: LEVOTHYROXINE SODIUM 25 MCG TABLET PO SCH (06:01)
--- NOTE | 2021-01-28 06:44 | Electrocardiogram Report ---
Test Reason : Blood Pressure : / mmHG Vent. Rate : 080 BPM Atrial Rate : 080 BPM P-R Int : 194 ms QRS Dur : 076 ms QT Int : 378 ms P-R-T Axes : 068 -35 036 degrees QTc Int : 435 ms Normal sinus rhythm Left axis deviation Poor R wave progression, consider anterior NC vs. lead placement vs. LVH Abnormal ECG When compared with ECG of 25-JAN-2021 05:53, Questionable change in initial forces of Anterior leads Confirmed by Kirit Monte [id number] on 01/28/2021 6:44:14 AM Referred By: Nilton leary [facility] Confirmed By:Kirit Monte
[2021-01-28 06:47] LABS: Creatinine Clr Calc Pharmacy 92.6 ml/min; Est GFR (African American) 102.2 ml/min; Est GFR (Non-African American) 88.2 ml/min
[2021-01-28 09:03] LABS: Hematocrit (blood only) 32.7 % (37-47); Hemoglobin 10.5 g/dL (12.0-16.0); Mean Corpuscular Hemoglobin 27.9 pg (25-34); Mean Corpuscular Hgb Conc 32.1 g/dL (32-36); Mean Platelet Volume 9.2 fL (7.4-10.4); Platelet Count 428 K/uL (130-400); RDW Coefficient of Variation 13.5 % (11.5-14.5); RDW Standard Deviation 43.1 fL (36.4-46.3); Red Blood Count 3.76 M/uL (4.2-5.4); White Blood Count 6.89 K/uL (4.8-10.8)
[2021-01-28] MEDS: SUCRALFATE 1 GM/10 ML UDC PO SCH (09:06)
[2021-01-28] MEDS: ADVANCED PROBIOTIC 1250 MG CAPSULE PO SCH (09:06)
[2021-01-28] MEDS: cloNIDine HCL 0.1 MG TAB PO SCH (09:07)
[2021-01-28] MEDS: ISOSORBIDE MONO EXTENDED REL 30 MG TABCR PO SCH (09:07)
[2021-01-28] MEDS: MULTIVITAMIN TAB PO SCH (09:07)
[2021-01-28] MEDS: ATENOLOL 25 MG TABLET PO SCH (09:07)
[2021-01-28] MEDS: CYANOCOBALAMIN 500 MCG TABLET (VITAMIN B-12) PO SCH (09:07)
[2021-01-28] MEDS: PANTOprazole 40 MG TAB PO SCH (09:07)
[2021-01-28] MEDS: GABAPENTIN 300 MG CAP PO SCH (09:08)
[2021-01-28] MEDS: COLCHICINE 0.6 MG TAB PO SCH (09:08)
[2021-01-28] MEDS: SENNA 8.6 MG TAB PO SCH (09:08)
[2021-01-28 09:21] LABS: INR 2.3 (0.9-1.1); Prothrombin Time 22.2 Seconds (9.0-12.0)
[2021-01-28] MEDS ORDERED: AMOXICILLIN/CLAVULANATE 875 MG TAB PO SCH (17:00)
--- NOTE | 2021-01-28 19:12 | Discharge Summary ---
Date of Service January 28, 2021 Admission HPI Per Admitting Provider 80yo female with recent thoracic and lumbar spine surgery in [place] presents with recurrent episodes of chest tightness. Friday evening she was awoken by chest discomfort while sleeping. This was associated with belching and burping. She was given Tums and mark jourdan; symptoms resolved. Able to go back to sleep after the Tums. No dyspnea. Did have nausea but no vomiting. She was sweaty "in her head." She recalls what she ate that night - had "fatty sausage." Upon awakening Friday she felt ok and was able to eat breakfast. No further chest pain. She felt well enough yesterday to do some PT on her own without any limitation. Friday evening - again was awakened by chest tightness (central) and belching. She called the nurse - was ultimately given 2 SL nitros with modest relief. EMS was summoned - en route to [facility] she was given additional nitro. Belching continued upon arrival here, but has since then resolved. Chest tightness/discomfort also resolved. For dinner last night she had fried chicken - only had partial amount. Denies that in between the above 2 episodes she has symptoms otherwise. She feels like she is making slow progress w/ her rehab following her extensive 2 back surgeries in [place]. First surgery was on 12/22/[address] Rocha at [facility] -- L1-L5 laminectomy and L3-L4 fusion. 2nd surgery was on 12/29/[address] Rocha -- T1-T2 laminectomy/discectomy and T1-T3 fusion. Saw orthopedics at [facility] in f/u on 01/16/21. Records also indicate placement of IVC filter for her surgeries due to being off coumadin. Principal Diagnosis sepsis due to UTI Discharge Exam Constitutional: well developed and well nourished; no acute distress and no altered mental status looks better today ENMT: external ear and nose normal, oropharynx normal Respiratory: normal respiratory effort, lungs clear to auscultation Cardiovascular: Rate/Rhythm: regular rate and regular rhythm Heart Sounds: normal S1 and normal S2; no murmur Vessels: posterior tibial pulses present and dorsalis pedis pulses present; no JVD Extremities: + edema (1-2+ LLE (no change); trace RLE ) Gastrointestinal (Abdomen): normal bowel sounds, soft, nontender, no hepatosplenomegaly Musculoskeletal: left leg much larger than right leg- baseline - -due to extensive DVT in early November Neurologic: + focal motor deficit (LLE weakness unchanged - 2/5; RLE - 3-4/5 - no change) Psychiatric: A+Ox3, euthymic affect Discharge Data Allergies Allergy/AdvReac Type Severity Reaction Status Date / Time Sulfa (Sulfonamide Allergy Intermediate RASH/ITCH Verified 01/22/21 07:58 Antibiotics) acesulfame Allergy Mild Unknown Verified 01/22/21 07:58 aspartame Allergy Mild Unknown Verified 01/22/21 07:58 morphine Allergy Mild RASH/ITCH Verified 01/22/21 07:58 propoxyphene Allergy Mild RASH Verified 01/22/21 07:58 saccharin Allergy Mild Unknown Verified 01/22/21 07:58 sucralose Allergy Mild Unknown Verified 01/22/21 07:58 Consultations 01/22/21 07:50 ED Decision to Admit Stat 01/23/21 09:24 Consult Cardiology Routine Ordered Studies 01/22/21 19:43 CT chest diagnostic wo con Routine Hospital Course (1) Sepsis: 2nd UTI meets sepsis criteria based on vitals, leukocytosis, low-normal BPs, etc see UTI below still w/ fever today - obtained blood cx's, added vanco just in case this is enterococcus or MRSA in urine t-spine and l-spine incisions from recent surgeries have been WNL This is growing Proteus only resistant to fluoroquinolones. Will discharge the patient on augmentin for an additional 9 days. Umanzor catheter was replaced at discharge (2) Catheter-associated urinary tract infection: u/a highly suspicious for UTI. cx returned. Only resistant to FQ. gave rocephin initially, but she is at higher risk of hospital-acquired gram negative pathogens given recent hospitalization in [place] and umanzor catheter usage. cont cefepime; add vanco if this is enterococcus or MRSA: can be discharged, but is waiting placement and litter van. Also had fever yesterday. blood cx's x 2 today No fever in past 24 hours. (3) Chest pain: GERD vs pericardial vs ischemic. At time of admission - had had 2-3 nights of cp that awoke her from sleep. Following admission - no evidence of ACS - troponins neg x 4. echo w/o WMA. echo with small pericardial effusion, however. felt to have had either severe GERD +/- pericarditis given the high sed rate/crp and pericardial effusion. however, her pain resolved w/ nitro which would NOT support dx of pericarditis. she was placed on appropriate acid reducers for GERD symptoms then had recurrent cp relieved with nitro. spoke with Dr Stern - he advised starting imdur 30mg daily and monitoring. imdur started 01/24. since 01/24 no further chest pain either during the day or at night. cont PPI. cont carafate. colchicine 0.6mg BID for pericardial effusion as precautionary measure. will need repeat echo 1-2 weeks post-d/c appreciate Dr Stern' consult/recs (4) Pericardial effusion: as seen on echo and chest CT sed rate/crp quite high making pericarditis possible but clinical picture not entirely c/w pericarditis usdyy-fez-okvs colchicine BID remains cause of pericardial effusion? viral? autoimmune? other? needs close f/u post discharge - Dr Stern to see in clinic and repeat echo (5) Hypomagnesemia: level 1.3 at presentation, likely due to recent poor appetite. s/p repletion and now resolved. (6) Supratherapeutic INR: INR > 3 on 01/22. Coumadin dosing reduced from 4mg to 3mg daily at that time. will need to make frequent INR checks. (7) Anemia: 13.2 Hb about 1 month ago. 9.4 at admission. Hemoglobin stable. Suspect she had acute blood loss due to 2 major back surgeries in late November/early December at [facility]. Heme neg this admission (ER attending performed JESSE). Iron studies acceptable although transferrin sat is 9%. Consider Fe supplementation. B12/folate wnl. (8) Hypothyroidism: TSH wnl in 09/2020. Cont synthroid w/o changes. (9) Diabetes mellitus: a1c 6.1% in September 2020. check BSGs ac/hs. DM diet. glycemic control excellent while here. (10) Dyslipidemia: Cont pravastatin. (11) Hypertension: BPs now low-normal likely from her UTI/sepsis but remain acceptable. Lowered clonidine dose by half. Did not stop to avoid severe rebound. cont atenolol. HOLD VEENA. (12) Esophageal reflux: Her chart indicates h/o laryngopharyngeal reflux disease. Certainly GERD could have been the cause of her presenting chest pain. Cont PPI + Carafate. Belching/burping improved w/ these. 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 Significant LLE weakness with foot drop. Mild on right. Consider AFO devices. (14) Spinal stenosis: s/p lumbar back surgery 11/2020. s/p thoracic surgery 12/2020. Following [facility] admission was transferred to [facility] for rehab. Making slow progress. cont PT/OT. (15) Left leg DVT: Diagnosed in early November 2020. Cont coumadin 3mg daily. INR in am. see above. The left leg has been bigger than right leg since admission, and with mild edema - also unchanged. Gave reassurance to patient today that LLE is unchanged over the course of her stay. Diuretics likely not to be of huge benefit as it is DVT-related and she can't move the leg. Would be better to ultimately use compression sometime in the future. (16) S/P IVC filter: During -12/2020 hospital stay, [facility]. KUB x-ray confirms IVC filter. (17) Constipation: bowel regimen improved left message for pt's daughter this evening on voicemail; also left message for daughter yesterday on voicemail hopefully back to [facility] this Total Time Total Time Spent Total Time Spent (In Minutes): 32 Total Time Includes: Examination of the Patient, Discharge Planning and Medication Reconciliation Discharge Plan Discharge Items Patient Disposition: Transfer Nursing Home Fac Reason For Visit: CHEST PAIN Discharge Diagnosis: Chest pain Activity: Resume your previous activity Non-emergency contact: Primary Care Provider Call non-emergency contact if: you have any medication questions Follow-up/Referrals: Nilton Aly at [facility] [Primary Care Provider] - Diet: Carb Consistent or DM2 Addtl Attending Provider Instructions: Recommend to continue antibiotics for close to 9 days (18 doses) Will need to closely monitor her INR q2days to make sure her INR does not increase. INR goal is 2-3 You also will be on new medication for acid reflux: pantoprazole and sucralfate Pending Studies at Discharge: No Stand-Alone Forms: My [facility] Skilled Items Patient informed of condition?: Yes DNR: No Discharge Level of Care: Skilled Communicable Disease: No Discharge Prognosis: Stable Lines: None Urinary Catheter: No Medications and DC Order Prescriptions: New sucralfate 100 mg/mL Suspension 1 g PO QID 10 Days Qty: 400 RF: 0 isosorbide mononitrate 30 mg Tablet Extended Release 24 Hr 30 mg PO QAM Qty: 30 RF: 0 warfarin 3 mg Tablet 3 mg PO DAILY@1600 Qty: 30 RF: 0 pantoprazole 40 mg Tablet,Delayed Release (Dr/Ec) 40 mg PO QAM Qty: 30 RF: 0 amoxicillin-pot clavulanate [Augmentin] 875-125 mg Tablet 1 tab PO BIDM Qty: 18 RF: 0 Advanced Probiotic 625 mg (10 billion cell) Capsule 2 cap PO DAILY Qty: 20 RF: 0 colchicine [Colcrys] 0.6 mg Tablet 0.6 mg PO BID Qty: 60 RF: 0 Continued clonidine HCl 0.1 mg tablet 0.1 mg PO BID Qty: 180 RF: 1 pravastatin 10 mg tablet 10 mg PO HS Qty: 90 RF: 1 atenolol 25 mg tablet 25 mg PO DAILY Qty: 90 RF: 3 fluticasone propionate 50 mcg/actuation spray,suspension 2 spray INTNAS BID PRN (Reason: Nasal Congestion) RF: 0 cyanocobalamin (vitamin B-12) 500 mcg Tablet 500 mcg PO QAM RF: 0 multivitamin Tablet 1 tab PO QAM RF: 0 acetaminophen 325 mg Tablet 650 mg PO Q4H PRN (Reason: pain) Qty: 30 RF: 0 metformin 500 mg tablet 500 mg PO BIDM RF: 0 alendronate 70 mg tablet 70 mg PO MO RF: 0 sennosides [senna] 8.6 mg Tablet 8.6 mg PO DAILY PRN (Reason: Constipation) RF: 0 levothyroxine 25 mcg tablet 25 mcg PO QAM RF: 0 docusate sodium 100 mg Capsule 200 mg PO BID PRN (Reason: Constipation) RF: 0 gabapentin 300 mg capsule 300 mg PO HS PRN (Reason: spinal stenosis) RF: 0 gabapentin 300 mg capsule 300 mg PO TID RF: 0 oxycodone 5 mg Tablet 5 mg PO Q6H PRN (Reason: Pain (Scale Score 7-10)) RF: 0 diclofenac sodium 1 % gel 2 g TOPICAL Q12H PRN (Reason: Pain) RF: 0 Changed polyethylene glycol 3350 [Miralax] 17 gram Powder In Packet 17 g PO DAILY PRN (Reason: constipation) Qty: 0 RF: 0 Discontinued lisinopril 20 mg tablet 20 mg PO PM Qty: 90 RF: 3 amlodipine 2.5 mg tablet 2.5 mg PO Q12H PRN (Reason: Hypertension) RF: 0 warfarin 4 mg tablet 4 mg PO HS RF: 0 Discharge Orders: Discharge Order (Routine); Ordered 01/28/21 Ordered By: Danyel Madrigal Admission Data Admit Date/Time: 01/24/21 13:36 Attending Provider: Danyel Madrigal Admit Provider: Enrrique Romero Primary Care Provider: Nilton Aly [facility] Other Providers: Enrrique Romero ; Phu Stern ; Nilton Aly [facility] Other Interventions: Discharge Summary Assessment (RN) Last Done: 01/28/21 09:47 Coding Level of Care Code D/C Day Management >30 mins Diagnoses Sepsis A41.9 Catheter-associated urinary tract infection T83.511A; N39.0 Encounter type: initial encounter Indwelling urinary catheter type: indwelling urethral catheter Chest pain R07.9 Chest pain type: unspecified Pericardial effusion I31.3 Hypomagnesemia E83.42 Supratherapeutic INR R79.1 Anemia D64.9 Anemia type: unspecified type Hypothyroidism E03.9 Diabetes mellitus E11.9 Dyslipidemia E78.5 Hypertension I10 Esophageal reflux K21.9 Foot drop, bilateral M21.371; M21.372 Spinal stenosis M48.00 Left leg DVT I82.402 S/P IVC filter Z95.828 Constipation K59.00
--- NOTE | 2021-02-05 13:39 | Pharmacy Report ---
Pharmacy Vanc AUC Short Note - Date of Service January 26, 2021 - Assessment & Plan Assessment 80 year old F receiving Vancomycin empirically and cefepime for UTI. Pertinent microbiologic data includes: urine culture growing gram negative bacilli. Day # 2 of antimicrobial therapy. Plan Vancomycin * AUC/GILBERT is the preferred PK/PD target for vancomycin * AUC guided dosing is effective and associated with decreased risk of nephrotoxicity compared to traditional trough targets * Predicted Trough level of 18.1 mcg/mL is predicted to achieve target AUC/GILBERT of 400-600 mg/L.hr and may be associated with a 14 % risk of nephrotoxicity * Loading dose of 2000 mg IV X 1 at 1000 then 1000 mg IV every 12 hours starting @ 2200 * Trough or random level ordered for: Will order level is continued past the current 48 hour duration Pharmacy will continue to follow and will adjust dose/frequency as necessary. Thank you.
== END 2021-01-28 10:20 | DRG 698 ==
LOC: 2E 04:22 → ED 04:22 → 2E 08:59 → SUATTDRO 01-24 13:36

== ENCOUNTER 2021-11-18 13:03 | Observation (INO) ==
[2021-11-18] MEDS ORDERED: ONDANSETRON INJ 2 MG/ML 2 ML VIAL IV STA (13:11)
[2021-11-18] MEDS ORDERED: fentaNYL citrate 100 MCG/2 ML VIAL IV STA (13:11)
[2021-11-18] MEDS ORDERED: SODIUM CHLORIDE 0.9% 1000ML 1,000 ML IV ONE (13:11)
--- NOTE | 2021-11-18 13:15 | Emergency Department Note ---
Impression & Plan Abdominal pain, acute, left lower quadrant, Stercoral colitis, Colonic obstruction, Impaction of large intestine ED Provider Note Name: LALA BECKMAN Age: 81 Sex: F Arrives Via: Ambulance Informant: Patient, EMS ED Provider: Fredis Xavier MD Chief Complaint: Abdominal pain Impression: As per impressions above Medical Decision Makin-year-old female who is from local nursing facility for evaluation of abdominal pain. Patient with complex long medical history including multiple spinal surgeries, gait disturbance and neuro genic bladder with indwelling catheter. She also has diabetes hypothyroidism, hypertension, dyslipidemia, coronary artery calcifications, amongst all of her medical comorbidities. She is here for abdominal pain which is primarily in left lower quadrant. She is quite tender to palpation on exam. Due to abdominal pain and distention she was sent for CT which reveals diffuse colonic obstruction with stercoral colitis. I did a rectal exam and disimpacted a very large amount of stool which seems to have improved patient's discomfort some. She is still having some tenderness palpation of the left lower quadrant but not feel surgical indication is necessary at this time. Given the amount of inflammation in the amount of stool in her colon and age for further monitoring hospitalist was consulted for further evaluation and management. I will note that urine is quite dirty but this is from a chronic indwelling Neal in the setting of no current fever will defer antibiotic management to hospitalist. I will note the patient is not septic at this time. Prior Medical Record and Triage/Nursing Notes reviewed by Me Additional history obtained from chart Differentials:Appendicitis, infections, diverticulitis, UTI, obstruction, mesenteric ischemia, aortic pathology, inflammatory bowel disease, renal colic, PUD, pancreatitis, biliary pathology, hernia, volvulus, constipation, as well as other pathologies. Vital Signs: reviewed and remarkable for no significant abnormalities Interventions: Fentanyl 50 mcg IV, Zofran 4 mg IV, normal saline 1 L Labs:Reviewed and remarkable for mild wbc elevation. Imaging:CT abdomen pelvis as per radiologist as per below Consults:Jen Moralesist Plan: Disposition:Hospitalization. Condition: Good History of Present Illness: 81-year-old female arrives for evaluation of abdominal pain. Patient notes 2 days of increasing lower abdominal pain. Pain is primarily on the left lower quadrant. It is a sharp and stabbing in nature. Associated with nausea, vomiting, diarrhea and not feeling well. She states she has not eaten anything in the last 2 days due to the discomfort. She states her abdomen has been gradually getting bigger over the last 2 days as well. She denies any trauma, falls, injuries. Patient has an indwelling Neal which was changed a few days ago. She has a Neal for neurogenic bladder issues following multiple spinal surgeries last summer. She denies any recent falls, trauma, injuries. She denies any fevers, chills, chest pain, shortness of breath, back pain, headache, neck pain, leg swelling, rashes, bleeding/bruising, blood in stool, blood in vomit, urinary symptoms or any other symptoms or concerns. Took no medication prior to arrival. Nothing seems to make the abdominal pain better or worse. ROS: See above HPI for pertinent positives & negatives. A total of 10 systems reviewed and were otherwise negative. Past Medical History:See Below Past Surgical History:See Below Family History:See Below Social History:See Below Home Medications:See Below Allergies:See Below Vitals:Blood Pressure: 109/53, Pulse 66, RR 16, T 36.9C, O2 95% on RA Physical Exam: GENERAL: Patient is unwell and cachectic appearing and in moderate distress. EYES: No scleral icterus, unremarkable pupils. ENT: Mucous membranes moist, no nasal congestion. NECK: No masses appreciated, nomeningismus, trachea is midline. RESPIRATORY: No dyspnea. Clear to auscultation and equal bilaterally. No wheeze, no rhonchi. CARDIOVASCULAR: Regular rate and rhythm.No murmurs, rubs, gallops appreciated. GASTROINTESTINAL: Distended with hyperactive bowel sounds in LLQ, and TTP over LLQ. BACK: No midline tenderness, no CVA tenderness EXTREMITIES: Cachectic. Normal motion all extremities, no cyanosis, no edema. NEUROLOGIC: Alert and oriented, no acute motor or sensory deficits, no focal weakness, cranial nerves grossly intact. SKIN: No rash, no jaundice, no diaphoresis. PSYCH: Appropriate GCS: 15 ED Course: Times/Reassessments: Patient proved with pain management and then much improved when rectal disimpaction by me. Patient still has left lower quadrant tenderness palpation and in the setting of stercoral colitis hospitalist was consulted for further monitoring and management Fredis Xavier MD Past Med/Surg History Medical History Abnormal EKG Anxiety Arthralgia of multiple sites Conductive hearing loss of right ear with unrestricted hearing of left ear Coronary artery calcification Dairy allergy Diabetes mellitus, type 2 DMII (diabetes mellitus, type 2) Dyslipidemia Gait disturbance Hammer toe History of DVT (deep vein thrombosis) History of nasal polyp Hyperlipidemia Hypertension Hypertension Hypertrophy of nasal turbinates Hypothyroidism LAFB (left anterior fascicular block) Left leg DVT 11/2020 LVH (left ventricular hypertrophy) Microalbuminuria Nocturia Osteoarthritis Osteoporosis Urinary frequency Urinary incontinence Urinary symptom or sign Vitamin D deficiency disease Surgical History History of back surgery IN 1985 LUMBAR FOR 2 RUPTURED DISC History of blepharoplasty History of breast biopsy History of cataract surgery BILAT History of colonoscopy History of hand surgery RIGHT History of hip replacement BILAT. RIGHT HIP X2 History of hysterectomy History of knee replacement RIGHT History of lumbar laminectomy for spinal cord decompression 12/22/20 - [facility], Dr Rocha; L1-L5 History of nasal septoplasty History of placement of ear tubes RIGHT IN OFFICE History of rhinoplasty History of rotator cuff surgery LEFT History of tonsillectomy S/P fusion of thoracic spine T1-T3; 12[place]29/20[place] [facility] [place] S/P IVC filter 11/2020 [place] [facility] [place] L3-L4, [place] Rocha, [facility] [place]. 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 Required: No Beliefs That Will Affect Care: None marital status: / Current Living Situation: Personal Care Facility Current Living Situation Comment: [facility] current occupational status: retired How many Children do You have: 3 How many Children do You have Comment: 1 son ; 1 living son, 1 living daughter Other Information That Helps Us Care for You: No 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 [place] Feels Safe at Home: Yes Safety Concerns: Feels Safe At This Time Safety Concerns Comment: states she has to kittens to keep after her Childhood Exposure to Second-Hand Smoke: No during the past year weight has: decreased > 10 lbs Dental Care, Regularly: Yes Physical Activity Frequency: Does not Exercise Seatbelt Use: always Sunscreen Use: Yes Assistive Devices: Wheelchair Allergies Allergies Allergy/AdvReac Type Severity Reaction Status Date / Time Sulfa (Sulfonamide Allergy Intermediate RASH/ITCH Verified 11/18/21 13:52 Antibiotics) acesulfame Allergy Mild Unknown Verified 11/18/21 13:52 aspartame Allergy Mild Unknown Verified 11/18/21 13:52 morphine Allergy Mild RASH/ITCH Verified 11/18/21 13:52 propoxyphene Allergy Mild RASH Verified 11/18/21 13:52 saccharin Allergy Mild Unknown Verified 11/18/21 13:52 sucralose Allergy Mild Unknown Verified 11/18/21 13:52 Home Meds Home Medications Medication Instructions Recorded Confirmed cyanocobalamin (vitamin B-12) 500 500 mcg PO QAM 05/06/19 11/18/21 mcg tablet multivitamin 1 tab PO QAM 05/06/19 11/18/21 metformin 500 mg tablet 500 mg PO BID 12/20/20 11/18/21 diclofenac sodium 1 % topical gel 4 g TOPICAL TID 01/22/21 11/18/21 levothyroxine 25 mcg tablet 25 mcg PO QAM 01/22/21 11/18/21 oxycodone 5 mg tablet 5 mg PO Q6H PRN 01/22/21 11/18/21 apixaban 5 mg tablet (Eliquis) 5 mg PO BID 02/08/21 11/18/21 fluticasone propionate 50 2 spray INTNAS QAM g 02/08/21 11/18/21 mcg/actuation nasal spray,suspension L.acidop,casei,lactis,rham-B.lact,dee dee 2 cap PO QAM 11/18/21 11/18/21 625 mg (10 billion cell) capsule (Advanced Probiotic) atenolol 25 mg tablet 25 mg PO QAM 11/18/21 11/18/21 clonidine HCl 0.1 mg tablet 0.1 mg PO QAM 11/18/21 11/18/21 isosorbide mononitrate 30 mg 30 mg PO HS 11/18/21 11/18/21 tablet,extended release 24 hr Previous Rx's Medication Instructions Recorded acetaminophen 325 mg tablet 650 mg PO Q4H PRN #30 tab 10/25/20 pravastatin 10 mg tablet 10 mg PO HS #90 tab 11/07/20 pantoprazole 40 mg tablet,delayed 40 mg PO QAM #30 tab 01/28/21 release oxybutynin chloride 5 mg tablet 5 mg PO TID #270 tab 11/15/21 Results & Data (ED) Vital Signs Vital Signs - 24 hr 11/18/21 13:11 11/18/21 13:31 11/18/21 14:00 Temperature 36.5 C Temperature Source Oral Pulse Rate 66 67 64 Pulse Rate from SpO2 Sensor 64 Respiratory Rate 14 19 15 Respiratory Effort / Characteristics Non-Labored Spontaneous Respiratory Depth Normal Blood Pressure 169/81 H 132/74 137/64 Blood Pressure Mean 110 93 88 Pulse Oximetry 96 97 100 Oxygen Delivery Method Room Air Room Air Nasal Cannula Oxygen Flow Rate 2 Sepsis Recent Fever Within 48 Hours No Sepsis New/Unexplained Change in Mental Status N/A Sepsis Action Taken by Nursing No Action Required 11/18/21 14:47 11/18/21 15:00 11/18/21 15:30 Temperature Temperature Source Pulse Rate 66 63 Pulse Rate from SpO2 Sensor 67 65 64 Respiratory Rate 16 14 Respiratory Effort / Characteristics Respiratory Depth Blood Pressure 147/69 H 127/69 Blood Pressure Mean 95 88 Pulse Oximetry 100 100 100 Oxygen Delivery Method Oxygen Flow Rate Sepsis Recent Fever Within 48 Hours Sepsis New/Unexplained Change in Mental Status Sepsis Action Taken by Nursing 11/18/21 16:00 11/18/21 16:30 11/18/21 17:00 Temperature Temperature Source Pulse Rate 70 68 66 Pulse Rate from SpO2 Sensor 69 65 68 Respiratory Rate 17 15 21 Respiratory Effort / Characteristics Respiratory Depth Blood Pressure 103/81 105/62 Blood Pressure Mean 88 76 Pulse Oximetry 100 100 98 Oxygen Delivery Method Oxygen Flow Rate Sepsis Recent Fever Within 48 Hours Sepsis New/Unexplained Change in Mental Status Sepsis Action Taken by Nursing 11/18/21 17:02 Temperature Temperature Source Pulse Rate 68 Pulse Rate from SpO2 Sensor 69 Respiratory Rate 15 Respiratory Effort / Characteristics Respiratory Depth Blood Pressure 144/85 H Blood Pressure Mean 104 Pulse Oximetry 89 L Oxygen Delivery Method Oxygen Flow Rate Sepsis Recent Fever Within 48 Hours Sepsis New/Unexplained Change in Mental Status Sepsis Action Taken by Nursing Laboratory Data Result diagrams: 11/19/21 06:33 11/19/21 06:33 Lab Results 11/18/21 11/18/21 11/18/21 Range/Units 13:41 13:41 13:41 WBC 13.13 H (4.8-10.8) K/uL RBC 4.78 (4.2-5.4) M/uL Hgb 14.0 (12.0-16.0) g/dL Hct 41.8 (37-47) % MCV 87.4 (80-100) fL MCH 29.3 (25-34) pg MCHC 33.5 (32-36) g/dL RDW Std Deviation 44.4 (36.4-46.3) fL RDW Coeff of Efren 13.8 (11.5-14.5) % Plt Count 301 (130-400) K/uL MPV 10.5 H (7.4-10.4) fL Immature Gran % (Auto) 0.3 % Neut % (Auto) 82.1 % Lymph % (Auto) 10.2 % [place] % (Auto) 6.3 % Eos % (Auto) 1.0 % Baso % (Auto) 0.1 % Neut # (Auto) 10.78 H (1.4-6.5) K/uL Lymph # (Auto) 1.34 (1.2-3.4) K/uL [place] # (Auto) 0.83 H (0.11-0.59) K/uL Eos # (Auto) 0.13 (0-0.5) K/uL Baso # (Auto) 0.01 (0-0.2) K/uL Immature Gran # (Auto) 0.04 H (0.00-0.02) K/uL Sodium 134 L (136-145) mmol/L Potassium 3.9 (3.5-5.1) mmol/L Chloride 101 (98-107) mmol/L Carbon Dioxide 22 (21-32) mmol/L Anion Gap 11 (3-11) BUN 25 H (6-23) mg/dl Creatinine 0.67 (0.6-1.2) mg/dl Est Cr Clr Drug Dosing 78.4 ml/min Est GFR ( Amer) 96.2 ml/min Est GFR (Non-Af Amer) 83.0 ml/min BUN/Creatinine Ratio 37.3 H (10-20) Glucose 113 H (70-99(Fasting)) mg/dl Calcium 9.1 (8.5-10.1) mg/dl Total Bilirubin 0.5 (0.2-1.0) mg/dl Direct Bilirubin 0.1 (0-0.2) mg/dl AST 11 L (13-39) U/L ALT 8 (7-52) U/L Alkaline Phosphatase 72 (34-104) U/L Troponin I High Sens 5.9 (0-14) pg/ml Total Protein 6.5 (6.0-8.3) gm/dl Albumin 3.5 (3.4-5.0) gm/dl Lipase 9 L (11-82) U/L Procalcitonin 0.05 (0-0.5) ng/ml Urine Color Urine Appearance (Clear) Urine pH (4.5-7.5) Ur Specific [place] (1.000-1.030) Urine Protein (Negative) Urine Glucose (UA) (Negative) Urine Ketones (Negative) Urine Blood (Negative) Urine Nitrite (Negative) Urine Bilirubin (Negative) Urine Urobilinogen (Negative) Ur Leukocyte Esterase (Negative) Urine WBC (Auto) (0-5) /hpf Urine RBC (Auto) (0-4) /hpf U Hyaline Cast (Auto) (0-5) /lpf U Epithel Cells (Auto) (0-5) /lpf Urine Bacteria (Auto) (Negative) Triple Phos Crystals (None Prsent) Urine Yeast SARS-CoV-2, RNA, NAAT (NEGATIVE) 11/18/21 11/18/21 Range/Units 14:50 15:25 WBC (4.8-10.8) K/uL RBC (4.2-5.4) M/uL Hgb (12.0-16.0) g/dL Hct (37-47) % MCV (80-100) fL MCH (25-34) pg MCHC (32-36) g/dL RDW Std Deviation (36.4-46.3) fL RDW Coeff of Efren (11.5-14.5) % Plt Count (130-400) K/uL MPV (7.4-10.4) fL Immature Gran % (Auto) % Neut % (Auto) % Lymph % (Auto) % [place] % (Auto) % Eos % (Auto) % Baso % (Auto) % Neut # (Auto) (1.4-6.5) K/uL Lymph # (Auto) (1.2-3.4) K/uL [place] # (Auto) (0.11-0.59) K/uL Eos # (Auto) (0-0.5) K/uL Baso # (Auto) (0-0.2) K/uL Immature Gran # (Auto) (0.00-0.02) K/uL Sodium (136-145) mmol/L Potassium (3.5-5.1) mmol/L Chloride (98-107) mmol/L Carbon Dioxide (21-32) mmol/L Anion Gap (3-11) BUN (6-23) mg/dl Creatinine (0.6-1.2) mg/dl Est Cr Clr Drug Dosing ml/min Est GFR ( Amer) ml/min Est GFR (Non-Af Amer) ml/min BUN/Creatinine Ratio (10-20) Glucose (70-99(Fasting)) mg/dl Calcium (8.5-10.1) mg/dl Total Bilirubin (0.2-1.0) mg/dl Direct Bilirubin (0-0.2) mg/dl AST (13-39) U/L ALT (7-52) U/L Alkaline Phosphatase (34-104) U/L Troponin I High Sens (0-14) pg/ml Total Protein (6.0-8.3) gm/dl Albumin (3.4-5.0) gm/dl Lipase (11-82) U/L Procalcitonin (0-0.5) ng/ml Urine Color Yellow Urine Appearance Turbid A (Clear) Urine pH >= 9.0 H (4.5-7.5) Ur Specific [place] 1.027 (1.000-1.030) Urine Protein 2+ H (Negative) Urine Glucose (UA) Negative (Negative) Urine Ketones Negative (Negative) Urine Blood 3+ H (Negative) Urine Nitrite Positive A (Negative) Urine Bilirubin Negative (Negative) Urine Urobilinogen Negative (Negative) Ur Leukocyte Esterase 3+ H (Negative) Urine WBC (Auto) >30 H (0-5) /hpf Urine RBC (Auto) >30 H (0-4) /hpf U Hyaline Cast (Auto) 1-5 (0-5) /lpf U Epithel Cells (Auto) 20-30 H (0-5) /lpf Urine Bacteria (Auto) 2+ H (Negative) Triple Phos Crystals Present A (None Prsent) Urine Yeast Not Reportable SARS-CoV-2, RNA, NAAT NEGATIVE (NEGATIVE) Administered Medications Apixaban (Apixaban 5 Mg Tablet) 5 mg PO BID [facility] Stop: 12/18/21 20:59 Last Admin: 11/19/21 09:43 Dose: 5 mg Documented by: [id number] Admin: 11/18/21 20:44 Dose: 5 mg Documented by: [id number] Atenolol (Atenolol 25 Mg Tablet) 25 mg PO QAM [facility] Stop: 12/19/21 08:59 Last Admin: 11/19/21 09:44 Dose: 25 mg Documented by: [id number] Cyanocobalamin (Cyanocobalamin (B-12) 500 Mcg Tablet) 500 mcg PO QAM [facility] Stop: 12/19/21 08:59 Last Admin: 11/19/21 09:44 Dose: 500 mcg Documented by: [id number] Ceftriaxone Sodium 1,000 mg/ (Dextrose) 50 mls @ 100 mls/hr IV Q24H [facility]; Protocol Stop: 11/28/21 17:14 Last Infusion: 11/18/21 18:33 Dose: 0 mls/hr Documented by: [id number] Admin: 11/18/21 17:46 Dose: 100 mls/hr Documented by: [id number] Insulin Aspart (Insulin Aspart Per Unit) 0 units SC ACHS [facility] Stop: 12/18/21 20:59 Last Admin: 11/19/21 09:20 Dose: Not Given Documented by: [id number] Admin: 11/18/21 20:47 Dose: Not Given Documented by: [id number] Insulin Glargine (Insulin Glargine Solostar 100 Units/Ml 3 Ml Pen) 5 units SC BID [facility] Stop: 12/18/21 20:59 Last Admin: 11/19/21 09:44 Dose: 5 units Documented by: [id number] Cosigned by: [id number] Admin: 11/18/21 20:48 Dose: 5 units Documented by: [id number] Cosigned by: [id number] Isosorbide Mononitrate (Isosorbide [place] Extended Rel 30 Mg Tabcr) 30 mg PO HS [facility] Stop: 12/18/21 20:59 Last Admin: 11/18/21 20:44 Dose: 30 mg Documented by: [id number] Lactobacillus Acidophilus (Advanced Probiotic 1250 Mg Capsule) 2 cap PO QAM VERONICA Stop: 12/19/21 08:59 Last Admin: 11/19/21 09:43 Dose: 2 cap Documented by: [id number] Levothyroxine Sodium (Levothyroxine Sodium 25 Mcg Tablet) 25 mcg PO DAILYBB [facility] Stop: 12/19/21 06:29 Last Admin: 11/19/21 05:53 Dose: 25 mcg Documented by: [id number] Oxybutynin Chloride (Oxybutynin Chloride 5 Mg Tab) 5 mg PO TID VERONICA Stop: 12/18/21 20:59 Last Admin: 11/19/21 09:43 Dose: 5 mg Documented by: [id number] Admin: 11/18/21 20:44 Dose: 5 mg Documented by: [id number] Pantoprazole Sodium (Pantoprazole 40 Mg Tab) 40 mg PO QAM [facility] Stop: 12/19/21 08:59 Last Admin: 11/19/21 09:43 Dose: 40 mg Documented by: [id number] Polyethylene Glycol (Polyethylene (Miralax) 17 Gm Pack) 17 gm PO Q8H VERONICA Stop: 12/18/21 20:59 Last Admin: 11/19/21 05:25 Dose: 17 gm Documented by: [id number] Admin: 11/18/21 20:42 Dose: 17 gm Documented by: [id number] Pravastatin Sodium (Pravastatin Sod 10 Mg Tab) 10 mg PO HS [facility] Stop: 12/18/21 20:59 Last Admin: 11/18/21 20:41 Dose: 10 mg Documented by: [id number] Discontinued Medications Fentanyl Citrate (Fentanyl Citrate 100 Mcg/2 Ml Vial) 50 mcg IV NOW STA Stop: 11/18/21 13:12 Last Admin: 11/18/21 13:47 Dose: 50 mcg Documented by: [id number] Sodium Chloride (Nss 1000ml) 1,000 mls @ 999 mls/hr IV .Q1H1M ONE Stop: 11/18/21 14:11 Last Infusion: 11/18/21 14:53 Dose: 0 mls/hr Documented by: [id number] Admin: 11/18/21 13:47 Dose: 999 mls/hr Documented by: [id number] Ioversol (Optiray 320 125ml) 93 ml IV ONCE ONE Stop: 11/18/21 14:36 Last Admin: 11/18/21 14:37 Dose: 93 ml Documented by: [id number] Miscellaneous Information (Dc All Previously Ordered Diabetes Meds) 1 ea N/A ONE ONE Stop: 11/18/21 18:39 Last Admin: 11/18/21 20:38 Dose: 1 ea Documented by: [id number] Ondansetron HCl (Ondansetron Inj 2 Mg/Ml 2 Ml Vial) 4 mg IV NOW STA Stop: 11/18/21 13:12 Last Admin: 11/18/21 13:47 Dose: 4 mg Documented by: [id number] Discharge Plan Visit Data Chief Complaint: GI Assessment ED Provider: Fredis Xavier Discharge Problem: Abdominal pain, acute, left lower quadrant, Stercoral colitis, Colonic obstruction, Impaction of large intestine Patient Disposition: Admitted As Inpatient Discharge Instructions Interventions: ED Discharge Assessment Last Done: 11/18/21 18:04
[2021-11-18 13:56] LABS: Basophils # (auto) 0.01 K/uL (0-0.2); Basophils % (auto) 0.1 %; Eosinophils # (auto) 0.13 K/uL (0-0.5); Hematocrit (blood only) 41.8 % (37-47); Immature Granulocytes # (auto) 0.04 K/uL (0.00-0.02); Immature Granulocytes % (auto) 0.3 %; Lymphocytes # (auto) 1.34 K/uL (1.2-3.4); Lymphocytes % (auto) 10.2 %; Mean Corpuscular Hemoglobin 29.3 pg (25-34); Mean Corpuscular Hgb Conc 33.5 g/dL (32-36); Mean Corpuscular Volume 87.4 fL (80-100); Mean Platelet Volume 10.5 fL (7.4-10.4); Monocytes # (auto) 0.83 K/uL (0.11-0.59); Monocytes % (auto) 6.3 %; Neutrophils # (auto) 10.78 K/uL (1.4-6.5); Neutrophils % (auto) 82.1 %; Platelet Count 301 K/uL (130-400); RDW Coefficient of Variation 13.8 % (11.5-14.5); RDW Standard Deviation 44.4 fL (36.4-46.3); Red Blood Count 4.78 M/uL (4.2-5.4); White Blood Count 13.13 K/uL (4.8-10.8)
[2021-11-18 14:18] LABS: Troponin I High Sensitivity 5.9 pg/ml (0-14)
[2021-11-18 14:22] LABS: Albumin Level 3.5 gm/dl (3.4-5.0); BUN Creatinine Ratio 37.3 (10-20); Bilirubin Direct 0.1 mg/dl (0-0.2); Bilirubin,Total 0.5 mg/dl (0.2-1.0); Calcium 9.1 mg/dl (8.5-10.1); Creatinine Clr Calc Pharmacy 78.4 ml/min; Est GFR (African American) 96.2 ml/min; Potassium 3.9 mmol/L (3.5-5.1); Total Protein 6.5 gm/dl (6.0-8.3)
[2021-11-18] MEDS ORDERED: OPTIRAY 320 125ml IV ONE (14:35)
[2021-11-18 15:03] LABS: Appearance Urine Turbid (Clear); Bacteria Urine Automated 2+ (Negative); Bilirubin Urine Negative (Negative); Blood Urine 3+ (Negative); Color Urine Yellow; Epithelial Cell Urine Auto 20-30 /lpf (0-5); Glucose Urine UA Negative (Negative); Ketones Urine Negative (Negative); Leukocyte Esterase Urine 3+ (Negative); Nitrite Urine Positive (Negative); RBC Urine Automated >30 /hpf (0-4); Specific Gravity Urine 1.027 (1.000-1.030); Urobilinogen Urine Negative (Negative); WBC Urine Automated >30 /hpf (0-5); pH Urine >= 9.0 (4.5-7.5)
--- NOTE | 2021-11-18 15:06 | CT Scan Report ---
CT OF THE ABDOMEN AND PELVIS WITH CONTRAST CLINICAL HISTORY: Left lower quadrant abdominal pain. COMPARISON STUDY: CT of the pelvis October 21, 2020. CT of the abdomen and pelvis May 04, 2014. TECHNIQUE: Following IV administration of 93 mL of Optiray, axial images of the abdomen and pelvis we re obtained from the lung bases to the proximal femurs. Images were reviewed in the axial, sagittal, and coronal planes. IV contrast was administered without complication. Automated exposure control wa s utilized for the study. A dose lowering technique was utilized adhering to the principles of ALARA . CT DOSE: 740.84 mGy.cm FINDINGS: Visualized portions of the lower chest demonstrate cardiomegaly and small left and trace ri ght pleural effusions. There is a small pericardial effusion. No pneumatosis, free air or portal veno us gas is present. A densely calcified 4.5 cm splenic lesion is unchanged since CT of May 04, 2014 . This is benign. No biliary ductal dilatation is present. A prominent main pancreatic duct remains u nchanged. No peripancreatic infiltration. A 2.1 cm left adrenal nodule is unchanged. The right adrenal gland is unremarkable. Moderate left and mild right renal cortical thinning is present. There is no hydroneph rosis. A small amount of abdominal and pelvic ascites is noted. Note is made of a large amount of sto ol within the rectum suggestive of fecal impaction. Transverse diameter of the rectum is 8.8 cm. Ther e is a moderate amount of stool within the sigmoid colon. Poorly formed stool within the right colon is noted. The colon is distended. The ascending colon measures 9.8 cm in transverse diameter. Infilt ration adjacent to the rectum and sigmoid colon may reflect stercoral colitis. There is no free air. Neal balloon within the bladder is noted. Images of the pelvis are degraded by shift artifact from b ilateral hip arthroplasties. There is no lymphadenopathy. No evidence for a small bowel obstruction. No acute fracture or suspicious lesion within the visualized skeletal structures. The appendix is nor mal. IMPRESSION: 1. Large amount of stool within the rectum and distal sigmoid colon suggestive of fecal impaction. Ad jacent stranding and fluid may reflect stercoral colitis. No free air. The stool results in colonic d ilatation suggestive of a colonic obstruction. 2. Small left and trace right pleural effusions. Small pericardial effusion. ACT 112: Negative or not required by law. Electronically signed by: Rajeev Beth M.D. 11/18/2021 3:05 PM
[2021-11-18 15:08] LABS: Protein Urine 2+ (Negative)
[2021-11-18 15:17] LABS: Triple Phosphate Crystal Urine Present (None Prsent)
--- NOTE | 2021-11-18 16:48 | History & Physical Report ---
Date of Service November 18, 2021 Assessment & Plan (1) Impaction of colon: (2) Constipation: Plan: Patient with abdominal pain, N/V/D secondary to fecal impaction and severe constipation. Partially disimpacted in the ED. Admit for observation to continue bowel regimen and ensure improvement in abdominal pain. Recommend Milk of Molasses enema now. Miralax Q8 h until bowels are moving well Glycerine suppository daily PRN. Continue to monitor. Hold Miralax for loose stools Encourage PO intake of fluids Recheck labs in AM (3) Catheter-associated urinary tract infection: (4) Neurogenic bladder: Plan: Recommended nursing change Umanzor and obtain new/fresh urine specimen for UA and culture Start Ceftriaxone pending culture WBC count 13k with bandemia, so possibly Catheter associated UTI Monitor I&Os (5) Spinal stenosis: (6) Gait disturbance: Plan: Patient with chronic gait abnormality secondary to spinal stenosis, history of back surgery, etc. Chronic left sided LE weakness per patient. Recommend PT/OT. Fall precautions. (7) Hypothyroidism: Plan: Continue levothyroxine (8) Diabetes mellitus: Plan: Hold metformin Insulin sliding scale DM Diet (9) History of DVT (deep vein thrombosis): (10) DVT prophylaxis: Plan: Continue Eliquis History of Present Illness Chief Complaint: Constipation, abdominal pain Primary Care Provider: Lacey Ribera MD Patient is an 81 yo female who presented to the ED with abdominal pain and diarrhea x 2 days. She has PMHx of DM type 2, hypothyroidism, dyslipidemia, pericardial effusion, HTN, DVT, neurogenic bladder with chronic indwelling umanzor, chronic anticoag with Eliquis, spinal stenosis with back surgery x 2 last year and progressive left sided weakness since then. She notes that she has problems getting to the bathroom at [facility] because they are understaffed. She will sometimes wait 2-3 hours for someone to come help her onto the bed byrd. She has recently not had a good bowel regimen either. Her appetite has been poor, and she has been nauseated with some vomiting since Friday. No vomiting at this time. She had CT of the abd/pelvis which showed large stool burden, stercoral colitis, and colonic obstruction. She was disimpacted in the ED by Dr. Xavier, and she continues to have distention and pain in her abdomen. She did have some relief. She otherwise also has indwelling Umanzor which she notes has been at times covered in stool. She does have history of recurrent UTIs. Umanzor was replaced by Urology outpatient last week. UA is very dirty collected from Umanzor- will request new sample from fresh catheter. Allergies Allergy/AdvReac Type Severity Reaction Status Date / Time Sulfa (Sulfonamide Allergy Intermediate RASH/ITCH Verified 11/18/21 13:52 Antibiotics) acesulfame Allergy Mild Unknown Verified 11/18/21 13:52 aspartame Allergy Mild Unknown Verified 11/18/21 13:52 morphine Allergy Mild RASH/ITCH Verified 11/18/21 13:52 propoxyphene Allergy Mild RASH Verified 11/18/21 13:52 saccharin Allergy Mild Unknown Verified 11/18/21 13:52 sucralose Allergy Mild Unknown Verified 11/18/21 13:52 Home Medications Medication Instructions Recorded Confirmed Type cyanocobalamin (vitamin B-12) 500 500 mcg PO QAM 05/06/19 11/18/21 History mcg tablet multivitamin 1 tab PO QAM 05/06/19 11/18/21 History acetaminophen 325 mg tablet 650 mg PO Q4H PRN #30 tab 10/25/20 11/18/21 Rx pravastatin 10 mg tablet 10 mg PO HS #90 tab 11/07/20 11/18/21 Rx metformin 500 mg tablet 500 mg PO BID 12/20/20 11/18/21 History diclofenac sodium 1 % topical gel 4 g TOPICAL TID 01/22/21 11/18/21 History levothyroxine 25 mcg tablet 25 mcg PO QAM 01/22/21 11/18/21 History oxycodone 5 mg tablet 5 mg PO Q6H PRN 01/22/21 11/18/21 History pantoprazole 40 mg tablet,delayed 40 mg PO QAM #30 tab 01/28/21 11/18/21 Rx release apixaban 5 mg tablet (Eliquis) 5 mg PO BID 02/08/21 11/18/21 History fluticasone propionate 50 2 spray INTNAS QAM g 02/08/21 11/18/21 History mcg/actuation nasal spray,suspension oxybutynin chloride 5 mg tablet 5 mg PO TID #270 tab 11/15/21 11/18/21 Rx L.acidop,casei,lactis,rham-B.lact,dee dee 2 cap PO QAM 11/18/21 11/18/21 History 625 mg (10 billion cell) capsule (Advanced Probiotic) atenolol 25 mg tablet 25 mg PO QAM 11/18/21 11/18/21 History clonidine HCl 0.1 mg tablet 0.1 mg PO QAM 11/18/21 11/18/21 History isosorbide mononitrate 30 mg 30 mg PO HS 11/18/21 11/18/21 History tablet,extended release 24 hr Past Med/Surg History Medical History Abnormal EKG Anxiety Arthralgia of multiple sites Conductive hearing loss of right ear with unrestricted hearing of left ear Coronary artery calcification Dairy allergy Diabetes mellitus, type 2 DMII (diabetes mellitus, type 2) Dyslipidemia Gait disturbance Hammer toe History of DVT (deep vein thrombosis) History of nasal polyp Hyperlipidemia Hypertension Hypertension Hypertrophy of nasal turbinates Hypothyroidism LAFB (left anterior fascicular block) Left leg DVT 11/2020 LVH (left ventricular hypertrophy) Microalbuminuria Nocturia Osteoarthritis Osteoporosis Urinary frequency Urinary incontinence Urinary symptom or sign Vitamin D deficiency disease Surgical History History of back surgery IN 1985 LUMBAR FOR 2 RUPTURED DISC History of blepharoplasty History of breast biopsy History of cataract surgery BILAT History of colonoscopy History of hand surgery RIGHT History of hip replacement BILAT. RIGHT HIP X2 History of hysterectomy History of knee replacement RIGHT History of lumbar laminectomy for spinal cord decompression 12/22/20 - [facility], Dr Rocha; L1-L5 History of nasal septoplasty History of placement of ear tubes RIGHT IN OFFICE History of rhinoplasty History of rotator cuff surgery LEFT History of tonsillectomy S/P fusion of thoracic spine T1-T3; [place] [facility] [place]P IVC filter [place] [facility] [place] L3-L4, [place] Rocha, [facility] [place]. Family History Mother , age 69 Coronary heart disease s/p CABG Heart disease Grandmother (Maternal) Heart disease heart attacks Son Diabetes Heart disease age 47 from cardiac arrest Father , in his 80s Rheumatoid arthritis Denies family history of Ovarian cancer Prostate cancer Breast cancer Colorectal cancer Cancer Social History Smoking Status: Never smoker Second Hand Exposure: Yes; Hx Alcohol Use: No Hx Substance Use: No Preferred Language: Belarusian Communication Ability: Effective [employer] Required: No Beliefs That Will Affect Care: None marital status: / Current Living Situation: Personal Care Facility Current Living Situation Comment: [facility] current occupational status: retired How many Children do You have: 3 How many Children do You have Comment: 1 son ; 1 living son, 1 living daughter 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 [place] Feels Safe at Home: Yes Safety Concerns Comment: states she has to kittens to keep after her Childhood Exposure to Second-Hand Smoke: No during the past year weight has: decreased > 10 lbs Dental Care, Regularly: Yes Physical Activity Frequency: Does not Exercise Seatbelt Use: always Sunscreen Use: Yes Assistive Devices: None Review of Systems Review of Systems: All systems reviewed & are unremarkable except as noted in HPI & below Physical Exam Constitutional: well developed and well nourished; no acute distress and no altered mental status Eyes: PERRL, conjunctivae normal, anicteric sclerae ENMT: external ear and nose normal, oropharynx normal Neck: trachea midline, no thyromegaly Respiratory: normal respiratory effort, lungs clear to auscultation Cardiovascular: RRR, no murmur, no edema Gastrointestinal (Abdomen): Inspection/Auscultation: + abdomen distended and + high-pitched sounds; no abdominal wall ecchymosis Percussion/Palpation: + abdomen tender (Mild generalized) and abdomen soft; no guarding and abdomen not rigid Musculoskeletal: Extremities: extremities normal to inspection Skin: no rashes, warm and dry Neurologic: PERRL, EOMI, accommodation nl, no face palsy, no dysarthria Psychiatric: A+Ox3, euthymic affect Results & Data Results & Data ([facility]) Vital Signs (Past 12 Hours) Vital Signs Temp Pulse Resp BP Pulse Ox 11/18/21 15:00 66 16 147/69 H 100 11/18/21 14:47 100 11/18/21 14:00 64 15 137/64 100 11/18/21 13:31 67 19 132/74 97 11/18/21 13:11 36.5 C 66 14 169/81 H 96 Laboratory Results Laboratory Results - last 24 hr 11/18/21 11/18/21 11/18/21 13:41 13:41 13:41 WBC 13.13 H RBC 4.78 Hgb 14.0 Hct 41.8 MCV 87.4 MCH 29.3 MCHC 33.5 RDW Std Deviation 44.4 RDW Coeff of Efren 13.8 Plt Count 301 MPV 10.5 H Immature Gran % (Auto) 0.3 Neut % (Auto) 82.1 Lymph % (Auto) 10.2 Andrew % (Auto) 6.3 Eos % (Auto) 1.0 Baso % (Auto) 0.1 Neut # (Auto) 10.78 H Lymph # (Auto) 1.34 Andrew # (Auto) 0.83 H Eos # (Auto) 0.13 Baso # (Auto) 0.01 Immature Gran # (Auto) 0.04 H Sodium 134 L Potassium 3.9 Chloride 101 Carbon Dioxide 22 Anion Gap 11 BUN 25 H Creatinine 0.67 Est Cr Clr Drug Dosing 78.4 Est GFR ( Amer) 96.2 Est GFR (Non-Af Amer) 83.0 BUN/Creatinine Ratio 37.3 H Glucose 113 H Calcium 9.1 Total Bilirubin 0.5 Direct Bilirubin 0.1 AST 11 L ALT 8 Alkaline Phosphatase 72 Troponin I High Sens 5.9 Total Protein 6.5 Albumin 3.5 Lipase 9 L Procalcitonin 0.05 Urine Color Urine Appearance Urine pH Ur Specific [place] Urine Protein Urine Glucose (UA) Urine Ketones Urine Blood Urine Nitrite Urine Bilirubin Urine Urobilinogen Ur Leukocyte Esterase Urine WBC (Auto) Urine RBC (Auto) U Hyaline Cast (Auto) U Epithel Cells (Auto) Urine Bacteria (Auto) Triple Phos Crystals Urine Yeast SARS-CoV-2, RNA, NAAT 11/18/21 11/18/21 14:50 15:25 WBC RBC Hgb Hct MCV MCH MCHC RDW Std Deviation RDW Coeff of Efren Plt Count MPV Immature Gran % (Auto) Neut % (Auto) Lymph % (Auto) Andrew % (Auto) Eos % (Auto) Baso % (Auto) Neut # (Auto) Lymph # (Auto) Andrew # (Auto) Eos # (Auto) Baso # (Auto) Immature Gran # (Auto) Sodium Potassium Chloride Carbon Dioxide Anion Gap BUN Creatinine Est Cr Clr Drug Dosing Est GFR ( Amer) Est GFR (Non-Af Amer) BUN/Creatinine Ratio Glucose Calcium Total Bilirubin Direct Bilirubin AST ALT Alkaline Phosphatase Troponin I High Sens Total Protein Albumin Lipase Procalcitonin Urine Color Yellow Urine Appearance Turbid A Urine pH >= 9.0 H Ur Specific [place] 1.027 Urine Protein 2+ H Urine Glucose (UA) Negative Urine Ketones Negative Urine Blood 3+ H Urine Nitrite Positive A Urine Bilirubin Negative Urine Urobilinogen Negative Ur Leukocyte Esterase 3+ H Urine WBC (Auto) >30 H Urine RBC (Auto) >30 H U Hyaline Cast (Auto) 1-5 U Epithel Cells (Auto) 20-30 H Urine Bacteria (Auto) 2+ H Triple Phos Crystals Present A Urine Yeast Not Reportable SARS-CoV-2, RNA, NAAT NEGATIVE Diagnostic Findings CT ABD/PELVIS: IMPRESSION: 1. Large amount of stool within the rectum and distal sigmoid colon suggestive of fecal impaction. Adjacent stranding and fluid may reflect stercoral colitis. No free air. The stool results in colonic dilatation suggestive of a colonic obstruction. 2. Small left and trace right pleural effusions. Small pericardial effusion. Supervising Physician Co-Signing Physician Notes I have seen and examined the patient and have discussed the case with the provider above. I agree with the assessment and plan as stated with the following exceptions. 81 yo bedbound female in a personal usp presents to the ER after bloating and generalized abdominal discomfort since Friday. She blames a poor response rate for bedpan requests as the reason for her constipation which is significant. Additionally, she had a umanzor catheter excha nge performed by her Urologist last week and reports this not feeling right from the moment it was placed. She has had leakage and other issues since placement. She denies consistent narcotic use, and feels better after disimpaction followed by BM in the ER already. Physical exam reveals a WNWD female in NAD with a protuberant abdomen. Hyperactive bowel sounds noted and abdomen is soft, NT and ND but is protuberant. Lungs are CTA throughout and cardiac exam is unremarkable. She has leg weakness L>R which is chronic for her and unchanged. She is alert and oriented x 3. Although she is documented as 89%, doubt hypoxia as wave form was consistently inaccurate. When I checked her she was 100% on 2LPM NC.. She is not on home oxygen. Workup today includes CT a/p with IV contrast and fecal impaction seen with some adjacent stranding of fluid. WBC 13K, CMP WNL and procal is negative. Although UA appears infected, this was from a catheter placed last week that had become foul. A new umanzor was placed and a new UA specimen was drawn from this per standard guidelines. 81 yo F with fecal impaction and possible CAUTI presents with abdominal bloating. Agree with plan for enema on floor, laxative scheduled until moving her bowels more regularly, and PRN suppository. Plan for diet as tolerated. Rocephin pending culture results. DO Anthony (1) Catheter-associated urinary tract infection Encounter type: initial encounter Indwelling urinary catheter type: indwelling urethral catheter Qualified Code(s): T83.511A - Infection and inflammatory reaction due to indwelling urethral catheter, initial encounter; N39.0 - Urinary tract infection, site not specified
[2021-11-18] MEDS: cefTRIAXone SODIUM 1,000 MG in DEXTROSE 5% 50 ML IV SCH (17:46)
[2021-11-18 17:48] LABS: Appearance Urine Turbid (Clear); Bilirubin Urine Negative (Negative); Blood Urine 3+ (Negative); Color Urine Yellow; Epithelial Cell Urine Auto 20-30 /lpf (0-5); Glucose Urine UA Negative (Negative); Ketones Urine Negative (Negative); Leukocyte Esterase Urine 2+ (Negative); Nitrite Urine Negative (Negative); Protein Urine 2+ (Negative); RBC Urine Automated >30 /hpf (0-4); Specific Gravity Urine > 1.045 (1.000-1.030); Urobilinogen Urine Negative (Negative); WBC Urine Automated >30 /hpf (0-5); pH Urine 5.5 (4.5-7.5)
[2021-11-18 17:58] LABS: Bacteria Urine Automated 1+ (Negative); Cast Urine Automated 0 /lpf (0-5)
[2021-11-18] MEDS ORDERED: DC ALL PREVIOUSLY ORDERED DIABETES MEDS ONE (18:38)
[2021-11-18] MEDS ORDERED: GLUCOSE 10 TABS/TUBE PO PRN (18:38)
[2021-11-18] MEDS ORDERED: ACETAMINOPHEN 325 MG TAB PO PRN (18:38)
[2021-11-18] MEDS ORDERED: ONDANSETRON INJ 2 MG/ML 2 ML VIAL IV PRN (18:38)
[2021-11-18] MEDS ORDERED: CARBOHYDRATES FOR HYPOGLYCEMIA PO PRN (18:38)
[2021-11-18] MEDS ORDERED: DEXTROSE 50% 50 ML SYRINGE IV PRN (18:38)
[2021-11-18] MEDS ORDERED: GLYCERIN ADULT 12 SUPP/BOX SUPP PR PRN (18:38)
[2021-11-18] MEDS ORDERED: GLUCOSE 40% GEL 15 GM TUBE PO PRN (18:38)
[2021-11-18] MEDS ORDERED: GLUCAGON FOR INJ 1 MG VIAL SQ PRN (18:38)
[2021-11-18] MEDS: PRAVASTATIN SOD 10 MG TAB PO SCH (20:41)
[2021-11-18] MEDS: POLYETHYLENE (MIRALAX) 17 GM PACK PO SCH (20:42)
[2021-11-18] MEDS: APIXABAN 5 MG TABLET PO SCH (20:44)
[2021-11-18] MEDS: OXYBUTYNIN CHLORIDE 5 MG TAB PO SCH (20:44)
[2021-11-18] MEDS: ISOSORBIDE MONO EXTENDED REL 30 MG TABCR PO SCH (20:44)
[2021-11-18] MEDS: INSULIN ASPART PER UNIT SC SCH (20:47)
[2021-11-18] MEDS: INSULIN GLARGINE SOLOSTAR 100 UNITS/ML 3 ML PEN SC SCH (20:48)
[2021-11-19] MEDS: POLYETHYLENE (MIRALAX) 17 GM PACK PO SCH ×3 (05:25→22:12)
[2021-11-19] MEDS: LEVOTHYROXINE SODIUM 25 MCG TABLET PO SCH (05:53)
[2021-11-19 06:59] LABS: Basophils # (auto) 0.02 K/uL (0-0.2); Basophils % (auto) 0.2 %; Eosinophils # (auto) 0.29 K/uL (0-0.5); Eosinophils % (auto) 3.2 %; Hematocrit (blood only) 36.9 % (37-47); Hemoglobin 11.8 g/dL (12.0-16.0); Immature Granulocytes # (auto) 0.03 K/uL (0.00-0.02); Immature Granulocytes % (auto) 0.3 %; Lymphocytes % (auto) 17.6 %; Mean Corpuscular Hemoglobin 28.9 pg (25-34); Mean Corpuscular Volume 90.2 fL (80-100); Mean Platelet Volume 10.1 fL (7.4-10.4); Monocytes % (auto) 9.9 %; Neutrophils # (auto) 6.27 K/uL (1.4-6.5); Neutrophils % (auto) 68.8 %; Platelet Count 309 K/uL (130-400); RDW Standard Deviation 46.2 fL (36.4-46.3); Red Blood Count 4.09 M/uL (4.2-5.4); White Blood Count 9.11 K/uL (4.8-10.8)
[2021-11-19 07:12] LABS: Albumin Globulin Ratio 1.3 (0.9-2); BUN Creatinine Ratio 31.1 (10-20); Bilirubin,Total 0.4 mg/dl (0.2-1.0); Calcium 8.2 mg/dl (8.5-10.1); Creatinine Clr Calc Pharmacy 63.4 ml/min; Est GFR (African American) 88.7 ml/min; Est GFR (Non-African American) 76.5 ml/min; Globulin 2.4 gm/dl (2.5-4.0); Potassium 3.9 mmol/L (3.5-5.1); Total Protein 5.4 gm/dl (6.0-8.3)
[2021-11-19] MEDS ORDERED: cloNIDine HCL 0.1 MG TAB PO SCH (09:00)
[2021-11-19] MEDS: INSULIN ASPART PER UNIT SC SCH ×4 (09:20→22:09)
--- NOTE | 2021-11-19 09:28 | XRay Report ---
KUB CLINICAL HISTORY: constipation COMPARISON STUDY: CT of the abdomen and pelvis November 18, 2021. FINDINGS: Bilateral hip arthroplasties are incidentally noted. A calcified lesion within the spleen i s unchanged since CT of May 04, 2014. This is benign. Moderate distention of the colon is similar to CT of November 18, 2021. The ascending colon measures 10.4 cm in caliber. Amount of stool within the rectum has decreased. There is a moderate amount of poorly formed stool throughout the colon and rect um. IMPRESSION: 1. Interval decrease in amount of stool within the rectum. Moderate amount of residual poorly formed stool within the colon and rectum. 2. Persistent moderate colonic dilatation. ACT 112: Negative or not required by law. Electronically signed by: Rajeev Beth M.D. 11/19/2021 9:27 AM
[2021-11-19] MEDS: OXYBUTYNIN CHLORIDE 5 MG TAB PO SCH ×3 (09:43→22:14)
[2021-11-19] MEDS: APIXABAN 5 MG TABLET PO SCH ×2 (09:43→22:12)
[2021-11-19] MEDS: PANTOprazole 40 MG TAB PO SCH (09:43)
[2021-11-19] MEDS: ADVANCED PROBIOTIC 1250 MG CAPSULE PO SCH (09:43)
[2021-11-19] MEDS: ATENOLOL 25 MG TABLET PO SCH (09:44)
[2021-11-19] MEDS: INSULIN GLARGINE SOLOSTAR 100 UNITS/ML 3 ML PEN SC SCH ×2 (09:44→22:08)
[2021-11-19] MEDS: CYANOCOBALAMIN (B-12) 500 MCG TABLET PO SCH (09:44)
[2021-11-19] MEDS: ACETAMINOPHEN 325 MG TAB PO PRN ×2 (12:21→22:10)
--- NOTE | 2021-11-19 14:48 | Hospitalist Progress Note ---
Date of Service November 19, 2021 Assessment & Plan (1) Impaction of colon: (2) Constipation: Plan: Fecal Impaction Stercoral Colitis --CT ABD:Large amount of stool within the rectum and distal sigmoid colon suggestive of fecal impaction. Adjacent stranding and fluid may reflect stercoral colitis. No free air. The stool results in colonic dilatation suggestive of a colonic obstruction. Small left and trace right pleural effusions. Small pericardial effusion. --CXR today showed Interval decrease in amount of stool within the rectum. Moderate amount of residual poorly formed stool within the colon and rectum. Persistent moderate colonic dilatation. Partially disimpacted in the ED. continue bowel regimen Monitor BMs Repeat KUB in AM (3) Catheter-associated urinary tract infection: (4) Neurogenic bladder: Plan: Neal Catheter was changed on Admission ? Colonization Asymptomatic Urine Culture:Proteus Empirically on Ceftriaxone (5) Spinal stenosis: (6) Gait disturbance: Plan: Patient with chronic gait abnormality secondary to spinal stenosis H/O back surgery Wheel Chair bound Fall Precuations (7) Hypothyroidism: Plan: Continue levothyroxine (8) Diabetes mellitus: Plan: Hold metformin Insulin sliding scale DM Diet (9) History of DVT (deep vein thrombosis): (10) DVT prophylaxis: Plan: Continue Eliquis Admission and Anticipated Discharge Date Admission Date: November 18, 2021 Subjective Patient is seen and examined at bedside Had bowel movements overnight Denies any abdominal pain today Also denies any chest pain, dyspnea, dizziness, nausea, vomiting Review of Systems Review of Systems: All systems reviewed & are unremarkable except as noted in Subjective Physical Exam Physical Exam: Physical Exam: Vitals signs as noted above General Appearance:Moderately built and nourished, no apparent distress Head: normocephalic, Atraumatic Eyes: normal inspection, EOMI Neck: supple, Trachea midline Respiratory/Chest: Normal breath sounds, CTA, No accessory muscle use Cardiovascular: S1, S2, No murmur Abdomen/GI:Soft, mildly distended, Non tender, Bowel sounds present Extremities/Musculoskeletal:normal inspection, no edema Neurologic/Psych:AAOX3, B/L LE 1/ Skin: normal color, warm Results & Data Results & Data ([facility]) Vital Signs (Past 12 Hours) Vital Signs Temp Pulse Resp BP Pulse Ox 11/19/21 07:43 36.9 C 66 16 109/53 L 95 Laboratory Results Short CBC 11/19/21 Range/Units 06:33 WBC 9.11 (4.8-10.8) K/uL Hgb 11.8 L (12.0-16.0) g/dL Hct 36.9 L (37-47) % Plt Count 309 (130-400) K/uL BMP 11/19/21 06:33 Sodium 134 L Potassium 3.9 Chloride 105 Carbon Dioxide 21 BUN 23 Creatinine 0.74 Glucose 113 H Calcium 8.2 L Liver Function 11/19/21 Range/Units 06:33 Total Bilirubin 0.4 (0.2-1.0) mg/dl AST 9 L (13-39) U/L ALT 7 (7-52) U/L Alkaline Phosphatase 61 (34-104) U/L Albumin 3.0 L (3.4-5.0) gm/dl Urine 11/18/21 11/18/21 Range/Units 14:50 17:42 Urine Color Yellow Yellow Urine Appearance Turbid A Turbid A (Clear) Urine pH >= 9.0 H 5.5 (4.5-7.5) Ur Specific [place] 1.027 > 1.045 H (1.000-1.030) Urine Protein 2+ H 2+ H (Negative) Urine Glucose (UA) Negative Negative (Negative) (1) Catheter-associated urinary tract infection Indwelling urinary catheter type: indwelling urethral catheter Encounter type: initial encounter Qualified Code(s): T83.511A - Infection and inflammatory reaction due to indwelling urethral catheter, initial encounter; N39.0 - Urinary tract infection, site not specified
[2021-11-19] MEDS: cefTRIAXone SODIUM 1,000 MG in DEXTROSE 5% 50 ML IV SCH (18:23)
[2021-11-19] MEDS: ISOSORBIDE MONO EXTENDED REL 30 MG TABCR PO SCH (22:11)
[2021-11-19] MEDS: PRAVASTATIN SOD 10 MG TAB PO SCH (22:12)
[2021-11-20] MEDS: POLYETHYLENE (MIRALAX) 17 GM PACK PO SCH ×3 (05:57→21:48)
[2021-11-20] MEDS: LEVOTHYROXINE SODIUM 25 MCG TABLET PO SCH (05:57)
[2021-11-20 06:53] LABS: Hematocrit (blood only) 36.1 % (37-47); Hemoglobin 11.5 g/dL (12.0-16.0); Mean Corpuscular Hemoglobin 28.6 pg (25-34); Mean Corpuscular Hgb Conc 31.9 g/dL (32-36); Mean Corpuscular Volume 89.8 fL (80-100); Mean Platelet Volume 10.4 fL (7.4-10.4); Platelet Count 315 K/uL (130-400); RDW Coefficient of Variation 13.8 % (11.5-14.5); RDW Standard Deviation 45.9 fL (36.4-46.3); Red Blood Count 4.02 M/uL (4.2-5.4); White Blood Count 6.27 K/uL (4.8-10.8)
[2021-11-20 07:20] LABS: BUN Creatinine Ratio 33.8 (10-20); Calcium 8.3 mg/dl (8.5-10.1); Creatinine Clr Calc Pharmacy 72.1 ml/min; Est GFR (African American) 97.2 ml/min; Est GFR (Non-African American) 83.9 ml/min; Magnesium 1.6 mg/dl (1.7-2.4); Potassium 3.8 mmol/L (3.5-5.1)
[2021-11-20] MEDS: APIXABAN 5 MG TABLET PO SCH ×2 (09:09→21:50)
[2021-11-20] MEDS: CYANOCOBALAMIN (B-12) 500 MCG TABLET PO SCH (09:10)
[2021-11-20] MEDS: ADVANCED PROBIOTIC 1250 MG CAPSULE PO SCH (09:10)
[2021-11-20] MEDS: PANTOprazole 40 MG TAB PO SCH (09:11)
[2021-11-20] MEDS: ATENOLOL 25 MG TABLET PO SCH (09:11)
[2021-11-20] MEDS: OXYBUTYNIN CHLORIDE 5 MG TAB PO SCH ×3 (09:11→21:50)
[2021-11-20] MEDS: ACETAMINOPHEN 325 MG TAB PO PRN ×2 (09:16→21:44)
[2021-11-20] MEDS: INSULIN GLARGINE SOLOSTAR 100 UNITS/ML 3 ML PEN SC SCH ×2 (09:19→21:43)
[2021-11-20] MEDS: INSULIN ASPART PER UNIT SC SCH ×4 (09:20→21:44)
[2021-11-20] MEDS ORDERED: MAGNESIUM SULFATE / D5W 1 GM/100 ML BAG IV ONE (10:30)
--- NOTE | 2021-11-20 11:55 | XRay Report ---
KUB CLINICAL HISTORY: Constipation. FINDINGS: 2 AP supine abdominal radiographs are compared to study dated 11/19/2021 and correlated with abdominal CT dated 11/18/2021. Fecal retention and gaseous distention of the colon appear improved as compared to yesterday. There is only mild gaseous distention of the small bowel loops. No evidence o f intraperitoneal free air is identified. There are no abnormal abdominal calcifications. The skeleta l structures are osteopenic. There is advanced on the sacral spondylosis and scoliosis. Bilateral hip arthroplasties are in place. IMPRESSION: 1. Fecal retention and gaseous distention of the colon have improved as compared to yesterday. 2. There is no radiographic evidence of high-grade small bowel obstruction. Electronically signed by: Jason Morrissey M.D. 11/20/2021 11:54 AM
[2021-11-20] MEDS: cefTRIAXone SODIUM 1,000 MG in DEXTROSE 5% 50 ML IV SCH (17:38)
--- NOTE | 2021-11-20 17:44 | Hospitalist Progress Note ---
Date of Service November 20, 2021 Assessment & Plan (1) Impaction of colon: (2) Constipation: Plan: Fecal Impaction Stercoral Colitis --CT ABD:Large amount of stool within the rectum and distal sigmoid colon suggestive of fecal impaction. Adjacent stranding and fluid may reflect stercoral colitis. No free air. The stool results in colonic dilatation suggestive of a colonic obstruction. Small left and trace right pleural effusions. Small pericardial effusion. --CXR today showed Interval decrease in amount of stool within the rectum. Moderate amount of residual poorly formed stool within the colon and rectum. Persistent moderate colonic dilatation. Partially disimpacted in the ED. Monitor BMs Repeat KUB:Fecal retention and gaseous distention of the colon have improved as compared to yesterday. There is no radiographic evidence of high-grade small bowel obstruction. Still feels abdomen is mildly distended Had 2 bowel movements today Will repeat KUB tomorrow Continue current bowel regimen (3) Catheter-associated urinary tract infection: (4) Neurogenic bladder: Plan: Neal Catheter was changed on Admission ? Colonization Asymptomatic Urine Culture:Proteus Empirically on Ceftriaxone (5) Spinal stenosis: (6) Gait disturbance: Plan: Patient with chronic gait abnormality secondary to spinal stenosis H/O back surgery Wheel Chair bound Fall Precuations (7) Hypothyroidism: Plan: Continue levothyroxine (8) Diabetes mellitus: Plan: Hold metformin Insulin sliding scale DM Diet (9) History of DVT (deep vein thrombosis): (10) DVT prophylaxis: Plan: Continue Eliquis Admission and Anticipated Discharge Date Admission Date: November 20, 2021 Subjective Patient is seen and examined at bedside Doing better Feels Abdomen is still distended Had 2 BMs today No Abdominal pain, tolerating diet Denies any chest pain, dyspnea, dizziness, nausea, vomiting Review of Systems Review of Systems: All systems reviewed & are unremarkable except as noted in Subjective Physical Exam Physical Exam: Physical Exam: Vitals signs as noted above General Appearance:Moderately built and nourished, no apparent distress Head: normocephalic, Atraumatic Eyes: normal inspection, EOMI Neck: supple, Trachea midline Respiratory/Chest: Normal breath sounds, CTA, No accessory muscle use Cardiovascular: S1, S2, No murmur Abdomen/GI:Soft, mildly distended, Non tender, Bowel sounds present Extremities/Musculoskeletal:normal inspection, no edema Neurologic/Psych:AAOX3, B/L LE 1/5 Skin: normal color, warm Results & Data Results & Data ([facility]) Vital Signs (Past 12 Hours) Vital Signs Temp Pulse Resp BP Pulse Ox 11/20/21 16:44 36.6 C 59 L 16 155/77 H 96 11/20/21 09:10 67 157/73 H 11/20/21 07:59 36.6 C 68 16 176/72 H 97 Laboratory Results Short CBC 11/20/21 Range/Units 05:44 WBC 6.27 (4.8-10.8) K/uL Hgb 11.5 L (12.0-16.0) g/dL Hct 36.1 L (37-47) % Plt Count 315 (130-400) K/uL BMP 11/20/21 05:44 Sodium 137 Potassium 3.8 Chloride 106 Carbon Dioxide 25 BUN 22 Creatinine 0.65 Glucose 103 H Calcium 8.3 L (1) Catheter-associated urinary tract infection Indwelling urinary catheter type: indwelling urethral catheter Encounter type: initial encounter Qualified Code(s): T83.511A - Infection and inflammatory reaction due to indwelling urethral catheter, initial encounter; N39.0 - Urinary tract infection, site not specified
[2021-11-20] MEDS: ISOSORBIDE MONO EXTENDED REL 30 MG TABCR PO SCH (21:47)
[2021-11-20] MEDS: PRAVASTATIN SOD 10 MG TAB PO SCH (21:50)
[2021-11-21] MEDS: LEVOTHYROXINE SODIUM 25 MCG TABLET PO SCH (06:05)
[2021-11-21] MEDS: POLYETHYLENE (MIRALAX) 17 GM PACK PO SCH ×2 (06:05→13:13)
[2021-11-21 07:27] LABS: BUN Creatinine Ratio 27.9 (10-20); Calcium 8.6 mg/dl (8.5-10.1); Creatinine Clr Calc Pharmacy 76.9 ml/min; Est GFR (African American) 99.2 ml/min; Est GFR (Non-African American) 85.6 ml/min; Magnesium 1.6 mg/dl (1.7-2.4); Potassium 4.1 mmol/L (3.5-5.1)
[2021-11-21 08:26] LABS: Hematocrit (blood only) 38.6 % (37-47); Hemoglobin 12.6 g/dL (12.0-16.0); Mean Corpuscular Hemoglobin 28.8 pg (25-34); Mean Corpuscular Hgb Conc 32.6 g/dL (32-36); Mean Corpuscular Volume 88.3 fL (80-100); Platelet Count 331 K/uL (130-400); RDW Coefficient of Variation 13.6 % (11.5-14.5); RDW Standard Deviation 44.3 fL (36.4-46.3); Red Blood Count 4.37 M/uL (4.2-5.4)
[2021-11-21] MEDS: ACETAMINOPHEN 325 MG TAB PO PRN (08:38)
[2021-11-21] MEDS: CYANOCOBALAMIN (B-12) 500 MCG TABLET PO SCH (08:39)
[2021-11-21] MEDS: ATENOLOL 25 MG TABLET PO SCH (08:39)
[2021-11-21] MEDS: APIXABAN 5 MG TABLET PO SCH (08:39)
[2021-11-21] MEDS: PANTOprazole 40 MG TAB PO SCH (08:40)
[2021-11-21] MEDS: ADVANCED PROBIOTIC 1250 MG CAPSULE PO SCH (08:40)
[2021-11-21] MEDS: OXYBUTYNIN CHLORIDE 5 MG TAB PO SCH ×2 (08:40→14:22)
[2021-11-21] MEDS: INSULIN ASPART PER UNIT SC SCH ×2 (08:41→13:11)
[2021-11-21] MEDS: INSULIN GLARGINE SOLOSTAR 100 UNITS/ML 3 ML PEN SC SCH (08:41)
--- NOTE | 2021-11-21 08:57 | XRay Report ---
KUB CLINICAL HISTORY: Constipation. FINDINGS: 2 AP supine abdominal radiographs are compared to study dated 11/20/2021 and correlated with abdominal CT dated 11/18/2021. There is only mild residual fecal retention. There is mild persistent gaseous distention of the colon. There is no radiographic evidence of bowel obstruction. No evidence of intraperitoneal free air is identified. Splenic calcifications are again noted in the left upper q uadrant. The skeletal structures are osteopenic. There is advanced on the sacral spondylosis and scol iosis. Bilateral hip arthroplasties are in place. IMPRESSION: There is only mild residual colonic fecal retention. Mild gaseous distention of the colon persists. Electronically signed by: Jason Morrissey M.D. 11/21/2021 8:56 AM
[2021-11-21] MEDS ORDERED: amLODIPine BESYLATE 5 MG TAB PO ONE (10:15)
--- NOTE | 2021-11-21 10:28 | Hospitalist Progress Note ---
Date of Service November 21, 2021 Assessment & Plan (1) Impaction of colon: (2) Constipation: Plan: per Dr. Schaefer's notes with addendum: Fecal Impaction Stercoral Colitis Resolved --CT ABD:Large amount of stool within the rectum and distal sigmoid colon suggestive of fecal impaction. Adjacent stranding and fluid may reflect stercoral colitis. No free air. The stool results in colonic dilatation suggestive of a colonic obstruction. Small left and trace right pleural effusions. Small pericardial effusion. --CXR today showed Interval decrease in amount of stool within the rectum. Moderate amount of residual poorly formed stool within the colon and rectum. Persistent moderate colonic dilatation. given Miralax q8h (+) BMs serial KUB's: improving - repeat KUB 11/21: There is only mild residual colonic fecal retention. Mild gaseous distention of the colon persists. - stable for discharge discharge plan: Miralax, Metamucil daily encourage increase daily fluid intake increase fiber intake monitor closely for constipation Hypertension - resume usual Atenolol, Imdur Clonidine held for borderline low HR (low 60s) BP elevated 11/21 Amlodipine 5mg po daily ordered, then Amlodipine 2.5 mg po d monitor BP daily (3) Catheter-associated urinary tract infection: (4) Neurogenic bladder: Plan: Neal Catheter was changed on Admission Urine Culture:Proteus, 100k, pansensitive placed on Ceftriaxone x 3 days discharge on Cefuroxime x 4 more days (5) Spinal stenosis: (6) Gait disturbance: Plan: Patient with chronic gait abnormality secondary to spinal stenosis H/O back surgery Wheel Chair bound Fall Precautions (7) Hypothyroidism: Plan: Continue levothyroxine (8) Diabetes mellitus: Plan: resume usual Metformin (9) History of DVT (deep vein thrombosis): (10) DVT prophylaxis: Plan: Continue Eliquis Disposition d[facility] at [facility] today ff up with PCP in 1 week Admission and Anticipated Discharge Date Admission Date: November 20, 2021 Subjective ff up for fecal impaction, etc seen resting in bed, comfortable in good spirits states she feels fine overall denies abdominal pain, nausea/vomiting had 1 BM this morning no fever/chills, flank/back pain no chest pain, dyspnea, palpitations, dizziness no other symptoms states she is ready and would like to be discharged today Review of Systems Review of Systems: all noted and negative except for above Physical Exam Physical Exam: General- oriented x 3, not in distress, speaks in sentences with no effort or accessory muscle use Eyes- anicteric Neck- no JVD Lungs- clear breath sounds bilaterally, no rales/wheezes Heart- normal rate, regular rhythm; no murmurs Abdomen- normal bowel sounds, nondistended, soft, nontender Extremities- mild pretibial edema, no erythema/warmth/tenderness- R, none on the left, no calf tenderness Neuro- alert, oriented x 3; mild lower ext weakness, but no other gross focal neurologic deficits Skin- warm & dry Results & Data Results & Data ([facility] [place]) Vital Signs (Past 12 Hours) Vital Signs Temp Pulse Resp BP Pulse Ox 11/21/21 09:57 183/84 H 11/21/21 07:42 36.3 C L 72 18 172/74 H 97 all noted and reviewed including below (1) Catheter-associated urinary tract infection Indwelling urinary catheter type: indwelling urethral catheter Encounter type: initial encounter Qualified Code(s): T83.511A - Infection and inflammatory reaction due to indwelling urethral catheter, initial encounter; N39.0 - Urinary tract infection, site not specified
--- NOTE | 2021-11-21 14:00 | Discharge Summary ---
Date of Service November 21, 2021 Admission HPI Per Admitting Provider Patient is an 81 yo female who presented to the ED with abdominal pain and diarrhea x 2 days. She has PMHx of DM type 2, hypothyroidism, dyslipidemia, pericardial effusion, HTN, DVT, neurogenic bladder with chronic indwelling umanzor, chronic anticoag with Eliquis, spinal stenosis with back surgery x 2 last year and progressive left sided weakness since then. She notes that she has problems getting to the bathroom at [facility] because they are understaffed. She will sometimes wait 2-3 hours for someone to come help her onto the bed byrd. She has recently not had a good bowel regimen either. Her appetite has been poor, and she has been nauseated with some vomiting since Friday. No vomiting at this time. She had CT of the abd/pelvis which showed large stool burden, stercoral colitis, and colonic obstruction. She was disimpacted in the ED by Dr. Xavier, and she continues to have distention and pain in her abdomen. She did have some relief. She otherwise also has indwelling Umanzor which she notes has been at times covered in stool. She does have history of recurrent UTIs. Umanzor was replaced by Urology outpatient last week. UA is very dirty collected from Umanzor- will request new sample from fresh catheter. Admission Exam Per Admitting Provider Constitutional: well developed and well nourished; no acute distress and no altered mental status Eyes: PERRL, conjunctivae normal, anicteric sclerae ENMT: external ear and nose normal, oropharynx normal Neck: trachea midline, no thyromegaly Respiratory: normal respiratory effort, lungs clear to auscultation Cardiovascular: RRR, no murmur, no edema Gastrointestinal (Abdomen): Inspection/Auscultation: + abdomen distended and + high-pitched sounds; no abdominal wall ecchymosis Percussion/Palpation: + abdomen tender (Mild generalized) and abdomen soft; no guarding and abdomen not rigid Musculoskeletal: Extremities: extremities normal to inspection Skin: no rashes, warm and dry Neurologic: PERRL, EOMI, accommodation nl, no face palsy, no dysarthria Psychiatric: A+Ox3, euthymic affect Principal Diagnosis FECAL IMPACTION URINARY TRACT INFECTION Discharge Exam General- oriented x 3, not in distress, speaks in sentences with no effort or accessory muscle use Eyes- anicteric Neck- no JVD Lungs- clear breath sounds bilaterally, no rales/wheezes Heart- normal rate, regular rhythm; no murmurs Abdomen- normal bowel sounds, nondistended, soft, nontender Extremities- mild pretibial edema, no erythema/warmth/tenderness- R, none on the left, no calf tenderness Neuro- alert, oriented x 3; mild lower ext weakness, but no other gross focal neurologic deficits Skin- warm & dry Discharge Data Allergies Allergy/AdvReac Type Severity Reaction Status Date / Time Sulfa (Sulfonamide Allergy Intermediate RASH/ITCH Verified 11/18/21 13:52 Antibiotics) acesulfame Allergy Mild Unknown Verified 11/18/21 13:52 aspartame Allergy Mild Unknown Verified 11/18/21 13:52 morphine Allergy Mild RASH/ITCH Verified 11/18/21 13:52 propoxyphene Allergy Mild RASH Verified 11/18/21 13:52 saccharin Allergy Mild Unknown Verified 11/18/21 13:52 sucralose Allergy Mild Unknown Verified 11/18/21 13:52 Consultations 11/18/21 15:33 ED Decision to Admit Stat Ordered Studies 11/18/21 13:11 CT abd pelvis IV con only Stat FINDINGS: Visualized portions of the lower chest demonstrate cardiomegaly and small left and trace right pleural effusions. There is a small pericardial e ffusion. No pneumatosis, free air or portal venous gas is present. A densely calcified 4.5 cm splenic lesion is unchanged since CT of May 04, 2014. This is benign. No biliary ductal dilatation is present. A prominent main pancreatic duct remains unchanged. No peripancreatic infiltration. A 2.1 cm left adrenal nodule is unchanged. The right adrenal gland is unremarkable. Moderate left and mild right renal cortical thinning is present. There is no hydronephrosis. A small amount of abdominal and pelvic ascites is noted. Note is made of a large amount of stool within the rectum suggestive of fecal impaction. Transverse diameter of the rectum is 8.8 cm. There is a moderate amount of stool within the sigmoid colon. Poorly formed stool within the right colon is noted. The colon is distended. The ascending colon measures 9.8 cm in transverse diameter. Infiltration adjacent to the rectum and sigmoid colon may reflect stercoral colitis. There is no free air. Umanzor balloon within the bladder is noted. Images of the pelvis are degraded by shift artifact from bilateral hip arthroplasties. There is no lymphadenopathy. No evidence for a small bowel obstruction. No acute fracture or suspicious lesion within the visualized skeletal structures. The appendix is normal. IMPRESSION: 1. Large amount of stool within the rectum and distal sigmoid colon suggestive of fecal impaction. Adjacent stranding and fluid may reflect stercoral colitis. No free air. The stool results in colonic dilatation suggestive of a colonic obstruction. 2. Small left and trace right pleural effusions. Small pericardial effusion. Hospital Course (1) Impaction of colon: (2) Constipation: per Dr. Schaefer's notes with addendum: Fecal Impaction Stercoral Colitis Resolved --CT ABD:Large amount of stool within the rectum and distal sigmoid colon suggestive of fecal impaction. Adjacent stranding and fluid may reflect stercor al colitis. No free air. The stool results in colonic dilatation suggestive of a colonic obstruction. Small left and trace right pleural effusions. Small pericardial effusion. --CXR today showed Interval decrease in amount of stool within the rectum. Moderate amount of residual poorly formed stool within the colon and rectum. Persistent moderate colonic dilatation. given Miralax q8h (+) BMs serial KUB's: improving - repeat KUB 11/21: There is only mild residual colonic fecal retention. Mild gaseous distention of the colon persists. - stable for discharge discharge plan: Miralax, Metamucil daily encourage increase daily fluid intake increase fiber intake monitor closely for constipation Hypertension - resume usual Atenolol, Imdur Clonidine held for borderline low HR (low 60s) start Amlodipine 2.5 mg po daily monitor BP daily (3) Catheter-associated urinary tract infection: (4) Neurogenic bladder: Umanzor Catheter was changed on Admission Urine Culture:Proteus, 100k, pansensitive placed on Ceftriaxone x 3 days discharge on Cefuroxime x 4 more days (5) Spinal stenosis: (6) Gait disturbance: Patient with chronic gait abnormality secondary to spinal stenosis H/O back surgery Wheel Chair bound Fall Precautions (7) Hypothyroidism: Continue levothyroxine (8) Diabetes mellitus: resume usual Metformin (9) History of DVT (deep vein thrombosis): (10) DVT prophylaxis: Continue Eliquis Disposition d/c at [facility] today ff up with PCP in 1 week Total Time Total Time Spent Total Time Spent (In Minutes): >30 MINUTES Discharge Plan Discharge Items Patient Disposition: Transfer [facility] Reason For Visit: ABDOMINAL PAIN, FECAL IMPACTION Discharge Diagnosis: FECAL IMPACTION URINARY KELLIE INFECTION Activity: Resume your previous activity Activity Comment: CONTINUE PT/OT Non-emergency contact: Primary Care Provider Call non-emergency contact if: you have any medication questions, your symptoms worsen and you have a fever Follow-up/Referrals: Ton Clayton, [Physician] - (Please follow up with Dr Clayton in 1 week.) Diet: Carb Consistent or DM2 and Heart Healthy Addtl Attending Provider Instructions: USE MIRALAX AND METAMUCIL DAILY. ENCOURAGE TO INCREASE DAILY FLUID INTAKE. ENSURE DAILY BOWEL MOVEMENT. MONITOR CLOSELY FOR CONSTIPATION. CLONIDINE CHANGED TO AMLODIPINE 2.5MG DAILY. MONITOR BP DAILY. CEFUROXIME 250MG BID X 4 DAYS TO TREAT UTI. PLEASE REFER TO ACCOMPANYING HOSPITAL DISCHARGE SUMMARY. Stand-Alone Forms: My [employer], Smoking Cessation Skilled Items Patient informed of condition?: Yes DNR: No Discharge Level of Care: Skilled Communicable Disease: No Discharge Prognosis: Stable Lines: None Urinary Catheter: Yes Medications and DC Order Prescriptions: New polyethylene glycol 3350 [Miralax] 17 gram/dose powder 17 g PO DAILY 4 Days Qty: 68 RF: 0 Metamucil 3.4 gram/5.4 gram powder 1 tbsp PO DAILY Qty: 660 RF: 0 cefuroxime axetil 250 mg tablet 250 mg PO BID 4 Days Qty: 8 RF: 0 amlodipine 2.5 mg tablet 2.5 mg PO DAILY Qty: 30 RF: 0 Continued pravastatin 10 mg tablet 10 mg PO HS Qty: 90 RF: 1 fluticasone propionate 50 mcg/actuation spray,suspension 2 spray INTNAS QAM RF: 0 Eliquis 5 mg tablet 5 mg PO BID RF: 0 oxybutynin chloride 5 mg tablet 5 mg PO TID Qty: 270 RF: 3 cyanocobalamin (vitamin B-12) 500 mcg Tablet 500 mcg PO QAM RF: 0 multivitamin Tablet 1 tab PO QAM RF: 0 acetaminophen 325 mg Tablet 650 mg PO Q4H PRN (Reason: pain) Qty: 30 RF: 0 metformin 500 mg tablet 500 mg PO BID RF: 0 levothyroxine 25 mcg tablet 25 mcg PO QAM RF: 0 oxycodone 5 mg Tablet 5 mg PO Q6H PRN (Reason: Pain (Scale Score 7-10)) RF: 0 diclofenac sodium 1 % gel 4 g TOPICAL TID RF: 0 pantoprazole 40 mg Tablet,Delayed Release (Dr/Ec) 40 mg PO QAM Qty: 30 RF: 0 isosorbide mononitrate 30 mg tablet extended release 24 hr 30 mg PO HS RF: 0 atenolol 25 mg tablet 25 mg PO QAM RF: 0 Advanced Probiotic 625 mg (10 billion cell) capsule 2 cap PO QAM RF: 0 Discontinued clonidine HCl 0.1 mg tablet 0.1 mg PO QAM RF: 0 Discharge Orders: Discharge Order (Routine); Ordered 11/21/21 Ordered By: Armando Dubois Admission Data Admit Date/Time: 11/20/21 08:13 Attending Provider: Armando Dubois Admit Provider: Paola Cruz Primary Care Provider: Lacey Ribera Other Providers: Paola Cruz ; Lewis Schaefer
== END 2021-11-21 16:58 | disposition home or self-care (01) | DRG 389 ==
LOC: ED 13:03 → 3E 13:03 → SUATTDRO 17:11 → 3E 18:04 → SUATTDRO 11-20 08:13

== ENCOUNTER 2022-06-03 08:43 | Inpatient (IN) ==
[2022-06-03] MEDS ORDERED: SODIUM CHLORIDE 0.9% 1000ML 500 ML IV ONE (09:04)
--- NOTE | 2022-06-03 09:11 | Emergency Department Note ---
Impression & Plan Stroke-like symptoms, Acute UTI (urinary tract infection), Elevated troponin I level ED Provider Note NAME: LALA BECKMAN AGE: 82 SEX: F : 1940 ARRIVES VIA: Ambulance INFORMANT: Patient, EMS ED PROVIDER(S): Conner Morfin DO CHIEF COMPLAINT: Strokelike symptoms HPI: The patient is an 82-year-old female who presented to the emergency department from her personal group home for an evaluation of strokelike symptoms. The patient's official last known well time would be last evening because she feels though she awoke this morning not feeling right. She was noticed by the staff to have a left-sided facial droop. She also has lower extremity weakness which is not new for her. She denies having any headache at this time but she states that this morning she knew something was wrong. She states that she felt fuzzy and also had a slight headache. She denies having any trauma. She denies having any neck pain. She denies having any chest pain or difficulty breathing. She states that she has been compliant with her outpatient medications. The patient states that her headache is now gone. She does state that she feels weak on the left side. She has a left-sided facial droop that was reported by EMS and according to the patient this would be a new finding. ROS: See above HPI for pertinent positives & negatives. A total of 10 systems reviewed and were otherwise negative. PAST MEDICAL HISTORY: See Below PAST SURGICAL HISTORY: See Below FAMILY HISTORY: See Below SOCIAL HISTORY: See Below HOME MEDICATIONS: See Below ALLERGIES: See Below VITALS: See Below PHYSICAL EXAMINATION: GENERAL: Patient is awake alert in no acute distress patient is resting comfortably and showing no signs of anxiety EYES: The conjunctivae are clear. The pupils are round and reactive. EARS, NOSE, MOUTH AND THROAT: The nose is without any evidence of any deformity. Mucous membranes are dry. NECK: The neck is nontender and supple. RESPIRATORY: Normal respiratory effort is noted there is no evidence of wheezing rhonchi or rales CARDIOVASCULAR: Regular rate and rhythm noted there no murmurs rubs or gallops normal S1 normal S2. GASTROINTESTINAL: The abdomen is soft. Abdomen is nontender. MUSCULOSKELETAL/EXTREMITIES: There is no evidence of gross deformity full range of motion is noted in the hips and shoulders. SKIN: Skin is warm and dry. There is no significant pedal edema. NEUROLOGIC: Patient is awake alert and oriented x3. There is a left-sided facial droop with forehead sparing. This is very subtle and mostly involves the corner of the mouth. Flat Hammerer strength was symmetric but diminished bilaterally. There is no drift in the upper extremities. The patient is unable to lift the left leg off the bed. She can lift the right leg off the bed but for only a short period of time. MEDICAL DECISION MAKING: The patient is an 82-year-old female who presented to the emergency department for an evaluation of strokelike symptoms. The patient had a reported left-sided facial droop. She also had left leg weakness. I discussed the patient's laboratory and radiographic studies with her. The exact onset of her symptoms was not known and the patient awoke with the symptoms this morning. Her last known well time was sometime yesterday evening. I discussed the patient's condition with her. She was also found to have signs of urinary tract infection on urinalysis. She was treated with IV antibiotics. I [facility] the [facility] They have agreed to evaluate the patient in the emergency department for further management and disposition. She may require further neurologic work-up to rule out stroke. Triage Nursing notes reviewed. Prior medical records reviewed Vital Signs: reviewed and remarkable for elevated blood pressure. Differential diagnosis: Infection, dehydration, metabolic abnormality, hypo/hyperglycemia, electrolyte disturbance, anemia, hypoxia, cardiac sources, intracerebral event, toxicologic, neurologic, as well as other pathologies. ER treatment provided: See below Diagnostics interpreted by me: ECG: EKG was obtained in the emergency department. My interpretation is sinus rhythm at 94 bpm. First-degree AV block was noted. PAC was noted. Nonspecific ST segment abnormalities were also noted. This was compared to a tracing from August 07, 2021. No definite changes were noted. Cardiac Monitoring: An order was placed for continuous cardiac monitoring. The monitor shows a rate of 79 bpm with sinus rhythm. Laboratory studies: As stated above and show below. Imaging studies: See below Consultation(s): I discussed this case with Dr. Cruz who [facility]. Past Med/Surg History Medical History Abnormal EKG Anxiety Arthralgia of multiple sites Conductive hearing loss of right ear with unrestricted hearing of left ear Coronary artery calcification Dairy allergy Diabetes mellitus, type 2 DMII (diabetes mellitus, type 2) Dyslipidemia Gait disturbance Hammer toe History of DVT (deep vein thrombosis) History of nasal polyp Hyperlipidemia Hypertension Hypertension Hypertrophy of nasal turbinates Hypothyroidism LAFB (left anterior fascicular block) Left leg DVT 11/2020 LVH (left ventricular hypertrophy) Microalbuminuria Nocturia Osteoarthritis Osteoporosis Urinary frequency Urinary incontinence Urinary symptom or sign Vitamin D deficiency disease Surgical History History of back surgery IN 1985 LUMBAR FOR 2 RUPTURED DISC History of blepharoplasty History of breast biopsy History of cataract surgery BILAT History of colonoscopy History of hand surgery RIGHT History of hip replacement BILAT. RIGHT HIP X2 History of hysterectomy History of knee replacement RIGHT History of lumbar laminectomy for spinal cord decompression 12/22/20 - [facility], Dr Rocha; L1-L5 History of nasal septoplasty History of placement of ear tubes RIGHT IN OFFICE History of rhinoplasty History of rotator cuff surgery LEFT History of tonsillectomy S/P fusion of thoracic spine T1-T3; 12/29/20; [facility] [place] - Dr Rocha S/P IVC filter 11/2020 - [facility] [place] S/P lumbar fusion L3-L4, Dr Rocha, [facility] [place]; 12/22/20. Family History Mother , age 69 Coronary heart disease s/p CABG Heart disease Grandmother (Maternal) Heart disease heart attacks Son Diabetes Heart disease age 47 from cardiac arrest Father , in his 80s Rheumatoid arthritis Denies family history of Ovarian cancer Prostate cancer Breast cancer Colorectal cancer Cancer Social History Smoking Status: Never smoker Second Hand Exposure: Yes; Hx Alcohol Use: No Hx Substance Use: No Preferred Language: Gambian Communication Ability: Effective Instrument Mechanic Required: No Beliefs That Will Affect Care: None marital status: / Current Living Situation: Personal Care Facility Current Living Situation Comment: 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 [place] Feels Safe at Home: No Is there a partner from a previous relationship who is making you feel unsafe now?: No Safety Concerns Comment: states she has to kittens to keep after her Childhood Exposure to Second-Hand Smoke: No during the past year weight has: decreased > 10 lbs Dental Care, Regularly: Yes Physical Activity Frequency: Does not Exercise Seatbelt Use: always Sunscreen Use: Yes Assistive Devices: Wheelchair Allergies Allergies Allergy/AdvReac Type Severity Reaction Status Date / Time Sulfa (Sulfonamide Allergy Intermediate RASH/ITCH Verified 04/22/22 13:09 Antibiotics) acesulfame Allergy Mild Unknown Verified 04/22/22 13:09 aspartame Allergy Mild Unknown Verified 04/22/22 13:09 morphine Allergy Mild RASH/ITCH Verified 04/22/22 13:09 propoxyphene Allergy Mild RASH Verified 04/22/22 13:09 saccharin Allergy Mild Unknown Verified 04/22/22 13:09 sucralose Allergy Mild Unknown Verified 04/22/22 13:09 Home Meds Home Medications Medication Instructions Recorded Confirmed cyanocobalamin (vitamin B-12) 500 500 mcg PO QAM 05/06/19 06/03/22 mcg tablet metformin 500 mg tablet 500 mg PO BID 12/20/20 06/03/22 diclofenac sodium 1 % topical gel 4 g topical TID 01/22/21 06/03/22 levothyroxine 25 mcg tablet 25 mcg PO QAM 01/22/21 06/03/22 apixaban 5 mg tablet (Eliquis) 5 mg PO BID 02/08/21 06/03/22 fluticasone propionate 50 2 spray intranasal QAM Nasal 02/08/21 06/03/22 mcg/actuation nasal Congestion spray,suspension L.acidop,casei,lactis,rham-B.lact,dee dee 2 cap PO QAM 11/18/21 06/03/22 625 mg (10 billion cell) capsule (Advanced Probiotic) atenolol 25 mg tablet 25 mg PO QAM 11/18/21 06/03/22 isosorbide mononitrate 30 mg 30 mg PO HS 11/18/21 06/03/22 tablet,extended release 24 hr L.acidophil,salivari-Bifido 2 cap PO DAILY 06/03/22 06/03/22 bifidum-Strep thermoph 175 mg capsule (Acidophilus Probiotic Blend) amlodipine 5 mg tablet 5 mg PO DAILY 06/03/22 06/03/22 lactase 9,000 unit tablet (Lactaid 9,000 unit PO TIDM 06/03/22 06/03/22 Fast Act) multivitamin (Daily-Ning tablet) 1 tab PO DAILY 06/03/22 06/03/22 Previous Rx's Medication Instructions Recorded pravastatin 10 mg tablet 10 mg PO HS #90 tabs 11/07/20 pantoprazole 40 mg tablet,delayed 40 mg PO QAM #30 tabs 01/28/21 release oxybutynin chloride 5 mg tablet 5 mg PO TID #270 tabs 11/15/21 Results & Data (ED) Vital Signs Vital Signs - 24 hr 06/03/22 08:54 06/03/22 09:00 Temperature 36.9 C Temperature Source Temporal Artery Scan Pulse Rate 91 H Pulse Rhythm Regular Pulse Strength Normal Respiratory Rate 20 Respiratory Effort / Characteristics Non-Labored Spontaneous Respiratory Depth Normal Respiratory Pattern Regular Blood Pressure 155/84 H Blood Pressure Mean 107 Blood Pressure Position Sitting Pulse Oximetry 97 Oxygen Delivery Method Room Air Room Air Sepsis Recent Fever Within 48 Hours No Sepsis New/Unexplained Change in Mental Status N/A Sepsis Action Taken by Nursing No Action Required Home Medications Current Medication List: was personally reviewed by me Laboratory Data Attestation: I reviewed the patient's lab results. Result diagrams: 06/03/22 09:15 06/03/22 09:15 Lab Results 06/03/22 06/03/22 06/03/22 Range/Units 09:15 09:15 09:15 WBC 12.43 H (4.8-10.8) K/ul RBC 4.90 (3.93-5.22) M/uL Hgb 14.1 (12.0-16.0) g/dl Hct 42.7 (34.1-44.9) % MCV 87.1 (80.0-100.0) fL MCH 28.8 (25.0-34.0) pg MCHC 33.0 (32.0-36.0) g/dL RDW Std Deviation 41.5 (36.4-46.3) fL RDW Coeff of Efren 13.1 (11.5-14.5) % Plt Count 303 (130-400) K/uL MPV 9.6 (9.4-12.3) fL Immature Gran % (Auto) 0.4 % Neut % (Auto) 89.9 % Lymph % (Auto) 6.2 % [place] % (Auto) 3.1 % Eos % (Auto) 0.2 % Baso % (Auto) 0.2 % Neut # (Auto) 11.19 H (1.4-6.5) K/uL Lymph # (Auto) 0.77 L (1.2-3.4) K/uL [place] # (Auto) 0.38 (0.24-0.82) K/uL Eos # (Auto) 0.02 (0-0.50) K/uL Baso # (Auto) 0.02 (0-0.2) K/uL Immature Gran # (Auto) 0.05 H (0.00-0.02) K/uL PT 11.4 (9.0-12.0) Seconds INR 1.1 (0.9-1.1) APTT 30.5 (21.0-31.0) Seconds PTT Ratio 1.1 Sodium 138 (136-145) mmol/L Potassium 3.7 (3.5-5.1) mmol/L Chloride 103 (98-107) mmol/L Carbon Dioxide 25 (21-32) mmol/L Anion Gap 10 (3-11) BUN 14 (6-23) mg/dl Creatinine 0.65 (0.6-1.2) mg/dl Est Cr Clr Drug Dosing 70.9 ml/min Est GFR ( Amer) 96.5 ml/min Est GFR (Non-Af Amer) 83.3 ml/min BUN/Creatinine Ratio 21.5 H (10-20) Glucose 134 H (70-99(Fasting)) mg/dl POC Glucose (70-99) mg/dl Calcium 9.4 (8.5-10.1) mg/dl Magnesium 1.4 L (1.7-2.4) mg/dl Total Bilirubin 0.3 (0.2-1.0) mg/dl AST 15 (13-39) U/L ALT 9 (7-52) U/L Alkaline Phosphatase 66 (34-104) U/L Troponin I High Sens 155.1 H* (0-14) pg/ml Total Protein 6.4 (6.0-8.3) gm/dl Albumin 3.8 (3.4-5.0) gm/dl Globulin 2.6 (2.5-4.0) gm/dl Albumin/Globulin Ratio 1.5 (0.9-2) Urine Color Urine Appearance (Clear) Urine pH (4.5-7.5) Ur Specific [place] (1.000-1.030) Urine Protein (Negative) Urine Glucose (UA) (Negative) Urine Ketones (Negative) Urine Blood (Negative) Urine Nitrite (Negative) Urine Bilirubin (Negative) Urine Urobilinogen (Negative) Ur Leukocyte Esterase (Negative) Urine WBC (Auto) (0-5) /hpf Urine RBC (Auto) (0-4) /hpf U Hyaline Cast (Auto) (0-5) /lpf U Epithel Cells (Auto) (0-5) /lpf Urine Bacteria (Auto) (Negative) SARS-CoV-2, RNA, NAAT (NEGATIVE) 06/03/22 06/03/22 06/03/22 Range/Units 09:18 10:54 10:54 WBC (4.8-10.8) K/ul RBC (3.93-5.22) M/uL Hgb (12.0-16.0) g/dl Hct (34.1-44.9) % MCV (80.0-100.0) fL MCH (25.0-34.0) pg MCHC (32.0-36.0) g/dL RDW Std Deviation (36.4-46.3) fL RDW Coeff of Efren (11.5-14.5) % Plt Count (130-400) K/uL MPV (9.4-12.3) fL Immature Gran % (Auto) % Neut % (Auto) % Lymph % (Auto) % [place] % (Auto) % Eos % (Auto) % Baso % (Auto) % Neut # (Auto) (1.4-6.5) K/uL Lymph # (Auto) (1.2-3.4) K/uL [place] # (Auto) (0.24-0.82) K/uL Eos # (Auto) (0-0.50) K/uL Baso # (Auto) (0-0.2) K/uL Immature Gran # (Auto) (0.00-0.02) K/uL PT (9.0-12.0) Seconds INR (0.9-1.1) APTT (21.0-31.0) Seconds PTT Ratio Sodium (136-145) mmol/L Potassium (3.5-5.1) mmol/L Chloride (98-107) mmol/L Carbon Dioxide (21-32) mmol/L Anion Gap (3-11) BUN (6-23) mg/dl Creatinine (0.6-1.2) mg/dl Est Cr Clr Drug Dosing ml/min Est GFR ( Amer) ml/min Est GFR (Non-Af Amer) ml/min BUN/Creatinine Ratio (10-20) Glucose (70-99(Fasting)) mg/dl POC Glucose 118 H (70-99) mg/dl Calcium (8.5-10.1) mg/dl Magnesium (1.7-2.4) mg/dl Total Bilirubin (0.2-1.0) mg/dl AST (13-39) U/L ALT (7-52) U/L Alkaline Phosphatase (34-104) U/L Troponin I High Sens (0-14) pg/ml Total Protein (6.0-8.3) gm/dl Albumin (3.4-5.0) gm/dl Globulin (2.5-4.0) gm/dl Albumin/Globulin Ratio (0.9-2) Urine Color Yellow Urine Appearance Clear (Clear) Urine pH 7.5 (4.5-7.5) Ur Specific [place] 1.010 (1.000-1.030) Urine Protein Negative (Negative) Urine Glucose (UA) Negative (Negative) Urine Ketones Negative (Negative) Urine Blood Negative (Negative) Urine Nitrite Positive A (Negative) Urine Bilirubin Negative (Negative) Urine Urobilinogen Negative (Negative) Ur Leukocyte Esterase 1+ H (Negative) Urine WBC (Auto) 5-10 H (0-5) /hpf Urine RBC (Auto) 0-4 (0-4) /hpf U Hyaline Cast (Auto) 1-5 (0-5) /lpf U Epithel Cells (Auto) 10-20 H (0-5) /lpf Urine Bacteria (Auto) 3+ H (Negative) SARS-CoV-2, RNA, NAAT NEGATIVE (NEGATIVE) Administered Medications Amlodipine Besylate (Amlodipine Besylate 5 Mg Tab) 5 mg PO DAILY VERONICA Stop: 07/03/22 13:14 Last Admin: 06/03/22 13:43 Dose: 5 mg Documented By: MG Atenolol (Atenolol 25 Mg Tablet) 25 mg PO QAM VERONICA Stop: 07/03/22 13:14 Last Admin: 06/03/22 13:43 Dose: 25 mg Documented By: MG Lactobacillus Acidophilus (Advanced Probiotic 1250 Mg Capsule) 2 cap PO QAM VERONICA Stop: 07/03/22 13:14 Last Admin: 06/03/22 14:46 Dose: 2 cap Documented By: MG Discontinued Medications Sodium Chloride (Nss 1000ml) 500 mls @ 999 mls/hr IV .Q31M ONE Stop: 06/03/22 09:34 Last Infusion: 06/03/22 10:27 Dose: 0 mls/hr Documented By: Admin: 06/03/22 09:27 Dose: 999 mls/hr Documented By: AP Ceftriaxone Sodium (Rocephin) 2,000 mg in 70 mls @ 140 mls/hr IV NOW STA Stop: 06/03/22 11:50 Last Infusion: 06/03/22 14:48 Dose: 0 mls/hr Documented By: Admin: 06/03/22 11:58 Dose: 140 mls/hr Documented By: LEIGH Imaging Data Radiologist's Impression: Chest X-Ray 06/03/22 09:04 XR chest 1V portable CLINICAL HISTORY: Stroke Like Symptoms TECHNIQUE: Single frontal radiograph of the chest was obtained. Comparison: Comparison is made to chest radiograph 01/22/2021 FINDINGS: No lines and tubes are seen. Calcified aortic knob is seen. The lungs are clear. No evidence of pleural effusion or pneumothorax. Posterior fixation hardware is seen in the upper thoracic spine. IMPRESSION: No acute chest disease. ACT 112: Negative or not required by law. Electronically signed by: Dejon Goldman M.D. 06/03/2022 10:[address] 06/03/22 09:04 CT head/brain wo con CLINICAL HISTORY: Stroke Like Symptoms Technique: Contiguous axial CT images of the head were acquired from the base of the skull to the vertex without intravenous contrast administration. Images were viewed in brain, subdural and bone windows. Automated dose lowering techniques and/or adjustment according to patient size were utilized for this exam. Comparison: Comparison is made to CT head 10/20/2020 Findings: The ventricles, basal cisterns, and cerebral sulci are normal. There is no acute intracranial hemorrhage or evidence of acute territorial infarction. Neither mass effect, shift of the midline structures, nor abnormal extra-axial fluid collections are shown. Right mastoid air cells are again noted to be opacified. The orbits appear normal. There are no acute fractures of the calvaria or scalp swelling. Impression: 1. No acute intracranial hemorrhage, no evidence of acute territorial infarction or other acute intracranial disease process. 2. Right mastoid effusion can be seen with mastoiditis. ACT 112: Negative or not required by law. Electronically signed by: Dejon Goldman M.D. 06/03/2022 9:50 AM Discharge Plan Visit Data Chief Complaint: Stroke/CVA Symptoms ED Provider: Conner Morfin Discharge Problem: Stroke-like symptoms, Acute UTI (urinary tract infection), Elevated troponin I level Patient Disposition: Admitted As Inpatient Discharge Instructions Interventions: ED Discharge Assessment Last Done: 06/03/22 12:07
[2022-06-03 09:23] LABS: Basophils # (auto) 0.02 K/uL (0-0.2); Basophils % (auto) 0.2 %; Eosinophils # (auto) 0.02 K/uL (0-0.50); Eosinophils % (auto) 0.2 %; Hematocrit (blood only) 42.7 % (34.1-44.9); Hemoglobin 14.1 g/dl (12.0-16.0); Immature Granulocytes # (auto) 0.05 K/uL (0.00-0.02); Immature Granulocytes % (auto) 0.4 %; Lymphocytes # (auto) 0.77 K/uL (1.2-3.4); Lymphocytes % (auto) 6.2 %; Mean Corpuscular Hemoglobin 28.8 pg (25.0-34.0); Mean Corpuscular Volume 87.1 fL (80.0-100.0); Mean Platelet Volume 9.6 fL (9.4-12.3); Monocytes # (auto) 0.38 K/uL (0.24-0.82); Monocytes % (auto) 3.1 %; Neutrophils # (auto) 11.19 K/uL (1.4-6.5); Neutrophils % (auto) 89.9 %; Platelet Count 303 K/uL (130-400); RDW Coefficient of Variation 13.1 % (11.5-14.5); RDW Standard Deviation 41.5 fL (36.4-46.3); White Blood Count 12.43 K/ul (4.8-10.8)
[2022-06-03 09:34] LABS: INR 1.1 (0.9-1.1); Partial Thromboplastin Ratio 1.1; Partial Thromboplastin Time 30.5 Seconds (21.0-31.0); Prothrombin Time 11.4 Seconds (9.0-12.0)
[2022-06-03 09:45] LABS: Albumin Globulin Ratio 1.5 (0.9-2); Albumin Level 3.8 gm/dl (3.4-5.0); BUN Creatinine Ratio 21.5 (10-20); Bilirubin,Total 0.3 mg/dl (0.2-1.0); Calcium 9.4 mg/dl (8.5-10.1); Creatinine Clr Calc Pharmacy 70.9 ml/min; Est GFR (African American) 96.5 ml/min; Est GFR (Non-African American) 83.3 ml/min; Globulin 2.6 gm/dl (2.5-4.0); Magnesium 1.4 mg/dl (1.7-2.4); Potassium 3.7 mmol/L (3.5-5.1); Total Protein 6.4 gm/dl (6.0-8.3)
--- NOTE | 2022-06-03 09:52 | CT Scan Report ---
CT head/brain wo con CLINICAL HISTORY: Stroke Like Symptoms Technique: Contiguous axial CT images of the head were acquired from the base of the skull to the ken alb[place] without intravenous contrast administration. Images were viewed in brain, subdural and bone [facility]. Automated dose lowering techniques and/or adjustment according to patient size were utilized for this exam. Comparison: Comparison is made to CT head 10/20/2020 Findings: The ventricles, basal cisterns, and cerebral sulci are normal. There is no acute intracranial hemorrh age or evidence of acute territorial infarction. Neither mass effect, shift of the midline structures , nor abnormal extra-axial fluid collections are shown. Right mastoid air cells are again noted to be opacified. The orbits appear normal. There are no acut e fractures of the calvaria or scalp swelling. Impression: 1. No acute intracranial hemorrhage, no evidence of acute territorial infarction or other acute intr acranial disease process. 2. Right mastoid effusion can be seen with mastoiditis. ACT 112: Negative or not required by law. Electronically signed by: Dejon Goldman M.D. 06/03/2022 9:50 AM
--- NOTE | 2022-06-03 10:10 | XRay Report ---
XR chest 1V portable CLINICAL HISTORY: Stroke Like Symptoms TECHNIQUE: Single frontal radiograph of the chest was obtained. Comparison: Comparison is made to chest radiograph 01/22/2021 FINDINGS: No lines and tubes are seen. Calcified aortic knob is seen. The lungs are clear. No evidence of pleur al effusion or pneumothorax. Posterior fixation hardware is seen in the upper thoracic spine. IMPRESSION: No acute chest disease. ACT 112: Negative or not required by law. Electronically signed by: Dejon Goldman M.D. 06/03/2022 10:08 AM
--- NOTE | 2022-06-03 10:20 | Electrocardiogram Report ---
Test Reason : Blood Pressure : / mmHG Vent. Rate : 094 BPM Atrial Rate : 094 BPM P-R Int : 216 ms QRS Dur : 086 ms QT Int : 376 ms P-R-T Axes : 069 -58 049 degrees QTc Int : 470 ms Sinus rhythm with 1st degree A-V block with occasional Premature ventricular complexes Left anterior fascicular block Abnormal ECG When compared with ECG of 07-AUG-2021 11:45, Premature ventricular complexes are now Present Confirmed by Landon Birmingham ([id number]) on 06/03/2022 10:20:27 AM Referred By: Confirmed By:Landon Birmingham
[2022-06-03 10:22] LABS: Troponin I High Sensitivity 155.1 pg/ml (0-14)
--- NOTE | 2022-06-03 11:08 | History & Physical Report ---
Date of Service June 03, 2022 Assessment & Plan (1) Acute metabolic encephalopathy: Plan: Likely related to CAUTI. Change umanzor catheter today and continue with Rocephin pending culture results and clinical improvement. (2) Catheter-associated urinary tract infection: Plan: Plan as above. (3) Neurogenic bladder: Plan: chronic, has indwelling umanzor and likely CAUTI. Plan as above. (4) Paralysis, progressive: Plan: No neurology notes in outpatient records to clarify etiology of this. Baseline functional status is wheelchair-bound as outlined above. (5) Current use of nursing home anticoagulation: Plan: Uncertain reason for this other than h/o DVT, possible recurrent. No history of atrial fibrillation or cardiology visits per outpatient records review. (6) History of DVT (deep vein thrombosis): Plan: Apixaban (7) Foot drop, bilateral: Plan: chronic, known per nurse. (8) Hypothyroidism: Plan: chronic, stable. Cont Synthroid per home medications. (9) Hypertension: Plan: chronic, stable. Cont amlodipine per home list. (10) Osteoporosis: Plan: Was on Fosamax historically, but no record of her taking this now. Defer to PCP for update DEXA and reassessment. (11) DMII (diabetes mellitus, type 2): Plan: well controlled on metformin monotherapy (12) Abnormal head CT: Plan: R mastoid effusion. Follows with Dr. Rick-recently seen mid Apr. Effusion is chronic and seen on head CT in 2020. (13) DVT prophylaxis: Plan: apixaban Full Code-confirmed with patient and [facility] records Dispo-med telemetry, discharge back to when clinically improved. I spoke with her daughter, and updated her on the plan. She would be very interested in speaking with case management to explore resources that can improve umanzor catheter care at . Paola Cruz DO [facility] Hospitalist History of Present Illness Chief Complaint: stroke like symptoms Primary Care Provider: Ton Clayton DO 82 yo F who has ambulatory dysfunction at baseline, and is living at [facility] presents with increased weakness and malaise. She has a h/o neurogenic bladder with an indwelling umanzor catheter. Her urine smells strong in the room and when asked if she has had any UTI symptoms, she states "something hasn't been right for about 4 days." She repeatedly went back to the point that staff had "kept me in the wheelchair too long" followed by the point that she was in bed most of the last 4 days not necessarily because she felt badly, but because staff wanted her to stay in bed "more that what I could endure." Although she is alert, answering questions and is oriented to person, place and time, she is a poor historian and unable to give more specific details beyond "I feel bad" and "something just isn't right." Per staff at [facility] there was no facial droop but they were concerned because she was confused upon awakening today. She was flushed and not her usual self. She can typically tell them exactly what is wrong with her, and couldn't do that. She was reportedly repeating "please help me." She doesn't ambulate at baseline and has a chronic left sided paralysis. She is typically 100% oriented. The patient otherwise denies and fevers, chills, lizbeth abdominal pain (although does report a poor appetite). She repeated asked for her family to come in and be with her. Allergies, history were reviewed from previous records as patient is poor historian and unable to give this when prompted. Medication list was drawn from her [facility] list that was sent in with her today. Patient denies any recent medication changes. Allergies Allergy/AdvReac Type Severity Reaction Status Date / Time Sulfa (Sulfonamide Allergy Intermediate RASH/ITCH Verified 04/22/22 13:09 Antibiotics) acesulfame Allergy Mild Unknown Verified 04/22/22 13:09 aspartame Allergy Mild Unknown Verified 04/22/22 13:09 morphine Allergy Mild RASH/ITCH Verified 04/22/22 13:09 propoxyphene Allergy Mild RASH Verified 04/22/22 13:09 saccharin Allergy Mild Unknown Verified 04/22/22 13:09 sucralose Allergy Mild Unknown Verified 04/22/22 13:09 Home Medications Medication Instructions Recorded Confirmed Type cyanocobalamin (vitamin B-12) 500 500 mcg PO QAM 05/06/19 06/03/22 History mcg tablet pravastatin 10 mg tablet 10 mg PO HS #90 tabs 11/07/20 06/03/22 Rx metformin 500 mg tablet 500 mg PO BID 12/20/20 06/03/22 History diclofenac sodium 1 % topical gel 4 g topical TID 01/22/21 06/03/22 History levothyroxine 25 mcg tablet 25 mcg PO QAM 01/22/21 06/03/22 History pantoprazole 40 mg tablet,delayed 40 mg PO QAM #30 tabs 01/28/21 06/03/22 Rx release apixaban 5 mg tablet (Eliquis) 5 mg PO BID 02/08/21 06/03/22 History fluticasone propionate 50 2 spray intranasal QAM Nasal 02/08/21 06/03/22 History mcg/actuation nasal Congestion spray,suspension oxybutynin chloride 5 mg tablet 5 mg PO TID #270 tabs 11/15/21 06/03/22 Rx L.acidop,casei,lactis,rham-B.lact,dee dee 2 cap PO QAM 11/18/21 06/03/22 History 625 mg (10 billion cell) capsule (Advanced Probiotic) atenolol 25 mg tablet 25 mg PO QAM 11/18/21 06/03/22 History isosorbide mononitrate 30 mg 30 mg PO HS 11/18/21 06/03/22 History tablet,extended release 24 hr L.acidophil,salivari-Bifido 2 cap PO DAILY 06/03/22 06/03/22 History bifidum-Strep thermoph 175 mg capsule (Acidophilus Probiotic Blend) amlodipine 5 mg tablet 5 mg PO DAILY 06/03/22 06/03/22 History lactase 9,000 unit tablet (Lactaid 9,000 unit PO TIDM 06/03/22 06/03/22 History Fast Act) multivitamin (Daily-Ning tablet) 1 tab PO DAILY 06/03/22 06/03/22 History Past Med/Surg History Medical History Abnormal EKG Anxiety Arthralgia of multiple sites Conductive hearing loss of right ear with unrestricted hearing of left ear Coronary artery calcification Dairy allergy Diabetes mellitus, type 2 DMII (diabetes mellitus, type 2) Dyslipidemia Gait disturbance Hammer toe History of DVT (deep vein thrombosis) History of nasal polyp Hyperlipidemia Hypertension Hypertension Hypertrophy of nasal turbinates Hypothyroidism LAFB (left anterior fascicular block) Left leg DVT 11/2020 LVH (left ventricular hypertrophy) Microalbuminuria Nocturia Osteoarthritis Osteoporosis Urinary frequency Urinary incontinence Urinary symptom or sign Vitamin D deficiency disease Surgical History History of back surgery IN 1985 LUMBAR FOR 2 RUPTURED DISC History of blepharoplasty History of breast biopsy History of cataract surgery BILAT History of colonoscopy History of hand surgery RIGHT History of hip replacement BILAT. RIGHT HIP X2 History of hysterectomy History of knee replacement RIGHT History of lumbar laminectomy for spinal cord decompression 12/22/20 - [facility], Dr Rocha; L1-L5 History of nasal septoplasty History of placement of ear tubes RIGHT IN OFFICE History of rhinoplasty History of rotator cuff surgery LEFT History of tonsillectomy S/P fusion of thoracic spine T1-T3; [place]29/20[place] [facility] [place] S/P IVC filter 11/2020 - [facility] [place] S/P lumbar fusion L3-L4, Dr Rocha, [facility] [place]. Family History Mother , age 69 Coronary heart disease s/p CABG Heart disease Grandmother (Maternal) Heart disease heart attacks Son Diabetes Heart disease age 47 from cardiac arrest Father , in his 80s Rheumatoid arthritis Denies family history of Ovarian cancer Prostate cancer Breast cancer Colorectal cancer Cancer Social History Smoking Status: Never smoker Second Hand Exposure: Yes; Hx Alcohol Use: No Hx Substance Use: No Preferred Language: Armenian Communication Ability: Effective Medical Staff Director Required: No Beliefs That Will Affect Care: None marital status: / Current Living Situation: Personal Care Facility Current Living Situation Comment: 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 Physical Exam Physical Exam: CONSTITUTIONAL: WNWD, vitals as above, generally NAD, doesn't move much EYES: normal conjunctivae, no scleral icterus ENT: external ear and nose normal, MMM NECK: trachea midline RESPIRATORY: clear to auscultation bilaterally, no crackles, rales or wheezes, normal respiratory effort CARDIOVASCULAR: regular rate and rhythm, S1 and 2 heard without murmurs, rios ps or rubs, no JVD, no peripheral edema CHEST: inspection of chest was normal GASTROINTESTINAL: soft, nontender, ND, no guarding MUSCULOSKELETAL: strength 5/5 throughout upper extremities, she doesn't move either leg much independently and she has a harder time moving the LLE but still can move it actively against gravity. head is normocephalic and atraumatic SKIN: warm and dry NEUROLOGIC: 2+ DTR in bilateral brachioradialis and bilateral knees. CN 2-12 grossly intact, no sensory deficit, normal cognition, normal speech, no tremor PSYCHIATRIC: alert cooperative and oriented to person, place and time but doesn't give much detail in her history. Appears to have some memory issues. Euthymic mood, makes good eye contact, language grossly intact Results & Data Results & Data ([facility]) Vital Signs (Past 12 Hours) Vital Signs Temp Pulse Resp BP Pulse Ox O2 Del Method 06/03/22 09:00 Room Air 06/03/22 08:54 36.9 C 91 H 20 155/84 H 97 Room Air Laboratory Results Short CBC 06/03/22 Range/Units 09:15 WBC 12.43 H (4.8-10.8) K/ul Hgb 14.1 (12.0-16.0) g/dl Hct 42.7 (34.1-44.9) % Plt Count 303 (130-400) K/uL BMP 06/03/22 09:15 Sodium 138 Potassium 3.7 Chloride 103 Carbon Dioxide 25 BUN 14 Creatinine 0.65 Glucose 134 H Calcium 9.4 Liver Function 06/03/22 Range/Units 09:15 Total Bilirubin 0.3 (0.2-1.0) mg/dl AST 15 (13-39) U/L ALT 9 (7-52) U/L Alkaline Phosphatase 66 (34-104) U/L Albumin 3.8 (3.4-5.0) gm/dl Diagnostic Findings Chest X-Ray 06/03/22 09:04 XR chest 1V portable CLINICAL HISTORY: Stroke Like Symptoms TECHNIQUE: Single frontal radiograph of the chest was obtained. Comparison: Comparison is made to chest radiograph 01/22/2021 FINDINGS: No lines and tubes are seen. Calcified aortic knob is seen. The lungs are clear. No evidence of pleural effusion or pneumothorax. Posterior fixation hardware is seen in the upper thoracic spine. IMPRESSION: No acute chest disease. ACT 112: Negative or not required by law. Electronically signed by: Dejon Goldman M.D. 06/03/2022 10:[address] 06/03/22 09:04 CT head/brain wo con CLINICAL HISTORY: Stroke Like Symptoms Technique: Contiguous axial CT images of the head were acquired from the base of the skull to the vertex without intravenous contrast administration. Images were viewed in brain, subdural and bone windows. Automated dose lowering techniques and/or adjustment according to patient size were utilized for this exam. Comparison: Comparison is made to CT head 10/20/2020 Findings: The ventricles, basal cisterns, and cerebral sulci are normal. There is no acute intracranial hemorrhage or evidence of acute territorial infarction. Neither mass effect, shift of the midline structures, nor abnormal extra-axial fluid collections are shown. Right mastoid air cells are again noted to be opacified. The orbits appear normal. There are no acute fractures of the calvaria or scalp swelling. Impression: 1. No acute intracranial hemorrhage, no evidence of acute territorial infarction or other acute intracranial disease process. 2. Right mastoid effusion can be seen with mastoiditis. ACT 112: Negative or not required by law. Electronically signed by: Dejon Goldman M.D. 06/03/2022 9:50 AM Code Status & VTE Plan VTE Prophylaxis Plan VTE Prophylaxis will be ordered: Yes (1) Catheter-associated urinary tract infection Encounter type: initial encounter Indwelling urinary catheter type: indwelling urethral catheter Qualified Code(s): T83.511A - Infection and inflammatory reaction due to indwelling urethral catheter, initial encounter; N39.0 - Urinary tract infection, site not specified
[2022-06-03 11:09] LABS: Appearance Urine Clear (Clear); Bacteria Urine Automated 3+ (Negative); Bilirubin Urine Negative (Negative); Blood Urine Negative (Negative); Color Urine Yellow; Glucose Urine UA Negative (Negative); Ketones Urine Negative (Negative); Leukocyte Esterase Urine 1+ (Negative); Nitrite Urine Positive (Negative); Protein Urine Negative (Negative); RBC Urine Automated 0-4 /hpf (0-4); Urobilinogen Urine Negative (Negative); pH Urine 7.5 (4.5-7.5)
[2022-06-03] MEDS ORDERED: cefTRIAXone SODIUM 2,000 MG/70 ML BAG IV STA (11:21)
[2022-06-03] MEDS ORDERED: ACETAMINOPHEN 325 MG TAB PO PRN (12:50)
[2022-06-03] MEDS ORDERED: POLYETHYLENE (MIRALAX) 17 GM PACK PO PRN (12:50)
[2022-06-03] MEDS ORDERED: GLUCOSE 10 TAB/TUBE PO PRN (13:05)
[2022-06-03] MEDS ORDERED: DEXTROSE 50% 50 ML SYRINGE IV PRN (13:05)
[2022-06-03] MEDS ORDERED: CARBOHYDRATES FOR HYPOGLYCEMIA PO PRN (13:05)
[2022-06-03] MEDS ORDERED: GLUCAGON FOR INJ 1 MG VIAL SQ PRN (13:05)
[2022-06-03] MEDS ORDERED: GLUCOSE 40% GEL 15 GM TUBE PO PRN (13:05)
[2022-06-03] MEDS: ATENOLOL 25 MG TABLET PO SCH (13:43)
[2022-06-03] MEDS: amLODIPine BESYLATE 5 MG TAB PO SCH (13:43)
[2022-06-03] MEDS: ADVANCED PROBIOTIC 1250 MG CAPSULE PO SCH (14:46)
[2022-06-03] MEDS: MAGNESIUM SULFATE / D5W 1 GM/100 ML BAG IV SCH ×2 (17:26→19:26)
[2022-06-03] MEDS: INSULIN ASPART PER UNIT SC SCH ×2 (17:26→20:25)
[2022-06-03] MEDS: LACTASE 3000 UNIT TAB PO SCH (17:34)
[2022-06-03] MEDS: ISOSORBIDE MONO EXTENDED REL 30 MG TABCR PO SCH (20:24)
[2022-06-03] MEDS: PRAVASTATIN SOD 10 MG TAB PO SCH (20:24)
[2022-06-03] MEDS: APIXABAN 5 MG TABLET PO SCH (20:25)
[2022-06-03] MEDS: LANTUS PER UNIT CHARGE SQ SCH (20:25)
[2022-06-04] MEDS: LEVOTHYROXINE SODIUM 25 MCG TABLET PO SCH (05:09)
[2022-06-04 06:23] LABS: Hematocrit (blood only) 38.9 % (34.1-44.9); Mean Corpuscular Hemoglobin 28.8 pg (25.0-34.0); Mean Corpuscular Hgb Conc 33.4 g/dL (32.0-36.0); Mean Corpuscular Volume 86.1 fL (80.0-100.0); Platelet Count 319 K/uL (130-400); RDW Coefficient of Variation 13.2 % (11.5-14.5); RDW Standard Deviation 41.3 fL (36.4-46.3); Red Blood Count 4.52 M/uL (3.93-5.22); White Blood Count 8.61 K/ul (4.8-10.8)
[2022-06-04 06:50] LABS: BUN Creatinine Ratio 22.7 (10-20); Creatinine Clr Calc Pharmacy 65.3 ml/min; Est GFR (African American) 86.6 ml/min; Est GFR (Non-African American) 74.8 ml/min; Magnesium 2.1 mg/dl (1.7-2.4); Potassium 3.8 mmol/L (3.5-5.1)
[2022-06-04] MEDS: ADVANCED PROBIOTIC 1250 MG CAPSULE PO SCH (07:53)
[2022-06-04] MEDS: APIXABAN 5 MG TABLET PO SCH ×2 (07:53→19:49)
[2022-06-04] MEDS: amLODIPine BESYLATE 5 MG TAB PO SCH (07:54)
[2022-06-04] MEDS: ATENOLOL 25 MG TABLET PO SCH (07:56)
[2022-06-04] MEDS: PANTOprazole 40 MG TAB PO SCH (07:56)
[2022-06-04] MEDS: LACTASE 3000 UNIT TAB PO SCH ×3 (07:56→17:01)
[2022-06-04] MEDS: INSULIN ASPART PER UNIT SC SCH ×4 (08:27→20:54)
[2022-06-04 08:28] LABS: Estimated Average Glucose 120 mg/dl; Hemoglobin A1C 5.8 % (4.5-5.6)
[2022-06-04] MEDS: cefTRIAXone SODIUM 1,000 MG in DEXTROSE 5% 50 ML IV SCH (12:03)
--- NOTE | 2022-06-04 14:13 | Electrocardiogram Report ---
Test Reason : Blood Pressure : / mmHG Vent. Rate : 057 BPM Atrial Rate : 057 BPM P-R Int : 232 ms QRS Dur : 092 ms QT Int : 480 ms P-R-T Axes : 059 -54 022 degrees QTc Int : 467 ms Sinus bradycardia with 1st degree A-V block Left axis deviation Abnormal ECG When compared with ECG of 03-JUN-2022 08:51, Premature ventricular complexes are no longer Present Vent. rate has decreased BY 37 BPM T wave inversion now evident in Anterior leads Confirmed by Conner Goff ([id number]) on 06/04/2022 2:12:38 PM Referred By: REFERRED SELF Confirmed By:Conner oGff
--- NOTE | 2022-06-04 14:26 | Hospitalist Progress Note ---
Date of Service June 04, 2022 Assessment & Plan (1) Acute metabolic encephalopathy: Plan: Likely related to CAUTI. Recurrent UTI Awake, alert oriented x2 Back to baseline mental status Afebrile Urine culture: 3 types of organisms present, all high counts, repeat collection recommended Repeat urine culture: Pending Continue IV ceftriaxone day #2 Has grown pansensitive Proteus, and Klebsiella resistant to fluoroquinolones earlier this year Umanzor catheter changed during admission (2) Catheter-associated urinary tract infection: Plan: Plan as above. (3) Neurogenic bladder: Plan: chronic, has indwelling umanzor and likely CAUTI. Plan as above. (4) Paralysis, progressive: Plan: Per admitting service notes: No neurology notes in outpatient records to clarify etiology of this. Baseline functional status is wheelchair-bound as outlined above. 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 No history of atrial fibrillation or cardiology visits per outpatient records review. (6) History of DVT (deep vein thrombosis): Plan: Apixaban (7) Foot drop, bilateral: Plan: chronic, known per nurse. (8) Hypothyroidism: Plan: chronic, stable. Cont Synthroid per home medications. (9) Hypertension: Plan: chronic, stable. Cont amlodipine per home list. (10) Osteoporosis: Plan: Was on Fosamax historically, but no record of her taking this now. Defer to PCP for update DEXA and reassessment. (11) DMII (diabetes mellitus, type 2): Plan: well controlled on metformin monotherapy (12) Abnormal head CT: Plan: R mastoid effusion. Follows with Dr. Rick-recently seen mid Apr. Effusion is chronic and seen on head CT in 2020. (13) DVT prophylaxis: Plan: apixaban Full Code-confirmed with patient and [facility] records Dispo-med telemetry, discharge back to when clinically improved. I spoke with her daughter, and updated her on the plan. She would be very interested in speaking with case management to explore resources that can improve umanzor catheter care at . Paola Cruz DO [facility] Hospitalist Admission and Anticipated Discharge Date Admission Date: June 03, 2022 Subjective Follow-up for encephalopathy, catheter associated UTI, neurogenic bladder, etc. Seen sitting up in bed, comfortable, in good spirits, awake and alert, smiling, Oriented x2, answers all questions appropriately States she feels better compared to yesterday Denies abdominal pain, fevers or chills, nausea Appetite is good No other symptoms Review of Systems Review of Systems: all noted and negative except for above Physical Exam Physical Exam: General- oriented x 3, not in distress, speaks in sentences with no effort or accessory muscle use Eyes- anicteric Neck- no JVD Lungs- clear breath sounds bilaterally, no rales/wheezes Heart- normal rate, regular rhythm; no murmurs Abdomen- normal bowel sounds, nondistended, soft, nontender Umanzor catheter in place-yellow urine Extremities- no pretibial edema, no calf tenderness Positive atrophic muscles of the lower extremities, bilaterally Neuro- alert, oriented x 3; no gross focal neurologic deficits Skin- warm & dry Results & Data Results & Data ([facility]) Vital Signs (Past 12 Hours) Vital Signs Temp Pulse Resp BP BP Pulse Ox O2 Del Method 06/04/22 11:16 37.2 C 53 L 18 101/66 94 Room Air 06/04/22 07:54 36.4 C L 54 L 20 112/70 93 06/04/22 03:33 36.4 C L 55 L 17 101/66 95 Room Air all noted and reviewed including below (1) Catheter-associated urinary tract infection Encounter type: initial encounter Indwelling urinary catheter type: indwelling urethral catheter Qualified Code(s): T83.511A - Infection and inflammatory reaction due to indwelling urethral catheter, initial encounter; N39.0 - Urinary tract infection, site not specified
[2022-06-04] MEDS: PRAVASTATIN SOD 10 MG TAB PO SCH (19:50)
[2022-06-04] MEDS: ISOSORBIDE MONO EXTENDED REL 30 MG TABCR PO SCH (19:50)
[2022-06-04] MEDS: LANTUS PER UNIT CHARGE SQ SCH (20:54)
[2022-06-05] MEDS: LEVOTHYROXINE SODIUM 25 MCG TABLET PO SCH (06:07)
[2022-06-05] MEDS: ADVANCED PROBIOTIC 1250 MG CAPSULE PO SCH (08:00)
[2022-06-05] MEDS: PANTOprazole 40 MG TAB PO SCH (08:00)
[2022-06-05] MEDS: APIXABAN 5 MG TABLET PO SCH (08:00)
[2022-06-05] MEDS: LACTASE 3000 UNIT TAB PO SCH ×2 (08:00→11:58)
[2022-06-05] MEDS: amLODIPine BESYLATE 5 MG TAB PO SCH (08:01)
[2022-06-05] MEDS: ATENOLOL 25 MG TABLET PO SCH (08:01)
[2022-06-05] MEDS: INSULIN ASPART PER UNIT SC SCH ×2 (08:01→12:01)
[2022-06-05] MEDS ORDERED: bisacodyL 5 MG TABEC PO ONE (11:25)
[2022-06-05] MEDS: cefTRIAXone SODIUM 1,000 MG in DEXTROSE 5% 50 ML IV SCH (12:00)
--- NOTE | 2022-06-05 13:15 | Discharge Summary ---
Date of Service June 05, 2022 Admission HPI Per Admitting Provider 82 yo F who has ambulatory dysfunction at baseline, and is living at [facility] presents with increased weakness and malaise. She has a h/o neurogenic bladder with an indwelling umanzor catheter. Her urine smells strong in the room and when asked if she has had any UTI symptoms, she states "something hasn't been right for about 4 days." She repeatedly went back to the point that staff had "kept me in the wheelchair too long" followed by the point that she was in bed most of the last 4 days not necessarily because she felt badly, but because staff wanted her to stay in bed "more that what I could endure." Although she is alert, answering questions and is oriented to person, place and time, she is a poor historian and unable to give more specific details beyond "I feel bad" and "something just isn't right." Per staff at [facility] there was no facial droop but they were concerned because she was confused upon awakening today. She was flushed and not her usual self. She can typically tell them exactly what is wrong with her, and couldn't do that. She was reportedly repeating "please help me." She doesn't ambulate at baseline and has a chronic left sided paralysis. She is typically 100% claire ented. The patient otherwise denies and fevers, chills, lizbeth abdominal pain (although does report a poor appetite). She repeated asked for her family to come in and be with her. Allergies, history were reviewed from previous records as patient is poor historian and unable to give this when prompted. Medication list was drawn from her [facility] list that was sent in with her today. Patient denies any recent medication changes. Admission Exam Per Admitting Provider CONSTITUTIONAL: WNWD, vitals as above, generally NAD, doesn't move much EYES: normal conjunctivae, no scleral icterus ENT: external ear and nose normal, MMM NECK: trachea midline RESPIRATORY: clear to auscultation bilaterally, no crackles, rales or wheezes, normal respiratory effort CARDIOVASCULAR: regular rate and rhythm, S1 and 2 heard without murmurs, gallops or rubs, no JVD, no peripheral edema CHEST: inspection of chest was normal GASTROINTESTINAL: soft, nontender, ND, no guarding MUSCULOSKELETAL: strength 5/5 throughout upper extremities, she doesn't move either leg much independently and she has a harder time moving the LLE but still can move it actively against gravity. head is normocephalic and atraumatic SKIN: warm and dry NEUROLOGIC: 2+ DTR in bilateral brachioradialis and bilateral knees. CN 2-12 grossly intact, no sensory deficit, normal cognition, normal speech, no tremor PSYCHIATRIC: alert cooperative and oriented to person, place and time but doesn't give much detail in her history. Appears to have some memory issues. Euthymic mood, makes good eye contact, language grossly intact Principal Diagnosis catheter associated UTI Discharge Exam General- oriented x 3, not in distress, speaks in sentences with no effort or accessory muscle use Eyes- anicteric Neck- no JVD Lungs- clear breath sounds bilaterally, no rales/wheezes Heart- normal rate, regular rhythm; no murmurs Abdomen- normal bowel sounds, nondistended, soft, nontender Umanzor catheter in place-yellow urine Extremities- no pretibial edema, no calf tenderness Positive atrophic muscles of the lower extremities, bilaterally Neuro- alert, oriented x 3; no gross focal neurologic deficits Skin- warm & dry Discharge Data Allergies Allergy/AdvReac Type Severity Reaction Status Date / Time Sulfa (Sulfonamide Allergy Intermediate RASH/ITCH Verified 04/22/22 13:09 Antibiotics) acesulfame Allergy Mild Unknown Verified 04/22/22 13:09 aspartame Allergy Mild Unknown Verified 04/22/22 13:09 morphine Allergy Mild RASH/ITCH Verified 04/22/22 13:09 propoxyphene Allergy Mild RASH Verified 04/22/22 13:09 saccharin Allergy Mild Unknown Verified 04/22/22 13:09 sucralose Allergy Mild Unknown Verified 04/22/22 13:09 Consultations 06/03/22 11:02 ED Decision to Admit Stat Ordered Studies 06/03/22 09:04 CT head/brain wo con Stat Hospital Course (1) Acute metabolic encephalopathy: Likely related to CAUTI. Recurrent UTI Awake, alert oriented x3 Back to baseline mental status Afebrile Urine culture: 3 types of organisms present, all high counts, repeat collection recommended Repeat urine culture: Pending Continue IV ceftriaxone day #3 Has grown pansensitive Proteus, and Klebsiella resistant to fluoroquinolones earlier this year Umanzor catheter changed during admission - stable for discharge - will give full 10 day course of abx - finish with PO cefpodoxime 200mg BID until 06/10/2022 (2) Catheter-associated urinary tract infection: Plan as above. (3) Neurogenic bladder: chronic, has indwelling umanzor and likely CAUTI. Plan as above. (4) Paralysis, progressive: Per admitting service notes: No neurology notes in outpatient records to clarify etiology of this. Baseline functional status is wheelchair-bound as outlined above. (5) Current use of deal architect anticoagulation: On Eliquis Per admitting service notes: Uncertain reason for this other than h/o DVT, possible recurrent. No history of atrial fibrillation or cardiology visits per outpatient records review. (6) History of DVT (deep vein thrombosis): Apixaban (7) Foot drop, bilateral: chronic, known per nurse. (8) Hypothyroidism: chronic, stable. Cont Synthroid per home medications. (9) Hypertension: chronic, stable. Cont amlodipine per home list. (10) Osteoporosis: Was on Fosamax historically, but no record of her taking this now. Defer to PCP for update DEXA and reassessment. (11) DMII (diabetes mellitus, type 2): well controlled on metformin monotherapy (12) Abnormal head CT: R mastoid effusion. Follows with Dr. Rick-recently seen mid Apr. Effusion is chronic and seen on head CT in 2020. (13) DVT prophylaxis: apixaban Full Code-confirmed with patient and [facility] records Dispo-med telemetry, discharge back to when clinically improved. I spoke with her daughter, and updated her on the plan. patient to have further catheter care at - and family discussed and aware of costs Total Time Total Time Spent Total Time Spent (In Minutes): 25 Total Time Includes: Examination of the Patient, Discharge Planning and Medication Reconciliation Discharge Plan Discharge Items Patient Disposition: Transfer Alf Fac Reason For Visit: STROKE LIKE SYMPTOMS Discharge Diagnosis: catheter associated UTI Activity: Resume your previous activity Non-emergency contact: Primary Care Provider Call non-emergency contact if: your symptoms worsen Follow-up/Referrals: Ton Clayton DO [Primary Care Provider] - Diet: Carb Consistent or DM2 Diet Texture: Easy to Chew Addtl Attending Provider Instructions: You were admitted with a UTI associated with your chronic indwelling catheter. You were started on antibiotics with improvement in your symptoms. You were ready for discharge back to [facility] with antibiotics by mouth to finish a 10 day course, last day should be 06/13/2022. Pending Studies at Discharge: Yes Studies:: urine culture Stand-Alone Forms: My [facility] Skilled Items Patient informed of condition?: Yes DNR: No Discharge Level of Care: Skilled Communicable Disease: No Discharge Prognosis: Stable Lines: None Urinary Catheter: Yes Medications and DC Order Prescriptions: New polyethylene glycol 3350 [Miralax] 17 gram Powder In Packet 17 g PO DAILY PRN (Reason: constipation) Qty: 14 0RF senna 8.6 mg capsule 8.6 mg PO DAILY PRN (Reason: constipation) Qty: 30 0RF cefpodoxime 200 mg tablet 200 mg PO BID Qty: 16 0RF Rx Instructions: must administer with a meal/food Continued pravastatin 10 mg tablet 10 mg PO HS Qty: 90 1RF fluticasone propionate 50 mcg/actuation spray,suspension 2 spray intranasal QAM Rx Instructions: Instill 2 sprays each nostril daily Eliquis 5 mg tablet 5 mg PO BID oxybutynin chloride 5 mg tablet 5 mg PO TID Qty: 270 3RF cyanocobalamin (vitamin B-12) 500 mcg Tablet 500 mcg PO QAM metformin 500 mg tablet 500 mg PO BID levothyroxine 25 mcg tablet 25 mcg PO QAM diclofenac sodium 1 % gel 4 g TOPICAL TID Rx Instructions: Apply to left hip and left knee three times daily for pain. pantoprazole 40 mg Tablet,Delayed Release (Dr/Ec) 40 mg PO QAM Qty: 30 0RF isosorbide mononitrate 30 mg tablet extended release 24 hr 30 mg PO HS atenolol 25 mg tablet 25 mg PO QAM Advanced Probiotic 625 mg (10 billion cell) capsule 2 cap PO QAM multivitamin [Daily-Ning] Tablet 1 tab PO DAILY amlodipine 5 mg tablet 5 mg PO DAILY Lactaid Fast Act 9,000 unit Tablet 9,000 unit PO TIDM L.acidoph,saliva-B.bif-S.therm [Acidophilus Probiotic Blend] 175 mg Capsule 2 cap PO DAILY Discharge Orders: Discharge Order (Routine); Ordered 06/05/22 Ordered By: Danyel Winn/Other Patient Handouts: Managing Type 2 Diabetes Admission Data Admit Date/Time: 06/03/22 11:05 Attending Provider: Danyel Braden Admit Provider: Paola Cruz Primary Care Provider: Ton Clayton Other Providers: Paola Cruz Other Interventions: Discharge Summary Assessment (RN) Last Done: 06/05/22 12:22
--- NOTE | 2022-06-05 16:47 | Electrocardiogram Report ---
Test Reason : Blood Pressure : / mmHG Vent. Rate : 060 BPM Atrial Rate : 060 BPM P-R Int : 244 ms QRS Dur : 092 ms QT Int : 474 ms P-R-T Axes : 061 -50 016 degrees QTc Int : 474 ms Sinus rhythm with 1st degree A-V block Left axis deviation Abnormal ECG When compared with ECG of 04-JUN-2022 05:59, Nonspecific T wave abnormality has replaced inverted T waves in Anterior leads Confirmed by Conner Goff ([id number]) on 06/05/2022 4:46:47 PM Referred By: REFERRED SELF Confirmed By:Conner Goff
== END 2022-06-05 15:16 | disposition home or self-care (01) | DRG 698 ==
LOC: ED 08:43 → SUATTDRO 11:05 → 2N 11:05

== ENCOUNTER 2023-07-25 11:24 | Inpatient (IN) ==
[2023-07-25 13:03] LABS: Basophils # (auto) 0.04 K/uL (0.00-0.20); Basophils % (auto) 0.4 %; Eosinophils # (auto) 0.31 K/uL (0.00-0.50); Eosinophils % (auto) 2.7 %; Hematocrit (blood only) 40.8 % (37.0-47.0); Hemoglobin 13.1 g/dl (12.0-16.0); Immature Granulocytes # (auto) 0.04 K/uL (0.01-0.20); Immature Granulocytes % (auto) 0.4 %; Lymphocytes # (auto) 1.53 K/uL (1.20-3.40); Lymphocytes % (auto) 13.5 %; Mean Corpuscular Hemoglobin 28.2 pg (25.0-34.0); Mean Corpuscular Hgb Conc 32.1 g/dL (32.0-36.0); Mean Corpuscular Volume 87.7 fL (80.0-100.0); Mean Platelet Volume 9.9 fL (9.4-12.4); Monocytes # (auto) 0.72 K/uL (0.11-0.59); Monocytes % (auto) 6.4 %; Neutrophils # (auto) 8.68 K/uL (1.40-6.50); Neutrophils % (auto) 76.6 %; Platelet Count 410 K/uL (130-400); RDW Coefficient of Variation 13.2 % (11.5-14.5); RDW Standard Deviation 41.8 fL (36.4-46.3); Red Blood Count 4.65 M/uL (4.20-5.40); White Blood Count 11.32 K/ul (4.8-10.8)
[2023-07-25 13:21] LABS: Alanine Aminotransferase 7 U/L (7-52); Albumin Globulin Ratio 1.3 (0.9-2); Albumin Level 3.7 gm/dl (3.4-5.0); Alkaline Phosphatase 66 U/L (34-104); Anion Gap 11 (3-11); Aspartate Aminotransferase 12 U/L (13-39); BUN Creatinine Ratio 21.2 (10-20); Bilirubin,Total 0.4 mg/dl (0.2-1.0); Blood Urea Nitrogen 11 mg/dl (6-23); Calcium 9.3 mg/dl (8.6-10.3); Carbon Dioxide 24 mmol/L (21-32); Chloride 102 mmol/L (98-107); Est GFR (African American) 103.1 ml/min; Globulin 2.8 gm/dl (2.5-4.0); Glucose 123 mg/dl (70-99(Fasting)); Lipase 16 U/L (11-82); Potassium 3.7 mmol/L (3.5-5.1); Sodium 137 mmol/L (136-145); Total Protein 6.5 gm/dl (6.0-8.3)
[2023-07-25] MEDS ORDERED: ONDANSETRON INJ 2 MG/ML 2 ML VIAL IV STA (15:06)
[2023-07-25] MEDS ORDERED: ACETAMINOPHEN 1,000 MG/100 ML VIAL IV STA (15:06)
--- NOTE | 2023-07-25 15:11 | Emergency Department Note ---
Impression & Plan Urinary tract infection, Fecal impaction, Abnormal EKG, Chest pain ED Provider Note NAME: LALA OQUENDO AGE: 83 SEX: F : 1940 ARRIVES VIA: Ambulance INFORMANT: Patient, ED PROVIDER(S): Conner Morfin DO CHIEF COMPLAINT: Constipation HPI: The patient is an 83-year-old female who presented to the emergency department for an evaluation of multiple complaints. The patient states that she has been having pain in her left leg for the last few weeks. She states that she was moved and appropriately while she was having her hair done at the [facility]. She also states that her Neal catheter is not working and she has abdominal pain and constipation. She also complains of chest pain as well as shortness of breath. [facility] to the patient being moved to a room at my request because she had an abnormal EKG. The patient denies having any vomiting. ROS: See above HPI for pertinent positives & negatives. A total of 10 systems reviewed and were otherwise negative. PAST MEDICAL HISTORY: See Below PAST SURGICAL HISTORY: See Below FAMILY HISTORY: See Below SOCIAL HISTORY: See Below HOME MEDICATIONS: See Below ALLERGIES: See Below VITALS: See Below PHYSICAL EXAMINATION: GENERAL: Patient is awake alert in no acute distress patient is resting comfortably and showing no signs of anxiety EYES: The conjunctivae are clear. The pupils are round and reactive. EARS, NOSE, MOUTH AND THROAT: The nose is without any evidence of any deformity. Mucous membranes are dry. NECK: The neck is nontender and supple. RESPIRATORY: Normal respiratory effort is noted there is no evidence of wheezing rhonchi or rales CARDIOVASCULAR: Regular rate and rhythm noted there no murmurs rubs or gallops normal S1 normal S2. GASTROINTESTINAL: The abdomen is markedly distended. There is diffuse tenderness to palpation. MUSCULOSKELETAL/EXTREMITIES: There is pain with range of motion testing of the left hip as well as the left knee. There is no deformity or ecchymosis. There is no tenderness in the left ankle or left lower leg. SKIN: Pedal edema was noted bilaterally. NEUROLOGIC: Patient is awake alert and oriented to person place and situation. Strength was symmetric but diminished. MEDICAL DECISION MAKING: The patient is an 83-year-old female who presented to the emergency department with multiple complaints. The patient had an abnormal EKG that was obtained when she told nursing she was having shortness of breath and chest pain. I discussed patient's laboratory and radiographic studies with her. She was also complaining of abdominal pain and hip pain. The patient was treated with IV fluids in the emergency department. I discussed her condition with the on-call [facility] hospitalist. Given the patient's findings I do suspect she will require some further inpatient workup. They have agreed to evaluate the patient for further management. Triage Nursing notes reviewed. Prior medical records reviewed Vital Signs: reviewed and remarkable for no significant abnormalities Differential diagnosis: Etiologies such as appendicitis, diverticulitis, obstruction, inflammatory bowel disease, renal colic, PUD, biliary pathology, pancreatitis, mesenteric ischemia, aortic pathology, infections, genitourinary, UTI, perforated viscus, as well as others were entertained. ER treatment provided: See below Diagnostics interpreted by me: ECG: EKG was obtained in the emergency department. My interpretation is sinus rhythm at 78 bpm. Frequent PVCs with bigeminy was noted. Poor R wave progression was noted. This was compared to a tracing from October 19, 2022. Findings are new compared to previous tracing. Cardiac Monitoring: An order was placed for continuous cardiac monitoring. The monitor shows a rate of 71 bpm with sinus rhythm. Laboratory studies: As stated above and show below. Imaging studies: See below. Radiographic imaging was reviewed by myself Consultation(s): I discussed this case with Anna [facility]. Past Med/Surg History Medical History Impacted cerumen Spinal stenosis Paralytic syndrome Hyperlipidemia GERD (gastroesophageal reflux disease) Atrial fibrillation Paralysis, progressive History of DVT (deep vein thrombosis) Left leg DVT 11/2020 Urinary tract infection Urinary symptom or sign Abnormal EKG hx Anxiety Arthralgia of multiple sites Dairy allergy Hammer toe Microalbuminuria Hypertension Nocturia Osteoporosis Urinary incontinence currently has an indwelling catheter Vitamin D deficiency disease DMII (diabetes mellitus, type 2) LAFB (left anterior fascicular block) Coronary artery calcification LVH (left ventricular hypertrophy) Osteoarthritis Urinary frequency Hypothyroidism History of nasal polyp Conductive hearing loss of right ear with unrestricted hearing of left ear Hypertrophy of nasal turbinates Surgical History S/P fusion of thoracic spine T1-T3; [place] [facility] [place] L3-L4, [place] [facility] [place] [place]. History of lumbar laminectomy for spinal cord decompression 12/22/20 - [facility] [place] [place], Dr Rocha; L1-L5 S/P IVC filter 11/2020 [place] [facility] [place] [facility] [place] of breast biopsy History of tonsillectomy History of nasal septoplasty History of rotator cuff surgery LEFT History of rhinoplasty History of knee replacement RIGHT History of hysterectomy History of hip replacement BILAT. RIGHT HIP X2 History of hand surgery RIGHT History of placement of ear tubes RIGHT IN OFFICE History of colonoscopy History of cataract surgery BILAT History of blepharoplasty History of back surgery IN 1985 LUMBAR FOR 2 RUPTURED DISC Family History Mother , age 69 Coronary heart disease s/p CABG Heart disease Grandmother (Maternal) Heart disease heart attacks Son Diabetes Heart disease age 47 from cardiac arrest Father , in his 80s Rheumatoid arthritis Denies family history of Ovarian cancer Prostate cancer Breast cancer Colorectal cancer Cancer Social History (Updated 07/25/23 @ 18:30 by Sari Fountain PA-C) Smoking Status: Never smoker Preferred Language: Romansh Communication Ability: unknown [employer] Furn[employer] Tender Required: No Beliefs That Will Affect Care: None marital status: / Current Living Situation: [facility] Current Living Situation Comment: [facility] current occupational status: retired How many Children do You have: 3 How many Children do You have Comment: 1 son ; 1 living son, 1 living daughter 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 [place] Feels Safe at Home: Yes Safety Concerns Comment: states she has to kittens to keep after her Childhood Exposure to Second-Hand Smoke: No Diet: regular during the past year weight has: decreased > 10 lbs Dental Care, Regularly: Yes Physical Activity Frequency: Does not Exercise Seatbelt Use: always Sunscreen Use: Yes Assistive Devices: Glasses and Wheelchair Allergies Allergies Allergy/AdvReac Type Severity Reaction Status Date / Time Sulfa (Sulfonamide Allergy Intermediate RASH/ITCH Verified 07/25/23 18:56 Antibiotics) acesulfame Allergy Mild Unknown Verified 07/25/23 18:56 aspartame Allergy Mild Unknown Verified 07/25/23 18:56 morphine Allergy Mild RASH/ITCH Verified 07/25/23 18:56 propoxyphene Allergy Mild RASH Verified 07/25/23 18:56 saccharin Allergy Mild Unknown Verified 07/25/23 18:56 sucralose Allergy Mild Unknown Verified 07/25/23 18:56 Home Meds Home Medications Medication Instructions Recorded Confirmed L.acidophil,salivari-Bifido 2 cap PO DAILY 07/25/23 07/25/23 bifidum-Strep thermoph 175 mg capsule (Acidophilus Probiotic Blend) acetaminophen 325 mg tablet 650 mg PO Q4 PRN Pain 07/25/23 07/25/23 (Tylenol) amlodipine 5 mg tablet 5 mg PO DAILY 07/25/23 07/25/23 apixaban 5 mg tablet (Eliquis) 5 mg PO BID 07/25/23 07/25/23 atenolol 25 mg tablet 25 mg PO DAILY 07/25/23 07/25/23 calcium carbonate 300 mg (750 mg) 300 mg PO .Q5HRS PRN GERD 07/25/23 07/25/23 chewable tablet (Tums E-X) cyanocobalamin (vitamin B-12) 5,000 mcg sublingual DAILY 07/25/23 07/25/23 5,000 mcg sublingual tablet (Vitamin B-12) fluticasone propionate 50 2 spray intranasal DAILY 07/25/23 07/25/23 mcg/actuation nasal spray,suspension lactase 9,000 unit tablet 9,000 unit PO DAILY 07/25/23 07/25/23 levothyroxine 25 mcg tablet 25 mcg PO DAILY 07/25/23 07/25/23 loperamide 2 mg tablet (Imodium 2 mg PO Q4H PRN Diarrhea 07/25/23 07/25/23 A-D) metformin 500 mg tablet 500 mg PO BID 07/25/23 07/25/23 multivitamin 1 tab PO DAILY 07/25/23 07/25/23 nitrofurantoin macrocrystal 100 mg 100 mg PO DAILY 07/25/23 07/25/23 capsule oxybutynin chloride 5 mg tablet 5 mg PO TID 07/25/23 07/25/23 pantoprazole 40 mg tablet,delayed 40 mg PO DAILY 07/25/23 07/25/23 release polyethylene glycol 3350 17 gram 17 g PO DAILY PRN Constipation 07/25/23 07/25/23 oral powder packet (Miralax) pravastatin 10 mg tablet 10 mg PO DAILY 07/25/23 07/25/23 tramadol 50 mg tablet 50 mg PO Q8 PRN Pain 07/25/23 07/25/23 Results & Data (ED) Vital Signs Vital Signs - 24 hr 07/25/23 11:52 07/25/23 14:42 07/25/23 16:43 Temperature 36.8 C Temperature Source Temporal Artery Scan Pulse Rate 75 Pulse Rate [Finger] 77 72 Respiratory Rate 20 14 Respiratory Effort / Characteristics Non-Labored Spontaneous Respiratory Depth Normal Respiratory Pattern Regular Blood Pressure 142/72 H Blood Pressure [Left Arm] 141/85 H Blood Pressure Mean 95 Blood Pressure Mean [Left Arm] 103 Pulse Oximetry 97 96 97 Oxygen Delivery Method Room Air Room Air Room Air Sepsis Recent Fever Within 48 Hours No Sepsis New/Unexplained Change in Mental Status No Sepsis Action Taken by Nursing No Action Required 07/25/23 18:37 Temperature Temperature Source Pulse Rate Pulse Rate [Finger] 71 Respiratory Rate 14 Respiratory Effort / Characteristics Respiratory Depth Respiratory Pattern Blood Pressure Blood Pressure [Left Arm] 114/60 Blood Pressure Mean Blood Pressure Mean [Left Arm] 78 Pulse Oximetry 97 Oxygen Delivery Method Room Air Sepsis Recent Fever Within 48 Hours Sepsis New/Unexplained Change in Mental Status Sepsis Action Taken by [facility] Medications Current Medication List: was personally reviewed by me Laboratory Data Attestation: I reviewed the patient's lab results. 07/25/23 12:48 07/25/23 12:48 Lab Results 07/25/23 07/25/23 07/25/23 Range/Units 12:48 16:39 17:32 WBC 11.32 H (4.8-10.8) K/ul RBC 4.65 (4.20-5.40) M/uL Hgb 13.1 (12.0-16.0) g/dl Hct 40.8 (37.0-47.0) % MCV 87.7 (80.0-100.0) fL MCH 28.2 (25.0-34.0) pg MCHC 32.1 (32.0-36.0) g/dL RDW Std Deviation 41.8 (36.4-46.3) fL RDW Coeff of Efren 13.2 (11.5-14.5) % Plt Count 410 H (130-400) K/uL MPV 9.9 (9.4-12.4) fL Immature Gran % (Auto) 0.4 % Neut % (Auto) 76.6 % Lymph % (Auto) 13.5 % Saline % (Auto) 6.4 % Eos % (Auto) 2.7 % Baso % (Auto) 0.4 % Neut # (Auto) 8.68 H (1.40-6.50) K/uL Lymph # (Auto) 1.53 (1.20-3.40) K/uL Saline # (Auto) 0.72 H (0.11-0.59) K/uL Eos # (Auto) 0.31 (0.00-0.50) K/uL Baso # (Auto) 0.04 (0.00-0.20) K/uL Immature Gran # (Auto) 0.04 (0.01-0.20) K/uL Sodium 137 (136-145) mmol/L Potassium 3.7 (3.5-5.1) mmol/L Chloride 102 (98-107) mmol/L Carbon Dioxide 24 (21-32) mmol/L Anion Gap 11 (3-11) BUN 11 (6-23) mg/dl Creatinine 0.52 L (0.6-1.2) mg/dl Est Cr Clr Drug Dosing Not Reportable Est GFR ( Amer) 103.1 ml/min Est GFR (Non-Af Amer) 89.0 ml/min BUN/Creatinine Ratio 21.2 H (10-20) Glucose 123 H (70-99(Fasting)) mg/dl Calcium 9.3 (8.6-10.3) mg/dl Magnesium 1.3 L (1.7-2.4) mg/dl Total Bilirubin 0.4 (0.2-1.0) mg/dl AST 12 L (13-39) U/L ALT 7 (7-52) U/L Alkaline Phosphatase 66 (34-104) U/L Troponin I High Sens 5.0 (0-14) pg/ml Total Protein 6.5 (6.0-8.3) gm/dl Albumin 3.7 (3.4-5.0) gm/dl Globulin 2.8 (2.5-4.0) gm/dl Albumin/Globulin Ratio 1.3 (0.9-2) Lipase 16 (11-82) U/L Urine Color Yellow Urine Appearance Cloudy A (Clear) Urine pH 6.5 (4.5-7.5) Ur Specific [place] 1.032 H (1.000-1.030) Urine Protein Trace H (Negative) Urine Glucose (UA) Negative (Negative) Urine Ketones Negative (Negative) Urine Blood 3+ H (Negative) Urine Nitrite Negative (Negative) Urine Bilirubin Negative (Negative) Urine Urobilinogen Negative (Negative) Ur Leukocyte Esterase 2+ H (Negative) Urine WBC (Auto) >30 H (0-5) /hpf Urine RBC (Auto) >30 H (0-4) /hpf U Hyaline Cast (Auto) 1-5 (0-5) /lpf U Epithel Cells (Auto) >30 H (0-5) /lpf Urine Bacteria (Auto) Negative (Negative) Urine Yeast Not Reportable Administered Medications Discontinued Medications Acetaminophen (Ofirmev) 1,000 mg in 100 mls @ 400 mls/hr IV NOW STA Stop: 07/25/23 15:20 Last Infusion: 07/25/23 17:53 Dose: Infused Documented By: Admin: 07/25/23 16:40 Dose: 400 mls/hr Documented By: RINA Ceftriaxone Sodium (Rocephin) 2,000 mg in 50 mls @ 100 mls/hr IV NOW STA Stop: 07/25/23 17:48 Last Infusion: 07/25/23 19:24 Dose: Infused Documented By: Admin: 07/25/23 18:33 Dose: 100 mls/hr Documented By: RINA Ioversol (Optiray 320 500ml) 86 ml IV ONCE ONE Stop: 07/25/23 15:57 Last Admin: 07/25/23 15:56 Dose: 86 ml Documented By: RAMON Ondansetron HCl (Ondansetron Inj 2 Mg/Ml 2 Ml Vial) 4 mg IV NOW STA Stop: 07/25/23 15:07 Last Admin: 07/25/23 16:40 Dose: 4 mg Documented By: RINA Imaging Data My Impression: CT of the abdomen and pelvis was obtained in the emergency department. My interpretation is no free air or signs of bowel obstruction, there was fecal retention noted, final report below. Radiologist's Impression: Abdomen/Pelvis CT 07/25/23 15:[address] WITH IV CONTRAST CT DOSE: 1167.66 mGy.cm HISTORY: Acute generalized abdominal pain sent by PCP for abd pain TECHNIQUE: Multiaxial CT images of the abdomen and pelvis were performed following the IV administration of 86 cc of Optiray, A dose lowering technique was utilized adhering to the principles of ALARA. COMPARISON STUDY: 11/18/2021 FINDINGS: Trace pericardial effusion. Trace right pleural effusion. Mild subsegmental bibasilar atelectasis. No free air. Calcified splenic mass is stable measuring 4.5 cm. Unremarkable pancreas and right adrenal gland. Stable 2 cm left adrenal gland nodule. Gallbladder is within normal limits. No biliary ductal dilation unremarkable liver. Patent hepatic and portal veins. Cortical scarring with areas of parenchymal thinning again noted within left kidney. Centimeter hypodense lesions of the kidneys are too small to characterize. 2 mm nonobstructing calculus in the inferior pole right kidney. No ureteral calculi or hydronephrosis. Neal catheter in the decompressed bladder which demonstrates wall thickening with foci of intraluminal air. Atherosclerosis of the aorta without aneurysm. No lymphadenopathy. Large amount of stool within the rectum is again noted with mild perirectal wall thickening and perirectal inflammatory stranding. Findings are similar to the prior study. Normal appendix. No acute fracture. Limited evaluation of the pelvic structures secondary to streak artifact related to the bilateral hip arthroplasties. Sigmoidal thoracolumbar scoliosis. IMPRESSION: 1. Large amount of fecal retention within the rectosigmoid redemonstrated with possible findings of mild stercoral proctitis. 2. No bowel obstruction or pneumoperitoneum. 3. Decompressed urinary bladder with Neal catheter in place. Correlate with urinalysis to exclude cystitis. 4. Colonic diverticulosis. 5. Additional findings as above. ACT 112: Negative or not required by law. The above report was generated using voice recognition software. It may contain grammatical, syntax or spelling errors. Electronically signed by: Donn Virgen M.D. 07/25/2023 4:20 PM Chest X-Ray 07/25/23 15:06 XR chest 1V portable CLINICAL HISTORY: pain TECHNIQUE: Single frontal radiograph of the chest was obtained. Comparison: Comparison is made to chest radiograph 10/19/2022 FINDINGS: No lines and tubes are seen. Calcified aortic knob is seen. The lungs are clear. No evidence of pleural effusion or pneumothorax. Minimal scoliotic changes are seen. IMPRESSION: No acute chest disease. ACT 112: Negative or not required by law. Electronically signed by: Dejon Goldman M.D. 07/25/2023 4:00 PM Femur X-Ray 07/25/23 15:06 XR femur LT 2V routine HISTORY: 83 years-old Female pain acute pain of the left hip without reported trauma COMPARISON: Left knee radiographs of same day TECHNIQUE: 2 views of the left femur FINDINGS: Demineralized appearance of the bones. Unremarkable appearance of the left hip arthroplasty. No acute fracture or dislocation. Arterial calcifications. Osteoarthritis of the knee. Lateral thigh and knee soft tissue swelling. Trace knee joint effusion. IMPRESSION: 1. Soft tissue swelling without acute osseous abnormality. 2. Unremarkable appearance of the left hip arthroplasty. ACT 112: Negative or not required by law. The above report was generated using voice recognition software. It may contain grammatical, syntax or spelling errors. Electronically signed by: Donn Virgen M.D. 07/25/2023 4:24 PM Knee X-Ray 07/25/23 15:06 LEFT KNEE 2 VIEWS CLINICAL HISTORY: Left knee pain. FINDINGS: AP and crosstable lateral views of the left knee are compared to study dated 10/21/2020. The skeletal structures are osteopenic. No fracture is identified. There is moderate tricompartmental degenerative joint space narrowing. There are marginal osteophytes, patellar enthesophytes, and degenerative beaking of the tibial spine. No joint effusion is identified. Soft tissue edema is present in the distal thigh. There is advanced atherosclerotic calcification of the popliteal artery. IMPRESSION: 1. Soft tissue swelling with no acute bony abnormality identified. 2. Osteopenia and arthritic change as above. Electronically signed by: Jason Morrissey M.D. 07/25/2023 3:57 PM Discharge Plan Visit Data Chief Complaint: Constipation Stated Complaint: CONSTIPATED X5-6 DAYS ED Provider: Conner Morfin Discharge Problem: Urinary tract infection, Fecal impaction, Abnormal EKG, Chest pain Forms Stand Alone Forms: sezmi Prescriptions Prescriptions: No Action multivitamin Tablet 1 tab PO DAILY metformin 500 mg tablet 500 mg PO BID acetaminophen [Tylenol] 325 mg Tablet 650 mg PO Q4 PRN (Reason: Pain) polyethylene glycol 3350 [Miralax] 17 gram Powder In Packet 17 g PO DAILY PRN (Reason: Constipation) loperamide [Imodium A-D] 2 mg Tablet 2 mg PO Q4H PRN (Reason: Diarrhea) Rx Instructions: administer after each loose stool until symptoms controlled; do not exceed 8 mg per 24 hrs atenolol 25 mg tablet 25 mg PO DAILY calcium carbonate [Tums E-X] 300 mg (750 mg) Tablet,Chewable 300 mg PO .Q5HRS PRN (Reason: GERD) amlodipine 5 mg tablet 5 mg PO DAILY levothyroxine 25 mcg tablet 25 mcg PO DAILY pravastatin 10 mg tablet 10 mg PO DAILY lactase [Dairy-Relief] 9,000 unit Tablet 9,000 unit PO DAILY Rx Instructions: administer with first bite of dairy food pantoprazole 40 mg tablet,delayed release (DR/EC) 40 mg PO DAILY nitrofurantoin macrocrystal 100 mg capsule 100 mg PO DAILY Rx Instructions: Give with meal, for prevention oxybutynin chloride 5 mg tablet 5 mg PO TID fluticasone propionate 50 mcg/actuation spray,suspension 2 spray INTRANASAL DAILY L.acidoph,saliva-B.bif-S.therm [Acidophilus Probiotic Blend] 175 mg Capsule 2 cap PO DAILY cyanocobalamin (vitamin B-12) [Vitamin B-12] 5,000 mcg Tablet, Sublingual 5,000 mcg SUBLINGUAL DAILY Eliquis 5 mg tablet 5 mg PO BID tramadol 50 mg tablet 50 mg PO Q8 PRN (Reason: Pain) Referrals Referrals: [facility] [Primary Care Provider] - Discharge Problem: Urinary tract infection Qualifiers: Urinary tract infection type: site unspecified Hematuria presence: with hematuria Qualified Code(s): N39.0 - Urinary tract infection, site not specified Chest pain Qualifiers: Chest pain type: unspecified Qualified Code(s): R07.9 - Chest pain, unspecified
[2023-07-25] MEDS ORDERED: OPTIRAY 320 500ml IV ONE (15:56)
--- NOTE | 2023-07-25 15:58 | XRay Report ---
LEFT KNEE 2 VIEWS CLINICAL HISTORY: Left knee pain. FINDINGS: AP and crosstable lateral views of the left knee are compared to study dated 10/21/2020. The skeletal structures are osteopenic. No fracture is identified. There is moderate tricompartmental de generative joint space narrowing. There are marginal osteophytes, patellar enthesophytes, and degener ative beaking of the tibial spine. No joint effusion is identified. Soft tissue edema is present in t he distal thigh. There is advanced atherosclerotic calcification of the popliteal artery. IMPRESSION: 1. Soft tissue swelling with no acute bony abnormality identified. 2. Osteopenia and arthritic change as above. Electronically signed by: Jason Morrissey M.D. 07/25/2023 3:57 PM
--- NOTE | 2023-07-25 16:01 | XRay Report ---
XR chest 1V portable CLINICAL HISTORY: pain TECHNIQUE: Single frontal radiograph of the chest was obtained. Comparison: Comparison is made to chest radiograph 10/19/2022 FINDINGS: No lines and tubes are seen. Calcified aortic knob is seen. The lungs are clear. No evidence of pleur al effusion or pneumothorax. Minimal scoliotic changes are seen. IMPRESSION: No acute chest disease. ACT 112: Negative or not required by law. Electronically signed by: Dejon Goldman M.D. 07/25/2023 4:00 PM
--- NOTE | 2023-07-25 16:16 | Electrocardiogram Report ---
Test Reason : Blood Pressure : / mmHG Vent. Rate : 078 BPM Atrial Rate : 078 BPM P-R Int : 184 ms QRS Dur : 088 ms QT Int : 416 ms P-R-T Axes : 055 -58 068 degrees QTc Int : 474 ms Sinus rhythm with frequent Premature ventricular complexes in a pattern of bigeminy Left anterior fascicular block Anterolateral infarct , age undetermined Abnormal ECG When compared with ECG of 19-OCT-2022 18:27, Premature ventricular complexes are now Present MT interval has decreased Anterior infarct is now Present Anterolateral infarct is now Present Nonspecific T wave abnormality now evident in Lateral leads Confirmed by Dominick Miller ([id number]) on 07/25/2023 4:16:02 PM Referred By: Confirmed By:Mark Miller
--- NOTE | 2023-07-25 16:21 | CT Scan Report ---
ABDOMEN AND PELVIS CT WITH IV CONTRAST CT DOSE: 1167.66 mGy.cm HISTORY: Acute generalized abdominal pain sent by PCP for abd pain TECHNIQUE: Multiaxial CT images of the abdomen and pelvis were performed following the IV administrat ion of 86 cc of Optiray, A dose lowering technique was utilized adhering to the principles of ALARA. COMPARISON STUDY: 11/18/2021 FINDINGS: Trace pericardial effusion. Trace right pleural effusion. Mild subsegmental bibasilar atelectasis. No free air. Calcified splenic mass is stable measuring 4.5 cm. Unremarkable pancreas and right adrenal gland. Stable 2 cm left adrenal gland nodule. Gallbladder is within normal limits. No biliary ductal dilation unremarkable liver. Patent hepatic and portal veins. Cortical scarring with areas of parenchymal thinning again noted within left kidney. Centimeter hypod ense lesions of the kidneys are too small to characterize. 2 mm nonobstructing calculus in the inferi or pole right kidney. No ureteral calculi or hydronephrosis. Neal catheter in the decompressed bladd er which demonstrates wall thickening with foci of intraluminal air. Atherosclerosis of the aorta wit hout aneurysm. No lymphadenopathy. Large amount of stool within the rectum is again noted with mild perirectal wall thickening and perir ectal inflammatory stranding. Findings are similar to the prior study. Normal appendix. No acute frac ture. Limited evaluation of the pelvic structures secondary to streak artifact related to the bilater al hip arthroplasties. Sigmoidal thoracolumbar scoliosis. IMPRESSION: 1. Large amount of fecal retention within the rectosigmoid redemonstrated with possible findings of m ild stercoral proctitis. 2. No bowel obstruction or pneumoperitoneum. 3. Decompressed urinary bladder with Neal catheter in place. Correlate with urinalysis to exclude cy stitis. 4. Colonic diverticulosis. 5. Additional findings as above. ACT 112: Negative or not required by law. The above report was generated using voice recognition software. It may contain grammatical, syntax o r spelling errors. Electronically signed by: Donn Virgen M.D. 07/25/2023 4:20 PM
--- NOTE | 2023-07-25 16:26 | XRay Report ---
XR femur LT 2V routine HISTORY: 83 years-old Female pain acute pain of the left hip without reported trauma COMPARISON: Left knee radiographs of same day TECHNIQUE: 2 views of the left femur FINDINGS: Demineralized appearance of the bones. Unremarkable appearance of the left hip arthroplasty. No acute fracture or dislocation. Arterial calcifications. Osteoarthritis of the knee. Lateral thigh and knee soft tissue swelling. Trace knee joint effusion. IMPRESSION: 1. Soft tissue swelling without acute osseous abnormality. 2. Unremarkable appearance of the left hip arthroplasty. ACT 112: Negative or not required by law. The above report was generated using voice recognition software. It may contain grammatical, syntax o r spelling errors. Electronically signed by: Donn Virgen M.D. 07/25/2023 4:24 PM
[2023-07-25 17:08] LABS: Appearance Urine Cloudy (Clear); Bacteria Urine Automated Negative (Negative); Bilirubin Urine Negative (Negative); Blood Urine 3+ (Negative); Color Urine Yellow; Epithelial Cell Urine Auto >30 /lpf (0-5); Glucose Urine UA Negative (Negative); Ketones Urine Negative (Negative); Leukocyte Esterase Urine 2+ (Negative); Nitrite Urine Negative (Negative); Protein Urine Trace (Negative); RBC Urine Automated >30 /hpf (0-4); Specific Gravity Urine 1.032 (1.000-1.030); Urobilinogen Urine Negative (Negative); WBC Urine Automated >30 /hpf (0-5); pH Urine 6.5 (4.5-7.5)
[2023-07-25] MEDS ORDERED: cefTRIAXone SODIUM 2,000 MG/50 ML BAG IV STA (17:19)
--- NOTE | 2023-07-25 18:04 | History & Physical Report ---
Date of Service July 25, 2023 Assessment & Plan (1) Fecal impaction: Plan: This is an 83 y/o female with DM2, spinal stenosis s/p back surgery x 2, wheelchair bound since last surgery in 2020 due to progressive weakness, neurogenic bladder with chronic Umanzor, hypothyroidism, hx DVT, on chronic AC with Eliquis, and other history as outlined below who presents to the ED today with multiple complaints including constipation and malfunctioning Umanzor catheter. Work-up in the ED consistent with recurrent fecal retention with possible impaction, possible UTI, abnormal EKG though initial troponin was normal. - Admit to PCU for monitoring overnight - trend troponin, repeat EKG in the AM and with any recurrent chest pain - Continue empiric antibiotics started in the ED but will change to cefepime due to history of Pseudomonas - urine culture pending. Blood cultures ordered due to subjective fevers, mild leukocytosis - Bowel regimen due to constipation - start with miralax BID, senna-S. May need to consider enemas if no results with orals - Check Mag level due to bigeminy on initial EKG, potassium was 3.7 - Fall precautions - Umanzor changed in the ED and seems to be functioning better - will monitor for issues such as ongoing leaking - Labs in AM - CBC, BMP, TSH, Mg (2) Urinary tract infection: (3) Abnormal EKG: Plan: Trend troponin Repeat in the AM (4) Esophageal reflux: (5) Dyslipidemia: (6) Diabetes mellitus: Plan: Insulin sliding scale Holding Metformin A1c in AM Diabetic diet BSG ACHS (7) Hypothyroidism: Plan: Check TSH (8) Hypertension: (9) Chronic indwelling Umanzor catheter: (10) Neurogenic bladder: Plan Continue other home medications as appropriate. Pt seen and reviewed with collaborating physician, Dr. Cruz. Plan of care discussed and as outlined above. Code status: full code DVT prophylaxis: on apixaban chronically and will continue Ramesh Fountain PA-C History of Present Illness Chief Complaint: constipation, leaking catheter Primary Care Provider: [facility] This is an 83 y/o female with DM2, spinal stenosis s/p back surgery x 2, wheelchair bound since last surgery in 2020 due to progressive weakness, neurogenic bladder with chronic Umanzor, hypothyroidism, hx DVT, on chronic AC wit h Eliquis, and other history as outlined below who presents to the ED today with multiple complaints including constipation and malfunctioning Umanzor catheter. History from the patient is somewhat difficult to follow but she reports that her chronic Umanzor was changed over the holiday weekend. However, since the change, she has had ongoing issues with positional leakage from the catheter despite multiple attempts from the staff at [facility] to adjust it. She also reports constipation with last BM being five days ago. She reports eating a large meal four days ago (on ) and has been uncomfortable with decreased appetite since then. She has been taking Miralax daily for the last few days, drinking juice (orange, cranberry), and eating fruit (tangelos, apples) to try to help with her bowels but no results. Continued associated bloating and discomfort. She has a history of UTIs and thinks she may have a UTI today. She had subjective fever and chills today. She notes that she has been in bed the last three days due to joint aches and pains that she relates to the weather. She is essentially wheelchair bound at baseline. These aches and pains feel better today and she was out of her room this morning. She is also concerned about left knee pain for several weeks that seemed to start after being moved at [facility] while getting her hair done. It had improved but was worse again today after being transported to the ED. She is very concerned about her health, and noted chest pain while she was waiting in the sub-waiting areas to be seen. She thinks that this may be due to anxiety - it has resolved at present. Ongoing issues with fatigue since having COVID earlier this year. Allergies Allergy/AdvReac Type Severity Reaction Status Date / Time Sulfa (Sulfonamide Allergy Intermediate RASH/ITCH Verified 07/25/23 18:56 Antibiotics) acesulfame Allergy Mild Unknown Verified 07/25/23 18:56 aspartame Allergy Mild Unknown Verified 07/25/23 18:56 morphine Allergy Mild RASH/ITCH Verified 07/25/23 18:56 propoxyphene Allergy Mild RASH Verified 07/25/23 18:56 saccharin Allergy Mild Unknown Verified 07/25/23 18:56 sucralose Allergy Mild Unknown Verified 07/25/23 18:56 Home Medications Medication Instructions Recorded Confirmed Type L.acidophil,salivari-Bifido 2 cap PO DAILY 07/25/23 07/25/23 History bifidum-Strep thermoph 175 mg capsule (Acidophilus Probiotic Blend) acetaminophen 325 mg tablet 650 mg PO Q4 PRN Pain 07/25/23 07/25/23 History (Tylenol) amlodipine 5 mg tablet 5 mg PO DAILY 07/25/23 07/25/23 History apixaban 5 mg tablet (Eliquis) 5 mg PO BID 07/25/23 07/25/23 History atenolol 25 mg tablet 25 mg PO DAILY 07/25/23 07/25/23 History calcium carbonate 300 mg (750 mg) 300 mg PO .Q5HRS PRN GERD 07/25/23 07/25/23 History chewable tablet (Tums E-X) cyanocobalamin (vitamin B-12) 5,000 mcg sublingual DAILY 07/25/23 07/25/23 History 5,000 mcg sublingual tablet (Vitamin B-12) fluticasone propionate 50 2 spray intranasal DAILY 07/25/23 07/25/23 History mcg/actuation nasal spray,suspension lactase 9,000 unit tablet 9,000 unit PO DAILY 07/25/23 07/25/23 History levothyroxine 25 mcg tablet 25 mcg PO DAILY 07/25/23 07/25/23 History loperamide 2 mg tablet (Imodium 2 mg PO Q4H PRN Diarrhea 07/25/23 07/25/23 History A-D) metformin 500 mg tablet 500 mg PO BID 07/25/23 07/25/23 History multivitamin 1 tab PO DAILY 07/25/23 07/25/23 History nitrofurantoin macrocrystal 100 mg 100 mg PO DAILY 07/25/23 07/25/23 History capsule oxybutynin chloride 5 mg tablet 5 mg PO TID 07/25/23 07/25/23 History pantoprazole 40 mg tablet,delayed 40 mg PO DAILY 07/25/23 07/25/23 History release polyethylene glycol 3350 17 gram 17 g PO DAILY PRN Constipation 07/25/23 07/25/23 History oral powder packet (Miralax) pravastatin 10 mg tablet 10 mg PO DAILY 07/25/23 07/25/23 History tramadol 50 mg tablet 50 mg PO Q8 PRN Pain 07/25/23 07/25/23 History Past Med/Surg History Medical History Impacted cerumen Spinal stenosis Paralytic syndrome Hyperlipidemia GERD (gastroesophageal reflux disease) Atrial fibrillation Paralysis, progressive History of DVT (deep vein thrombosis) Left leg DVT 11/2020 Urinary tract infection Urinary symptom or sign Abnormal EKG hx Anxiety Arthralgia of multiple sites Dairy allergy Hammer toe Microalbuminuria Hypertension Nocturia Osteoporosis Urinary incontinence currently has an indwelling catheter Vitamin D deficiency disease DMII (diabetes mellitus, type 2) LAFB (left anterior fascicular block) Coronary artery calcification LVH (left ventricular hypertrophy) Osteoarthritis Urinary frequency Hypothyroidism History of nasal polyp Conductive hearing loss of right ear with unrestricted hearing of left ear Hypertrophy of nasal turbinates Surgical History [place] spine [place]T3[place] [facility] [place] L3-L4, [place] [facility] [place]. [facility] [place] [facility] [place] of breast biopsy History of tonsillectomy History of nasal septoplasty History of rotator cuff surgery LEFT History of rhinoplasty History of knee replacement RIGHT History of hysterectomy History of hip replacement BILAT. RIGHT HIP X2 History of hand surgery RIGHT History of placement of ear tubes RIGHT IN OFFICE History of colonoscopy History of cataract surgery BILAT History of blepharoplasty History of back surgery IN 1985 LUMBAR FOR 2 RUPTURED DISC Family History Mother , age 69 Coronary heart disease s/p CABG Heart disease Grandmother (Maternal) Heart disease heart attacks Son Diabetes Heart disease age 47 from cardiac arrest Father , in his 80s Rheumatoid arthritis Denies family history of Ovarian cancer Prostate cancer Breast cancer Colorectal cancer Cancer Social History (Updated 07/25/23 @ 18:30 by Sari Fountain PA-C) Smoking Status: Never smoker Preferred Language: Greenlandic Communication Ability: unknown Pit Supervisor Required: No Beliefs That Will Affect Care: None marital status: / Current Living Situation: Assisted Current Living Situation Comment: [facility] current occupational status: retired How many Children do You have: 3 How many Children do You have Comment: 1 son ; 1 living son, 1 living daughter 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 [place] Feels Safe at Home: Yes Safety Concerns Comment: states she has to kittens to keep after her Childhood Exposure to Second-Hand Smoke: No Diet: regular during the past year weight has: decreased > 10 lbs Dental Care, Regularly: Yes Physical Activity Frequency: Does not Exercise Seatbelt Use: always Sunscreen Use: Yes Assistive Devices: Glasses and Wheelchair Review of Systems Review of Systems: All systems reviewed & are unremarkable except as noted in HPI & below Constitutional: + fever (subjective), + chills, + fatigu e and + anorexia Respiratory: + dyspnea; no cough and no wheezing Cardiovascular: + chest pain; no syncope Gastrointestinal: + abdominal pain and + constipation; no nausea and no vomiting Genitourinary: chronic Umanzor - not functioning (see HPI) Musculoskeletal: + joint pain and + myalgia Integumentary: no yellowing of the skin Neurologic: + unsteadiness and + generalized weaknes s Psychiatric: + anxiety Physical Exam Physical Exam: General: awake, alert, anxious affect HEENT: no scleral icterus, moist oral mucosa Neck: trachea midline Heart: regular but frequent ectopy Lungs: mildly diminished on anterior but clear Abdomen: softly distended, hypoactive BS, minimal lower abd tenderness, no guarding or rebound Extremities: no pedal edema Neurologic: moving all extremities, no dysarthria Skin: no jaundice Results & Data Results & Data Vital Signs (Past 12 Hours) Vital Signs Temp Pulse Pulse Resp BP BP Pulse Ox 07/25/23 16:43 72 14 141/85 H 97 07/25/23 14:42 77 96 07/25/23 11:52 36.8 C 75 20 142/72 H 97 O2 Del Method 07/25/23 16:43 Room Air 07/25/23 14:42 Room Air 07/25/23 11:52 Room Air Laboratory Results Laboratory Results - last 24 hr 07/25/23 07/25/23 07/25/23 12:48 16:39 17:32 WBC 11.32 H RBC 4.65 Hgb 13.1 Hct 40.8 MCV 87.7 MCH 28.2 MCHC 32.1 RDW Std Deviation 41.8 RDW Coeff of Efren 13.2 Plt Count 410 H MPV 9.9 Immature Gran % (Auto) 0.4 Neut % (Auto) 76.6 Lymph % (Auto) 13.5 Anderson % (Auto) 6.4 Eos % (Auto) 2.7 Baso % (Auto) 0.4 Neut # (Auto) 8.68 H Lymph # (Auto) 1.53 Anderson # (Auto) 0.72 H Eos # (Auto) 0.31 Baso # (Auto) 0.04 Immature Gran # (Auto) 0.04 Sodium 137 Potassium 3.7 Chloride 102 Carbon Dioxide 24 Anion Gap 11 BUN 11 Creatinine 0.52 L Est Cr Clr Drug Dosing Not Reportable Est GFR ( Amer) 103.1 Est GFR (Non-Af Amer) 89.0 BUN/Creatinine Ratio 21.2 H Glucose 123 H Calcium 9.3 Total Bilirubin 0.4 AST 12 L ALT 7 Alkaline Phosphatase 66 Troponin I High Sens 5.0 Total Protein 6.5 Albumin 3.7 Globulin 2.8 Albumin/Globulin Ratio 1.3 Lipase 16 Urine Color Yellow Urine Appearance Cloudy A Urine pH 6.5 Ur Specific Honaker 1.032 H Urine Protein Trace H Urine Glucose (UA) Negative Urine Ketones Negative Urine Blood 3+ H Urine Nitrite Negative Urine Bilirubin Negative Urine Urobilinogen Negative Ur Leukocyte Esterase 2+ H Urine WBC (Auto) >30 H Urine RBC (Auto) >30 H U Hyaline Cast (Auto) 1-5 U Epithel Cells (Auto) >30 H Urine Bacteria (Auto) Negative Urine Yeast Not Reportable Diagnostic Findings Abdomen/Pelvis CT 07/25/23 15:[address] WITH IV CONTRAST CT DOSE: 1167.66 mGy.cm HISTORY: Acute generalized abdominal pain sent by PCP for abd pain TECHNIQUE: Multiaxial CT images of the abdomen and pelvis were performed f ollowing the IV administration of 86 cc of Optiray, A dose lowering technique was utilized adhering to the principles of ALARA. COMPARISON STUDY: 11/18/2021 FINDINGS: Trace pericardial effusion. Trace right pleural effusion. Mild subsegmental bibasilar atelectasis. No free air. Calcified splenic mass is stable measuring 4.5 cm. Unremarkable pancreas and right adrenal gland. Stable 2 cm left adrenal gland nodule. Gallbladder is within normal limits. No biliary ductal dilation unremarkable liver. Patent hepatic and portal veins. Cortical scarring with areas of parenchymal thinning again noted within left kidney. Centimeter hypodense lesions of the kidneys are too small to characterize. 2 mm nonobstructing calculus in the inferior pole right kidney. No ureteral calculi or hydronephrosis. Umanzor catheter in the decompressed bladder which demonstrates wall thickening with foci of intraluminal air. Atherosclerosis of the aorta without aneurysm. No lymphadenopathy. Large amount of stool within the rectum is again noted with mild perirectal wall thickening and perirectal inflammatory stranding. Findings are similar to the prior study. Normal appendix. No acute fracture. Limited evaluation of the pelvic structures secondary to streak artifact related to the bilateral hip arthroplasties. Sigmoidal thoracolumbar scoliosis. IMPRESSION: 1. Large amount of fecal retention within the rectosigmoid redemonstrated with possible findings of mild stercoral proctitis. 2. No bowel obstruction or pneumoperitoneum. 3. Decompressed urinary bladder with Umanzor catheter in place. Correlate with urinalysis to exclude cystitis. 4. Colonic diverticulosis. 5. Additional findings as above. ACT 112: Negative or not required by law. The above report was generated using voice recognition software. It may contain grammatical, syntax or spelling errors. Electronically signed by: Donn Virgen M.D. 07/25/2023 4:20 PM Chest X-Ray 07/25/23 15:06 XR chest 1V portable CLINICAL HISTORY: pain TECHNIQUE: Single frontal radiograph of the chest was obtained. Comparison: Comparison is made to chest radiograph 10/19/2022 FINDINGS: No lines and tubes are seen. Calcified aortic knob is seen. The lungs are clear. No evidence of pleural effusion or pneumothorax. Minimal scoliotic changes are seen. IMPRESSION: No acute chest disease. ACT 112: Negative or not required by law. Electronically signed by: Dejon Goldman M.D. 07/25/2023 4:00 PM Femur X-Ray 07/25/23 15:06 XR femur LT 2V routine HISTORY: 83 years-old Female pain acute pain of the left hip without reported trauma COMPARISON: Left knee radiographs of same day TECHNIQUE: 2 views of the left femur FINDINGS: Demineralized appearance of the bones. Unremarkable appearance of the left hip arthroplasty. No acute fracture or dislocation. Arterial calcifications. Osteoarthritis of the knee. Lateral thigh and knee soft tissue swelling. Trace knee joint effusion. IMPRESSION: 1. Soft tissue swelling without acute osseous abnormality. 2. Unremarkable appearance of the left hip arthroplasty. ACT 112: Negative or not required by law. The above report was generated using voice recognition software. It may contain grammatical, syntax or spelling errors. Electronically signed by: Donn Virgen M.D. 07/25/2023 4:24 PM Knee X-Ray 07/25/23 15:06 LEFT KNEE 2 VIEWS CLINICAL HISTORY: Left knee pain. FINDINGS: AP and crosstable lateral views of the left knee are compared to study dated 10/21/2020. The skeletal structures are osteopenic. No fracture is identified. There is moderate tricompartmental degenerative joint space narrowing. There are marginal osteophytes, patellar enthesophytes, and degenerative beaking of the tibial spine. No joint effusion is identified. Soft tissue edema is present in the distal thigh. There is advanced atherosclerotic calcification of the popliteal artery. IMPRESSION: 1. Soft tissue swelling with no acute bony abnormality identified. 2. Osteopenia and arthritic change as above. Electronically signed by: Jason Morrissey M.D. 07/25/2023 3:57 PM Medications Administered Discontinued Medications Acetaminophen (Ofirmev) 1,000 mg in 100 mls @ 400 mls/hr IV NOW STA Stop: 07/25/23 15:20 Last Infusion: 07/25/23 17:53 Dose: Infused Documented By: Admin: 07/25/23 16:40 Dose: 400 mls/hr Documented By: RINA Ceftriaxone Sodium (Rocephin) 2,000 mg in 50 mls @ 100 mls/hr IV NOW STA Stop: 07/25/23 17:48 Last Admin: 07/25/23 18:33 Dose: 100 mls/hr Documented By: RINA Ioversol (Optiray 320 500ml) 86 ml IV ONCE ONE Stop: 07/25/23 15:57 Last Admin: 07/25/23 15:56 Dose: 86 ml Documented By: RAMON Ondansetron HCl (Ondansetron Inj 2 Mg/Ml 2 Ml Vial) 4 mg IV NOW STA Stop: 07/25/23 15:07 Last Admin: 07/25/23 16:40 Dose: 4 mg Documented By: RINA Supervising Physician Co-Signing Physician Notes I have seen and examined the patient and have discussed the case with the provider above. I agree with the assessment and plan as stated. 83-year-old female presents with multiple complaints including constipation, left leg pain and chest pain. She also reports that her home health nurse reported her Umanzor was not working so this was exchanged on arrival to the ER today. The patient denies any UTI symptoms including no dysuria suprapubic pain, fevers chills or other issues. She reports her urine does not smell foul etc. She reports having a fear given her history of recurrent UTIs in the past. She has not had a bowel movement in approximately 5 days and is bedbound. Her abdomen feels uncomfortable 2/2 constipation per her report. She reports doing physical therapy in the bed is much as she can though. She denies any chest pain at this time and troponin was negative. New bigeminy noted on EKG and Mg is low. No chest pain or shortness of breath is present. On exam she is WNWD and VSS. She is mentating clearly and oriented. CV reveals S1/2 heard with reg rate and rhythm and no m/g/r. She has generalized weakness throughout. No peripheral edema; examines euvolemic. Abdomen is soft NTND. Labs reviewed-Mg 1/3, replacement started. UA with +leuk esterase and +WBC/RBC which may be suggestive of ongoing infection, however, there are no bacteria, and again patient denies any symptoms of UTI. Urine culture pending. Overall this 83 yo F presents with multiple medical issues including constipation, chest discomfort with new bigeminy and low Mg, and ?UTI with a umanzor issue requiring exchange. Cont trending trop per plan above, although doubt ACS. Repeat EKG in am. Cont scheduled Miralax and Sennakot. Repeat Mg in am after replacement. 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
[2023-07-25] MEDS ORDERED: DEXTROSE 50% 50 ML SYRINGE IV PRN (23:06)
[2023-07-25] MEDS ORDERED: GLUCOSE 40% GEL 15 GM TUBE PO PRN (23:06)
[2023-07-25] MEDS ORDERED: GLUCAGON FOR INJ 1 MG VIAL SQ PRN (23:06)
[2023-07-25] MEDS ORDERED: CARBOHYDRATES FOR HYPOGLYCEMIA PO PRN (23:06)
[2023-07-25] MEDS ORDERED: GLUCOSE 10 TAB/TUBE PO PRN (23:06)
[2023-07-25] MEDS ORDERED: traMADol HCL 50 MG TABLET PO PRN (23:06)
[2023-07-25] MEDS: MAGNESIUM SULFATE / D5W 1 GM/100 ML BAG IV SCH (23:50)
[2023-07-26] MEDS: INSULIN ASPART PER UNIT CHARGE SC SCH ×5 (00:05→21:52)
[2023-07-26] MEDS ORDERED: Nursing to Pharmacy Communication SCH ×2 (00:45→01:00)
[2023-07-26] MEDS: MAGNESIUM SULFATE / D5W 1 GM/100 ML BAG IV SCH ×3 (01:38→05:49)
[2023-07-26 05:39] LABS: BUN Creatinine Ratio 22.8 (10-20); Calcium 8.9 mg/dl (8.6-10.3); Creatinine Clr Calc Pharmacy 79.5 ml/min; Est GFR (African American) 100.1 ml/min; Est GFR (Non-African American) 86.3 ml/min; Magnesium 2.2 mg/dl (1.7-2.4); Potassium 3.8 mmol/L (3.5-5.1)
[2023-07-26 05:46] LABS: Troponin I High Sensitivity 5.4 pg/ml (0-14)
[2023-07-26 05:54] LABS: Basophils # (auto) 0.03 K/uL (0.00-0.20); Basophils % (auto) 0.4 %; Eosinophils % (auto) 3.9 %; Hematocrit (blood only) 36.7 % (37.0-47.0); Hemoglobin 11.7 g/dl (12.0-16.0); Immature Granulocytes # (auto) 0.02 K/uL (0.01-0.20); Immature Granulocytes % (auto) 0.3 %; Lymphocytes # (auto) 1.75 K/uL (1.20-3.40); Lymphocytes % (auto) 22.7 %; Mean Corpuscular Hemoglobin 28.1 pg (25.0-34.0); Mean Corpuscular Hgb Conc 31.9 g/dL (32.0-36.0); Mean Platelet Volume 10.6 fL (9.4-12.4); Monocytes # (auto) 0.72 K/uL (0.11-0.59); Monocytes % (auto) 9.3 %; Neutrophils % (auto) 63.4 %; Platelet Count 330 K/uL (130-400); RDW Coefficient of Variation 13.2 % (11.5-14.5); RDW Standard Deviation 42.3 fL (36.4-46.3); Red Blood Count 4.17 M/uL (4.20-5.40); White Blood Count 7.72 K/ul (4.8-10.8)
[2023-07-26 05:55] LABS: Thyroid Stimulating Hormone 1.765 uIu/ml (0.300-4.500)
[2023-07-26] MEDS: LEVOTHYROXINE SODIUM 25 MCG TABLET PO SCH (06:15)
[2023-07-26 07:28] LABS: Estimated Average Glucose 114 mg/dl; Hemoglobin A1C 5.6 % (4.5-5.6)
[2023-07-26] MEDS: ATENOLOL 25 MG TABLET PO SCH (08:43)
[2023-07-26] MEDS: PRAVASTATIN SOD 10 MG TAB PO SCH (08:43)
[2023-07-26] MEDS: DOCUSATE SODIUM/SENNA 50/8.6MG TAB PO SCH (08:43)
[2023-07-26] MEDS: APIXABAN 5 MG TABLET PO SCH ×3 (08:43→21:47)
[2023-07-26] MEDS: PANTOprazole 40 MG TAB PO SCH (08:43)
[2023-07-26] MEDS: CYANOCOBALAMIN (B-12) 2,500 MCG TABLET SL SCH (08:43)
[2023-07-26] MEDS: amLODIPine BESYLATE 5 MG TAB PO SCH (08:43)
[2023-07-26] MEDS: FLUTICASONE PROPIONATE NA SPR 16 GM BTL SCH (08:43)
[2023-07-26] MEDS: POLYETHYLENE (MIRALAX) 17 GM PACK PO SCH ×3 (08:43→21:47)
[2023-07-26] MEDS: oxyBUTYnin chloride 5 MG TAB PO SCH ×4 (08:43→21:47)
[2023-07-26] MEDS: LACTASE 3000 UNIT TAB PO SCH (08:43)
[2023-07-26] MEDS: CEFEPIME 2,000 MG in SYRINGE 0 ML IV SCH ×4 (08:57→23:13)
--- NOTE | 2023-07-26 16:42 | Ultrasound Report ---
LEFT LOWER EXTREMITY VENOUS DOPPLER HISTORY: Acute pain and swelling of the left lower leg pain, edema; ro dvt COMPARISON STUDY: None. FINDINGS: Thrombus is noted within the common femoral and greater saphenous veins which is partially occlusive and likely chronic. Superficial femoral vein is diminutive in size. Partially compressible popliteal vein. IMPRESSION: Left lower extremity superficial and deep venous thrombi are partially occlusive and likely chronic. ACT 112: Negative or not required by law. Electronically signed by: Donn Virgen M.D. 07/26/2023 4:41 PM
--- NOTE | 2023-07-26 18:47 | Hospitalist Progress Note ---
Date of Service July 26, 2023 Assessment & Plan (1) Fecal impaction: Plan: Per admitting service notes with addendum: This is an 83 y/o female with DM2, spinal stenosis s/p back surgery x 2, wheelchair bound since last surgery in 2020 due to progressive weakness, neurogenic bladder with chronic Neal, hypothyroidism, hx DVT, on chronic AC with Eliquis, and other history as outlined below who presents to the ED today with multiple complaints including constipation and malfunctioning Neal catheter. Work-up in the ED consistent with recurrent fecal retention with possible impaction, possible UTI, abnormal EKG though initial troponin was normal. - Admit to PCU for monitoring overnight - trend troponin, repeat EKG in the AM and with any recurrent chest pain - Continue empiric antibiotics started in the ED but will change to cefepime due to history of Pseudomonas - urine culture pending. Blood cultures ordered due to subjective fevers, mild leukocytosis - Bowel regimen due to constipation - start with miralax BID, senna-S. May need to consider enemas if no results with orals - Check Mag level due to bigeminy on initial EKG, potassium was 3.7 - Fall precautions - Neal changed in the ED and seems to be functioning better - will monitor for issues such as ongoing leaking - Labs in AM - CBC, BMP, TSH, Mg 07/26 Resolved Continue laxative Left-sided knee pain Knee x-ray: Moderate osteoarthritis Doppler ultrasound: Negative for DVTs Lidoderm patch Ortho consultation (2) Urinary tract infection: Plan: Urine culture: Pending (3) Abnormal EKG: Plan: No cardiac symptoms Troponins negative x 3 No signs of acute ischemia per EKG (4) Esophageal reflux: (5) Dyslipidemia: (6) Diabetes mellitus: Plan: Insulin sliding scale Holding Metformin A1c in AM Diabetic diet BSG ACHS (7) Hypothyroidism: Plan: Check TSH (8) Hypertension: (9) Chronic indwelling Neal catheter: (10) Neurogenic bladder: Plan Continue other home medications as appropriate. Pt seen and reviewed with collaborating physician, Dr. Cruz. Plan of care discussed and as outlined above. Code status: full code DVT prophylaxis: on apixaban chronically and will continue Admission and Anticipated Discharge Date Admission Date: July 25, 2023 Subjective Follow-up constipation and UTI, etc. Seen resting in bed, comfortable, not in distress Awake and alert oriented States she feels improved compared to yesterday Had 2 large BMs today No abdominal pain, nausea No fevers or chills Reports left lower extremity pain is better, but still having knee pain No other new symptoms Review of Systems Review of Systems: all noted and negative except for above Physical Exam Physical Exam: General- oriented x 3, not in distress, speaks in sentences with no effort or accessory muscle use Eyes- anicteric Neck- no JVD Lungs- clear breath sounds bilaterally, no rales/wheezes Heart- normal rate, regular rhythm; no murmurs Abdomen- normal bowel sounds, nondistended, soft, nontender Extremities-right lower extremity: Essentially normal Left lower extremity: Grade 1 edema, positive mild tenderness over the knee joint region, but no warmth, no erythema Neuro- alert, oriented x 3; no gross focal neurologic deficits Skin- warm & dry Results & Data Results & Data Vital Signs (Past 12 Hours) Vital Signs Temp Pulse Pulse Resp BP BP BP 07/26/23 18:25 36.4 C L 64 18 99/58 L 07/26/23 15:22 64 07/26/23 15:00 36.5 C 70 136/64 07/26/23 14:08 74 118/64 07/26/23 08:45 63 07/26/23 07:00 123/65 07/26/23 07:00 61 15 Pulse Ox O2 Del Method 07/26/23 18:25 95 Room Air 07/26/23 15:22 07/26/23 15:00 97 Room Air 07/26/23 14:08 Room Air 07/26/23 08:45 07/26/23 07:00 07/26/23 07:00 all noted and reviewed including below (2) Urinary tract infection Hematuria presence: with hematuria Urinary tract infection type: site unspecified Qualified Code(s): N39.0 - Urinary tract infection, site not specified; R31.9 - Hematuria, unspecified (4) Esophageal reflux Esophagitis presence: without esophagitis Qualified Code(s): K21.9 - Gastro- esophageal reflux disease without esophagitis (6) Diabetes mellitus Diabetes mellitus type: type 2 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
[2023-07-26] MEDS: LIDOCAINE 5% 1 PATCH TD SCH (21:46)
[2023-07-26] MEDS: SODIUM CHLORIDE 0.9% 1,000 ML IV SCH (21:47)
[2023-07-27] MEDS: LEVOTHYROXINE SODIUM 25 MCG TABLET PO SCH (06:16)
[2023-07-27] MEDS: FLUTICASONE PROPIONATE NA SPR 16 GM BTL SCH (08:39)
[2023-07-27] MEDS: INSULIN ASPART PER UNIT CHARGE SC SCH ×4 (08:39→20:35)
[2023-07-27] MEDS: LACTASE 3000 UNIT TAB PO SCH (08:40)
[2023-07-27] MEDS: POLYETHYLENE (MIRALAX) 17 GM PACK PO SCH ×2 (08:40→21:11)
[2023-07-27] MEDS: SODIUM CHLORIDE 0.9% 1,000 ML IV SCH ×2 (08:40→21:15)
[2023-07-27] MEDS: ATENOLOL 25 MG TABLET PO SCH (08:40)
[2023-07-27] MEDS: CEFEPIME 2,000 MG in SYRINGE 0 ML IV SCH ×3 (08:40→23:11)
[2023-07-27] MEDS: DOCUSATE SODIUM/SENNA 50/8.6MG TAB PO SCH (08:41)
[2023-07-27] MEDS: oxyBUTYnin chloride 5 MG TAB PO SCH ×3 (08:41→21:12)
[2023-07-27] MEDS: PANTOprazole 40 MG TAB PO SCH (08:41)
[2023-07-27] MEDS: APIXABAN 5 MG TABLET PO SCH ×2 (08:41→21:12)
[2023-07-27] MEDS: CYANOCOBALAMIN (B-12) 2,500 MCG TABLET SL SCH (08:41)
[2023-07-27] MEDS: PRAVASTATIN SOD 10 MG TAB PO SCH (08:41)
[2023-07-27] MEDS: amLODIPine BESYLATE 5 MG TAB PO SCH (08:41)
[2023-07-27] MEDS: LIDOCAINE 5% 1 PATCH TD SCH (09:01)
--- NOTE | 2023-07-27 19:33 | Hospitalist Progress Note ---
Date of Service July 27, 2023 delayed entry date of service noted above Assessment & Plan (1) Fecal impaction: Plan: Per admitting service notes with addendum: This is an 83 y/o female with DM2, spinal stenosis s/p back surgery x 2, wheelchair bound since last surgery in 2020 due to progressive weakness, neurogenic bladder with chronic Neal, hypothyroidism, hx DVT, on chronic AC with Eliquis, and other history as outlined below who presents to the ED today with multiple complaints including constipation and malfunctioning Neal catheter. Work-up in the ED consistent with recurrent fecal retention with possible impaction, possible UTI, abnormal EKG though initial troponin was normal. - Admit to PCU for monitoring overnight - trend troponin, repeat EKG in the AM and with any recurrent chest pain - Continue empiric antibiotics started in the ED but will change to cefepime due to history of Pseudomonas - urine culture pending. Blood cultures ordered due to subjective fevers, mild leukocytosis - Bowel regimen due to constipation - start with miralax BID, senna-S. May need to consider enemas if no results with orals - Check Mag level due to bigeminy on initial EKG, potassium was 3.7 - Fall precautions - Neal changed in the ED and seems to be functioning better - will monitor for issues such as ongoing leaking - Labs in AM - CBC, BMP, TSH, Mg Resolved Continue laxative Left-sided knee pain Knee x-ray: Moderate osteoarthritis Doppler ultrasound: Negative for DVTs Lidoderm patch Ortho consultation: Pending (2) Urinary tract infection: Plan: Urine culture: Pending Continue cefepime IV (3) Abnormal EKG: Plan: No cardiac symptoms Troponins negative x 3 No signs of acute ischemia per EKG (4) Esophageal reflux: (5) Dyslipidemia: (6) Diabetes mellitus: Plan: Insulin sliding scale Holding Metformin A1c: 5.6 Diabetic diet BSG ACHS (7) Hypothyroidism: Plan: Check TSH (8) Hypertension: (9) Chronic indwelling Neal catheter: (10) Neurogenic bladder: Plan Continue other home medications as appropriate. Pt seen and reviewed with collaborating physician, Dr. Cruz. Plan of care discussed and as outlined above. Code status: full code DVT prophylaxis: on apixaban chronically and will continue Admission and Anticipated Discharge Date Admission Date: July 25, 2023 Subjective Follow-up for UTI, constipation, etc. Seen resting in bed, comfortable, not in distress No abdominal pain, constipation resolved No fevers or chills Still having left knee discomfort Review of Systems Review of Systems: all noted and negative except for above Physical Exam Physical Exam: General- oriented x 3, not in distress, speaks in sentences with no effort or accessory muscle use Eyes- anicteric Neck- no JVD Lungs- clear breath sounds bilaterally, no rales/wheezes Heart- normal rate, regular rhythm; no murmurs Abdomen- normal bowel sounds, nondistended, soft, no tenderness Extremities- LLE: Mild edema, L knee with mild edema, no tenderness Neuro- alert, oriented x 3; no gross focal neurologic deficits Skin- warm & dry Results & Data Results & Data Vital Signs (Past 12 Hours) Vital Signs Temp Pulse Resp BP Pulse Ox O2 Del Method 07/27/23 16:10 36.5 C 70 16 101/55 L 96 Room Air 07/27/23 08:45 Room Air 07/27/23 07:55 36.5 C 66 16 118/71 97 Room Air all noted and reviewed including below (2) Urinary tract infection Hematuria presence: with hematuria Urinary tract infection type: site unspecified Qualified Code(s): N39.0 - Urinary tract infection, site not specified; R31.9 - Hematuria, unspecified (4) Esophageal reflux Esophagitis presence: without esophagitis Qualified Code(s): K21.9 - Gastro- esophageal reflux disease without esophagitis (6) Diabetes mellitus Diabetes mellitus complication status: with other specified complication Diabetes mellitus nursing home insulin use: without nursing home use Diabetes mellitus type: type 2 Qualified Code(s): E11.69 - Type 2 diabetes mellitus with other specified complication (7) Hypothyroidism Hypothyroidism type: unspecified Qualified Code(s): E03.9 - Hypothyroidism, unspecified (8) Hypertension Hypertension type: primary hypertension Qualified Code(s): I10 - Essential (primary) hypertension
[2023-07-28] MEDS: LEVOTHYROXINE SODIUM 25 MCG TABLET PO SCH (06:26)
[2023-07-28] MEDS: oxyBUTYnin chloride 5 MG TAB PO SCH ×3 (07:46→21:36)
[2023-07-28] MEDS: PANTOprazole 40 MG TAB PO SCH (07:47)
[2023-07-28] MEDS: APIXABAN 5 MG TABLET PO SCH ×2 (07:47→21:36)
[2023-07-28] MEDS: ATENOLOL 25 MG TABLET PO SCH (07:47)
[2023-07-28] MEDS: PRAVASTATIN SOD 10 MG TAB PO SCH (07:47)
[2023-07-28] MEDS: amLODIPine BESYLATE 5 MG TAB PO SCH (07:47)
[2023-07-28] MEDS: LACTASE 3000 UNIT TAB PO SCH (07:47)
[2023-07-28] MEDS: CYANOCOBALAMIN (B-12) 2,500 MCG TABLET SL SCH (07:48)
[2023-07-28] MEDS: FLUTICASONE PROPIONATE NA SPR 16 GM BTL SCH (07:49)
[2023-07-28] MEDS: CEFEPIME 2,000 MG in SYRINGE 0 ML IV SCH ×3 (07:58→23:58)
[2023-07-28] MEDS: DOCUSATE SODIUM/SENNA 50/8.6MG TAB PO SCH (07:58)
[2023-07-28] MEDS: SODIUM CHLORIDE 0.9% 1,000 ML IV SCH (07:58)
[2023-07-28] MEDS: POLYETHYLENE (MIRALAX) 17 GM PACK PO SCH ×2 (07:58→21:35)
[2023-07-28] MEDS: LIDOCAINE 5% 1 PATCH TD SCH ×2 (07:59→17:38)
[2023-07-28] MEDS: INSULIN ASPART PER UNIT CHARGE SC SCH ×4 (08:52→21:14)
--- NOTE | 2023-07-28 09:16 | Ultrasound Report ---
LEFT KNEE ULTRASOUND CLINICAL HISTORY: r/o L knee effusion COMPARISON STUDY: Left knee radiographs July 25, 2023. TECHNIQUE: Sonography of the left knee was performed to assess for a joint effusion. FINDINGS: Small to moderate left knee joint effusion is noted. There is soft tissue edema. There is a lso a small popliteal cyst. IMPRESSION: 1. Small to moderate left knee joint effusion. 2. Small left popliteal cyst. ACT 112: Negative or not required by law. Electronically signed by: Rajeev Beth M.D. 07/28/2023 9:15 AM
--- NOTE | 2023-07-28 11:03 | Orthopedic Consultation ---
Date of Consultation July 28, 2023 Assessment & Plan (1) Left knee DJD: She has known left knee moderate to severe tricompartmental arthritis. She has been under treatment for such for several years by Dr. Velásquez with multiple previous steroid injections into the knee. Her last injection in February only gave her a few weeks relief of her pain, but she was determined not to be a good candidate for knee replacement due to her numerous medical issues. No evidence of infection. This chronic issue with her knee is most appropriately handled in an outpatient setting. No acute intervention is required. Follow-up with Dr. Velásquez for further discussion of this chronic issue after discharge. Orth opedics will sign off. History of Present Illness Reason for Consultation: Left knee pain Requesting Physician: Dr. Dubois Attending Physician: Armando Dubois MD History of Present Illness Ms. Cabrera is an 83-year-old female with chronic left knee pain secondary to arthritis, well-known to Dr. Velásquez and is under treatment for such with him with multiple injections over the past several years. Previous medical records were reviewed. She was last seen by Dr. Velásquez on 02/25/23 and had both left knee and left shoulder repeat steroid injections for known osteoarthritis in both joints. She reports that she only got a few weeks relief of her pain from her last injection. She was determined to be not a good surgical candidate for knee replacement surgery due to her poor general medical health. She was admitted on 07/25/23 for fecal impaction, possible UTI and sepsis related to chronic indwelling Neal catheter, abnormal EKG. she reports worsening of her pain a few days ago when she was sitting in a chair with her knee flexed for a long time. She currently reports that her pain has improved now that her knee is out straight. Orthopedics was consulted for her chronic knee pain with known chronic arthritis. Allergies Allergy/AdvReac Type Severity Reaction Status Date / Time Sulfa (Sulfonamide Allergy Intermediate RASH/ITCH Verified 07/25/23 18:56 Antibiotics) acesulfame Allergy Mild Unknown Verified 07/25/23 18:56 aspartame Allergy Mild Unknown Verified 07/25/23 18:56 morphine Allergy Mild RASH/ITCH Verified 07/25/23 18:56 propoxyphene Allergy Mild RASH Verified 07/25/23 18:56 saccharin Allergy Mild Unknown Verified 07/25/23 18:56 sucralose Allergy Mild Unknown Verified 07/25/23 18:56 Home Medications Medication Instructions Recorded Confirmed Type L.acidophil,salivari-Bifido 2 cap PO DAILY 07/25/23 07/25/23 History bifidum-Strep thermoph 175 mg capsule (Acidophilus Probiotic Blend) acetaminophen 325 mg tablet 650 mg PO Q4 PRN Pain 07/25/23 07/25/23 History (Tylenol) amlodipine 5 mg tablet 5 mg PO DAILY 07/25/23 07/25/23 History apixaban 5 mg tablet (Eliquis) 5 mg PO BID 07/25/23 07/25/23 History atenolol 25 mg tablet 25 mg PO DAILY 07/25/23 07/25/23 History calcium carbonate 300 mg (750 mg) 300 mg PO .Q5HRS PRN GERD 07/25/23 07/25/23 History chewable tablet (Tums E-X) cyanocobalamin (vitamin B-12) 5,000 mcg sublingual DAILY 07/25/23 07/25/23 History 5,000 mcg sublingual tablet (Vitamin B-12) fluticasone propionate 50 2 spray intranasal DAILY 07/25/23 07/25/23 History mcg/actuation nasal spray,suspension lactase 9,000 unit tablet 9,000 unit PO DAILY 07/25/23 07/25/23 History levothyroxine 25 mcg tablet 25 mcg PO DAILY 07/25/23 07/25/23 History loperamide 2 mg tablet (Imodium 2 mg PO Q4H PRN Diarrhea 07/25/23 07/25/23 History A-D) metformin 500 mg tablet 500 mg PO BID 07/25/23 07/25/23 History multivitamin 1 tab PO DAILY 07/25/23 07/25/23 History nitrofurantoin macrocrystal 100 mg 100 mg PO DAILY 07/25/23 07/25/23 History capsule oxybutynin chloride 5 mg tablet 5 mg PO TID 07/25/23 07/25/23 History pantoprazole 40 mg tablet,delayed 40 mg PO DAILY 07/25/23 07/25/23 History release polyethylene glycol 3350 17 gram 17 g PO DAILY PRN Constipation 07/25/23 07/25/23 History oral powder packet (Miralax) pravastatin 10 mg tablet 10 mg PO DAILY 07/25/23 07/25/23 History tramadol 50 mg tablet 50 mg PO Q8 PRN Pain 07/25/23 07/25/23 History Patient History Medical History Impacted cerumen Spinal stenosis Paralytic syndrome Hyperlipidemia GERD (gastroesophageal reflux disease) Atrial fibrillation Paralysis, progressive History of DVT (deep vein thrombosis) Left leg DVT 11/2020 Urinary tract infection Urinary symptom or sign Abnormal EKG hx Anxiety Arthralgia of multiple sites Dairy allergy Hammer toe Microalbuminuria Hypertension Nocturia Osteoporosis Urinary incontinence currently has an indwelling catheter Vitamin D deficiency disease DMII (diabetes mellitus, type 2) LAFB (left anterior fascicular block) Coronary artery calcification LVH (left ventricular hypertrophy) Osteoarthritis Urinary frequency Hypothyroidism History of nasal polyp Conductive hearing loss of right ear with unrestricted hearing of left ear Hypertrophy of nasal turbinates Surgical History [place] of [place] T1[place]T3; [place] [facility] [place] L3-L4, [place] [facility] [place]. History of lumbar laminectomy for spinal cord decompression 12/22/20 - [facility], Dr Rocha; L1-L5 S/P [place]C filter 11[place] [facility] [place] of breast biopsy History of tonsillectomy History of nasal septoplasty History of rotator cuff surgery LEFT History of rhinoplasty History of knee replacement RIGHT History of hysterectomy History of hip replacement BILAT. RIGHT HIP X2 History of hand surgery RIGHT History of placement of ear tubes RIGHT IN OFFICE History of colonoscopy History of cataract surgery BILAT History of blepharoplasty History of back surgery IN 1985 LUMBAR FOR 2 RUPTURED DISC Family History Mother , age 69 Coronary heart disease s/p CABG Heart disease Grandmother (Maternal) Heart disease heart attacks Son Diabetes Heart disease age 47 from cardiac arrest Father , in his 80s Rheumatoid arthritis Denies family history of Ovarian cancer Prostate cancer Breast cancer Colorectal cancer Cancer Social History (Updated 07/25/23 @ 18:30 by Sari Александр, PA-C) Smoking Status: Never smoker Hx Alcohol Use: No Hx Substance Use: No Preferred Language: Maori Communication Ability: Effective Manager Photography Required: No Beliefs That Will Affect Care: None marital status: / Current Living Situation: Retirement Current Living Situation Comment: [facility] current occupational status: retired How many Children do You have: 3 How many Children do You have Comment: 1 son ; 1 living son, 1 living daughter 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 She has generalized enlargement of the knee joint, consistent with tricompartmental arthritis. No erythema, swelling, warmth, or induration. Results & Data Vital Signs (Past 12 Hours) Vital Signs Temp Pulse Resp BP Pulse Ox O2 Del Method 07/28/23 10:34 Room Air 07/28/23 10:30 145/73 H 07/28/23 07:43 36.8 C 71 16 186/89 H 5 L Room Air Diagnostic Findings Left knee and femur x-rays from 07/25/23 were independently interpreted by me. They show moderate to severe tricompartmental arthritic degeneration of the knee. Also noted is a left total hip arthroplasty in place without evidence of hardware failure or loosening. (1) Left knee DJD Osteoarthritis type: primary Qualified Code(s): M17.12 - Unilateral primary osteoarthritis, left knee
--- NOTE | 2023-07-28 14:29 | Electrocardiogram Report ---
Test Reason : Blood Pressure : / mmHG Vent. Rate : 062 BPM Atrial Rate : 062 BPM P-R Int : 238 ms QRS Dur : 090 ms QT Int : 420 ms P-R-T Axes : 071 -52 038 degrees QTc Int : 426 ms Sinus rhythm with 1st degree A-V block Left anterior fascicular block Possible Old Anterior infarct (cited on or before 25-JUL-2023) Abnormal ECG When compared with ECG of 25-JUL-2023 14:28, Premature ventricular complexes are no longer Present DE interval has increased Confirmed by Landon Birmingham ([id number]) on 07/28/2023 2:28:48 PM Referred By: [facility] Confirmed By:Landon Birmingham
--- NOTE | 2023-07-28 19:33 | Hospitalist Progress Note ---
Date of Service July 28, 2023 Assessment & Plan (1) Fecal impaction: Plan: Per admitting service notes with addendum: This is an 83 y/o female with DM2, spinal stenosis s/p back surgery x 2, wheelchair bound since last surgery in 2020 due to progressive weakness, neurogenic bladder with chronic Neal, hypothyroidism, hx DVT, on chronic AC with Eliquis, and other history as outlined below who presents to the ED today with multiple complaints including constipation and malfunctioning Neal catheter. Work-up in the ED consistent with recurrent fecal retention with possible impaction, possible UTI, abnormal EKG though initial troponin was normal. - Admit to PCU for monitoring overnight - trend troponin, repeat EKG in the AM and with any recurrent chest pain - Continue empiric antibiotics started in the ED but will change to cefepime due to history of Pseudomonas - urine culture pending. Blood cultures ordered due to subjective fevers, mild leukocytosis - Bowel regimen due to constipation - start with miralax BID, senna-S. May need to consider enemas if no results with orals - Check Mag level due to bigeminy on initial EKG, potassium was 3.7 - Fall precautions - Neal changed in the ED and seems to be functioning better - will monitor for issues such as ongoing leaking - Labs in AM - CBC, BMP, TSH, Mg Resolved Continue laxative Left-sided knee pain Knee x-ray: Moderate osteoarthritis Doppler ultrasound: Negative for DVTs Lidoderm patch Ortho consultation: No further intervention at this point Will start Tylenol 1 g every 8 hours (2) Urinary tract infection: Plan: Urine culture: Pseudomonas, resistant to fluoroquinolones Continue cefepime IV day #3 Will need cefepime IV to complete 10 days (3) Abnormal EKG: Plan: No cardiac symptoms Troponins negative x 3 No signs of acute ischemia per EKG (4) Esophageal reflux: (5) Dyslipidemia: (6) Diabetes mellitus: Plan: Insulin sliding scale Holding Metformin A1c: 5.6 Diabetic diet BSG ACHS (7) Hypothyroidism: Plan: TSH normal (8) Hypertension: (9) Chronic indwelling Neal catheter: (10) Neurogenic bladder: Plan Continue other home medications as appropriate. Pt seen and reviewed with collaborating physician, Dr. Cruz. Plan of care discussed and as outlined above. Code status: full code DVT prophylaxis: on apixaban chronically and will continue Admission and Anticipated Discharge Date Admission Date: July 25, 2023 Subjective Follow-up for UTI, constipation, etc. Seen resting in bed, comfortable, not in distress Constipation resolved, no bladder pain No fevers or chills Still having some left knee discomfort No other new symptoms Review of Systems Review of Systems: all noted and negative except for above Physical Exam Physical Exam: General- oriented x 3, not in distress, speaks in sentences with no effort or accessory muscle use Eyes- anicteric Neck- no JVD Lungs- clear BS BL no rales/wheezing Heart- normal rate, regular rhythm; no murmurs Abdomen- normal bowel sounds, nondistended, soft, nontender Extremities- LLE: unchanged Neuro- alert, oriented x 3; no gross focal neurologic deficits Skin- warm & dry Results & Data Results & Data Vital Signs (Past 12 Hours) Vital Signs Temp Pulse Resp BP BP Pulse Ox O2 Del Method 07/28/23 14:23 36.6 C 62 16 135/74 95 Room Air 07/28/23 10:34 Room Air 07/28/23 10:30 145/73 H 07/28/23 07:43 36.8 C 71 16 186/89 H 5 L Room Air all noted and reviewed including below (2) Urinary tract infection Hematuria presence: with hematuria Urinary tract infection type: site un specified Qualified Code(s): N39.0 - Urinary tract infection, site not specified; R31.9 - Hematuria, unspecified (4) Esophageal reflux Esophagitis presence: without esophagitis Qualified Code(s): K21.9 - Gastro- esophageal reflux disease without esophagitis (6) Diabetes mellitus Diabetes mellitus type: type 2 Diabetes mellitus director long term care insulin use: without prison use Diabetes mellitus complication status: with other specified complication Qualified Code(s): E11.69 - Type 2 diabetes mellitus with other specified complication (7) Hypothyroidism Hypothyroidism type: unspecified Qualified Code(s): E03.9 - Hypothyroidism, unspecified (8) Hypertension Hypertension type: primary hypertension Qualified Code(s): I10 - Essential (primary) hypertension
[2023-07-29] MEDS: LEVOTHYROXINE SODIUM 25 MCG TABLET PO SCH (06:09)
[2023-07-29] MEDS: PRAVASTATIN SOD 10 MG TAB PO SCH (07:30)
[2023-07-29] MEDS: ATENOLOL 25 MG TABLET PO SCH (07:30)
[2023-07-29] MEDS: LACTASE 3000 UNIT TAB PO SCH (07:30)
[2023-07-29] MEDS: PANTOprazole 40 MG TAB PO SCH (07:31)
[2023-07-29] MEDS: amLODIPine BESYLATE 5 MG TAB PO SCH (07:31)
[2023-07-29] MEDS: APIXABAN 5 MG TABLET PO SCH ×2 (07:31→20:36)
[2023-07-29] MEDS: CYANOCOBALAMIN (B-12) 2,500 MCG TABLET SL SCH (07:31)
[2023-07-29] MEDS: DOCUSATE SODIUM/SENNA 50/8.6MG TAB PO SCH (07:31)
[2023-07-29] MEDS: oxyBUTYnin chloride 5 MG TAB PO SCH ×3 (07:32→20:36)
[2023-07-29] MEDS: POLYETHYLENE (MIRALAX) 17 GM PACK PO SCH ×2 (07:32→20:35)
[2023-07-29] MEDS: LIDOCAINE 5% 1 PATCH TD SCH (07:32)
[2023-07-29] MEDS: FLUTICASONE PROPIONATE NA SPR 16 GM BTL SCH (07:33)
[2023-07-29] MEDS: CEFEPIME 2,000 MG in SYRINGE 0 ML IV SCH ×3 (07:39→23:01)
[2023-07-29] MEDS: INSULIN ASPART PER UNIT CHARGE SC SCH ×4 (08:30→21:20)
[2023-07-29] MEDS: ADVANCED PROBIOTIC 1250 MG CAPSULE PO SCH (08:31)
--- NOTE | 2023-07-29 12:32 | Hospitalist Progress Note ---
Date of Service July 29, 2023 Assessment & Plan (1) Fecal impaction: Plan: Per admitting service notes with addendum: This is an 83 y/o female with DM2, spinal stenosis s/p back surgery x 2, wheelchair bound since last surgery in 2020 due to progressive weakness, neurogenic bladder with chronic Umanzor, hypothyroidism, hx DVT, on chronic AC with Eliquis, and other history as outlined below who presents to the ED today with multiple complaints including constipation and malfunctioning Umanzor catheter. Work-up in the ED consistent with recurrent fecal retention with possible impaction, possible UTI, abnormal EKG though initial troponin was normal. Resolved Continue laxative (2) Urinary tract infection: Plan: Urine culture: Pseudomonas, resistant to fluoroquinolones Continue cefepime IV day #4 Will need cefepime IV to complete 10 days umanzor changed in ED US guided IV requested to be placed (3) Abnormal EKG: Plan: No cardiac symptoms Troponins negative x 3 No signs of acute ischemia per EKG (4) Esophageal reflux: Plan: chronic, stable continue PPI (5) Dyslipidemia: Plan: chronic, stable continue statin (6) Diabetes mellitus: Plan: Insulin sliding scale, will liberalize to prevent hypoglycemia Holding Metformin A1c: 5.6 Diabetic diet BSG ACHS (7) Hypothyroidism: Plan: TSH normal chronic, stable continue levothyroxine (8) Hypertension: Plan: chronic, stable has been high first thing in a.m. last 2 days on amlodipine and atenolol (9) Chronic indwelling Umanzor catheter: (10) Neurogenic bladder: Plan: Cath exchanged on admission functioning appropriately Plan Left-sided knee pain Knee x-ray: Moderate osteoarthritis Doppler ultrasound: Negative for DVTs Lidoderm patch, add voltaren Ortho consultation: No further intervention at this point Dispo: PT/OT ordered, pt to require 10 days of IV antibiotics, currently on day 4, serjiomontrose unable to provide, CM working on possible rehab FULL CODE PCP: DVT ppx:Tyrel Pt was seen and examined in collaboration with Dr. Dubois, please see addendum A total of 45 was spent coordinating, documenting, and providing care for this patient excluding time spent in the performance of separately billed services. This included personally viewing all current laboratories and imaging studies, medication reconciliation, outpatient chart review, and discussion with specialists. Obtain labs in a.m. bmp. cbc Admission and Anticipated Discharge Date Admission Date: July 25, 2023 Supervising Physician Co-Signing Physician Notes delayed entry date of service noted above Attending Addendum: care coordinated with VALERIE Sandhu please refer to her notes for full details, I agree with her notes patient seen and examined, records reviewed by myself as well diagnoses and plan of care as per VALERIE Dubois MD Subjective Patient was seen and examined in 318. Follow-up UTI. She feels well and is anxious to be discharged back to [place] with her cat. She denies f/c/s, chest pain, sob, n/v/d, abd pain. She is passing flatus and is moving bowels now. Continues to tolerate IV antibiotics and has a good appetite. Feels patch is helping L knee. Review of Systems Review of Systems: All systems reviewed & are unremarkable except as noted in HPI & below Physical Exam Physical Exam: Gen: elderly, obese, F, NAD, A&O x3 HEENT: Normocephalic, atraumatic, conjunctivae moist, sclerae anicteric, mucous membranes moist. Lung: Clear to Auscultation bilaterally, no wheezes/rales/rhonchi Heart: Regular rate, regular rhythm, no murmurs, rubs, or gallops Abdomen: Soft, NT, ND +BS x 4 Extremities: No edema Skin: Warm, no rash, negative turgor. : Umanzor cath with yellow urine Results & Data Results & Data Vital Signs (Past 12 Hours) Vital Signs Temp Pulse Resp BP Pulse Ox O2 Del Method 07/29/23 08:33 155/87 H 07/29/23 07:45 Room Air 07/29/23 07:26 36.5 C 70 16 192/94 H 96 Room Air Medications Administered Current Inpatient Medications Acetaminophen (Acetaminophen 325 Mg Tab) 650 mg PO Q4H PRN PRN Reason: Pain Stop: 08/24/23 23:05 Amlodipine Besylate (Amlodipine Besylate 5 Mg Tab) 5 mg PO DAILY [facility] Stop: 08/25/23 08:59 Last Admin: 07/29/23 07:31 Dose: 5 mg Apixaban (Apixaban 5 Mg Tablet) 5 mg PO BID [facility] Stop: 08/24/23 23:05 Last Admin: 07/29/23 07:31 Dose: 5 mg Atenolol (Atenolol 25 Mg Tablet) 25 mg PO DAILY [facility] Stop: 08/25/23 08:59 Last Admin: 07/29/23 07:30 Dose: 25 mg Cyanocobalamin (Cyanocobalamin (B-12) 2,500 Mcg Tablet) 5,000 mcg SL DAILY [facility] Stop: 08/25/23 08:59 Last Admin: 07/29/23 07:31 Dose: 5,000 mcg Dextrose (Dextrose 50% 50 Ml Syringe) 25 - 50 ml IV UD PRN; Protocol PRN Reason: Hypoglycemia Protocol Stop: 08/24/23 23:05 Fluticasone Propionate (Fluticasone Propionate Na Spr 16 Gm Btl) 2 sprays NA DAILY [facility] Stop: 08/25/23 08:59 Last Admin: 07/29/23 07:33 Dose: 2 sprays Glucagon (Glucagon For Inj 1 Mg Vial) 1 mg SQ UD PRN; Protocol PRN Reason: Hypoglycemia Protocol Stop: 08/24/23 23:05 Glucose (Glucose 10 Tab/Tube) 4 - 8 tab PO UD PRN; Protocol PRN Reason: Hypoglycemia Treatment Stop: 08/24/23 23:05 Glucose (Glucose 40% Gel 15 Gm Tube) 15 - 30 gm PO UD PRN; Protocol PRN Reason: Hypoglycemia Protocol Stop: 08/24/23 23:05 Cefepime HCl 2,000 mg/ Syringe 20 mls @ 5 mls/min IV Q8H [facility]; Protocol Stop: 08/05/23 00:00 Last Admin: 07/29/23 07:39 Dose: 5 mls/min Insulin Aspart (Insulin Aspart Per Unit Charge) 0 units SC ACHS [facility] Stop: 08/24/23 23:05 Last Admin: 07/29/23 08:30 Dose: 2 units Lactase (Lactase 3000 Unit Tab) 9,000 units PO DAILY@0730 [facility] Stop: 08/25/23 07:29 Last Admin: 07/29/23 07:30 Dose: 9,000 units Lactobacillus Acidophilus (Advanced Probiotic 1250 Mg Capsule) 2 cap PO DAILY [facility] Stop: 08/28/23 08:59 Last Admin: 07/29/23 08:31 Dose: 2 cap Levothyroxine Sodium (Levothyroxine Sodium 25 Mcg Tablet) 25 mcg PO DAILYBB [facility] Stop: 08/25/23 06:29 Last Admin: 07/29/23 06:09 Dose: 25 mcg Lidocaine (Lidocaine 5% 1 Patch) 1 patch TD QAM [facility] Stop: 08/25/23 18:59 Last Admin: 07/29/23 07:32 Dose: 1 patch Miscellaneous (Carbohydrates For Hypoglycemia ) 15 - 30 gm PO UD PRN PRN Reason: Hypoglycemia Protocol Stop: 08/24/23 23:05 Miscellaneous (Remove Lidoderm Patch) 1 each N/A DAILY@2100 [facility] Stop: 08/25/23 20:59 Last Admin: 07/28/23 21:35 Dose: Not Given Oxybutynin Chloride (Oxybutynin Chloride 5 Mg Tab) 5 mg PO TID [facility] Stop: 08/24/23 23:05 Last Admin: 07/29/23 07:32 Dose: 5 mg Pantoprazole Sodium (Pantoprazole 40 Mg Tab) 40 mg PO DAILY [facility] Stop: 08/25/23 08:59 Last Admin: 07/29/23 07:31 Dose: 40 mg Polyethylene Glycol (Polyethylene (Miralax) 17 Gm Pack) 17 gm PO BID [facility] Stop: 08/24/23 23:05 Last Admin: 07/29/23 07:32 Dose: Not Given Pravastatin Sodium (Pravastatin Sod 10 Mg Tab) 10 mg PO DAILY [facility] Stop: 08/25/23 08:59 Last Admin: 07/29/23 07:30 Dose: 10 mg Senna/Docusate Sodium (Docusate Sodium/Senna 50/8.6mg Tab) 1 tab PO QAM [facility] Stop: 08/25/23 08:59 Last Admin: 07/29/23 07:31 Dose: Not Given Tramadol HCl (Tramadol Hcl 50 Mg Tablet) 50 mg PO Q8 PRN PRN Reason: Pain Stop: 08/24/23 23:05 (2) Urinary tract infection Hematuria presence: with hematuria Urinary tract infection type: site unspecified Qualified Code(s): N39.0 - Urinary tract infection, site not specif ied; R31.9 - Hematuria, unspecified (4) Esophageal reflux Esophagitis presence: without esophagitis Qualified Code(s): K21.9 - Gastro- esophageal reflux disease without esophagitis (6) Diabetes mellitus Diabetes mellitus complication status: with other specified complication Diabetes mellitus emt intermediate insulin use: without emt intermediate use Diabetes mellitus type: type 2 Qualified Code(s): E11.69 - Type 2 diabetes mellitus with other specified complication (7) Hypothyroidism Hypothyroidism type: unspecified Qualified Code(s): E03.9 - Hypothyroidism, unspecified (8) Hypertension Hypertension type: primary hypertension Qualified Code(s): I10 - Essential (primary) hypertension
[2023-07-29] MEDS: DICLOFENAC SOD 1% GEL 100 GM TUBE EXT SCH ×2 (13:34→20:36)
[2023-07-30] MEDS: LEVOTHYROXINE SODIUM 25 MCG TABLET PO SCH (05:26)
[2023-07-30 07:04] LABS: Hemoglobin 11.3 g/dl (12.0-16.0); Mean Corpuscular Hemoglobin 28.5 pg (25.0-34.0); Mean Corpuscular Hgb Conc 33.2 g/dL (32.0-36.0); Mean Corpuscular Volume 85.6 fL (80.0-100.0); Mean Platelet Volume 10.3 fL (9.4-12.4); Platelet Count 278 K/uL (130-400); RDW Coefficient of Variation 13.1 % (11.5-14.5); RDW Standard Deviation 40.9 fL (36.4-46.3); Red Blood Count 3.97 M/uL (4.20-5.40); White Blood Count 9.09 K/ul (4.8-10.8)
[2023-07-30 07:09] LABS: BUN Creatinine Ratio 34.7 (10-20); Calcium 8.8 mg/dl (8.6-10.3); Creatinine Clr Calc Pharmacy 92.5 ml/min; Est GFR (African American) 105.2 ml/min; Est GFR (Non-African American) 90.7 ml/min; Potassium 4.1 mmol/L (3.5-5.1)
[2023-07-30] MEDS: INSULIN ASPART PER UNIT CHARGE SC SCH ×4 (08:33→21:54)
[2023-07-30] MEDS: APIXABAN 5 MG TABLET PO SCH ×2 (08:39→21:13)
[2023-07-30] MEDS: ATENOLOL 25 MG TABLET PO SCH (08:39)
[2023-07-30] MEDS: amLODIPine BESYLATE 5 MG TAB PO SCH (08:40)
[2023-07-30] MEDS: PRAVASTATIN SOD 10 MG TAB PO SCH (08:40)
[2023-07-30] MEDS: LACTASE 3000 UNIT TAB PO SCH (08:40)
[2023-07-30] MEDS: oxyBUTYnin chloride 5 MG TAB PO SCH ×3 (08:40→21:13)
[2023-07-30] MEDS: ADVANCED PROBIOTIC 1250 MG CAPSULE PO SCH (08:40)
[2023-07-30] MEDS: FLUTICASONE PROPIONATE NA SPR 16 GM BTL SCH (08:41)
[2023-07-30] MEDS: LIDOCAINE 5% 1 PATCH TD SCH (08:41)
[2023-07-30] MEDS: PANTOprazole 40 MG TAB PO SCH (08:41)
[2023-07-30] MEDS: POLYETHYLENE (MIRALAX) 17 GM PACK PO SCH ×2 (08:42→21:13)
[2023-07-30] MEDS: DOCUSATE SODIUM/SENNA 50/8.6MG TAB PO SCH (08:43)
[2023-07-30] MEDS: DICLOFENAC SOD 1% GEL 100 GM TUBE EXT SCH ×2 (08:44→21:13)
[2023-07-30] MEDS: CYANOCOBALAMIN (B-12) 2,500 MCG TABLET SL SCH (08:44)
[2023-07-30] MEDS: CEFEPIME 2,000 MG in SYRINGE 0 ML IV SCH ×2 (08:44→15:26)
--- NOTE | 2023-07-30 11:34 | Hospitalist Progress Note ---
Date of Service July 30, 2023 Assessment & Plan (1) Fecal impaction: Plan: This is an 83 y/o female with DM2, spinal stenosis s/p back surgery x 2, wheelchair bound since last surgery in 2020 due to progressive weakness, neurogenic bladder with chronic Umanzor, hypothyroidism, hx DVT, on chronic AC with Eliquis, and other history as outlined below who presents to the ED today with multiple complaints including constipation and malfunctioning Umanzor cathete r. Work-up in the ED consistent with recurrent fecal retention with possible impaction, possible UTI, abnormal EKG though initial troponin was normal. Resolved Continue laxative having bm, last 1 (2) Urinary tract infection: Plan: Urine culture: Pseudomonas, resistant to fluoroquinolones Continue cefepime IV day #5 Will need cefepime IV to complete 10 days umanzor changed in ED US guided IV requested to be placed (3) Abnormal EKG: Plan: No cardiac symptoms Troponins negative x 3 No signs of acute ischemia per EKG (4) Esophageal reflux: Plan: chronic, stable continue PPI (5) Dyslipidemia: Plan: chronic, stable continue statin (6) Diabetes mellitus: Plan: Insulin sliding scale, will liberalize to prevent hypoglycemia Holding Metformin A1c: 5.6 Diabetic diet BSG ACHS (7) Hypothyroidism: Plan: TSH normal chronic, stable continue levothyroxine (8) Hypertension: Plan: chronic, stable improving, adjustments have been made throughout stay on amlodipine and atenolol, continue and monitor (9) Chronic indwelling Umanzor catheter: (10) Neurogenic bladder: Plan: Cath exchanged on admission functioning appropriately Plan Left-sided knee pain Knee x-ray: Moderate osteoarthritis Doppler ultrasound: Negative for DVTs Lidoderm patch, add voltaren Ortho consultation: No further intervention at this point Dispo: PT/OT ordered, pt to require 10 days of IV antibiotics, currently on day 5, selvin unable to provide, CM working on possible rehab, however pt wishes to stay inpt and complete course FULL CODE PCP: DVT ppx:Tyrel Pt was seen and examined in collaboration with Dr. Chavez, please see addendum A total of 40 was spent coordinating, documenting, and providing care for this patient excluding time spent in the performance of separately billed services. This included personally viewing all current laboratories and imaging studies, medication reconciliation, outpatient chart review, and discussion with specialists. Admission and Anticipated Discharge Date Admission Date: July 25, 2023 Supervising Physician Co-Signing Physician Notes Attending addendum: The patient was seen and examined in medical floor She has been stable and denies any significant symptoms Waiting to be placed to finish the course of IV antibiotic On examination Lying in bed without any acute distress Hemodynamically stable and is afebrile Chest-clear to auscultate bilaterally Heart-S1-S2, regular Abdomen-benign Extremities-negative for any edema Her labs, medications and imaging studies reviewed Complicated UTI-catheter induced Will need to finish the course of IV antibiotic as above Agree with assessment and plan as outlined above by Danelle Chavez Subjective Patient was seen and examined in 318. Follow-up UTI. She doesn't want to be discharged until she finishes antibiotics. She otherwise feels well. Moving bowels and good appetite. Denies f/c/s, chest pain, sob, n/v/d. Review of Systems Review of Systems: All systems reviewed & are unremarkable except as noted in HPI & below Physical Exam Physical Exam: Gen: elderly, obese, F, NAD, A&O x3 HEENT: Normocephalic, atraumatic, conjunctivae moist, sclerae anicteric, mucous membranes moist. Lung: Clear to Auscultation bilaterally, no wheezes/rales/rhonchi Heart: Regular rate, regular rhythm, no murmurs, rubs, or gallops Abdomen: Soft, NT, ND +BS x 4 Extremities: No edema, obese lower ext Skin: Warm, no rash, negative turgor. : Umanzor cath with yellow urine Results & Data Results & Data Vital Signs (Past 12 Hours) Vital Signs Temp Pulse Resp BP Pulse Ox O2 Del Method 07/30/23 07:51 36.6 C 65 16 123/69 96 Room Air Laboratory Results Short CBC 07/30/23 Range/Units 06:33 WBC 9.09 (4.8-10.8) K/ul Hgb 11.3 L (12.0-16.0) g/dl Hct 34.0 L (37.0-47.0) % Plt Count 278 (130-400) K/uL BMP 07/30/23 06:33 Sodium 137 Potassium 4.1 Chloride 107 Carbon Dioxide 22 BUN 17 Creatinine 0.49 L Glucose 112 H Calcium 8.8 I have independently reviewed and interpreted patient's labs including cbc, bmp Medications Administered Current Inpatient Medications Acetaminophen (Acetaminophen 325 Mg Tab) 650 mg PO Q4H PRN PRN Reason: Pain Stop: 08/24/23 23:05 Amlodipine Besylate (Amlodipine Besylate 5 Mg Tab) 5 mg PO DAILY [facility] Stop: 08/25/23 08:59 Last Admin: 07/30/23 08:40 Dose: 5 mg Apixaban (Apixaban 5 Mg Tablet) 5 mg PO BID [facility] Stop: 08/24/23 23:05 Last Admin: 07/30/23 08:39 Dose: 5 mg Atenolol (Atenolol 25 Mg Tablet) 25 mg PO DAILY [facility] Stop: 08/25/23 08:59 Last Admin: 07/30/23 08:39 Dose: 25 mg Cyanocobalamin (Cyanocobalamin (B-12) 2,500 Mcg Tablet) 5,000 mcg SL DAILY [facility] Stop: 08/25/23 08:59 Last Admin: 07/30/23 08:44 Dose: 5,000 mcg Dextrose (Dextrose 50% 50 Ml Syringe) 25 - 50 ml IV UD PRN; Protocol PRN Reason: Hypoglycemia Protocol Stop: 08/24/23 23:05 Diclofenac Sodium (Diclofenac Sod 1% Gel 100 Gm Tube) 4 gm EXT BID [facility]; Protocol Stop: 08/28/23 12:44 Last Admin: 07/30/23 08:44 Dose: 4 gm Fluticasone Propionate (Fluticasone Propionate Na Spr 16 Gm Btl) 2 sprays NA DAILY [facility] Stop: 08/25/23 08:59 Last Admin: 07/30/23 08:41 Dose: 2 sprays Glucagon (Glucagon For Inj 1 Mg Vial) 1 mg SQ UD PRN; Protocol PRN Reason: Hypoglycemia Protocol Stop: 08/24/23 23:05 Glucose (Glucose 10 Tab/Tube) 4 - 8 tab PO UD PRN; Protocol PRN Reason: Hypoglycemia Treatment Stop: 08/24/23 23:05 Glucose (Glucose 40% Gel 15 Gm Tube) 15 - 30 gm PO UD PRN; Protocol PRN Reason: Hypoglycemia Protocol Stop: 08/24/23 23:05 Cefepime HCl 2,000 mg/ Syringe 20 mls @ 5 mls/min IV Q8H [facility]; Protocol Stop: 08/05/23 00:00 Last Admin: 07/30/23 08:44 Dose: 5 mls/min Insulin Aspart (Insulin Aspart Per Unit Charge) 0 units SC ACHS [facility] Stop: 08/24/23 23:05 Last Admin: 07/30/23 08:33 Dose: Not Given Lactase (Lactase 3000 Unit Tab) 9,000 units PO DAILY@0730 [facility] Stop: 08/25/23 07:29 Last Admin: 07/30/23 08:40 Dose: 9,000 units Lactobacillus Acidophilus (Advanced Probiotic 1250 Mg Capsule) 2 cap PO DAILY [facility] Stop: 08/28/23 08:59 Last Admin: 07/30/23 08:40 Dose: 2 cap Levothyroxine Sodium (Levothyroxine Sodium 25 Mcg Tablet) 25 mcg PO DAILYBB [facility] Stop: 08/25/23 06:29 Last Admin: 07/30/23 05:26 Dose: 25 mcg Lidocaine (Lidocaine 5% 1 Patch) 1 patch TD QAM [facility] Stop: 08/25/23 18:59 Last Admin: 07/30/23 08:41 Dose: 1 patch Miscellaneous (Carbohydrates For Hypoglycemia ) 15 - 30 gm PO UD PRN PRN Reason: Hypoglycemia Protocol Stop: 08/24/23 23:05 Miscellaneous (Remove Lidoderm Patch) 1 each N/A DAILY@2100 [facility] Stop: 08/25/23 20:59 Last Admin: 07/29/23 20:36 Dose: 1 each Oxybutynin Chloride (Oxybutynin Chloride 5 Mg Tab) 5 mg PO TID [facility] Stop: 08/24/23 23:05 Last Admin: 07/30/23 08:40 Dose: 5 mg Pantoprazole Sodium (Pantoprazole 40 Mg Tab) 40 mg PO DAILY [facility] Stop: 08/25/23 08:59 Last Admin: 07/30/23 08:41 Dose: 40 mg Polyethylene Glycol (Polyethylene (Miralax) 17 Gm Pack) 17 gm PO BID [facility] Stop: 08/24/23 23:05 Last Admin: 07/30/23 08:42 Dose: Not Given Pravastatin Sodium (Pravastatin Sod 10 Mg Tab) 10 mg PO DAILY [facility] Stop: 08/25/23 08:59 Last Admin: 07/30/23 08:40 Dose: 10 mg Senna/Docusate Sodium (Docusate Sodium/Senna 50/8.6mg Tab) 1 tab PO QAM [facility] Stop: 08/25/23 08:59 Last Admin: 07/30/23 08:43 Dose: Not Given Tramadol HCl (Tramadol Hcl 50 Mg Tablet) 50 mg PO Q8 PRN PRN Reason: Pain Stop: 08/24/23 23:05 (2) Urinary tract infection Hematuria presence: with hematuria Urinary tract infection type: site unspecified Qualified Code(s): N39.0 - Urinary tract infection, site not specified; R31.9 - Hematuria, unspecified (4) Esophageal reflux Esophagitis presence: without esophagitis Qualified Code(s): K21.9 - Gastro- esophageal reflux disease without esophagitis (6) Diabetes mellitus Diabetes mellitus complication status: with other specified complication Diabetes mellitus penitentiary insulin use: without ferry terminal supervisor use Diabetes mellitus type: type 2 Qualified Code(s): E11.69 - Type 2 diabetes mellitus with other specified complication (7) Hypothyroidism Hypothyroidism type: unspecified Qualified Code(s): E03.9 - Hypothyroidism, unspecified (8) Hypertension Hypertension type: primary hypertension Qualified Code(s): I10 - Essential (primary) hypertension
[2023-07-31] MEDS: CEFEPIME 2,000 MG in SYRINGE 0 ML IV SCH ×4 (00:55→23:49)
[2023-07-31] MEDS: LEVOTHYROXINE SODIUM 25 MCG TABLET PO SCH (05:31)
[2023-07-31] MEDS: oxyBUTYnin chloride 5 MG TAB PO SCH ×3 (07:59→20:25)
[2023-07-31] MEDS: FLUTICASONE PROPIONATE NA SPR 16 GM BTL SCH (07:59)
[2023-07-31] MEDS: APIXABAN 5 MG TABLET PO SCH ×2 (07:59→20:25)
[2023-07-31] MEDS: ATENOLOL 25 MG TABLET PO SCH (07:59)
[2023-07-31] MEDS: LACTASE 3000 UNIT TAB PO SCH (08:00)
[2023-07-31] MEDS: ADVANCED PROBIOTIC 1250 MG CAPSULE PO SCH (08:00)
[2023-07-31] MEDS: PRAVASTATIN SOD 10 MG TAB PO SCH (08:00)
[2023-07-31] MEDS: CYANOCOBALAMIN (B-12) 2,500 MCG TABLET SL SCH (08:00)
[2023-07-31] MEDS: amLODIPine BESYLATE 5 MG TAB PO SCH (08:01)
[2023-07-31] MEDS: LIDOCAINE 5% 1 PATCH TD SCH (08:01)
[2023-07-31] MEDS: PANTOprazole 40 MG TAB PO SCH (08:01)
[2023-07-31] MEDS: POLYETHYLENE (MIRALAX) 17 GM PACK PO SCH ×2 (08:04→20:25)
[2023-07-31] MEDS: DOCUSATE SODIUM/SENNA 50/8.6MG TAB PO SCH (08:08)
[2023-07-31] MEDS: DICLOFENAC SOD 1% GEL 100 GM TUBE EXT SCH ×2 (08:21→20:25)
[2023-07-31] MEDS: INSULIN ASPART PER UNIT CHARGE SC SCH ×4 (09:00→20:30)
--- NOTE | 2023-07-31 16:10 | Hospitalist Progress Note ---
Date of Service July 31, 2023 Assessment & Plan (1) Fecal impaction: Plan: This is an 83 y/o female with DM2, spinal stenosis s/p back surgery x 2, wheelchair bound since last surgery in 2020 due to progressive weakness, neurogenic bladder with chronic Neal, hypothyroidism, hx DVT, on chronic AC with Eliquis, and other history as outlined below who presents to the ED today with multiple complaints including constipation and malfunctioning Neal catheter. Work-up in the ED consistent with recurrent fecal retention with possible impaction, possible UTI, abnormal EKG though initial troponin was normal. Resolved Continue laxative having bm, last 07/29 (2) Urinary tract infection: Plan: Urine culture: Pseudomonas, resistant to fluoroquinolones Continue cefepime IV day #5 Will need cefepime IV to complete 10 days, EOT 08/04 Neal changed in ED (3) Abnormal EKG: Plan: No cardiac symptoms Troponins negative x 3 No signs of acute ischemia per EKG (4) Esophageal reflux: Plan: chronic, stable continue PPI (5) Dyslipidemia: Plan: chronic, stable continue statin (6) Diabetes mellitus: Plan: Insulin sliding scale, will liberalize to prevent hypoglycemia Holding Metformin A1c: 5.6 Diabetic diet BSG ACHS (7) Hypothyroidism: Plan: TSH normal chronic, stable continue levothyroxine (8) Hypertension: Plan: chronic, stable improving, adjustments have been made throughout stay on amlodipine and atenolol, continue and monitor (9) Chronic indwelling Neal catheter: (10) Neurogenic bladder: Plan: Cath exchanged on admission functioning appropriately Plan Left-sided knee pain Knee x-ray: Moderate osteoarthritis Doppler ultrasound: Negative for DVTs Lidoderm patch, add voltaren Ortho consultation: No further intervention at this point Dispo: PT/OT ordered, pt to require 10 days of IV antibiotics, plan for dc to [facility] on 08/04 after completion of IV abx, CM set up transport at 1600 FULL CODE PCP: DVT ppx:Tyrel Pt was seen and examined in collaboration with Dr. Chavez, please see addendum Admission and Anticipated Discharge Date Admission Date: July 25, 2023 Supervising Physician Co-Signing Physician Notes Attending addendum: The patient was seen and examined in medical floor She has been stable and denies any significant symptoms She does not want to go anywhere until the antibiotic course is done She was strongly advised to drink more fluid On examination Lying in bed without any acute distress Hemodynamically stable and is afebrile Chest-clear to auscultate bilaterally Heart-S1-S2, regular Abdomen-benign Extremities-negative for any edema Her labs, medications and imaging studies reviewed Complicated UTI-catheter induced Will need to finish the course of IV antibiotic as above Agree with assessment and plan as outlined above by JHON Cox Dr Subjective Patient was seen and examined in 318 in follow-up for UTI. Continuing with IV abx, day 6. Does not want to be discharged until abx completed. No acute events overnight, feeling well. Moving bowels and good appetite. Denies F/C, lightheadedness, chest pain, sob, n/v/d. Review of Systems Review of Systems: At least ten systems reviewed and negative except as noted in the HPI. Physical Exam Physical Exam: Gen: WD/WN, NAD, laying in bed, A&Ox3 HEENT: Normocephalic, atraumatic, conjunctivae moist, sclerae anicteric, mucous membranes moist Lung: Clear to Auscultation bilaterally, no wheezes/rales/rhonchi Heart: Regular rate, regular rhythm, no murmurs, rubs, or gallops Abdomen: Soft, NT, ND +BS x 4 : Neal Extremities: no edema Skin: Warm, no rash Results & Data Results & Data Vital Signs (Past 12 Hours) Vital Signs Temp Pulse Resp BP Pulse Ox O2 Del Method 07/31/23 15:10 36.6 C 64 18 92/56 L 96 Room Air 07/31/23 07:29 36.5 C 62 18 169/70 H 97 Room Air (2) Urinary tract infection Hematuria presence: with hematuria Urinary tract infection type: site unspecified Qualified Code(s): N39.0 - Urinary tract infection, site not specified; R31.9 - Hematuria, unspecified (4) Esophageal reflux Esophagitis presence: without esophagitis Qualified Code(s): K21.9 - Gastro- esophageal reflux disease without esophagitis (6) Diabetes mellitus Diabetes mellitus complication status: with other specified complication Diabetes mellitus tank terminal gauger insulin use: without assisted use Diabetes mellitus type: type 2 Qualified Code(s): E11.69 - Type 2 diabetes mellitus with other specified complication (7) Hypothyroidism Hypothyroidism type: unspecified Qualified Code(s): E03.9 - Hypothyroidism, unspecified (8) Hypertension Hypertension type: primary hypertension Qualified Code(s): I10 - Essential (primary) hypertension
[2023-08-01] MEDS: LEVOTHYROXINE SODIUM 25 MCG TABLET PO SCH (05:33)
[2023-08-01] MEDS: POLYETHYLENE (MIRALAX) 17 GM PACK PO SCH ×2 (08:10→20:38)
[2023-08-01] MEDS: INSULIN ASPART PER UNIT CHARGE SC SCH ×4 (08:12→21:00)
[2023-08-01] MEDS: FLUTICASONE PROPIONATE NA SPR 16 GM BTL SCH (08:13)
[2023-08-01] MEDS: CYANOCOBALAMIN (B-12) 2,500 MCG TABLET SL SCH (08:13)
[2023-08-01] MEDS: LACTASE 3000 UNIT TAB PO SCH (08:15)
[2023-08-01] MEDS: amLODIPine BESYLATE 5 MG TAB PO SCH (08:15)
[2023-08-01] MEDS: PANTOprazole 40 MG TAB PO SCH (08:15)
[2023-08-01] MEDS: ADVANCED PROBIOTIC 1250 MG CAPSULE PO SCH (08:16)
[2023-08-01] MEDS: PRAVASTATIN SOD 10 MG TAB PO SCH (08:16)
[2023-08-01] MEDS: APIXABAN 5 MG TABLET PO SCH ×2 (08:16→20:39)
[2023-08-01] MEDS: ATENOLOL 25 MG TABLET PO SCH (08:16)
[2023-08-01] MEDS: LIDOCAINE 5% 1 PATCH TD SCH (08:17)
[2023-08-01] MEDS: oxyBUTYnin chloride 5 MG TAB PO SCH ×3 (08:17→20:39)
[2023-08-01] MEDS: DICLOFENAC SOD 1% GEL 100 GM TUBE EXT SCH ×2 (08:18→20:40)
[2023-08-01] MEDS: DOCUSATE SODIUM/SENNA 50/8.6MG TAB PO SCH (08:19)
[2023-08-01] MEDS: CEFEPIME 2,000 MG in SYRINGE 0 ML IV SCH ×3 (08:56→23:35)
[2023-08-01 09:53] LABS: Hematocrit (blood only) 35.8 % (37.0-47.0); Hemoglobin 11.7 g/dl (12.0-16.0); Mean Corpuscular Hemoglobin 28.3 pg (25.0-34.0); Mean Corpuscular Hgb Conc 32.7 g/dL (32.0-36.0); Mean Corpuscular Volume 86.5 fL (80.0-100.0); Mean Platelet Volume 10.2 fL (9.4-12.4); Platelet Count 322 K/uL (130-400); RDW Coefficient of Variation 13.3 % (11.5-14.5); RDW Standard Deviation 41.5 fL (36.4-46.3); Red Blood Count 4.14 M/uL (4.20-5.40); White Blood Count 9.32 K/ul (4.8-10.8)
[2023-08-01 10:09] LABS: BUN Creatinine Ratio 39.6 (10-20); Calcium 9.2 mg/dl (8.6-10.3); Creatinine Clr Calc Pharmacy 85.5 ml/min; Est GFR (African American) 102.5 ml/min; Est GFR (Non-African American) 88.4 ml/min; Potassium 3.8 mmol/L (3.5-5.1)
--- NOTE | 2023-08-01 16:38 | Hospitalist Progress Note ---
Date of Service August 01, 2023 Assessment & Plan (1) Fecal impaction: Plan: This is an 83 y/o female with DM2, spinal stenosis s/p back surgery x 2, wheelchair bound since last surgery in 2020 due to progressive weakness, neurogenic bladder with chronic Neal, hypothyroidism, hx DVT, on chronic AC with Eliquis, and other history as outlined below who presents to the ED today with multiple complaints including constipation and malfunctioning Neal catheter. Work-up in the ED consistent with recurrent fecal retention with possible impaction, possible UTI, abnormal EKG though initial troponin was normal. Resolved Continue laxative having bowel movements (2) Urinary tract infection: Plan: Urine culture: Pseudomonas, resistant to fluoroquinolones Continue IV cefepimeto complete 10 days, EOT 08/04 Neal changed in ED (3) Abnormal EKG: Plan: No cardiac symptoms Troponins negative x 3 No signs of acute ischemia per EKG (4) Esophageal reflux: Plan: chronic, stable continue PPI (5) Dyslipidemia: Plan: chronic, stable continue statin (6) Diabetes mellitus: Plan: Insulin sliding scale, will liberalize to prevent hypoglycemia Holding Metformin A1c: 5.6 Diabetic diet BSG ACHS (7) Hypothyroidism: Plan: TSH normal chronic, stable continue levothyroxine (8) Hypertension: Plan: chronic, stable improving, adjustments have been made throughout stay on amlodipine and atenolol, continue and monitor (9) Chronic indwelling Neal catheter: (10) Neurogenic bladder: Plan: Cath exchanged on admission functioning appropriately Plan Left-sided knee pain Knee x-ray: Moderate osteoarthritis Doppler ultrasound: Negative for DVTs Lidoderm patch, add voltaren Ortho consultation: No further intervention at this point Dispo: PT/OT ordered, pt to require 10 days of IV antibiotics, plan for dc to [facility] on 08/04 after completion of IV abx, CM set up transport at 1600 FULL CODE PCP: DVT ppx:Tyrel Pt was seen and examined in collaboration with Dr. Chavez, please see addendum Admission and Anticipated Discharge Date Admission Date: July 25, 2023 Supervising Physician Co-Signing Physician Notes Attending addendum: The patient was seen and examined in medical floor Remains stable and does not want to go before the antibiotic is finished On examination Lying in bed without any acute distress Hemodynamically stable and is afebrile Chest-clear to auscultate bilaterally Heart-S1-S2, regular Abdomen-benign Extremities-negative for any edema Her labs, medications and imaging studies reviewed Complicated UTI-catheter induced Will need to finish the course of IV antibiotic as above Agree with assessment and plan as outlined above by JHON Cox Dr Subjective Patient was seen and examined in 318 in follow-up for UTI. Continuing with IV abx, day 7. Does not want to be discharged until abx completed. Mentioned she has scheduled outpatient urology follow up later this month. No acute events overnight, feeling well. Moving bowels and good appetite. Denies F/C, lightheadedness, chest pain, sob, n/v/d. Review of Systems Review of Systems: At least ten systems reviewed and negative except as noted in the HPI. Physical Exam Physical Exam: Gen: WD/WN, NAD, laying in bed, A&Ox3, pleasant HEENT: Normocephalic, atraumatic, conjunctivae moist, sclerae anicteric, mucous membranes moist Lung: Clear to Auscultation bilaterally, no wheezes/rales/rhonchi Heart: Regular rate, regular rhythm, no murmurs, rubs, or gallops Abdomen: Soft, NT, ND +BS x 4 : Neal Extremities: no edema Skin: Warm, no rash Results & Data Results & Data Vital Signs (Past 12 Hours) Vital Signs Temp Pulse Resp BP BP Pulse Ox O2 Del Method 08/01/23 14:49 36.4 C L 65 18 97/57 L 96 Room Air 08/01/23 07:25 Room Air 08/01/23 07:20 36.4 C L 66 16 151/75 H 98 Room Air Laboratory Results Short CBC 08/01/23 Range/Units 09:27 WBC 9.32 (4.8-10.8) K/ul Hgb 11.7 L (12.0-16.0) g/dl Hct 35.8 L (37.0-47.0) % Plt Count 322 (130-400) K/uL BMP 08/01/23 09:28 Sodium 137 Potassium 3.8 Chloride 108 H Carbon Dioxide 20 L BUN 21 Creatinine 0.53 L Glucose 170 H Calcium 9.2 Diagnostic Findings Abdomen/Pelvis CT 07/25/23 15:[address] WITH IV CONTRAST CT DOSE: 1167.66 mGy.cm HISTORY: Acute generalized abdominal pain sent by PCP for abd pain TECHNIQUE: Multiaxial CT images of the abdomen and pelvis were performed following the IV administration of 86 cc of Optiray, A dose lowering technique was utilized adhering to the principles of ALARA. COMPARISON STUDY: 11/18/2021 FINDINGS: Trace pericardial effusion. Trace right pleural effusion. Mild subsegmental bibasilar atelectasis. No free air. Calcified splenic mass is stable measuring 4.5 cm. Unremarkable pancreas and right adrenal gland. Stable 2 cm left adrenal gland nodule. Gallbladder is within normal limits. No biliary ductal dilation unremarkable liver. Patent hepatic and portal veins. Cortical scarring with areas of parenchymal thinning again noted within left kidney. Centimeter hypodense lesions of the kidneys are too small to characterize. 2 mm nonobstructing calculus in the inferior pole right kidney. No ureteral calculi or hydronephrosis. Neal catheter in the decompressed bladder which demonstrates wall thickening with foci of intraluminal air. Ather osclerosis of the aorta without aneurysm. No lymphadenopathy. Large amount of stool within the rectum is again noted with mild perirectal wall thickening and perirectal inflammatory stranding. Findings are similar to the prior study. Normal appendix. No acute fracture. Limited evaluation of the pelvic structures secondary to streak artifact related to the bilateral hip arthroplasties. Sigmoidal thoracolumbar scoliosis. IMPRESSION: 1. Large amount of fecal retention within the rectosigmoid redemonstrated with possible findings of mild stercoral proctitis. 2. No bowel obstruction or pneumoperitoneum. 3. Decompressed urinary bladder with Neal catheter in place. Correlate with urinalysis to exclude cystitis. 4. Colonic diverticulosis. 5. Additional findings as above. ACT 112: Negative or not required by law. The above report was generated using voice recognition software. It may contain grammatical, syntax or spelling errors. Electronically signed by: Donn Virgen M.D. 07/25/2023 4:20 PM Chest X-Ray 07/25/23 15:06 XR chest 1V portable CLINICAL HISTORY: pain TECHNIQUE: Single frontal radiograph of the chest was obtained. Comparison: Comparison is made to chest radiograph 10/19/2022 FINDINGS: No lines and tubes are seen. Calcified aortic knob is seen. The lungs are clear. No evidence of pleural effusion or pneumothorax. Minimal scoliotic changes are seen. IMPRESSION: No acute chest disease. ACT 112: Negative or not required by law. Electronically signed by: Dejon Golmdan M.D. 07/25/2023 4:00 PM Femur X-Ray 07/25/23 15:06 XR femur LT 2V routine HISTORY: 83 years-old Female pain acute pain of the left hip without reported trauma COMPARISON: Left knee radiographs of same day TECHNIQUE: 2 views of the left femur FINDINGS: Demineralized appearance of the bones. Unremarkable appearance of the left hip arthroplasty. No acute fracture or dislocation. Arterial calcifications. Osteoarthritis of the knee. Lateral thigh and knee soft tissue swelling. Trace knee joint effusion. IMPRESSION: 1. Soft tissue swelling without acute osseous abnormality. 2. Unremarkable appearance of the left hip arthroplasty. ACT 112: Negative or not required by law. The above report was generated using voice recognition software. It may contain grammatical, syntax or spelling errors. Electronically signed by: Donn Virgen M.D. 07/25/2023 4:24 PM Knee X-Ray 07/25/23 15:06 LEFT KNEE 2 VIEWS CLINICAL HISTORY: Left knee pain. FINDINGS: AP and crosstable lateral views of the left knee are compared to study dated 10/21/2020. The skeletal structures are osteopenic. No fracture is identified. There is moderate tricompartmental degenerative joint space narrowing. There are marginal osteophytes, patellar enthesophytes, and degenerative beaking of the tibial spine. No joint effusion is identified. Soft tissue edema is present in the distal thigh. There is advanced atherosclerotic calcification of the popliteal artery. IMPRESSION: 1. Soft tissue swelling with no acute bony abnormality identified. 2. Osteopenia and arthritic change as above. Electronically signed by: Jason Morrissey M.D. 07/25/2023 3:57 PM Venous Doppler Study 07/26/23 11:23 LEFT LOWER EXTREMITY VENOUS DOPPLER HISTORY: Acute pain and swelling of the left lower leg pain, edema; ro dvt COMPARISON STUDY: None. FINDINGS: Thrombus is noted within the common femoral and greater saphenous veins which is partially occlusive and likely chronic. Superficial femoral vein is diminutive in size. Partially compressible popliteal vein. IMPRESSION: Left lower extremity superficial and deep venous thrombi are partially occlusive and likely chronic. ACT 112: Negative or not required by law. Electronically signed by: Donn Virgen M.D. 07/26/2023 4:41 PM Vascular Ultrasound 07/27/23 15:38 LEFT KNEE ULTRASOUND CLINICAL HISTORY: r/o L knee effusion COMPARISON STUDY: Left knee radiographs July 25, 2023. TECHNIQUE: Sonography of the left knee was performed to assess for a joint effusion. FINDINGS: Small to moderate left knee joint effusion is noted. There is soft tissue edema. There is also a small popliteal cyst. IMPRESSION: 1. Small to moderate left knee joint effusion. 2. Small left popliteal cyst. ACT 112: Negative or not required by law. Electronically signed by: Rajeev Beth M.D. 07/28/2023 9:15 AM (2) Urinary tract infection Hematuria presence: with hematuria Urinary tract infection type: site unspecified Qualified Code(s): N39.0 - Urinary tract infection, site not specified; R31.9 - Hematuria, unspecified (4) Esophageal reflux Esophagitis presence: without esophagitis Qualified Code(s): K21.9 - Gastro- esophageal reflux disease without esophagitis (6) Diabetes mellitus Diabetes mellitus complication status: with other specified complication Diabetes mellitus half-way insulin use: without intermediate designer use Diabetes mellitus type: type 2 Qualified Code(s): E11.69 - Type 2 diabetes mellitus with other specified complication (7) Hypothyroidism Hypothyroidism type: unspecified Qualified Code(s): E03.9 - Hypothyroidism, unspecified (8) Hypertension Hypertension type: primary hypertension Qualified Code(s): I10 - Essential (primary) hypertension
[2023-08-02] MEDS: LEVOTHYROXINE SODIUM 25 MCG TABLET PO SCH (05:50)
[2023-08-02] MEDS: CEFEPIME 2,000 MG in SYRINGE 0 ML IV SCH ×3 (07:59→23:11)
[2023-08-02] MEDS: ATENOLOL 25 MG TABLET PO SCH (07:59)
[2023-08-02] MEDS: amLODIPine BESYLATE 5 MG TAB PO SCH (08:00)
[2023-08-02] MEDS: PANTOprazole 40 MG TAB PO SCH (08:00)
[2023-08-02] MEDS: oxyBUTYnin chloride 5 MG TAB PO SCH ×3 (08:02→20:18)
[2023-08-02] MEDS: CYANOCOBALAMIN (B-12) 2,500 MCG TABLET SL SCH (08:02)
[2023-08-02] MEDS: APIXABAN 5 MG TABLET PO SCH ×2 (08:02→20:18)
[2023-08-02] MEDS: FLUTICASONE PROPIONATE NA SPR 16 GM BTL SCH (08:03)
[2023-08-02] MEDS: DICLOFENAC SOD 1% GEL 100 GM TUBE EXT SCH ×2 (08:04→20:18)
[2023-08-02] MEDS: LIDOCAINE 5% 1 PATCH TD SCH (08:06)
[2023-08-02] MEDS: ADVANCED PROBIOTIC 1250 MG CAPSULE PO SCH (08:07)
[2023-08-02] MEDS: DOCUSATE SODIUM/SENNA 50/8.6MG TAB PO SCH (08:23)
[2023-08-02] MEDS: LACTASE 3000 UNIT TAB PO SCH (08:24)
[2023-08-02] MEDS: INSULIN ASPART PER UNIT CHARGE SC SCH ×4 (08:24→20:05)
[2023-08-02] MEDS: POLYETHYLENE (MIRALAX) 17 GM PACK PO SCH ×2 (08:24→20:05)
[2023-08-02] MEDS: PRAVASTATIN SOD 10 MG TAB PO SCH (08:25)
[2023-08-02] MEDS: ACETAMINOPHEN 325 MG TAB PO PRN (12:44)
--- NOTE | 2023-08-02 16:08 | Hospitalist Progress Note ---
Date of Service August 02, 2023 Assessment & Plan (1) Urinary tract infection: Plan: Urine culture: Pseudomonas, resistant to fluoroquinolones Continue IV cefepimeto complete 10 days, EOT 08/04 Neal changed in ED Will complete intravenous cefepime on Friday Likely transfer to a facility on Friday (2) Fecal impaction: Plan: This is an 83 y/o female with DM2, spinal stenosis s/p back surgery x 2, wheelchair bound since last surgery in 2020 due to progressive weakness, neurogenic bladder with chronic Neal, hypothyroidism, hx DVT, on chronic AC with Eliquis, and other history as outlined below who presents to the ED today with multiple complaints including constipation and malfunctioning Neal catheter. Work-up in the ED consistent with recurrent fecal retention with possible impaction, possible UTI, abnormal EKG though initial troponin was normal. Resolved Continue laxative having bowel movements (3) Abnormal EKG: Plan: No cardiac symptoms Troponins negative x 3 No signs of acute ischemia per EKG (4) Esophageal reflux: Plan: chronic, stable continue PPI (5) Dyslipidemia: Plan: chronic, stable continue statin (6) Diabetes mellitus: Plan: Insulin sliding scale, will liberalize to prevent hypoglycemia Holding Metformin A1c: 5.6 Diabetic diet BSG ACHS (7) Hypothyroidism: Plan: TSH normal chronic, stable continue levothyroxine (8) Hypertension: Plan: chronic, stable improving, adjustments have been made throughout stay on amlodipine and atenolol, continue and monitor (9) Chronic indwelling Neal catheter: (10) Neurogenic bladder: Plan: Cath exchanged on admission functioning appropriately Plan Left-sided knee pain Knee x-ray: Moderate osteoarthritis Doppler ultrasound: Negative for DVTs Lidoderm patch, add voltaren Ortho consultation: No further intervention at this point Dispo: PT/OT ordered, pt to require 10 days of IV antibiotics, plan for dc to [facility] on 08/04 after completion of IV abx, CM set up transport at 1600 FULL CODE PCP: DVT ppx:Tyrel Remains stable and will be transferred on Friday following finishing the course of antibiotic Admission and Anticipated Discharge Date Admission Date: July 25, 2023 Subjective 08/02/2023 The patient was seen and examined in medical floor She remains stable and denies any symptoms Awaiting placement Review of Systems Review of Systems: All systems reviewed and are unremarkable except as noted below Physical Exam Physical Exam: Lying in bed without any acute distress Constitutional: average body habitus; not ill appearing Eyes: PERRL, conjunctivae normal, anicteric sclerae ENMT: external ear and nose normal, oropharynx normal Neck: trachea midline, no thyromegaly Respiratory: no respiratory distress Auscultation: lungs clear to auscultat ion bilaterally Cardiovascular: Rate/Rhythm: regular rate and regular rhythm; not tachycardic Heart Sounds: normal S1 and normal S2; no murmur Extremities: no edema Gastrointestinal (Abdomen): Inspection/Auscultation: normal bowel sounds; abdomen not distended Percussion/Palpation: abdomen soft; abdomen nontender Musculoskeletal: No acute arthritis involving any joint Neurologic: normal touch/pain/proprioception and moves all extremities; no focal motor deficits Lymphatic: no cervical or axillary lymphadenopathy Results & Data Results & Data Vital Signs (Past 12 Hours) Vital Signs Temp Pulse Resp BP BP Pulse Ox O2 Del Method 08/02/23 14:34 36.5 C 61 16 131/67 97 Room Air 08/02/23 10:43 62 20 105/67 98 Room Air 08/02/23 07:18 36.3 C L 68 16 176/78 H 97 Room Air Medications Administered Current Inpatient Medications Acetaminophen (Acetaminophen 325 Mg Tab) 650 mg PO Q4H PRN PRN Reason: Pain Stop: 08/24/23 23:05 Last Admin: 08/02/23 12:44 Dose: 650 mg Amlodipine Besylate (Amlodipine Besylate 5 Mg Tab) 5 mg PO DAILY VERONICA Stop: 08/25/23 08:59 Last Admin: 08/02/23 08:00 Dose: 5 mg Apixaban (Apixaban 5 Mg Tablet) 5 mg PO BID VERONICA Stop: 08/24/23 23:05 Last Admin: 08/02/23 08:02 Dose: 5 mg Atenolol (Atenolol 25 Mg Tablet) 25 mg PO DAILY VERONICA Stop: 08/25/23 08:59 Last Admin: 08/02/23 07:59 Dose: 25 mg Cyanocobalamin (Cyanocobalamin (B-12) 2,500 Mcg Tablet) 5,000 mcg SL DAILY VERONICA Stop: 08/25/23 08:59 Last Admin: 08/02/23 08:02 Dose: 5,000 mcg Dextrose (Dextrose 50% 50 Ml Syringe) 25 - 50 ml IV UD PRN; Protocol PRN Reason: Hypoglycemia Protocol Stop: 08/24/23 23:05 Diclofenac Sodium (Diclofenac Sod 1% Gel 100 Gm Tube) 4 gm EXT BID [facility]; Protocol Stop: 08/28/23 12:44 Last Admin: 08/02/23 08:04 Dose: 4 gm Fluticasone Propionate (Fluticasone Propionate Na Spr 16 Gm Btl) 2 sprays NA DAILY [facility] Stop: 08/25/23 08:59 Last Admin: 08/02/23 08:03 Dose: 2 sprays Glucagon (Glucagon For Inj 1 Mg Vial) 1 mg SQ UD PRN; Protocol PRN Reason: Hypoglycemia Protocol Stop: 08/24/23 23:05 Glucose (Glucose 10 Tab/Tube) 4 - 8 tab PO UD PRN; Protocol PRN Reason: Hypoglycemia Treatment Stop: 08/24/23 23:05 Glucose (Glucose 40% Gel 15 Gm Tube) 15 - 30 gm PO UD PRN; Protocol PRN Reason: Hypoglycemia Protocol Stop: 08/24/23 23:05 Cefepime HCl 2,000 mg/ Syringe 20 mls @ 5 mls/min IV Q8H [facility]; Protocol Stop: 08/05/23 00:00 Last Admin: 08/02/23 15:55 Dose: 5 mls/min Insulin Aspart (Insulin Aspart Per Unit Charge) 0 units SC ACHS [facility] Stop: 08/24/23 23:05 Last Admin: 08/02/23 12:26 Dose: Not Given Lactase (Lactase 3000 Unit Tab) 9,000 units PO DAILY@0730 [facility] Stop: 08/25/23 07:29 Last Admin: 08/02/23 08:24 Dose: 9,000 units Lactobacillus Acidophilus (Advanced Probiotic 1250 Mg Capsule) 2 cap PO DAILY [facility] Stop: 08/28/23 08:59 Last Admin: 08/02/23 08:07 Dose: 2 cap Levothyroxine Sodium ([facility]othy[facility]ine Sodium 25 Mcg Tablet) [facility] Stop: 08/25/23 06:29 Last Admin: 08/02/23 05:50 Dose: 25 mcg Lidocaine (Lidocaine 5% 1 Patch) 1 patch TD QAM [facility] Stop: 08/25/23 18:59 Last Admin: 08/02/23 08:06 Dose: 1 patch Miscellaneous (Carbohydrates For Hypoglycemia ) 15 - 30 gm PO UD PRN PRN Reason: Hypoglycemia Protocol Stop: 08/24/23 23:05 Miscellaneous (Remove Lidoderm Patch) 1 each N/A DAILY@2100 [facility] Stop: 08/25/23 20:59 Last Admin: 08/01/23 20:39 Dose: 1 each Oxybutynin Chloride (Oxybutynin Chloride 5 Mg Tab) 5 mg PO TID VERONICA Stop: 08/24/23 23:05 Last Admin: 08/02/23 13:47 Dose: 5 mg Pantoprazole Sodium (Pantoprazole 40 Mg Tab) 40 mg PO DAILY VERONICA Stop: 08/25/23 08:59 Last Admin: 08/02/23 08:00 Dose: 40 mg Polyethylene Glycol (Polyethylene (Miralax) 17 Gm Pack) 17 gm PO BID VERONICA Stop: 08/24/23 23:05 Last Admin: 08/02/23 08:24 Dose: 17 gm Pravastatin Sodium (Pravastatin Sod 10 Mg Tab) 10 mg PO DAILY VERONICA Stop: 08/25/23 08:59 Last Admin: 08/02/23 08:25 Dose: 10 mg Senna/Docusate Sodium (Docusate Sodium/Senna 50/8.6mg Tab) 1 tab PO QAM VERONICA Stop: 08/25/23 08:59 Last Admin: 08/02/23 08:23 Dose: 1 tab Tramadol HCl (Tramadol Hcl 50 Mg Tablet) 50 mg PO Q8 PRN PRN Reason: Pain Stop: 08/24/23 23:05 (1) Urinary tract infection Hematuria presence: with hematuria Urinary tract infection type: site unspecified Qualified Code(s): N39.0 - Urinary tract infection, site not specified; R31.9 - Hematuria, unspecified (4) Esophageal reflux Esophagitis presence: without esophagitis Qualified Code(s): K21.9 - Gastro- esophageal reflux disease without esophagitis (6) Diabetes mellitus Diabetes mellitus type: type 2 Diabetes mellitus penitentiary insulin use: without penitentiary use Diabetes mellitus complication status: with other specified complication Qualified Code(s): E11.69 - Type 2 diabetes mellitus with other specified complication (7) Hypothyroidism Hypothyroidism type: unspecified Qualified Code(s): E03.9 - Hypothyroidism, unspecified (8) Hypertension Hypertension type: primary hypertension Qualified Code(s): I10 - Essential (primary) hypertension
[2023-08-03] MEDS: LEVOTHYROXINE SODIUM 25 MCG TABLET PO SCH (05:39)
[2023-08-03] MEDS: ACETAMINOPHEN 325 MG TAB PO PRN (06:39)
[2023-08-03] MEDS: DICLOFENAC SOD 1% GEL 100 GM TUBE EXT SCH ×2 (07:37→20:11)
[2023-08-03] MEDS: oxyBUTYnin chloride 5 MG TAB PO SCH ×3 (07:39→20:11)
[2023-08-03] MEDS: ADVANCED PROBIOTIC 1250 MG CAPSULE PO SCH (07:39)
[2023-08-03] MEDS: LACTASE 3000 UNIT TAB PO SCH (07:40)
[2023-08-03] MEDS: FLUTICASONE PROPIONATE NA SPR 16 GM BTL SCH (07:40)
[2023-08-03] MEDS: PRAVASTATIN SOD 10 MG TAB PO SCH (07:41)
[2023-08-03] MEDS: PANTOprazole 40 MG TAB PO SCH (07:41)
[2023-08-03] MEDS: APIXABAN 5 MG TABLET PO SCH ×2 (07:42→20:11)
[2023-08-03] MEDS: CYANOCOBALAMIN (B-12) 2,500 MCG TABLET SL SCH (07:42)
[2023-08-03] MEDS: LIDOCAINE 5% 1 PATCH TD SCH (07:43)
[2023-08-03] MEDS: amLODIPine BESYLATE 5 MG TAB PO SCH (07:45)
[2023-08-03] MEDS: ATENOLOL 25 MG TABLET PO SCH (07:46)
[2023-08-03] MEDS: CEFEPIME 2,000 MG in SYRINGE 0 ML IV SCH ×2 (08:31→16:05)
[2023-08-03] MEDS: DOCUSATE SODIUM/SENNA 50/8.6MG TAB PO SCH (08:32)
[2023-08-03] MEDS: POLYETHYLENE (MIRALAX) 17 GM PACK PO SCH ×2 (08:32→21:28)
[2023-08-03] MEDS: INSULIN ASPART PER UNIT CHARGE SC SCH ×4 (08:51→21:45)
--- NOTE | 2023-08-03 13:28 | Hospitalist Progress Note ---
Date of Service August 03, 2023 Assessment & Plan (1) Urinary tract infection: Plan: Urine culture: Pseudomonas, resistant to fluoroquinolones Continue IV cefepimeto complete 10 days, EOT 08/04 Neal changed in ED Will complete intravenous cefepime on Friday Likely transfer to a facility on Friday No urinary symptoms and antibiotic course will be done by tomorrow Likely discharge tomorrow afternoon (2) Fecal impaction: Plan: This is an 83 y/o female with DM2, spinal stenosis s/p back surgery x 2, wheelchair bound since last surgery in 2020 due to progressive weakness, neurogenic bladder with chronic Neal, hypothyroidism, hx DVT, on chronic AC with Eliquis, and other history as outlined below who presents to the ED today with multiple complaints including constipation and malfunctioning Neal catheter. Work-up in the ED consistent with recurrent fecal retention with possible impaction, possible UTI, abnormal EKG though initial troponin was normal. Resolved Continue laxative having bowel movements Denies any abdominal symptom (3) Abnormal EKG: Plan: No cardiac symptoms Troponins negative x 3 No signs of acute ischemia per EKG (4) Esophageal reflux: Plan: chronic, stable continue PPI (5) Dyslipidemia: Plan: chronic, stable continue statin (6) Diabetes mellitus: Plan: Insulin sliding scale, will liberalize to prevent hypoglycemia Holding Metformin A1c: 5.6 Diabetic diet BSG ACHS (7) Hypothyroidism: Plan: TSH normal chronic, stable continue levothyroxine (8) Hypertension: Plan: chronic, stable improving, adjustments have been made throughout stay on amlodipine and atenolol, continue and monitor (9) Chronic indwelling Neal catheter: (10) Neurogenic bladder: Plan: Cath exchanged on admission functioning appropriately Plan Left-sided knee pain Knee x-ray: Moderate osteoarthritis Doppler ultrasound: Negative for DVTs Lidoderm patch, add voltaren Ortho consultation: No further intervention at this point Dispo: PT/OT ordered, pt to require 10 days of IV antibiotics, plan for dc to [facility] on 08/04 after completion of IV abx, CM set up transport at 1600 FULL CODE PCP: DVT ppx:Tyrel Remains stable and will be transferred on Friday following finishing the course of antibiotic Admission and Anticipated Discharge Date Admission Date: July 25, 2023 Subjective 08/02/2023 The patient was seen and examined in medical floor She remains stable and denies any symptoms Awaiting placement 08/03/2023 The patient was seen and examined in medical floor She has been stable and denies any symptoms Will be discharged tomorrow following the course of antibiotic is done Review of Systems Review of Systems: All systems reviewed and are unremarkable except as noted below Physical Exam Physical Exam: Lying in bed without any acute distress Constitutional: average body habitus; not ill appearing Eyes: PERRL, conjunctivae normal, anicteric sclerae ENMT: external ear and nose normal, oropharynx normal Neck: trachea midline, no thyromegaly Respiratory: no respiratory distress Auscultation: lungs clear to auscultation bilaterally Cardiovascular: Rate/Rhythm: regular rate and regular rhythm; not tachycardic Heart Sounds: normal S1 and normal S2; no murmur Extremities: no edema Gastrointestinal (Abdomen): Inspection/Auscultation: normal bowel sounds; abdomen not distended Percussion/Palpation: abdomen soft; abdomen nontender Neurologic: normal touch/pain/proprioception and moves all extremities; no focal motor deficits Lymphatic: no cervical or axillary lymphadenopathy Results & Data Results & Data Vital Signs (Past 12 Hours) Vital Signs Temp Pulse Resp BP BP Pulse Ox O2 Del Method 08/03/23 07:43 36.4 C L 56 L 20 144/70 H 98 Room Air 08/03/23 07:40 36.4 C L 56 L 16 144/70 H 98 Room Air Medications Administered Current Inpatient Medications Acetaminophen (Acetaminophen 325 Mg Tab) 650 mg PO Q4H PRN PRN Reason: Pain Stop: 08/24/23 23:05 Last Admin: 08/03/23 06:39 Dose: 650 mg Amlodipine Besylate (Amlodipine Besylate 5 Mg Tab) 5 mg PO DAILY [facility] Stop: 08/25/23 08:59 Last Admin: 08/03/23 07:45 Dose: 5 mg Apixaban (Apixaban 5 Mg Tablet) 5 mg PO BID [facility] Stop: 08/24/23 23:05 Last Admin: 08/03/23 07:42 Dose: 5 mg Atenolol (Atenolol 25 Mg Tablet) 25 mg PO DAILY [facility] Stop: 08/25/23 08:59 Last Admin: 08/03/23 07:46 Dose: Not Given Cyanocobalamin (Cyanocobalamin (B-12) 2,500 Mcg Tablet) 5,000 mcg SL DAILY [facility] Stop: 08/25/23 08:59 Last Admin: 08/03/23 07:42 Dose: 5,000 mcg Dextrose (Dextrose 50% 50 Ml Syringe) 25 - 50 ml IV UD PRN; Protocol PRN Reason: Hypoglycemia Protocol Stop: 08/24/23 23:05 Diclofenac Sodium (Diclofenac Sod 1% Gel 100 Gm Tube) 4 gm EXT BID [facility]; Protocol Stop: 08/28/23 12:44 Last Admin: 08/03/23 07:37 Dose: 4 gm Fluticasone Propionate (Fluticasone Propionate Na Spr 16 Gm Btl) 2 sprays NA DAILY [facility] Stop: 08/25/23 08:59 Last Admin: 08/03/23 07:40 Dose: 2 sprays Glucagon (Glucagon For Inj 1 Mg Vial) 1 mg SQ UD PRN; Protocol PRN Reason: Hypoglycemia Protocol Stop: 08/24/23 23:05 Glucose (Glucose 10 Tab/Tube) 4 - 8 tab PO UD PRN; Protocol PRN Reason: Hypoglycemia Treatment Stop: 08/24/23 23:05 Glucose (Glucose 40% Gel 15 Gm Tube) 15 - 30 gm PO UD PRN; Protocol PRN Reason: Hypoglycemia Protocol Stop: 08/24/23 23:05 Cefepime HCl 2,000 mg/ Syringe 20 mls @ 5 mls/min IV Q8H [facility]; Protocol Stop: 08/05/23 00:00 Last Admin: 08/03/23 08:31 Dose: 5 mls/min Insulin Aspart (Insulin Aspart Per Unit Charge) 0 units SC ACHS [facility] Stop: 08/24/23 23:05 Last Admin: 08/03/23 12:33 Dose: Not Given Lactase (Lactase 3000 Unit Tab) 9,000 units PO DAILY@0730 [facility] Stop: 08/25/23 07:29 Last Admin: 08/03/23 07:40 Dose: 9,000 units Lactobacillus Acidophilus (Advanced Probiotic 1250 Mg Capsule) 2 cap PO DAILY [facility] Stop: 08/28/23 08:59 Last Admin: 08/03/23 07:39 Dose: 2 cap Levothyroxine Sodium (Levothyroxine Sodium 25 Mcg Tablet) 25 mcg PO DAILYBB [facility] Stop: 08/25/23 06:29 Last Admin: 08/03/23 05:39 Dose: 25 mcg Lidocaine (Lidocaine 5% 1 Patch) 1 patch TD QAM [facility] Stop: 08/25/23 18:59 Last Admin: 08/03/23 07:43 Dose: 1 patch Miscellaneous (Carbohydrates For Hypoglycemia ) 15 - 30 gm PO UD PRN PRN Reason: Hypoglycemia Protocol Stop: 08/24/23 23:05 Miscellaneous (Remove Lidoderm Patch) 1 each N/A DAILY@2100 [facility] Stop: 08/25/23 20:59 Last Admin: 08/02/23 20:18 Dose: 1 each Oxybutynin Chloride (Oxybutynin Chloride 5 Mg Tab) 5 mg PO TID [facility] Stop: 08/24/23 23:05 Last Admin: 08/03/23 07:39 Dose: 5 mg Pantoprazole Sodium (Pantoprazole 40 Mg Tab) 40 mg PO DAILY [facility] Stop: 08/25/23 08:59 Last Admin: 08/03/23 07:41 Dose: 40 mg Polyethylene Glycol (Polyethylene (Miralax) 17 Gm Pack) 17 gm PO BID [facility] Stop: 08/24/23 23:05 Last Admin: 08/03/23 08:32 Dose: 17 gm Pravastatin Sodium (Pravastatin Sod 10 Mg Tab) 10 mg PO DAILY [facility] Stop: 08/25/23 08:59 Last Admin: 08/03/23 07:41 Dose: 10 mg Senna/Docusate Sodium (Docusate Sodium/Senna 50/8.6mg Tab) 1 tab PO QAM [facility] Stop: 08/25/23 08:59 Last Admin: 08/03/23 08:32 Dose: 1 tab Tramadol HCl (Tramadol Hcl 50 Mg Tablet) 50 mg PO Q8 PRN PRN Reason: Pain Stop: 08/24/23 23:05 (1) Urinary tract infection Hematuria presence: with hematuria Urinary tract infection type: site unspecified Qualified Code(s): N39.0 - Urinary tract infection, site not specified; R31.9 - Hematuria, unspecified (4) Esophageal reflux Esophagitis presence: without esophagitis Qualified Code(s): K21.9 - Gastro- esophageal reflux disease without esophagitis (6) Diabetes mellitus Diabetes mellitus type: type 2 Diabetes mellitus correction insulin use: without correction use Diabetes mellitus complication status: with other specified complication Qualified Code(s): E11.69 - Type 2 diabetes mellitus with other specified complication (7) Hypothyroidism Hypothyroidism type: unspecified Qualified Code(s): E03.9 - Hypothyroidism, unspecified (8) Hypertension Hypertension type: primary hypertension Qualified Code(s): I10 - Essential (primary) hypertension
[2023-08-04] MEDS: CEFEPIME 2,000 MG in SYRINGE 0 ML IV SCH ×3 (00:03→15:19)
[2023-08-04] MEDS: LEVOTHYROXINE SODIUM 25 MCG TABLET PO SCH (05:31)
[2023-08-04] MEDS: ACETAMINOPHEN 325 MG TAB PO PRN (05:31)
[2023-08-04] MEDS: INSULIN ASPART PER UNIT CHARGE SC SCH ×2 (08:04→12:38)
[2023-08-04] MEDS: LACTASE 3000 UNIT TAB PO SCH (08:05)
[2023-08-04] MEDS: oxyBUTYnin chloride 5 MG TAB PO SCH ×2 (08:05→15:19)
[2023-08-04] MEDS: PRAVASTATIN SOD 10 MG TAB PO SCH (08:06)
[2023-08-04] MEDS: amLODIPine BESYLATE 5 MG TAB PO SCH (08:06)
[2023-08-04] MEDS: ADVANCED PROBIOTIC 1250 MG CAPSULE PO SCH (08:06)
[2023-08-04] MEDS: CYANOCOBALAMIN (B-12) 2,500 MCG TABLET SL SCH (08:06)
[2023-08-04] MEDS: PANTOprazole 40 MG TAB PO SCH (08:06)
[2023-08-04] MEDS: LIDOCAINE 5% 1 PATCH TD SCH (08:07)
[2023-08-04] MEDS: APIXABAN 5 MG TABLET PO SCH (08:07)
[2023-08-04] MEDS: DICLOFENAC SOD 1% GEL 100 GM TUBE EXT SCH (08:07)
[2023-08-04] MEDS: FLUTICASONE PROPIONATE NA SPR 16 GM BTL SCH (08:08)
[2023-08-04] MEDS: ATENOLOL 25 MG TABLET PO SCH (08:08)
[2023-08-04] MEDS: POLYETHYLENE (MIRALAX) 17 GM PACK PO SCH (08:18)
[2023-08-04] MEDS: DOCUSATE SODIUM/SENNA 50/8.6MG TAB PO SCH (08:18)
--- NOTE | 2023-08-04 10:11 | Hospitalist Progress Note ---
Date of Service August 04, 2023 Assessment & Plan (1) Urinary tract infection: Plan: Urine culture: Pseudomonas, resistant to fluoroquinolones Continue IV cefepimeto complete 10 days, EOT 08/04 Neal changed in ED Will complete intravenous cefepime on Friday Likely transfer to a facility on Friday No urinary symptoms and antibiotic course will be done by tomorrow IV antibiotic is done today and the patient remains asymptomatic Will be transferred to SNF today (2) Fecal impaction: Plan: This is an 83 y/o female with DM2, spinal stenosis s/p back surgery x 2, wheelchair bound since last surgery in 2020 due to progressive weakness, neurogenic bladder with chronic Neal, hypothyroidism, hx DVT, on chronic AC with Eliquis, and other history as outlined below who presents to the ED today with multiple complaints including constipation and malfunctioning Neal catheter. Work-up in the ED consistent with recurrent fecal retention with possible impaction, possible UTI, abnormal EKG though initial troponin was normal. Resolved Continue laxative having bowel movements No symptoms and has been moving regular bowel movement (3) Abnormal EKG: Plan: No cardiac symptoms Troponins negative x 3 No signs of acute ischemia per EKG (4) Esophageal reflux: Plan: chronic, stable continue PPI (5) Dyslipidemia: Plan: chronic, stable continue statin (6) Diabetes mellitus: Plan: Insulin sliding scale, will liberalize to prevent hypoglycemia Holding Metformin A1c: 5.6 Diabetic diet BSG ACHS (7) Hypothyroidism: Plan: TSH normal chronic, stable continue levothyroxine (8) Hypertension: Plan: chronic, stable improving, adjustments have been made throughout stay on amlodipine and atenolol, continue and monitor Minimally elevated at 158/83 (9) Chronic indwelling Neal catheter: Plan: Will need to change catheter every month as before (10) Neurogenic bladder: Plan: Cath exchanged on admission functioning appropriately Plan Left-sided knee pain Knee x-ray: Moderate osteoarthritis Doppler ultrasound: Negative for DVTs Lidoderm patch, add voltaren Ortho consultation: No further intervention at this point Dispo: PT/OT ordered, pt to require 10 days of IV antibiotics, plan for dc to [facility] on 08/04 after completion of IV abx, CM set up transport at 1600 FULL CODE PCP: DVT ppx:Tyrel Remains stable and will be transferred on Friday following finishing the course of antibiotic She will be discharged this afternoon Admission and Anticipated Discharge Date Admission Date: July 25, 2023 Subjective 08/02/2023 The patient was seen and examined in medical floor She remains stable and denies any symptoms Awaiting placement 08/03/2023 The patient was seen and examined in medical floor She has been stable and denies any symptoms Will be discharged tomorrow following the course of antibiotic is done 08/04/2023 The patient was seen and examined in medical floor She has been stable and denies any significant symptoms She is happy that she will be moved to [facility] this afternoon Review of Systems Review of Systems: All systems reviewed and are unremarkable except as noted below Physical Exam Physical Exam: Lying in bed without any acute distress Constitutional: average body habitus; not ill appearing Eyes: PERRL, conjunctivae normal, anicteric sclerae ENMT: external ear and nose normal, oropharynx normal Neck: trachea midline, no thyromegaly Respiratory: no respiratory distress Auscultation: lungs clear to auscultation bilaterally Cardiovascular: Rate/Rhythm: regular rate and regular rhythm; not tachycardic Heart Sounds: normal S1 and normal S2; no murmur Extremities: no edema Gastrointestinal (Abdomen): Inspection/Auscultation: normal bowel sounds; abdomen not distended Percussion/Palpation: abdomen soft; abdomen nontender Neurologic: normal touch/pain/proprioception and moves all extremities; no focal motor deficits Lymphatic: no cervical or axillary lymphadenopathy Results & Data Results & Data Vital Signs (Past 12 Hours) Vital Signs Temp Pulse Resp BP Pulse Ox O2 Del Method 08/04/23 07:28 36.5 C 61 16 158/83 H 97 Room Air Medications Administered Current Inpatient Medications Acetaminophen (Acetaminophen 325 Mg Tab) 650 mg PO Q4H PRN PRN Reason: Pain Stop: 08/24/23 23:05 Last Admin: 08/04/23 05:31 Dose: 650 mg Amlodipine Besylate (Amlodipine Besylate 5 Mg Tab) 5 mg PO DAILY [facility] Stop: 08/25/23 08:59 Last Admin: 08/04/23 08:06 Dose: 5 mg Apixaban (Apixaban 5 Mg Tablet) 5 mg PO BID [facility] Stop: 08/24/23 23:05 Last Admin: 08/04/23 08:07 Dose: 5 mg Atenolol (Atenolol 25 Mg Tablet) 25 mg PO DAILY [facility] Stop: 08/25/23 08:59 Last Admin: 08/04/23 08:08 Dose: 25 mg Cyanocobalamin (Cyanocobalamin (B-12) 2,500 Mcg Tablet) 5,000 mcg SL DAILY [facility] Stop: 08/25/23 08:59 Last Admin: 08/04/23 08:06 Dose: 5,000 mcg Dextrose (Dextrose 50% 50 Ml Syringe) 25 - 50 ml IV UD PRN; Protocol PRN Reason: Hypoglycemia Protocol Stop: 08/24/23 23:05 Diclofenac Sodium (Diclofenac Sod 1% Gel 100 Gm Tube) 4 gm EXT BID [facility]; Protocol Stop: 08/28/23 12:44 Last Admin: 08/04/23 08:07 Dose: 4 gm Fluticasone Propionate (Fluticasone Propionate Na Spr 16 Gm Btl) 2 sprays NA DAILY [facility] Stop: 08/25/23 08:59 Last Admin: 08/04/23 08:08 Dose: 2 sprays Glucagon (Glucagon For Inj 1 Mg Vial) 1 mg SQ UD PRN; Protocol PRN Reason: Hypoglycemia Protocol Stop: 08/24/23 23:05 Glucose (Glucose 10 Tab/Tube) 4 - 8 tab PO UD PRN; Protocol PRN Reason: Hypoglycemia Treatment Stop: 08/24/23 23:05 Glucose (Glucose 40% Gel 15 Gm Tube) 15 - 30 gm PO UD PRN; Protocol PRN Reason: Hypoglycemia Protocol Stop: 08/24/23 23:05 Cefepime HCl 2,000 mg/ Syringe 20 mls @ 5 mls/min IV Q8H [facility]; Protocol Stop: 08/05/23 00:00 Last Admin: 08/04/23 08:05 Dose: 5 mls/min Insulin Aspart (Insulin Aspart Per Unit Charge) 0 units SC ACHS [facility] Stop: 08/24/23 23:05 Last Admin: 08/04/23 08:04 Dose: Not Given Lactase (Lactase 3000 Unit Tab) 9,000 units PO DAILY@0730 [facility] Stop: 08/25/23 07:29 Last Admin: 08/04/23 08:05 Dose: 9,000 units Lactobacillus Acidophilus (Advanced Probiotic 1250 Mg Capsule) 2 cap PO DAILY [facility] Stop: 08/28/23 08:59 Last Admin: 08/04/23 08:06 Dose: 2 cap Levothyroxine Sodium (Levothyroxine Sodium 25 Mcg Tablet) 25 mcg PO DAILYBB [facility] Stop: 08/25/23 06:29 Last Admin: 08/04/23 05:31 Dose: 25 mcg Lidocaine (Lidocaine 5% 1 Patch) 1 patch TD QAM [facility] Stop: 08/25/23 18:59 Last Admin: 08/04/23 08:07 Dose: 1 patch Miscellaneous (Carbohydrates For Hypoglycemia ) 15 - 30 gm PO UD PRN PRN Reason: Hypoglycemia Protocol Stop: 08/24/23 23:05 Miscellaneous (Remove Lidoderm Patch) 1 each N/A DAILY@2100 [facility] Stop: 08/25/23 20:59 Last Admin: 08/03/23 20:12 Dose: 1 each Oxybutynin Chloride (Oxybutynin Chloride 5 Mg Tab) 5 mg PO TID [facility] Stop: 08/24/23 23:05 Last Admin: 08/04/23 08:05 Dose: 5 mg Pantoprazole Sodium (Pantoprazole 40 Mg Tab) 40 mg PO DAILY [facility] Stop: 08/25/23 08:59 Last Admin: 08/04/23 08:06 Dose: 40 mg Polyethylene Glycol (Polyethylene (Miralax) 17 Gm Pack) 17 gm PO BID [facility] Stop: 08/24/23 23:05 Last Admin: 08/04/23 08:18 Dose: 17 gm Pravastatin Sodium (Pravastatin Sod 10 Mg Tab) 10 mg PO DAILY [facility] Stop: 08/25/23 08:59 Last Admin: 08/04/23 08:06 Dose: 10 mg Senna/Docusate Sodium (Docusate Sodium/Senna 50/8.6mg Tab) 1 tab PO QAM [facility] Stop: 08/25/23 08:59 Last Admin: 08/04/23 08:18 Dose: 1 tab Tramadol HCl (Tramadol Hcl 50 Mg Tablet) 50 mg PO Q8 PRN PRN Reason: Pain Stop: 08/24/23 23:05 (1) Urinary tract infection Hematuria presence: with hematuria Urinary tract infection type: site unspecified Qualified Code(s): N39.0 - Urinary tract infection, site not specified; R31.9 - Hematuria, unspecified (4) Esophageal reflux Esophagitis presence: without esophagitis Qualified Code(s): K21.9 - Gastro- esophageal reflux disease without esophagitis (6) Diabetes mellitus Diabetes mellitus type: type 2 Diabetes mellitus director long term care insulin use: without senior living use Diabetes mellitus complication status: with other specified complication Qualified Code(s): E11.69 - Type 2 diabetes mellitus with other specified complication (7) Hypothyroidism Hypothyroidism type: unspecified Qualified Code(s): E03.9 - Hypothyroidism, unspecified (8) Hypertension Hypertension type: primary hypertension Qualified Code(s): I10 - Essential (primary) hypertension
--- NOTE | 2023-08-05 10:10 | Discharge Summary ---
Date of Service August 04, 2023 Admission HPI Per Admitting Provider This is an 83 y/o female with DM2, spinal stenosis s/p back surgery x 2, wheelchair bound since last surgery in 2020 due to progressive weakness, neurogenic bladder with chronic Neal, hypothyroidism, hx DVT, on chronic AC with Eliquis, and other history as outlined below who presents to the ED today with multiple complaints including constipation and malfunctioning Neal catheter. History from the patient is somewhat difficult to follow but she reports that her chronic Neal was changed over the holiday weekend. However, since the change, she has had ongoing issues with positional leakage from the catheter despite multiple attempts from the staff at [facility] to adjust it. She also reports constipation with last BM being five days ago. She reports eating a large meal four days ago (on ) and has been uncomfortable with decreased appetite since then. She has been taking Miralax daily for the last few days, drinking juice (orange, cranberry), and eating fruit (tangelos, apples) to try to help with her bowels but no results. Continued associated bloating and discomfort. She has a history of UTIs and thinks she may have a UTI today. She had subjective fever and chills today. She notes that she has been in bed the last three days due to joint aches and pains that she relates to the weather. She is essentially wheelchair bound at baseline. These aches and pains feel better today and she was out of her room this morning. She is also concerned about left knee pain for several weeks that seemed to start after being moved at [facility] while getting her hair done. It had improved but was worse again today after being transported to the ED. She is very concerned about her health, and noted chest pain while she was waiting in the sub-waiting areas to be seen. She thinks that this may be due to anxiety - it has resolved at present. Ongoing issues with fatigue since having COVID earlier this year. Admission Exam Per Admitting Provider Physical Exam: General: awake, alert, anxious affect HEENT: no scleral icterus, moist oral mucosa Neck: trachea midline Heart: regular but frequent ectopy Lungs: mildly diminished on anterior but clear Abdomen: softly distended, hypoactive BS, minimal lower abd tenderness, no guarding or rebound Extremities: no pedal edema Neurologic: moving all extremities, no dysarthria Skin: no jaundice Principal Diagnosis Complicated UTI, type 2 diabetes, hypertension, physical reflux Discharge Exam Lying in bed without any acute distress Constitutional average body habitus; not ill appearing Eyes PERRL, conjunctivae normal, anicteric sclerae ENMT external ear and nose normal, oropharynx normal Neck trachea midline, no thyromegaly Respiratory no respiratory distress Auscultation: lungs clear to auscultation bilaterally Cardiovascular Rate/Rhythm: regular rate and regular rhythm; not tachycardic Heart Sounds: normal S1 and normal S2; no murmur Extremities: no edema Gastrointestinal (Abdomen) Inspection/Auscultation: normal bowel sounds; abdomen not distended Percussion/Palpation: abdomen soft; abdomen nontender Neurologic normal touch/pain/proprioception and moves all extremities; no focal motor deficits Lymphatic no cervical or axillary lymphadenopathy Discharge Data Allergies Allergy/AdvReac Type Severity Reaction Status Date / Time Sulfa (Sulfonamide Allergy Intermediate RASH/ITCH Verified 07/25/23 18:56 Antibiotics) acesulfame Allergy Mild Unknown Verified 07/25/23 18:56 aspartame Allergy Mild Unknown Verified 07/25/23 18:56 morphine Allergy Mild RASH/ITCH Verified 07/25/23 18:56 propoxyphene Allergy Mild RASH Verified 07/25/23 18:56 saccharin Allergy Mild Unknown Verified 07/25/23 18:56 sucralose Allergy Mild Unknown Verified 07/25/23 18:56 Consultations 07/25/23 17:19 ED Decision to Admit Stat 07/26/23 11:26 Consult Orthopedic Surgery Routine Ordered Studies 07/25/23 15:06 CT abd pelvis IV con only Stat 07/26/23 11:23 US venous doppler LE LT Urgent 07/27/23 15:38 US extremity non-vascular ltd Routine Hospital Course (1) Urinary tract infection: Urine culture: Pseudomonas, resistant to fluoroquinolones Continue IV cefepimeto complete 10 days, EOT 08/04 Neal changed in ED Will complete intravenous cefepime on Friday Likely transfer to a facility on Friday No urinary symptoms and antibiotic course will be done by tomorrow IV antibiotic is done today and the patient remains asymptomatic Will be transferred to SNF today (2) Fecal impaction: This is an 83 y/o female with DM2, spinal stenosis s/p back surgery x 2, wheelchair bound since last surgery in 2020 due to progressive weakness, neurogenic bladder with chronic Neal, hypothyroidism, hx DVT, on chronic AC with Eliquis, and other history as outlined below who presents to the ED today with multiple complaints including constipation and malfunctioning Neal catheter. Work-up in the ED consistent with recurrent fecal retention with possible impaction, possible UTI, abnormal EKG though initial troponin was normal. Resolved Continue laxative having bowel movements No symptoms and has been moving regular bowel movement (3) Abnormal EKG: No cardiac symptoms Troponins negative x 3 No signs of acute ischemia per EKG (4) Esophageal reflux: chronic, stable continue PPI (5) Dyslipidemia: chronic, stable continue statin (6) Diabetes mellitus: Insulin sliding scale, will liberalize to prevent hypoglycemia Holding Metformin A1c: 5.6 Diabetic diet BSG ACHS (7) Hypothyroidism: TSH normal chronic, stable continue levothyroxine (8) Hypertension: chronic, stable improving, adjustments have been made throughout stay on amlodipine and atenolol, continue and monitor Minimally elevated at 158/83 (9) Chronic indwelling Neal catheter: Will need to change catheter every month as before (10) Neurogenic bladder: Cath exchanged on admission functioning appropriately Plan Left-sided knee pain Knee x-ray: Moderate osteoarthritis Doppler ultrasound: Negative for DVTs Lidoderm patch, add voltaren Ortho consultation: No further intervention at this point Dispo: PT/OT ordered, pt to require 10 days of IV antibiotics, plan for dc to [facility] on 08/04 after completion of IV abx, CM set up transport at 1600 FULL CODE PCP: DVT ppx:Tyrel Remains stable and will be transferred on Friday following finishing the course of antibiotic She will be discharged this afternoon Total Time Total Time Spent Total Time Spent (In Minutes): 40 minutes Discharge Plan Discharge Items Patient Disposition: Transfer [facility] Reason For Visit: UTI, FECAL IMPACTION, ABNORMAL EKG Discharge Diagnosis: Complicated UTI, type 2 diabetes, hypertension, physical reflux Condition on Discharge: Good Activity: Resume your previous activity Non-emergency contact: Primary Care Provider Call non-emergency contact if: you have any medication questions and your symptoms worsen Follow-up/Referrals: [facility] [Primary Care Provider] - Diet: Carb Consistent or DM2 Addtl Attending Provider Instructions: Please take precautions to avoid falls Take your medications as advised Urinary catheter needs to be changed every month or as before Pending Studies at Discharge: No Stand-Alone Forms: My [facility] Skilled Items Patient informed of condition?: Yes DNR: No Discharge Level of Care: Skilled Communicable Disease: No Discharge Prognosis: Stable Lines: None Urinary Catheter: Yes Medications and DC Order Prescriptions: New lidocaine 5 % Adhesive Patch,Medicated 1 patch transdermal QAM Qty: 30 0RF diclofenac sodium [Voltaren Arthritis Pain] 1 % Gel 4 g EXT BID Qty: 50 0RF Continued multivitamin Tablet 1 tab PO DAILY metformin 500 mg tablet 500 mg PO BID acetaminophen [Tylenol] 325 mg Tablet 650 mg PO Q4 PRN (Reason: Pain) polyethylene glycol 3350 [Miralax] 17 gram Powder In Packet 17 g PO DAILY PRN (Reason: Constipation) loperamide [Imodium A-D] 2 mg Tablet 2 mg PO Q4H PRN (Reason: Diarrhea) Rx Instructions: administer after each loose stool until symptoms controlled; do not exceed 8 mg per 24 hrs atenolol 25 mg tablet 25 mg PO DAILY calcium carbonate [Tums E-X] 300 mg (750 mg) Tablet,Chewable 300 mg PO .Q5HRS PRN (Reason: GERD) amlodipine 5 mg tablet 5 mg PO DAILY levothyroxine 25 mcg tablet 25 mcg PO DAILY pravastatin 10 mg tablet 10 mg PO DAILY lactase 9,000 unit Tablet 9,000 unit PO DAILY Rx Instructions: administer with first bite of dairy food pantoprazole 40 mg tablet,delayed release (DR/EC) 40 mg PO DAILY nitrofurantoin macrocrystal 100 mg capsule 100 mg PO DAILY Rx Instructions: Give with meal, for prevention oxybutynin chloride 5 mg tablet 5 mg PO TID fluticasone propionate 50 mcg/actuation spray,suspension 2 spray INTRANASAL DAILY L.acidoph,saliva-B.bif-S.therm [Acidophilus Probiotic Blend] 175 mg Capsule 2 cap PO DAILY cyanocobalamin (vitamin B-12) [Vitamin B-12] 5,000 mcg Tablet, Sublingual 5,000 mcg SUBLINGUAL DAILY Eliquis 5 mg tablet 5 mg PO BID tramadol 50 mg tablet 50 mg PO Q8 PRN (Reason: Pain) Discharge Orders: Discharge Order (Routine); Ordered 08/04/23 Ordered By: Yamile Winn/Other Patient Handouts: Managing Type 2 Diabetes Admission Data Admit Date/Time: 07/25/23 18:15 Attending Provider: Yamile Chavez Admit Provider: Paola Cruz [facility] Other Providers: Ayan Saldana; Bashir Marie; Gary Hoover; Kenia Villalobos; Danica Yusuf; Karthikeyan Loo; Dima Guerrero; Fabien Ho; Fabien No; Bettina Laguerre; Samantha Og; Bela Michael; Ana Ash; Ifrah Jean; Suhail Lechuga; Wolf Ferrari; Andrew Pacheco; Dean Farnsworth; Paola Cruz; Armando Dubois; Ashwini Smith Other Interventions: Discharge Summary Assessment (RN) Last Done: 08/04/23 10:17
== END 2023-08-04 16:53 | DRG 389 ==
LOC: ED 11:24 → SUATTDRO 18:15 → EDINP 18:15 → 2E 23:07 → 3E 07-26 18:11

== ENCOUNTER 2023-10-31 10:18 | Inpatient (IN) ==
--- NOTE | 2023-10-31 10:28 | Emergency Department Note ---
Impression & Plan Catheter-associated urinary tract infection ED Provider Note Provider: Carlos Lopez MD DATE OF SERVICE: 10/31/2023 CHIEF COMPLAINT: Street catheter issue HISTORY OF PRESENT ILLNESS: Patient is a 83-year-old female history of type 2 diabetes, spinal stenosis with back surgery, wheelchair-bound since 2020 with neurogenic bladder chronic Street, DVT, chronic A-fib on Eliquis among her past medical history presenting here via ambulance today with leaking around her Street catheter. Has this again chronically. Lives at [facility]. Home nursing visited and changed last Friday and Friday but still having some leaking around. Some bladder spasms reported. No fevers. No blood in the urine reported. Denies nausea vomiting or abdominal pain. States she has been moving her bowels. Has a history of sepsis and UTIs in the past was hospitalized here in June and July. Reports she did stop oxybutynin at this time a discussion with urology as they thought this may be contributing to her significant constipation symptoms and this again has been improving. Patient states given that she has been leaking urine into her briefs around the Street which is new over the past week and her concern for infection and sepsis came here for evaluation today. PAST MEDICAL HISTORY: As noted above MEDICATIONS: Reviewed home medications SOCIAL HISTORY: Resides at [facility] [place]. PHYSICAL EXAM: GENERAL: alert and oriented in no acute distress on stretcher Head: normocephalic and atraumatic EYES: No injection, discharge or icterus. EOMI. NECK: Trachea midline. Supple. ENT: Mucous membranes pink and moist. LUNGS: Airway patent. No retractions or tachypnea HEART: Regular rate and rhythm. No chest wall tenderness ABDOMEN: Soft and non-tender, without guarding or rebound. Street catheter in place draining clear yellow urine into Street bag. No blood noted. Does have some urine soaked into adult diaper that is in place. SKIN: Acyanotic, warm, dry, without rashes EXTREMITIES: Without swelling, tenderness or deformity NEUROLOGICAL: Paraplegic waist down with intact strength the upper arms. Keenly awake and alert without slurred speech or aphasia. Patient's laboratory studies and imaging reviewed. Differential includes UTI, cystitis, appendicitis, diverticulitis, mesenteric ischemia, PID, inflammatory bowel disease, renal colic, abscess, obstruction, volvulus, sepsis, as well as other pathologies. IMPRESSION/MEDICAL DECISION MAKING: Patient well-appearing. Afebrile here. Does have significant history of UTIs and does unfortunately have a chronic Street catheter. Does not appear to be hematuria at this time. Seems to be draining. Will place and change. Has been having more leakage around it. Could be experiencing some bladder spasms possibly related to stopping the oxybutynin a month or 2 ago versus UTI at this time. Will send sample. Basic blood obtained given her concern for possible sepsis but again she is well-appearing. Benign abdomen without evidence of distention or significant tenderness and doubt bowel obstruction, perforation, volvulus among other intra-abdominal etiologies and do not feel we need abdominal imaging at this time. Blood work here without significant acidosis or anemia. No signs of renal dysfunction or electrolyte abnormality. Urinalysis appears concerning for infection with bacteria. While she does not have a fever here does report feeling warm overnight and possibly increased bladder spasm. Difficult and unsure in this case if the patient is just suffering more chronic colonization. Does again report some new urinary symptoms but does not appear septic. Prior microbiology reviewed with resistance to oral options and Pseudomonas growing. Will send urine for culture and start on cefepime pending speciation. Given her age and history of sepsis will monitor here in the hospital. Do not believe this represents kidney stone and do not feel she needs additional imaging at this time. DIAGNOSIS: Complicated UTI related to a chronic indwelling Street DISPOSITION: Hospitalist will evaluate Patient was agreeable with this plan. Past Med/Surg History Medical History (Updated 10/31/23 @ 13:48 by Marcelina Limon PA-C) History of DVT (deep vein thrombosis) Impacted cerumen Spinal stenosis Paralytic syndrome Hyperlipidemia GERD (gastroesophageal reflux disease) Atrial fibrillation Paralysis, progressive Left leg DVT 11/2020 Urinary tract infection Urinary symptom or sign Abnormal EKG hx Anxiety Arthralgia of multiple sites Dairy allergy Hammer toe Microalbuminuria Hypertension Nocturia Osteoporosis Urinary incontinence currently has an indwelling catheter Vitamin D deficiency disease DMII (diabetes mellitus, type 2) LAFB (left anterior fascicular block) Coronary artery calcification LVH (left ventricular hypertrophy) Osteoarthritis Urinary frequency Hypothyroidism History of nasal polyp Conductive hearing loss of right ear with unrestricted hearing of left ear Hypertrophy of nasal turbinates Surgical History S/P fusion of thoracic spine T1-T3; 12/29/20[place] [facility] [place] S/P lumbar fusion L3-L4, Dr Rocha, [facility] [place] 12/22/[place]. History of lumbar laminectomy for spinal cord decompression 12/22/20 - [facility] Dr Rocha; L1-L5 S/P IVC filter 11/2020 [place] [facility] [place] History of breast biopsy History of tonsillectomy History of nasal septoplasty History of rotator cuff surgery LEFT History of rhinoplasty History of knee replacement RIGHT History of hysterectomy History of hip replacement BILAT. RIGHT HIP X2 History of hand surgery RIGHT History of placement of ear tubes RIGHT IN OFFICE History of colonoscopy History of cataract surgery BILAT History of blepharoplasty History of back surgery IN 1985 LUMBAR FOR 2 RUPTURED DISC Family History Mother , age 69 Coronary heart disease s/p CABG Heart disease Grandmother (Maternal) Heart disease heart attacks Son Diabetes Heart disease age 47 from cardiac arrest Father , in his 80s Rheumatoid arthritis Denies family history of Ovarian cancer Prostate cancer Breast cancer Colorectal cancer Cancer Social History Smoking Status: Never smoker Hx Alcohol Use: No Hx Substance Use: No Preferred Language: Slovenian Communication Ability: Effective Muck Operator Required: No Beliefs That Will Affect Care: None marital status: / Current Living Situation: Long Term Current Living Situation Comment: [facility] current occupational status: retired How many Children do You have: 3 How many Children do You have Comment: 1 son ; 1 living son, 1 living daughter 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 [place] Feels Safe at Home: Yes Safety Concerns Comment: states she has to kittens to keep after her Childhood Exposure to Second-Hand Smoke: No Diet: regular during the past year weight has: decreased > 10 lbs Dental Care, Regularly: Yes Physical Activity Frequency: Does not Exercise Seatbelt Use: always Sunscreen Use: Yes Assistive Devices: Slide Board and Wheelchair Allergies Allergies Allergy/AdvReac Type Severity Reaction Status Date / Time Sulfa (Sulfonamide Allergy Intermediate RASH/ITCH Verified 10/31/23 11:47 Antibiotics) acesulfame Allergy Mild Unknown Verified 08/26/23 11:05 aspartame Allergy Mild Unknown Verified 08/26/23 11:05 morphine Allergy Mild RASH/ITCH Verified 10/31/23 11:47 propoxyphene Allergy Mild RASH Verified 08/26/23 11:05 saccharin Allergy Mild Unknown Verified 08/26/23 11:05 sucralose Allergy Mild Unknown Verified 08/26/23 11:05 acetaminophen Allergy Unknown Unknown - Unverified 10/31/23 11:47 [From [facility]] On [facility] List as Allergy Home Meds Home Medications Medication Instructions Recorded Confirmed L.acidophil,salivari-Bifido 2 cap PO QAM 07/25/23 10/31/23 bifidum-Strep thermoph 175 mg capsule (Acidophilus Probiotic Blend) acetaminophen 325 mg tablet 650 mg PO Q4 PRN Pain 07/25/23 10/31/23 (Tylenol) amlodipine 5 mg tablet 5 mg PO QAM 07/25/23 10/31/23 apixaban 5 mg tablet (Eliquis) 5 mg PO BID 07/25/23 10/31/23 atenolol 25 mg tablet 25 mg PO QAM 07/25/23 10/31/23 calcium carbonate (Tums E-X) 300 mg PO Q5H PRN GERD 07/25/23 10/31/23 cyanocobalamin (vitamin B-12) 5,000 mcg sublingual QAM 07/25/23 10/31/23 5,000 mcg sublingual tablet (Vitamin B-12) fluticasone propionate 50 2 spray intranasal DAILY 07/25/23 10/31/23 mcg/actuation nasal spray,suspension lactase 9,000 unit tablet 9,000 unit PO QAM 07/25/23 10/31/23 levothyroxine 25 mcg tablet 25 mcg PO QAM 07/25/23 10/31/23 loperamide 2 mg tablet (Imodium 2 mg PO Q4H PRN Diarrhea 07/25/23 10/31/23 A-D) metformin 500 mg tablet 500 mg PO BID 07/25/23 10/31/23 nitrofurantoin macrocrystal 100 mg 100 mg PO QAM 07/25/23 10/31/23 capsule pantoprazole 40 mg tablet,delayed 40 mg PO QAM 07/25/23 10/31/23 release pravastatin 10 mg tablet 10 mg PO QAM 07/25/23 10/31/23 mirabegron 25 mg tablet,extended 25 mg PO QAM 10/31/23 10/31/23 release 24 hr (Myrbetriq) multivitamin (Daily-Ning tablet) 1 tab PO QAM 10/31/23 10/31/23 Previous Rx's Medication Instructions Recorded diclofenac sodium 1 % topical gel 4 g EXT BID #50 grams 08/04/23 (Voltaren Arthritis Pain) Results & Data (ED) Vital Signs Vital Signs - 24 hr 10/31/23 10:32 10/31/23 12:16 Temperature 36.6 C Temperature Source Oral Pulse Rate 75 68 Respiratory Rate 18 Respiratory Effort / Characteristics Non-Labored Respiratory Depth Normal Blood Pressure 157/85 H Blood Pressure Mean 109 Pulse Oximetry 98 Oxygen Delivery Method Room Air Sepsis Recent Fever Within 48 Hours No Sepsis New/Unexplained Change in Mental Status N/A Sepsis Action Taken by Nursing No Action Required Laboratory Data 10/31/23 11:08 10/31/23 11:20 Lab Results 10/31/23 10/31/23 10/31/23 Range/Units 11:08 11:15 11:20 WBC 9.16 (4.8-10.8) K/ul RBC 4.44 (4.20-5.40) M/uL Hgb 12.4 (12.0-16.0) g/dl Hct 39.4 (37.0-47.0) % MCV 88.7 (80.0-100.0) fL MCH 27.9 (25.0-34.0) pg MCHC 31.5 L (32.0-36.0) g/dL RDW Std Deviation 43.5 (36.4-46.3) fL RDW Coeff of Efren 13.3 (11.5-14.5) % Plt Count 341 (130-400) K/uL MPV 10.2 (9.4-12.4) fL Immature Gran % (Auto) 0.2 % Neut % (Auto) 65.5 % Lymph % (Auto) 16.8 % [place] % (Auto) 6.6 % Eos % (Auto) 10.5 % Baso % (Auto) 0.4 % Neut # (Auto) 6.00 (1.40-6.50) K/uL Lymph # (Auto) 1.54 (1.20-3.40) K/uL [place] # (Auto) 0.60 H (0.11-0.59) K/uL Eos # (Auto) 0.96 H (0.00-0.50) K/uL Baso # (Auto) 0.04 (0.00-0.20) K/uL Immature Gran # (Auto) 0.02 (0.01-0.20) K/uL Sodium 138 (136-145) mmol/L Potassium 4.0 (3.5-5.1) mmol/L Chloride 105 (98-107) mmol/L Carbon Dioxide 25 (21-32) mmol/L Anion Gap 8 (3-11) BUN 18 (6-23) mg/dl Creatinine 0.58 L (0.6-1.2) mg/dl Est Cr Clr Drug Dosing 76.3 ml/min Est GFR ( Amer) 99.5 ml/min Est GFR (Non-Af Amer) 85.8 ml/min BUN/Creatinine Ratio 31.0 H (10-20) Glucose 104 H (70-99(Fasting)) mg/dl Lactate 2.0 (0.4-2.0) mmol/L Calcium 9.3 (8.6-10.3) mg/dl Total Bilirubin 0.3 (0.2-1.0) mg/dl AST 13 (13-39) U/L ALT 8 (7-52) U/L Alkaline Phosphatase 72 (34-104) U/L Total Protein 6.3 (6.0-8.3) gm/dl Albumin 3.5 (3.4-5.0) gm/dl Globulin 2.8 (2.5-4.0) gm/dl Albumin/Globulin Ratio 1.3 (0.9-2) Urine Color Yellow Urine Appearance Cloudy A (Clear) Urine pH 7.0 (4.5-7.5) Ur Specific [place] 1.012 (1.000-1.030) Urine Protein 1+ H (Negative) Urine Glucose (UA) Negative (Negative) Urine Ketones Negative (Negative) Urine Blood 2+ H (Negative) Urine Nitrite Negative (Negative) Urine Bilirubin Negative (Negative) Urine Urobilinogen Negative (Negative) Ur Leukocyte Esterase 3+ H (Negative) Urine WBC (Auto) >30 H (0-5) /hpf Urine RBC (Auto) 10-30 H (0-4) /hpf U Hyaline Cast (Auto) 0 (0-5) /lpf U Epithel Cells (Auto) 5-10 H (0-5) /lpf Urine Bacteria (Auto) 1+ H (Negative) Urine Yeast Not Reportable SARS-CoV-2, RNA, NAAT (NEGATIVE) 10/31/23 Range/Units 13:20 WBC (4.8-10.8) K/ul RBC (4.20-5.40) M/uL Hgb (12.0-16.0) g/dl Hct (37.0-47.0) % MCV (80.0-100.0) fL MCH (25.0-34.0) pg MCHC (32.0-36.0) g/dL RDW Std Deviation (36.4-46.3) fL RDW Coeff of Efren (11.5-14.5) % Plt Count (130-400) K/uL MPV (9.4-12.4) fL Immature Gran % (Auto) % Neut % (Auto) % Lymph % (Auto) % [place] % (Auto) % Eos % (Auto) % Baso % (Auto) % Neut # (Auto) (1.40-6.50) K/uL Lymph # (Auto) (1.20-3.40) K/uL [place] # (Auto) (0.11-0.59) K/uL Eos # (Auto) (0.00-0.50) K/uL Baso # (Auto) (0.00-0.20) K/uL Immature Gran # (Auto) (0.01-0.20) K/uL Sodium (136-145) mmol/L Potassium (3.5-5.1) mmol/L Chloride (98-107) mmol/L Carbon Dioxide (21-32) mmol/L Anion Gap (3-11) BUN (6-23) mg/dl Creatinine (0.6-1.2) mg/dl Est Cr Clr Drug Dosing ml/min Est GFR ( Amer) ml/min Est GFR (Non-Af Amer) ml/min BUN/Creatinine Ratio (10-20) Glucose (70-99(Fasting)) mg/dl Lactate (0.4-2.0) mmol/L Calcium (8.6-10.3) mg/dl Total Bilirubin (0.2-1.0) mg/dl AST (13-39) U/L ALT (7-52) U/L Alkaline Phosphatase (34-104) U/L Total Protein (6.0-8.3) gm/dl Albumin (3.4-5.0) gm/dl Globulin (2.5-4.0) gm/dl Albumin/Globulin Ratio (0.9-2) Urine Color Urine Appearance (Clear) Urine pH (4.5-7.5) Ur Specific [place] (1.000-1.030) Urine Protein (Negative) Urine Glucose (UA) (Negative) Urine Ketones (Negative) Urine Blood (Negative) Urine Nitrite (Negative) Urine Bilirubin (Negative) Urine Urobilinogen (Negative) Ur Leukocyte Esterase (Negative) Urine WBC (Auto) (0-5) /hpf Urine RBC (Auto) (0-4) /hpf U Hyaline Cast (Auto) (0-5) /lpf U Epithel Cells (Auto) (0-5) /lpf Urine Bacteria (Auto) (Negative) Urine Yeast SARS-CoV-2, RNA, NAAT NEGATIVE (NEGATIVE) Administered Medications Discontinued Medications Cefepime HCl (Maxipime) 2,000 mg in 20 mls @ 5 mls/min IV NOW STA; Protocol Stop: 10/31/23 12:39 Last Admin: 10/31/23 13:20 Dose: 5 mls/min Documented By: SOM Discharge Plan Visit Data Chief Complaint: Catheter Replacement Stated Complaint: ISSUES W/ STREET CATHETER ED Provider: Carlos Lopez Discharge Problem: Catheter-associated urinary tract infection Patient Disposition: Being Evaluated by Hospitalist Forms Stand Alone Forms: My [facility] IO Prescriptions Prescriptions: No Action metformin 500 mg tablet 500 mg PO BID acetaminophen [Tylenol] 325 mg Tablet 650 mg PO Q4 PRN (Reason: Pain) loperamide [Imodium A-D] 2 mg Tablet 2 mg PO Q4H PRN (Reason: Diarrhea) Rx Instructions: administer after each loose stool until symptoms controlled; do not exceed 8 mg per 24 hrs atenolol 25 mg tablet 25 mg PO QAM Tums E-X 300 mg (750 mg) Tablet,Chewable 300 mg PO Q5H PRN (Reason: GERD) amlodipine 5 mg tablet 5 mg PO QAM levothyroxine 25 mcg tablet 25 mcg PO QAM Rx Instructions: Give at 7:00am before breakfast pravastatin 10 mg tablet 10 mg PO QAM lactase 9,000 unit Tablet 9,000 unit PO QAM Rx Instructions: administer with first bite of dairy food pantoprazole 40 mg tablet,delayed release (DR/EC) 40 mg PO QAM nitrofurantoin macrocrystal 100 mg capsule 100 mg PO QAM Rx Instructions: Give with meal, for prevention fluticasone propionate 50 mcg/actuation spray,suspension 2 spray INTRANASAL DAILY L.acidoph,saliva-B.bif-S.therm [Acidophilus Probiotic Blend] 175 mg Capsule 2 cap PO QAM cyanocobalamin (vitamin B-12) [Vitamin B-12] 5,000 mcg Tablet, Sublingual 5,000 mcg SUBLINGUAL QAM Eliquis 5 mg tablet 5 mg PO BID diclofenac sodium [Voltaren Arthritis Pain] 1 % Gel 4 g EXT BID Qty: 50 0RF multivitamin [Daily-Ning] Tablet 1 tab PO QAM Myrbetriq 25 mg tablet extended release 24 hr 25 mg PO QAM Referrals Referrals: [facility] [Primary Care Provider] - Discharge Problem: Catheter-associated urinary tract infection Qualifiers: Indwelling urinary catheter type: indwelling urethral catheter Encounter type: initial encounter Qualified Code(s): T83.511A - Infection and inflammatory reaction due to indwelling urethral catheter, initial encounter
[2023-10-31 11:40] LABS: Appearance Urine Cloudy (Clear); Bilirubin Urine Negative (Negative); Blood Urine 2+ (Negative); Cast Urine Automated 0 /lpf (0-5); Color Urine Yellow; Glucose Urine UA Negative (Negative); Ketones Urine Negative (Negative); Leukocyte Esterase Urine 3+ (Negative); Nitrite Urine Negative (Negative); Protein Urine 1+ (Negative); Specific Gravity Urine 1.012 (1.000-1.030); Urobilinogen Urine Negative (Negative); WBC Urine Automated >30 /hpf (0-5)
[2023-10-31 11:58] LABS: Basophils # (auto) 0.04 K/uL (0.00-0.20); Basophils % (auto) 0.4 %; Eosinophils # (auto) 0.96 K/uL (0.00-0.50); Eosinophils % (auto) 10.5 %; Hematocrit (blood only) 39.4 % (37.0-47.0); Hemoglobin 12.4 g/dl (12.0-16.0); Immature Granulocytes # (auto) 0.02 K/uL (0.01-0.20); Immature Granulocytes % (auto) 0.2 %; Lymphocytes # (auto) 1.54 K/uL (1.20-3.40); Lymphocytes % (auto) 16.8 %; Mean Corpuscular Hemoglobin 27.9 pg (25.0-34.0); Mean Corpuscular Hgb Conc 31.5 g/dL (32.0-36.0); Mean Corpuscular Volume 88.7 fL (80.0-100.0); Mean Platelet Volume 10.2 fL (9.4-12.4); Monocytes % (auto) 6.6 %; Neutrophils % (auto) 65.5 %; Platelet Count 341 K/uL (130-400); RDW Coefficient of Variation 13.3 % (11.5-14.5); RDW Standard Deviation 43.5 fL (36.4-46.3); Red Blood Count 4.44 M/uL (4.20-5.40); White Blood Count 9.16 K/ul (4.8-10.8)
[2023-10-31 12:01] LABS: Bacteria Urine Automated 1+ (Negative)
[2023-10-31 12:10] LABS: Albumin Globulin Ratio 1.3 (0.9-2); Albumin Level 3.5 gm/dl (3.4-5.0); Bilirubin,Total 0.3 mg/dl (0.2-1.0); Calcium 9.3 mg/dl (8.6-10.3); Creatinine Clr Calc Pharmacy 76.3 ml/min; Est GFR (African American) 99.5 ml/min; Est GFR (Non-African American) 85.8 ml/min; Globulin 2.8 gm/dl (2.5-4.0); Total Protein 6.3 gm/dl (6.0-8.3)
--- NOTE | 2023-10-31 12:52 | History & Physical Report ---
Date of Service October 31, 2023 Assessment & Plan (1) Urinary tract infection: (2) Chronic indwelling Umanzor catheter: (3) Neurogenic bladder: Plan: Patient is an 83 y/o female with PMH spinal stenosis s/p back surgery x 2, wheelchair bound since last surgery in 2020 due to progressive weakness, neurogenic bladder with chronic Umanzor, DM II, HTN, dyslipidemia, hypothyroidism, hx DVT, on chronic Eliquis, and other history as outlined below who presented to the ED today with c/o leakage from around the Umanzor catheter despite Muanzor change and tactile fever last night. In ER afebrile, vitals stable. No leukocytosis, lactate WNL. UA 3+ leuk esterase, >30 WBC, 5-10 epithelial cells, 1+ bacteria, however patient with chronic Umanzor and likely colonization Urine culture pending, blood cultures pending In ER given cefepime Patient without abdominal pain, flank pain and renal functions WNL. Will hold on abdominal imaging at this time We will continue cefepime as patient with history of fluoroquinolone resistant Pseudomonas UTI in past Umanzor catheter changed in ER. There has not been urine leaking noted since catheter change. Will continue to monitor. If would have recurrent leaking consider urology consult Oxybutynin stopped by urology 07/2023 secondary to constipation Continue Myrbetriq Hold chronic nitrofurantoin CBC, BMP in a.m. (4) DMII (diabetes mellitus, type 2): Plan: A1c: 5.6 on 07/26/2023 Hold home metformin Patient request regular diet Monitor BSG, NovoLog correction sliding scale as needed A1c in a.m. (5) Hypertension: Plan: Stable Continue amlodipine, atenolol (6) Dyslipidemia: Plan: Continue pravastatin (7) Hypothyroidism: Plan: Continue levothyroxine (8) Esophageal reflux: Plan: Continue Protonix (9) History of DVT (deep vein thrombosis): Plan: Chronically anticoagulated on Eliquis Continue Eliquis DVT Prophylaxis On Eliquis Full Code as per discussion with pt Follows with Dr Clayton at [facility] for routine care Pt was seen and care coordinated with Dr Loza. See addendum I spent a total of 75 minutes reviewing notes, outpatient records, labs, medication, coordinating, documenting and providing care for this patient excluding time spent in the performance of separately billed services. History of Present Illness Chief Complaint: Umanzor catheter problems Primary Care Provider: [facility] Patient is an 83 y/o female with PMH spinal stenosis s/p back surgery x 2, wheelchair bound since last surgery in 2020 due to progressive weakness, neurogenic bladder with chronic Umanzor, DM II, HTN, dyslipidemia, hypothyroidism, hx DVT, on chronic Eliquis, and other history as outlined below who presented to the ED today with c/o leakage from around the Umanzor catheter despite couple attempts at flushing and replacing Umanzor over the past week. History obtained from patient and inpatient chart review. Patient states last was changed 3 days ago. Her home nurse evaluated her since and she has had continued urine leakage around Umanzor. Patient reports felt hot last night. Did not take temperature. Patient worried as she has history of UTIs in past. Patient previously on oxybutynin however this was stopped 07/2023 by urology secondary to constipation. She was switched to Myrbetriq. Patient states since switching to Myrbetriq has had more bladder spasms. Patient feels last night she had more bladder spasms, otherwise denies abdominal pain or flank pain. History fluoroquinolone resistant Pseudomonas UTI in past. Last BM was yesterday soft formed stool. Patient denies any constipation or diarrhea. Denies diaphoresis, N/V, VALERIO, dizziness, syncope, vision changes, neck pain, CP, SOB, cough, sore throat, rhinorrhea, increased weakness, extremity edema, rashes, hematuria. Allergies Allergy/AdvReac Type Severity Reaction Status Date / Time Sulfa (Sulfonamide Allergy Intermediate RASH/ITCH Verified 10/31/23 11:47 Antibiotics) acesulfame Allergy Mild Unknown Verified 08/26/23 11:05 aspartame Allergy Mild Unknown Verified 08/26/23 11:05 morphine Allergy Mild RASH/ITCH Verified 10/31/23 11:47 propoxyphene Allergy Mild RASH Verified 08/26/23 11:05 saccharin Allergy Mild Unknown Verified 08/26/23 11:05 sucralose Allergy Mild Unknown Verified 08/26/23 11:05 acetaminophen Allergy Unknown Unknown - Unverified 10/31/23 11:47 [From Darvocet-N] On [facility] List as Allergy Home Medications Medication Instructions Recorded Confirmed Type L.acidophil,salivari-Bifido 2 cap PO QAM 07/25/23 10/31/23 History bifidum-Strep thermoph 175 mg capsule (Acidophilus Probiotic Blend) acetaminophen 325 mg tablet 650 mg PO Q4 PRN Pain 07/25/23 10/31/23 History (Tylenol) amlodipine 5 mg tablet 5 mg PO QAM 07/25/23 10/31/23 History apixaban 5 mg tablet (Eliquis) 5 mg PO BID 07/25/23 10/31/23 History atenolol 25 mg tablet 25 mg PO QAM 07/25/23 10/31/23 History calcium carbonate (Tums E-X) 300 mg PO Q5H PRN GERD 07/25/23 10/31/23 History cyanocobalamin (vitamin B-12) 5,000 mcg sublingual QAM 07/25/23 10/31/23 History 5,000 mcg sublingual tablet (Vitamin B-12) fluticasone propionate 50 2 spray intranasal DAILY 07/25/23 10/31/23 History mcg/actuation nasal spray,suspension lactase 9,000 unit tablet 9,000 unit PO QAM 07/25/23 10/31/23 History levothyroxine 25 mcg tablet 25 mcg PO QAM 07/25/23 10/31/23 History loperamide 2 mg tablet (Imodium 2 mg PO Q4H PRN Diarrhea 07/25/23 10/31/23 History A-D) metformin 500 mg tablet 500 mg PO BID 07/25/23 10/31/23 History nitrofurantoin macrocrystal 100 mg 100 mg PO QAM 07/25/23 10/31/23 History capsule pantoprazole 40 mg tablet,delayed 40 mg PO QAM 07/25/23 10/31/23 History release pravastatin 10 mg tablet 10 mg PO QAM 07/25/23 10/31/23 History diclofenac sodium 1 % topical gel 4 g EXT BID #50 grams 08/04/23 10/31/23 Rx (Voltaren Arthritis Pain) mirabegron 25 mg tablet,extended 25 mg PO QAM 10/31/23 10/31/23 History release 24 hr (Myrbetriq) multivitamin (Daily-Ning tablet) 1 tab PO QAM 10/31/23 10/31/23 History Past Med/Surg History Medical History (Updated 10/31/23 @ 13:48 by Marcelina Limon PA-C) History of DVT (deep vein thrombosis) Impacted cerumen Spinal stenosis Paralytic syndrome Hyperlipidemia GERD (gastroesophageal reflux disease) Atrial fibrillation Paralysis, progressive Left leg DVT 11/2020 Urinary tract infection Urinary symptom or sign Abnormal EKG hx Anxiety Arthralgia of multiple sites Dairy allergy Hammer toe Microalbuminuria Hypertension Nocturia Osteoporosis Urinary incontinence currently has an indwelling catheter Vitamin D deficiency disease DMII (diabetes mellitus, type 2) LAFB (left anterior fascicular block) Coronary artery calcification LVH (left ventricular hypertrophy) Osteoarthritis Urinary frequency Hypothyroidism History of nasal polyp Conductive hearing loss of right ear with unrestricted hearing of left ear Hypertrophy of nasal turbinates Surgical History S/P fusion of thoracic spine T1-T3; 12/29/20; [facility] [place] - Dr Rocha S/P lumbar fusion L3-L4, Dr Rocha, [facility] [place]; 12/22/20. History of lumbar laminectomy for spinal cord decompression 12/22/20 - [facility], Dr Rocha; L1-L5 S/P IVC filter 11/2020 - [facility] [place] History of breast biopsy History of tonsillectomy History of nasal septoplasty History of rotator cuff surgery LEFT History of rhinoplasty History of knee replacement RIGHT History of hysterectomy History of hip replacement BILAT. RIGHT HIP X2 History of hand surgery RIGHT History of placement of ear tubes RIGHT IN OFFICE History of colonoscopy History of cataract surgery BILAT History of blepharoplasty History of back surgery IN 1985 LUMBAR FOR 2 RUPTURED DISC Family History Mother , age 69 Coronary heart disease s/p CABG Heart disease Grandmother (Maternal) Heart disease heart attacks Son Diabetes Heart disease age 47 from cardiac arrest Father , in his 80s Rheumatoid arthritis Denies family history of Ovarian cancer Prostate cancer Breast cancer Colorectal cancer Cancer Social History Smoking Status: Never smoker Hx Alcohol Use: No Hx Substance Use: No Preferred Language: Yi Communication Ability: Effective Flatwork Washer Required: No Beliefs That Will Affect Care: None marital status: / Current Living Situation: Alf Current Living Situation Comment: Meghan Camara current occupational status: retired How many Children do You have: 3 How many Children do You have Comment: 1 son ; 1 living son, 1 living daughter 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 [employer] Feels Safe at Home: Yes Safety Concerns Comment: states she has to kittens to keep after her Childhood Exposure to Second-Hand Smoke: No Diet: regular during the past year weight has: decreased > 10 lbs Dental Care, Regularly: Yes Physical Activity Frequency: Does not Exercise Seatbelt Use: always Sunscreen Use: Yes Assistive Devices: Slide Board and Wheelchair Review of Systems Review of Systems: All systems reviewed & are unremarkable except as noted in HPI & below Physical Exam Physical Exam: General: no acute distress, WDWN Head: normocephalic, atraumatic Eyes: conjunctiva non-injected, anicteric ENT: normal inspection external ears, nose, mucous membranes moist Neck: supple, trachea midline Lungs: clear, no respiratory distress, no wheezing/rhonchi/rales CV: RRR, no murmur, no pretibial edema Abd: normal BS, soft, non-tender, no CVA tenderness to palpation Ext: no cyanosis, no erythema, no calf tenderness Neuro: A&O x 3, chronic BLE weakness, no other focal deficits noted, normal affect Skin: warm, dry Results & Data Results & Data Vital Signs (Past 12 Hours) Vital Signs Temp Pulse Resp BP Pulse Ox O2 Del Method 10/31/23 12:16 68 10/31/23 10:32 36.6 C 75 18 157/85 H 98 Room Air Laboratory Results Short CBC 10/31/23 Range/Units 11:08 WBC 9.16 (4.8-10.8) K/ul Hgb 12.4 (12.0-16.0) g/dl Hct 39.4 (37.0-47.0) % Plt Count 341 (130-400) K/uL BMP 10/31/23 11:20 Sodium 138 Potassium 4.0 Chloride 105 Carbon Dioxide 25 BUN 18 Creatinine 0.58 L Glucose 104 H Calcium 9.3 Liver Function 10/31/23 Range/Units 11:20 Total Bilirubin 0.3 (0.2-1.0) mg/dl AST 13 (13-39) U/L ALT 8 (7-52) U/L Alkaline Phosphatase 72 (34-104) U/L Albumin 3.5 (3.4-5.0) gm/dl Urine 10/31/23 Range/Units 11:15 Urine Color Yellow Urine Appearance Cloudy A (Clear) Urine pH 7.0 (4.5-7.5) Ur Specific [place] 1.012 (1.000-1.030) Urine Protein 1+ H (Negative) Urine Glucose (UA) Negative (Negative) Supervising Physician Co-Signing Physician Notes Patient was seen and examined independently at bedside. Chart reviewed. Case discussed with Marcelina FERREIRA and agree with the documentation above. In summary, this is a 83 year old female from [facility] with chronic umanzor for neurogenic bladder, wheelchair bound from 2020 after prior back surgery who was sent for urine leaking around the catheter despite multiple changes. UA shows UTI. H/o pseudomonas UTI in the past. Catheter changed in the ED and so far no leaking noted. Will continue cefepime pending clx results. If catheter starts leaking again, consider urology consult. She does see Dr Doran from urology regularly and has appt next month and would like to discuss about SPT. On exam- General: Lying comfortably in bed, not in distress, on room air HEENT: EOMI, JESS, MMM Chest: Clear breath sounds bilaterally, no wheezes or crackles CVS: Regular rate and rhythm, normal heart sounds, no murmur Abdomen: Soft, non tender, not distended, normal bowel sounds Neuro: Awake, alert, oriented, conversing well, non focal Extremities: No cyanosis, clubbing or edema : Umanzor with clear urine Rest as per the note above. (1) Urinary tract infection Hematuria presence: with hematuria Urinary tract infection type: site unspecified Qualified Code(s): N39.0 - Urinary tract infection, site not specified; R31.9 - Hematuria, unspecified (5) Hypertension Hypertension type: primary hypertension Qualified Code(s): I10 - Essential (primary) hypertension (7) Hypothyroidism Hypothyroidism type: unspecified Qualified Code(s): E03.9 - Hypothyroidism, unspecified (8) Esophageal reflux Esophagitis presence: without esophagitis Qualified Code(s): K21.9 - Gastro- esophageal reflux disease without esophagitis
[2023-10-31] MEDS: CEFEPIME 2,000 MG/20 ML VIAL IV STA (13:20)
[2023-10-31] MEDS ORDERED: GLUCAGON FOR INJ 1 MG VIAL SQ PRN (15:19)
[2023-10-31] MEDS ORDERED: DEXTROSE 50% 50 ML SYRINGE IV PRN (15:19)
[2023-10-31] MEDS ORDERED: CARBOHYDRATES FOR HYPOGLYCEMIA PO PRN (15:19)
[2023-10-31] MEDS ORDERED: GLUCOSE 10 TAB/TUBE PO PRN (15:19)
[2023-10-31] MEDS ORDERED: ACETAMINOPHEN 325 MG TAB PO PRN (15:19)
[2023-10-31] MEDS ORDERED: GLUCOSE 40% GEL 15 GM TUBE PO PRN (15:19)
[2023-10-31] MEDS ORDERED: ONDANSETRON INJ 2 MG/ML 2 ML VIAL IV PRN (15:19)
[2023-10-31] MEDS: INSULIN ASPART PER UNIT CHARGE SC SCH (17:05)
[2023-10-31] MEDS: APIXABAN 5 MG TABLET PO SCH (20:28)
[2023-10-31] MEDS: DICLOFENAC SOD 1% GEL 100 GM TUBE EXT SCH (20:29)
[2023-10-31] MEDS: CEFEPIME 2,000 MG in SYRINGE 0 ML IV SCH (23:31)
[2023-11-01] MEDS: LEVOTHYROXINE SODIUM 25 MCG TABLET PO SCH (06:12)
[2023-11-01 06:30] LABS: Hematocrit (blood only) 36.6 % (37.0-47.0); Hemoglobin 11.9 g/dl (12.0-16.0); Mean Corpuscular Hemoglobin 28.3 pg (25.0-34.0); Mean Corpuscular Hgb Conc 32.5 g/dL (32.0-36.0); Mean Corpuscular Volume 86.9 fL (80.0-100.0); Mean Platelet Volume 10.3 fL (9.4-12.4); Platelet Count 314 K/uL (130-400); RDW Coefficient of Variation 13.3 % (11.5-14.5); RDW Standard Deviation 42.5 fL (36.4-46.3); Red Blood Count 4.21 M/uL (4.20-5.40); White Blood Count 8.84 K/ul (4.8-10.8)
[2023-11-01 06:48] LABS: Calcium 9.2 mg/dl (8.6-10.3); Creatinine Clr Calc Pharmacy 68.1 ml/min; Est GFR (African American) 95.8 ml/min; Est GFR (Non-African American) 82.7 ml/min; Potassium 4.3 mmol/L (3.5-5.1)
[2023-11-01 07:07] LABS: Estimated Average Glucose 117 mg/dl; Hemoglobin A1C 5.7 % (4.5-5.6)
[2023-11-01] MEDS: amLODIPine BESYLATE 5 MG TAB PO SCH (07:53)
[2023-11-01] MEDS: PRAVASTATIN SOD 10 MG TAB PO SCH (07:53)
[2023-11-01] MEDS: MULTIVITAMIN TAB PO SCH (07:53)
[2023-11-01] MEDS: PANTOprazole 40 MG TAB PO SCH (07:53)
[2023-11-01] MEDS: ADVANCED PROBIOTIC 625 MG CAPSULE PO SCH (07:53)
[2023-11-01] MEDS: LACTASE 3000 UNIT TAB PO SCH (07:54)
[2023-11-01] MEDS: CYANOCOBALAMIN (B-12) 2,500 MCG TABLET SL SCH (07:54)
[2023-11-01] MEDS: ATENOLOL 25 MG TABLET PO SCH (07:54)
[2023-11-01] MEDS: FLUTICASONE PROPIONATE NA SPR 16 GM BTL NAE SCH (07:55)
[2023-11-01] MEDS: POLYETHYLENE (MIRALAX) 17 GM PACK PO PRN (07:55)
[2023-11-01] MEDS: VIBEGRON 75 MG TAB PO SCH (07:56)
[2023-11-01] MEDS: FUROSEMIDE 20 MG TAB PO ONE (11:20)
--- NOTE | 2023-11-01 13:10 | Hospitalist Progress Note ---
Date of Service November 01, 2023 Assessment & Plan (1) Urinary tract infection: (2) Chronic indwelling Neal catheter: (3) Neurogenic bladder: Plan: Patient is an 83 y/o female with PMH spinal stenosis s/p back surgery x 2, wheelchair bound since last surgery in 2020 due to progressive weakness, neurogenic bladder with chronic Neal, DM II, HTN, dyslipidemia, hypothyroidism, hx DVT, on chronic Eliquis, and other history as outlined below who presented to the ED today with c/o leakage from around the Neal catheter despite Neal change and tactile fever last night. In ER afebrile, vitals stable. No leukocytosis, lactate WNL. UA 3+ leuk esterase, >30 WBC, 5-10 epithelial cells, 1+ bacteria, however patient with chronic Neal and likely colonization H/O fluoroquinolone resistant Pseudomonas UTI in past -- Initial urine culture not contributory Will repeat urine culture Blood culture pending to date Oxybutynin stopped by urology 07/2023 secondary to constipation Continue Myrbetriq Hold chronic nitrofurantoin Continue IV cefepime for now Currently no leakage after replacing Neal catheter If recurrence of issues with Neal catheter, will consider urology evaluation (4) DMII (diabetes mellitus, type 2): Plan: HbA1c 5.7 Hold home metformin Continue insulin while hospitalized Monitor BGs (5) Hypertension: Plan: Stable Continue amlodipine, atenolol (6) Dyslipidemia: Plan: Continue pravastatin (7) Hypothyroidism: Plan: Continue levothyroxine (8) Esophageal reflux: Plan: Continue Protonix (9) History of DVT (deep vein thrombosis): Plan: Chronically anticoagulated on Eliquis Continue Eliquis Leg edema Lasix as needed Left knee arthritis No signs of infection, tenderness on exam Will recommend to follow-up with orthopedics as outpatient DVT Px On Eliquis Code Status Full Code Admission and Anticipated Discharge Date Admission Date: October 31, 2023 Subjective Patient is seen and examined at bedside States having left knee pain which she attributes to arthritis No catheter leak today Denies any dysuria, hematuria, bladder spasms, chest pain, dyspnea, nausea, vomiting, abdominal pain No other complaints Review of Systems Review of Systems: All systems reviewed & are unremarkable except as noted in Subjective Physical Exam Physical Exam: Physical Exam: Vitals signs as noted above General Appearance:Moderately built and nourished, no apparent distress, elderly Head: normocephalic, Atraumatic Eyes: normal inspection, EOMI Neck: supple, Trachea midline Respiratory/Chest: Normal breath sounds, CTA, No accessory muscle use Cardiovascular: S1, S2, No murmur Abdomen/GI:Soft, Non tender, Bowel sounds present Extremities/Musculoskeletal:normal inspection, Mild LLE edema Neurologic/Psych:AAOX3, chronic B/L LE weakness Skin: normal color, warm Results & Data Results & Data Vital Signs (Past 12 Hours) Vital Signs Temp Pulse Resp BP Pulse Ox O2 Del Method 11/01/23 09:05 Room Air 11/01/23 07:23 36.4 C L 65 16 166/79 H 97 Room Air Laboratory Results Short CBC 11/01/23 Range/Units 05:37 WBC 8.84 (4.8-10.8) K/ul Hgb 11.9 L (12.0-16.0) g/dl Hct 36.6 L (37.0-47.0) % Plt Count 314 (130-400) K/uL BMP 11/01/23 05:37 Sodium 138 Potassium 4.3 Chloride 106 Carbon Dioxide 26 BUN 26 H Creatinine 0.65 Glucose 96 Calcium 9.2 (1) Urinary tract infection Hematuria presence: with hematuria Urinary tract infection type: site unspecified Qualified Code(s): N39.0 - Urinary tract infection, site not specified; R31.9 - Hematuria, unspecified (5) Hypertension Hypertension type: primary hypertension Qualified Code(s): I10 - Essential (primary) hypertension (7) Hypothyroidism Hypothyroidism type: unspecified Qualified Code(s): E03.9 - Hypothyroidism, unspecified (8) Esophageal reflux Esophagitis presence: without esophagitis Qualified Code(s): K21.9 - Gastro- esophageal reflux disease without esophagitis
[2023-11-02] MEDS: DOCUSATE SODIUM 100 MG CAP PO SCH (12:11)
--- NOTE | 2023-11-02 15:53 | Hospitalist Progress Note ---
Date of Service November 02, 2023 Assessment & Plan (1) Urinary tract infection: (2) Chronic indwelling Neal catheter: (3) Neurogenic bladder: Plan: Patient is an 83 y/o female with PMH spinal stenosis s/p back surgery x 2, wheelchair bound since last surgery in 2020 due to progressive weakness, neurogenic bladder with chronic Neal, DM II, HTN, dyslipidemia, hypothyroidism, hx DVT, on chronic Eliquis, and other history as outlined below who presented to the ED today with c/o leakage from around the Neal catheter despite Neal change and tactile fever last night. In ER afebrile, vitals stable. No leukocytosis, lactate WNL. UA 3+ leuk esterase, >30 WBC, 5-10 epithelial cells, 1+ bacteria, however patient with chronic Neal and likely colonization H/O fluoroquinolone resistant Pseudomonas UTI in past -- Initial urine culture not contributory --Repeat urine culture growing probable Pseudomonas, gram-negative bacilli Blood culture negative to date Oxybutynin stopped by urology 07/2023 secondary to constipation Continue Myrbetriq Hold chronic nitrofurantoin No recurrence of leakage after replacing Neal catheter If recurrence of issues with Neal catheter, will consider urology evaluation Continue IV cefepime for now Constipation Started on bowel regimen Monitor (4) DMII (diabetes mellitus, type 2): Plan: HbA1c 5.7 Hold home metformin Continue insulin while hospitalized Monitor BGs (5) Hypertension: Plan: Stable Continue amlodipine, atenolol (6) Dyslipidemia: Plan: Continue pravastatin (7) Hypothyroidism: Plan: Continue levothyroxine (8) Esophageal reflux: Plan: Continue Protonix (9) History of DVT (deep vein thrombosis): Plan: Chronically anticoagulated on Eliquis Continue Eliquis Leg edema Lasix as needed Left knee arthritis No signs of infection, tenderness on exam Will recommend to follow-up with orthopedics as outpatient DVT Px On Eliquis Code Status Full Code Admission and Anticipated Discharge Date Admission Date: October 31, 2023 Subjective Patient is seen and examined at bedside Reports constipation Denies any nausea, vomiting, abdominal pain, chest pain, dyspnea No recurrence of urinary catheter leaking Eager to get discharged No other complaints Review of Systems Review of Systems: All systems reviewed & are unremarkable except as noted in Subjective Physical Exam Physical Exam: Physical Exam: Vitals signs as noted above General Appearance:Moderately built and nourished, no apparent distress, elderly Head: normocephalic, Atraumatic Eyes: normal inspection, EOMI Neck: supple, Trachea midline Respiratory/Chest: Normal breath sounds, CTA, No accessory muscle use Cardiovascular: S1, S2, No murmur Abdomen/GI:Soft, Non tender, Bowel sounds present Extremities/Musculoskeletal:normal inspection, Mild LLE edema Neurologic/Psych:AAOX3, chronic B/L LE weakness Skin: normal color, warm Results & Data Results & Data Vital Signs (Past 12 Hours) Vital Signs Temp Pulse Resp BP Pulse Ox O2 Del Method 11/02/23 14:16 36.3 C L 63 16 97/60 L 99 Room Air 11/02/23 07:19 36.4 C L 63 16 167/70 H 98 Room Air (1) Urinary tract infection Hematuria presence: with hematuria Urinary tract infection type: site unspecified Qualified Code(s): N39.0 - Urinary tract infection, site not specified; R31.9 - Hematuria, unspecified (5) Hypertension Hypertension type: primary hypertension Qualified Code(s): I10 - Essential (primary) hypertension (7) Hypothyroidism Hypothyroidism type: unspecified Qualified Code(s): E03.9 - Hypothyroidism, unspecified (8) Esophageal reflux Esophagitis presence: without esophagitis Qualified Code(s): K21.9 - Gastro- esophageal reflux disease without esophagitis
[2023-11-02] MEDS: POLYETHYLENE (MIRALAX) 17 GM PACK PO SCH (20:24)
[2023-11-03 06:09] LABS: Mean Corpuscular Hemoglobin 27.8 pg (25.0-34.0); Mean Corpuscular Hgb Conc 31.4 g/dL (32.0-36.0); Mean Corpuscular Volume 88.4 fL (80.0-100.0); Mean Platelet Volume 10.3 fL (9.4-12.4); Platelet Count 299 K/uL (130-400); RDW Coefficient of Variation 13.2 % (11.5-14.5); RDW Standard Deviation 42.6 fL (36.4-46.3); Red Blood Count 3.96 M/uL (4.20-5.40); White Blood Count 8.42 K/ul (4.8-10.8)
[2023-11-03 06:27] LABS: BUN Creatinine Ratio 40.2 (10-20); Creatinine Clr Calc Pharmacy 48.1 ml/min; Est GFR (African American) 67.2 ml/min; Potassium 4.1 mmol/L (3.5-5.1)
[2023-11-03] MEDS: CIPROFLOXACIN 500 MG TAB PO SCH (09:47)
--- NOTE | 2023-11-03 12:37 | Hospitalist Progress Note ---
Date of Service November 03, 2023 Assessment & Plan (1) Urinary tract infection: (2) Chronic indwelling Neal catheter: (3) Neurogenic bladder: Plan: Patient is an 83 y/o female with PMH spinal stenosis s/p back surgery x 2, wheelchair bound since last surgery in 2020 due to progressive weakness, neurogenic bladder with chronic Neal, DM II, HTN, dyslipidemia, hypothyroidism, hx DVT, on chronic Eliquis, and other history as outlined below who presented to the ED today with c/o leakage from around the Neal catheter despite Neal change and tactile fever last night. In ER afebrile, vitals stable. No leukocytosis, lactate WNL. UA 3+ leuk esterase, >30 WBC, 5-10 epithelial cells, 1+ bacteria, however patient with chronic Neal and likely colonization H/O fluoroquinolone resistant Pseudomonas UTI in past -- Initial urine culture not contributory --Repeat urine culture grew: Pseudomonas, Citrobacter freundii Blood culture negative to date Oxybutynin stopped by urology 07/2023 secondary to constipation Continue Myrbetriq Hold chronic nitrofurantoin No recurrence of leakage after replacing Neal catheter If recurrence of issues with Neal catheter, will consider urology evaluation Continue IV cefepime>>>Transition to Cipro to complete the course And to discharge to SNF today Constipation Continue bowel regimen Resolved (4) DMII (diabetes mellitus, type 2): Plan: HbA1c 5.7 Hold home metformin Continue insulin while hospitalized Monitor BGs (5) Hypertension: Plan: Stable Continue amlodipine, atenolol (6) Dyslipidemia: Plan: Continue pravastatin (7) Hypothyroidism: Plan: Continue levothyroxine (8) Esophageal reflux: Plan: Continue Protonix (9) History of DVT (deep vein thrombosis): Plan: Chronically anticoagulated on Eliquis Continue Eliquis Leg edema Lasix as needed Left knee arthritis No signs of infection, tenderness on exam Will recommend to follow-up with orthopedics as outpatient DVT Px On Eliquis Code Status Full Code Admission and Anticipated Discharge Date Admission Date: October 31, 2023 Subjective Patient is seen and examined at bedside Constipation resolved No new complaints Denies any nausea, vomiting, abdominal pain, chest pain, dyspnea Plan to be discharged to SNF today Review of Systems Review of Systems: All systems reviewed & are unremarkable except as noted in Subjective Physical Exam Physical Exam: Physical Exam: Vitals signs as noted above General Appearance:Moderately built and nourished, no apparent distress, elderly Head: normocephalic, Atraumatic Eyes: normal inspection, EOMI Neck: supple, Trachea midline Respiratory/Chest: Normal breath sounds, CTA, No accessory muscle use Cardiovascular: S1, S2, No murmur Abdomen/GI:Soft, Non tender, Bowel sounds present Extremities/Musculoskeletal:normal inspection, Mild LLE edema Neurologic/Psych:AAOX3, chronic B/L LE weakness Skin: normal color, warm Results & Data Results & Data Vital Signs (Past 12 Hours) Vital Signs Temp Pulse Resp BP Pulse Ox O2 Del Method 11/03/23 07:08 36.4 C L 64 16 154/79 H 98 Room Air Laboratory Results Short CBC 11/03/23 Range/Units 05:29 WBC 8.42 (4.8-10.8) K/ul Hgb 11.0 L (12.0-16.0) g/dl Hct 35.0 L (37.0-47.0) % Plt Count 299 (130-400) K/uL BMP 11/03/23 05:29 Sodium 137 Potassium 4.1 Chloride 105 Carbon Dioxide 27 BUN 37 H Creatinine 0.92 Glucose 103 H Calcium 9.0 (1) Urinary tract infection Hematuria presence: with hematuria Urinary tract infection type: site unspecified Qualified Code(s): N39.0 - Urinary tract infection, site not specified; R31.9 - Hematuria, unspecified (5) Hypertension Hypertension type: primary hypertension Qualified Code(s): I10 - Essential (primary) hypertension (7) Hypothyroidism Hypothyroidism type: unspecified Qualified Code(s): E03.9 - Hypothyroidism, unspecified (8) Esophageal reflux Esophagitis presence: without esophagitis Qualified Code(s): K21.9 - Gastro- esophageal reflux disease without esophagitis
--- NOTE | 2023-11-03 12:47 | Discharge Summary ---
Date of Service November 03, 2023 Admission HPI Per Admitting Provider Patient is an 83 y/o female with PMH spinal stenosis s/p back surgery x 2, wheelchair bound since last surgery in 2020 due to progressive weakness, neurogenic bladder with chronic Neal, DM II, HTN, dyslipidemia, hypothyroidism, hx DVT, on chronic Eliquis, and other history as outlined below who presented to the ED today with c/o leakage from around the Neal catheter despite couple attempts at flushing and replacing Neal over the past week. History obtained from patient and inpatient chart review. Patient states last was changed 3 days ago. Her home nurse evaluated her since and she has had continued urine leakage around Neal. Patient reports felt hot last night. Did not take temperature. Patient worried as she has history of UTIs in past. Patient previously on oxybutynin however this was stopped 07/2023 by urology secondary to constipation. She was switched to Myrbetriq. Patient states since switching to Myrbetriq has had more bladder spasms. Patient feels last night she had more bladder spasms, otherwise denies abdominal pain or flank pain. History fluoroquinolone resistant Pseudomonas UTI in past. Last BM was yesterday soft formed stool. Patient denies any constipation or diarrhea. Denies diaphoresis, N/V, VALERIO, dizziness, syncope, vision changes, neck pain, CP, SOB, cough, sore throat, rhinorrhea, increased weakness, extremity edema, rashes, hematuria. Admission Exam Per Admitting Provider General: no acute distress, WDWN Head: normocephalic, atraumatic Eyes: conjunctiva non-injected, anicteric ENT: normal inspection external ears, nose, mucous membranes moist Neck: supple, trachea midline Lungs: clear, no respiratory distress, no wheezing/rhonchi/rales CV: RRR, no murmur, no pretibial edema Abd: normal BS, soft, non-tender, no CVA tenderness to palpation Ext: no cyanosis, no erythema, no calf tenderness Neuro: A&O x 3, chronic BLE weakness, no other focal deficits noted, normal affect Skin: warm, dry Principal Diagnosis Urinary tract infection Chronic indwelling Neal catheter leakage Neurogenic bladder Left knee pain Discharge Data Allergies Allergy/AdvReac Type Severity Reaction Status Date / Time Sulfa (Sulfonamide Allergy Intermediate RASH/ITCH Verified 10/31/23 11:47 Antibiotics) acesulfame Allergy Mild Unknown Verified 08/26/23 11:05 aspartame Allergy Mild Unknown Verified 08/26/23 11:05 morphine Allergy Mild RASH/ITCH Verified 10/31/23 11:47 propoxyphene Allergy Mild RASH Verified 08/26/23 11:05 saccharin Allergy Mild Unknown Verified 08/26/23 11:05 sucralose Allergy Mild Unknown Verified 08/26/23 11:05 acetaminophen Allergy Unknown Unknown - Unverified 10/31/23 11:47 [facility] List as Allergy Consultations 10/31/23 12:48 ED Decision to Admit Stat Procedures Performed Laboratory Results WBC 8.42 K/ul (4.8-10.8) 11/03/23 05:29 RBC 3.96 M/uL (4.20-5.40) L 11/03/23 05:29 Hgb 11.0 g/dl (12.0-16.0) L 11/03/23 05:29 Hct 35.0 % (37.0-47.0) L 11/03/23 05:29 MCV 88.4 fL (80.0-100.0) 11/03/23 05:29 MCH 27.8 pg (25.0-34.0) 11/03/23 05:29 MCHC 31.4 g/dL (32.0-36.0) L 11/03/23 05:29 RDW Std Deviation 42.6 fL (36.4-46.3) 11/03/23 05:29 RDW Coeff of Efren 13.2 % (11.5-14.5) 11/03/23 05:29 Plt Count 299 K/uL (130-400) 11/03/23 05:29 MPV 10.3 fL (9.4-12.4) 11/03/23 05:29 Immature Gran % (Auto) 0.2 % 10/31/23 11:08 Neut % (Auto) 65.5 % 10/31/23 11:08 Lymph % (Auto) 16.8 % 10/31/23 11:08 [place] % (Auto) 6.6 % 10/31/23 11:08 Eos % (Auto) 10.5 % 10/31/23 11:08 Baso % (Auto) 0.4 % 10/31/23 11:08 Neut # (Auto) 6.00 K/uL (1.40-6.50) 10/31/23 11:08 Lymph # (Auto) 1.54 K/uL (1.20-3.40) 10/31/23 11:08 [place] # (Auto) 0.60 K/uL (0.11-0.59) H 10/31/23 11:08 Eos # (Auto) 0.96 K/uL (0.00-0.50) H 10/31/23 11:08 Baso # (Auto) 0.04 K/uL (0.00-0.20) 10/31/23 11:08 Immature Gran # (Auto) 0.02 K/uL (0.01-0.20) 10/31/23 11:08 Sodium 137 mmol/L (136-145) 11/03/23 05:29 Potassium 4.1 mmol/L (3.5-5.1) 11/03/23 05:29 Chloride 105 mmol/L (98-107) 11/03/23 05:29 Carbon Dioxide 27 mmol/L (21-32) 11/03/23 05:29 Anion Gap 5 (3-11) 11/03/23 05:29 BUN 37 mg/dl (6-23) H 11/03/23 05:29 Creatinine 0.92 mg/dl (0.6-1.2) 11/03/23 05:29 Est Cr Clr Drug Dosing 48.1 ml/min 11/03/23 05:29 Est GFR ( Amer) 67.2 ml/min 11/03/23 05:29 Est GFR (Non-Af Amer) 58.0 ml/min 11/03/23 05:29 BUN/Creatinine Ratio 40.2 (10-20) H 11/03/23 05:29 Glucose 103 mg/dl (70-99(Fasting)) H 11/03/23 05:29 POC Glucose 125 mg/dl (70-99) H 11/03/23 11:35 Estimat Average Glucose 117 mg/dl 11/01/23 05:37 Hemoglobin A1c 5.7 % (4.5-5.6) H 11/01/23 05:37 Lactate 2.0 mmol/L (0.4-2.0) 10/31/23 11:08 Calcium 9.0 mg/dl (8.6-10.3) 11/03/23 05:29 Total Bilirubin 0.3 mg/dl (0.2-1.0) 10/31/23 11:20 AST 13 U/L (13-39) 10/31/23 11:20 ALT 8 U/L (7-52) 10/31/23 11:20 Alkaline Phosphatase 72 U/L (34-104) 10/31/23 11:20 Total Protein 6.3 gm/dl (6.0-8.3) 10/31/23 11:20 Albumin 3.5 gm/dl (3.4-5.0) 10/31/23 11:20 Globulin 2.8 gm/dl (2.5-4.0) 10/31/23 11:20 Albumin/Globulin Ratio 1.3 (0.9-2) 10/31/23 11:20 Urine Color Yellow 10/31/23 11:15 Urine Appearance Cloudy (Clear) A 10/31/23 11:15 Urine pH 7.0 (4.5-7.5) 10/31/23 11:15 Ur Specific [place] 1.012 (1.000-1.030) 10/31/23 11:15 Urine Protein 1+ (Negative) H 10/31/23 11:15 Urine Glucose (UA) Negative (Negative) 10/31/23 11:15 Urine Ketones Negative (Negative) 10/31/23 11:15 Urine Blood 2+ (Negative) H 10/31/23 11:15 Urine Nitrite Negative (Negative) 10/31/23 11:15 Urine Bilirubin Negative (Negative) 10/31/23 11:15 Urine Urobilinogen Negative (Negative) 10/31/23 11:15 Ur Leukocyte Esterase 3+ (Negative) H 10/31/23 11:15 Urine WBC (Auto) >30 /hpf (0-5) H 10/31/23 11:15 Urine RBC (Auto) 10-30 /hpf (0-4) H 10/31/23 11:15 U Hyaline Cast (Auto) 0 /lpf (0-5) 10/31/23 11:15 U Epithel Cells (Auto) 5-10 /lpf (0-5) H 10/31/23 11:15 Urine Bacteria (Auto) 1+ (Negative) H 10/31/23 11:15 Urine Yeast Not Reportable 10/31/23 11:15 SARS-CoV-2, RNA, NAAT NEGATIVE (NEGATIVE) 10/31/23 13:20 Hospital Course (1) Urinary tract infection: (2) Chronic indwelling Neal catheter: (3) Neurogenic bladder: Patient is an 83 y/o female with PMH spinal stenosis s/p back surgery x 2, wheelchair bound since last surgery in 2020 due to progressive weakness, neurogenic bladder with chronic Neal, DM II, HTN, dyslipidemia, hypothyroidism, hx DVT, on chronic Eliquis, and other history as outlined below who presented to the ED today with c/o leakage from around the Neal catheter despite Neal change and tactile fever last night. In ER afebrile, vitals stable. No leukocytosis, lactate WNL. UA 3+ leuk esterase, >30 WBC, 5-10 epithelial cells, 1+ bacteria, however patient with chronic Neal and likely colonization H/O fluoroquinolone resistant Pseudomonas UTI in past -- Initial urine culture not contributory --Repeat urine culture grew: Pseudomonas, Citrobacter freundii Blood culture negative to date Oxybutynin stopped by urology 07/2023 secondary to constipation Continue Myrbetriq Hold chronic nitrofurantoin No recurrence of leakage after replacing Neal catheter If recurrence of issues with Neal catheter, will consider urology evaluation Continue IV cefepime>>>Transition to Cipro to complete the course And to discharge to SNF today Constipation Continue bowel regimen Resolved (4) DMII (diabetes mellitus, type 2): HbA1c 5.7 Hold home metformin Continue insulin while hospitalized Monitor BGs (5) Hypertension: Stable Continue amlodipine, atenolol (6) Dyslipidemia: Continue pravastatin (7) Hypothyroidism: Continue levothyroxine (8) Esophageal reflux: Continue Protonix (9) History of DVT (deep vein thrombosis): Chronically anticoagulated on Eliquis Continue Eliquis Leg edema Lasix as needed Left knee arthritis No signs of infection, tenderness on exam Will recommend to follow-up with orthopedics as outpatient DVT Px On Eliquis Code Status Full Code Total Time Total Time Spent Total Time Spent (In Minutes): 59 minutes Discharge Plan Discharge Items Patient Disposition: Home - Home Health Services Reason For Visit: UTI Discharge Diagnosis: Urinary tract infection Chronic indwelling Neal catheter leakage Neurogenic bladder Left knee pain Activity: Per Instructions section Exercise/Sports: Gradually increase as tolerated Non-emergency contact: Primary Care Provider Call non-emergency contact if: you have any medication questions, your symptoms worsen, your pain is concerning for you and you have a fever [facility] - Diet: Heart Healthy Addtl Attending Provider Instructions: Follow-up with your primary care physician Dr. Clayton in 1 week Consider following with a urologist if recurrence of Neal catheter issues Follow-up with orthopedic surgeon if your left knee pain is persistent -- Complete the antibiotic course ciprofloxacin as prescribed --Your final blood cultures are pending at the time of discharge. Follow-up with your physician for results. -- Hold taking your medication nitrofurantoin while on ciprofloxacin. Can resume after completion of ciprofloxacin antibiotic course. Seek immediate medical attention if your symptoms reoccur or worsen Please take all medications as instructed on discharge list below. Please call if you have any questions or problems. You can reach a [facility] ospitalist on duty at [facility] 24 hours a day by calling [phone] Pending Studies at Discharge: Yes Studies:: Blood cultures Stand-Alone Forms: My [facility] [employer], Smoking Cessation Medications and DC Order Prescriptions: New ciprofloxacin HCl 500 mg Tablet 500 mg PO BID Qty: 13 0RF docusate sodium 100 mg Capsule 100 mg PO BID PRN (Reason: constipation) Qty: 60 0RF polyethylene glycol 3350 [Miralax] 17 gram Powder In Packet 17 g PO BID PRN (Reason: constipation) Qty: 30 0RF furosemide [Lasix] 20 mg tablet 20 mg PO Q3D PRN (Reason: edema) Qty: 10 0RF Continued metformin 500 mg tablet 500 mg PO BID acetaminophen [Tylenol] 325 mg Tablet 650 mg PO Q4 PRN (Reason: Pain) loperamide [Imodium A-D] 2 mg Tablet 2 mg PO Q4H PRN (Reason: Diarrhea) Rx Instructions: administer after each loose stool until symptoms controlled; do not exceed 8 mg per 24 hrs atenolol 25 mg tablet 25 mg PO QAM Tums E-X 300 mg (750 mg) Tablet,Chewable 300 mg PO Q5H PRN (Reason: GERD) amlodipine 5 mg tablet 5 mg PO QAM levothyroxine 25 mcg tablet 25 mcg PO QAM Rx Instructions: Give at 7:00am before breakfast pravastatin 10 mg tablet 10 mg PO QAM lactase 9,000 unit Tablet 9,000 unit PO QAM Rx Instructions: administer with first bite of dairy food pantoprazole 40 mg tablet,delayed release (DR/EC) 40 mg PO QAM fluticasone propionate 50 mcg/actuation spray,suspension 2 spray INTRANASAL DAILY L.acidoph,saliva-B.bif-S.therm [Acidophilus Probiotic Blend] 175 mg Capsule 2 cap PO QAM cyanocobalamin (vitamin B-12) [Vitamin B-12] 5,000 mcg Tablet, Sublingual 5,000 mcg SUBLINGUAL QAM Eliquis 5 mg tablet 5 mg PO BID diclofenac sodium [Voltaren Arthritis Pain] 1 % Gel 4 g EXT BID Qty: 50 0RF multivitamin [Daily-Ning] Tablet 1 tab PO QAM Myrbetriq 25 mg tablet extended release 24 hr 25 mg PO QAM Held nitrofurantoin macrocrystal 100 mg capsule 100 mg PO QAM Hold Instructions: Can resume after completion of ciprofloxacin antibiotic course Rx Instructions: Give with meal, for prevention Discharge Orders: Discharge Order (Routine); Ordered 11/03/23 Ordered By: Lewis Winn/Other Patient Handouts: Managing Type 2 Diabetes Admission Data Admit Date/Time: 10/31/23 12:57 Attending Provider: Lewis Schaefer Admit Provider: Roddy Loza [facility] Other Providers: Roddy Loza
== END 2023-11-03 15:31 | disposition home health service (06) | DRG 699 ==
LOC: ED 10:18 → SUATTDRO 12:57 → EDINP 12:57 → 3E 14:50